=== PATIENT | male | born 1985 | race Caucasian/White ===

== ENCOUNTER 2017-04-27 09:33 | Emergency (ER) | payer MEDICAID, SELFPAY ==
[2017-04-27 09:34] VITALS: BP 163/114; PULSE 100; RESP 18; TEMP 36.4; O2SAT 91; BMI 63.2
--- NOTE | 2017-04-27 09:54 | VDLE_ITS ---
Reason For Study: LEG SWELLING Procedure LEFT Exam performed portable in ED. GSV is normal. A preliminary report was called and/or faxed CFV is compressible, spontaneous, phasic, to Dr. Roberts. competent, and demonstrates normal augmentation. FV is compressible, spontaneous, phasic, competent and demonstrates normal augmentation. POP V is compressible, spontaneous, phasic, competent and demonstrates normal augmentation. T/P Trunk is compressible. PTV is compressible. LT PerV is compressible. Interpretation Summary Deep veins of the left lower extremity are patent and compressible segmentally. There is no evidence of left lower extremity deep vein thrombosis. Valvular competence appears intact within the proximal deep venous system on the left . The left greater saphenous vein appears patent and compressible segmentally. Ordering Physician: Domingo Roberts Referring Physician: Kennedy Fernandes Performed By: Janis Mon RVT
--- NOTE | 2017-04-27 09:58 | ED.VISSUMM ---
- ER Visit Summary Date of Service: 04/27/17 Chief Complaint: Atraumatic left lower extremity redness primarily anteriorly with discomfort History of Present Illness: The patient is a 32 M 3 of mev-qrntoge-erselgoqn diabetes, obesity and sleep apnea. Patient states her last 4 days is developed redness to his left lower extremity primarily anteriorly. And discomfort. No significant calf pain. No chest pain. No new or worsening shortness of breath. He is never had a DVT or PE. He has never had cellulitis of his aware of. He denies any recent travel, surgery or hospitalization. Physical Examination: Well-appearing male vital signs are stable afebrile. Pulse ox 91% on room air borderline hypoxia. H EENT exam unremarkable neck nontender. Lungs are clear to auscultation bilaterally. Heart regular rate and rhythm no murmur. Abdomen morbidly obese but soft nontender nondistended normal bowel sounds no peritoneal signs. Extremities moving all 4. Neurovascular intact. His left lower leg has what appears to be obvious anterior cellulitis. On the mid to lower white. He has a DP pulse. His left foot is neurovascular intact. The calf itself is nontender. There is no lymphangitic streaking. There does not appear to be any involvement of the ankle joint or knee joint. Neurologic exam unremarkable. Test Results: CBC normal white count of 10. Normal H&H. BMP unremarkable. Normal gap. Normal creatinine. Glucose 155. Noninvasive study of his left lower extremity showed no DVT I did discuss this with the robotic maintenance technician. Emergency Department Course and Treatment: Most likely cellulitis of left lower extremity. An ultrasound will be obtained due to the pain and swelling to evaluate for possible DVT. I am also obtain screening labs due to his history of diabetes. Treatment Plan: Repeat exam patient is doing well at 1115. I discussed with him treatment. He will be started on both Bactrim and Keflex for 10 days for his left lower extremity cellulitis. He knows return if worse. He will follow-up with Dr. Fernandes to ensure he is improving. Disposition: Discharge Impression: Acute left lower extremity cellulitis History of hub-mqxhmww-fyvqpsuiz diabetes This note was generated with [employer] dictation software. It may contain incorrect words, spelling, and punctuation that were not noted in review of the chart prior to signing ED Disposition - Plan for ED Patient: Chief Complaint: Lower Extremity Injury Referrals: Kennedy Fernandes MD [Primary Care Provider] -
[2017-04-27 10:18] LABS: Absolute Lymphocyte Count 1.19 X10^3/ul (0.83-4.51); Absolute Neutrophil Count 8.2 X10^3/uL (2.0-7.7); Basophil# 0.02 X10^3/uL; Basophil% 0.2 % (0-1); Eosinophil# 0.31 X10^3/uL; Hematocrit 46.9 % (40-54); Hemoglobin 14.3 g/dl (13.0-16.5); Lymphocyte # 1.19 X10^3/ul (4.0); Lymphocyte % 11.4 % (19-41); Mean Corp Hgb Conc 30.5 g/gl (32-36); Mean Corpuscular Hgb 29.2 pg (27.0-32.0); Mean Corpuscular Volume 95.7 fL (80-94); Mean Platelet Vol. 9.6 fl (6.2-12.0); Monocyte% 6.7 % (0-10); Neutrophil # 8.22 X10^3/uL (2.7-7.7); Neutrophil % 78.3 % (47-70); Platelet Count 205 K/mm3 (150-450); RBC Distribution Width CV 14.5 % (11.6-14.6); RBC Distribution Width SD 50.6 fl (35.1-43.9); White Blood Count 10.5 K/mm3 (4.4-11.0)
[2017-04-27 10:21] LABS: POSITIVE COUNT NO; POSITIVE DIFFERENTIAL NO; POSITIVE MORPHOLOGY NO
[2017-04-27 10:28] LABS: Anion Gap 4 (5-15); BUN 13 mg/dL (7-18); BUN/Creat Ratio 15.1 RATIO (10-20); Calcium,Total 8.6 mg/dL (8.5-10.1); Chloride 98 mmol/L (98-107); Creatinine, Serum 0.86 mg/dL (0.70-1.30); EST Glomerular Filtration Rate 108 mL/min (>60); Est Glom Filt Rate - Afr Amer 131 mL/min (>60); Estimated Creatinine Clearance 140.72 ml/min; Glucose 155 mg/dL (70-110); Potassium 4.2 mmol/L (3.5-5.1); Sodium Level 136 mmol/L (136-145)
[2017-04-27 11:31] VITALS: BP 171/70; PULSE 95; RESP 22; O2SAT 93
[2017-04-27] MEDS: Cephalexin 250 MG Capsule 500 MG PO (11:33)
[2017-04-27] MEDS: Smz/Tmp Ds Tablet 1 TABLET PO (11:33)
--- NOTE | 2017-04-27 11:35 | ED.DEP ---
ED Disposition - Plan for ED Patient: Disposition: Home or Assisted Living Chief Complaint: Lower Extremity Injury Instructions: ED Infec Skin Cellulitis Prescriptions: Cephalexin [Keflex] 500 mg PO Q6 #40 cap Smz/Tmp Ds [Bactrim Ds] 1 tab PO BID #20 tab Referrals: Kennedy Fernandes MD [Primary Care Provider] - 3-5 Days Additional Instructions: Return if cellulitis acute left lower leg is getting a lot worse or streaking up her leg. Take both antibiotics daily for the next 10 days. The Keflex is 1 pill 4 times a day. The Bactrim is 1 pill twice a day. Call and follow-up your doctor to ensure this is improving and watch her blood sugars closely.
--- NOTE | 2017-04-27 11:42 | ED.RN ---
Verbal and written d/c instructions given to patient. All questions answered. Instructed to recheck BP and trend it and follow up with PCP. Verbalizes understanding. Gait steady out of department.
== END 2017-04-27 11:43 | disposition home or self-care (01) ==
PROVIDERS: Emergency Provider Emergency Medicine; Family Provider Family Medicine; PCP Family Medicine
DX: L03.116 Cellulitis of left lower limb (principal); E11.9 Type 2 diabetes mellitus without complications; G47.30 Sleep apnea, unspecified; Z72.0 Tobacco use
CPT/HCPCS: 80048; 85025; 93971; A4216

== ENCOUNTER 2017-04-27 19:35 | Emergency (ER) | payer MEDICAID, SELFPAY ==
[2014-11-11 08:29] VITALS: BP 154/80
[2017-04-27 09:34] VITALS: BMI 63.2
[2017-04-27 11:31] VITALS: BP 171/70
[2017-04-27 19:37] VITALS: BP 173/103; PULSE 100; RESP 27; TEMP 36.5; O2SAT 94; BMI 66.1
[2017-04-27 19:59] VITALS: O2SAT 93
--- NOTE | 2017-04-27 20:12 | RAD_ITS ---
STUDY: X-RAY CHEST REASON FOR EXAM: Male, 32 years old. Cough and chest pain TECHNIQUE: PA and lateral views of the chest. COMPARISON: None. FINDINGS: The lungs are clear and expanded. There is no demonstrated pleural abnormality. There is mild cardiac enlargement. Normal mediastinum and fariba. Normal visualized pulmonary arteries. Normal visualized aortic arch and descending thoracic aorta. Normal visualized thoracic spine. Normal visualized ribs, clavicles, and shoulders. There is no demonstrated abnormality of the visualized soft tissue structures of the upper abdomen. RAD/Chest PA and Lateral IMPRESSION: Lungs are clear. Mild cardiomegaly. Electronically Signed: Refugio Gold DO at 21:07 EST Tel , Service support ,
[2017-04-27] MEDS: Ipratropium/Albuterol Sulfate 3 ML AMPUL.NEB INHALATION (20:24)
[2017-04-27 20:26] VITALS: PULSE 100; RESP 20
[2017-04-27] MEDS: Ibuprofen 400 MG Tablet 800 MG PO (20:33)
--- NOTE | 2017-04-27 20:34 | NURSING ---
ONE MOTRIN FELL ON THE FLOOR SO ANOTHER WAS PULLED FROM THE ACUDOSE.
--- NOTE | 2017-04-27 21:11 | ED.VISSUMM ---
- ER Visit Summary Date of Service: 04/27/17 Chief Complaint: Cough and chest pain History of Present Illness: The patient is a 32 M who was seen earlier today for a leg infection was placed on Keflex and Bactrim. He states he has also been having a cough and runny nose. Tonight he felt a pop in the right side of his chest notes is very painful. He has a history of asthma Physical Examination: Afebrile vital signs are stable Gen: Well-nourished well-developed morbidly obese. BMI 66 Head: Normocephalic atraumatic Eyes: Perrl EOMI ENT: TMs clear no rhinorrhea moist mucous membranes Neck: Supple no lymphadenopathy no JVD nontender CVS: Regular rate rhythm no murmurs normal S1-S2 Respiratory: No distress patient has expiratory wheezing bilaterally. The right lower chest in the mid axillary line extending anteriorly is tender to palpation. Abdomen: Soft nontender nondistended normal bowel sounds no masses Back: Nontender Extremity: Nontender no edema Skin: Normal color no rash Neuro: alert orientated ?3 CN II-XII intact normal strength sensation reflexes gait cerebellar Psych: Normal affect normal mood Test Results: Chest x-ray was obtained which was negative Emergency Department Course and Treatment: Patient received a breathing treatment and prednisone. He will be discharged home with instructions for inhaler use prednisone. Impression: 1. Asthmatic bronchitis 2. Chest wall strain This note was generated with [employer] dictation software. It may contain incorrect words, spelling, and punctuation that were not noted in review of the chart prior to signing ED Disposition - Plan for ED Patient: Disposition: Home or Assisted Living Chief Complaint: Cough Instructions: ED Bronchitis Asthmatic, ED Strain Chest Wall Prescriptions: Ibuprofen [Motrin] 800 mg PO TID PRN PRN #20 tab PRN Reason: Pain Prednisone [Deltasone] 60 mg PO DAILY #15 tab Referrals: Kennedy Fernandes MD [Primary Care Provider] - 1 Week if not improving
[2017-04-27 21:24] VITALS: BP 153/101; PULSE 88; RESP 22; O2SAT 93
== END 2017-04-27 21:25 | disposition home or self-care (01) ==
PROVIDERS: Emergency Provider Emergency Medicine; Family Provider Family Medicine; PCP Family Medicine
DX: J45.909 Unspecified asthma, uncomplicated (principal); E66.01 Morbid (severe) obesity due to excess calories; Z68.44 Body mass index [BMI] 60.0-69.9, adult; E11.9 Type 2 diabetes mellitus without complications; I10 Essential (primary) hypertension; Z72.0 Tobacco use
CPT/HCPCS: 71046; 80048; 85025; 93971; 94640; 99283; 99284; A4216

== ENCOUNTER 2017-05-20 16:38 | Emergency (ER) | payer MEDICAID, SELFPAY ==
[2017-05-20 16:39] VITALS: BP 167/99; PULSE 99; RESP 16; TEMP 36.4; O2SAT 95; BMI 62.2
--- NOTE | 2017-05-20 17:14 | ED.VISSUMM ---
- ER Visit Summary Date of Service: 05/20/17 Chief Complaint: Scrotal edema making it difficult to urinate History of Present Illness: The patient is a 32 M and is a history of morbid obesity and mnq-yclgvyl-xpwlbaovx diabetes. Patient states that he has had swelling in his lower groin region in the past. He said swollen now and makes it difficult for him the PE because of his penis is surrounded by swollen scrotum. He denies pain. He denies trauma. He denies fever. Physical Examination: Well-appearing young male. Vital signs are stable. He is afebrile. He does not look septic or toxic. He is in no distress. He is morbidly obese. H EENT exam unremarkable. Neck nontender. No lymphadenopathy. Lungs clear few scattered wheezes but no rales or rhonchi. No distress. Heart regular rate and rhythm no murmur. Abdomen is morbidly obese but soft. No peritoneal signs. Positive bowel sounds. External area shows significant swelling of his entire scrotum. His penis is surrounded by swollen tissue and retracted. He is moving all 4 extremities. They are neurovascularly intact. He does have some edema in his lower extremities also. Neurologically is awake and alert without focal deficits. Test Results: None Emergency Department Course and Treatment: Options were discussed with the patient he chose ago the Bruner catheter. He and I did discuss that he needed to seriously consider and follow through with a plan for weight loss. Also to stop smoking. Treatment Plan: Only catheter and follow-up with his primary care physician Dr. Fernandes Disposition: dc Impression: Scrotal edema making it difficult to urinate RN to Place Bruner catheter Morbid obesity Tobacco abuse Diabetes This note was generated with [employer] dictation software. It may contain incorrect words, spelling, and punctuation that were not noted in review of the chart prior to signing ED Disposition - Plan for ED Patient: Chief Complaint: Complaint Referrals: Kennedy Fernandes MD [Primary Care Provider] -
--- NOTE | 2017-05-20 17:18 | ED.DCSUM_ITS ---
- ER Visit Summary Date of Service: 05/20/17 Chief Complaint: Scrotal edema making it difficult to urinate History of Present Illness: The patient is a 32 M and is a history of morbid obesity and xjf-zvtaiqk-afmhcpnve diabetes. Patient states that he has had swelling in his lower groin region in the past. He said swollen now and makes it difficult for him the PE because of his penis is surrounded by swollen scrotum. He denies pain. He denies trauma. He denies fever. Physical Examination: Well-appearing young male. Vital signs are stable. He is afebrile. He does not look septic or toxic. He is in no distress. He is morbidly obese. H EENT exam unremarkable. Neck nontender. No lymphadenopathy. Lungs clear few scattered wheezes but no rales or rhonchi. No distress. Heart regular rate and rhythm no murmur. Abdomen is morbidly obese but soft. No peritoneal signs. Positive bowel sounds. External area shows significant swelling of his entire scrotum. His penis is surrounded by swollen tissue and retracted. He is moving all 4 extremities. They are neurovascularly intact. He does have some edema in his lower extremities also. Neurologically is awake and alert without focal deficits. Test Results: None Emergency Department Course and Treatment: Options were discussed with the patient he chose ago the Bruner catheter. He and I did discuss that he needed to seriously consider and follow through with a plan for weight loss. Also to stop smoking. Treatment Plan: Only catheter and follow-up with his primary care physician Dr. Fernandes Disposition: dc Impression: Scrotal edema making it difficult to urinate RN to Place Bruner catheter Morbid obesity Tobacco abuse Diabetes This note was generated with [employer] dictation software. It may contain incorrect words, spelling, and punctuation that were not noted in review of the chart prior to signing ED Disposition - Plan for ED Patient: Chief Complaint: Complaint Referrals: Kennedy Fernandes MD [Primary Care Provider] -
--- NOTE | 2017-05-20 17:18 | ED.DEP ---
ED Disposition - Plan for ED Patient: Disposition: Home or Assisted Living Chief Complaint: Complaint Referrals: Kennedy Fernandes MD [Primary Care Provider] - As soon as possible Additional Instructions: You have a follow-up your primary care physician and come up with a plan for weight loss. Bruner catheter was placed just to make it more convenient for you to urinate. This will need to be changed every 30 days if not taken out altogether.
--- NOTE | 2017-05-20 19:35 | ED.RN ---
Report called to Elinor Melendrez.
== END 2017-05-20 17:45 | disposition home or self-care (01) ==
PROVIDERS: Emergency Provider Emergency Medicine; Family Provider Family Medicine; PCP Family Medicine
DX: N50.89 Other specified disorders of the male genital organs (principal); E66.01 Morbid (severe) obesity due to excess calories; E11.9 Type 2 diabetes mellitus without complications; Z72.0 Tobacco use
CPT/HCPCS: 51702; 99283

== ENCOUNTER 2017-05-20 22:19 | Emergency (ER) | payer MEDICAID, SELFPAY ==
[2017-05-20 22:19] VITALS: BP 188/124; PULSE 108; RESP 28; TEMP 36.7; O2SAT 92; BMI 61.6
--- NOTE | 2017-05-20 22:42 | ED.DCSUM_ITS ---
- ER Visit Summary Date of Service: 05/20/17 Chief Complaint: I want the Bruner taken out History of Present Illness: The patient is a 32 M was seen in the ER several hours ago. At that time he was having trouble urinating due to significant scrotal edema. He could urinate it was just flowing all over himself in his pants. That time he requested a Bruner catheter be placed which we did. There was good urine flow at the time. He states he was having discomfort and return tonight to have the catheter taken out. Physical Examination: Vital signs blood pressure elevated at 180/124. That will be rechecked prior to discharge. Lungs clear. Heart tachycardic no murmur. Morbidly obese. Moving all 4 extremities. Neurovascularly intact. Test Results: None Emergency Department Course and Treatment: Patient returned to have his Bruner catheter removed. There is took down the balloon and removed the catheter without any difficulty. There was clear yellow urine in the bag. Treatment Plan: [] Disposition: Discharge Impression: Bruner catheter removed. This note was generated with [employer] dictation software. It may contain incorrect words, spelling, and punctuation that were not noted in review of the chart prior to signing ED Disposition - Plan for ED Patient: Chief Complaint: Bruner C/O Referrals: Kennedy Fernandes MD [Primary Care Provider] -
== END 2017-05-20 23:17 | disposition home or self-care (01) ==
LOC: ED 23:00
PROVIDERS: Emergency Provider Emergency Medicine; Family Provider Family Medicine; PCP Family Medicine
DX: Z43.6 Encounter for attention to other artificial openings of urinary tract (principal); E66.01 Morbid (severe) obesity due to excess calories; E11.9 Type 2 diabetes mellitus without complications; Z72.0 Tobacco use
CPT/HCPCS: 51702; 99282; 99283

== ENCOUNTER 2017-05-27 12:59 | Inpatient (IN) | payer MEDICAID, SELFPAY ==
[2017-05-27 13:00] VITALS: BP 148/108; PULSE 104; RESP 22; TEMP 35.8; O2SAT 94; BMI 85.2
[2017-05-27 13:52] LABS: Absolute Lymphocyte Count 1.09 X10^3/ul (0.83-4.51); Absolute Neutrophil Count 8.5 X10^3/uL (2.0-7.7); Basophil# 0.02 X10^3/uL; Basophil% 0.2 % (0-1); Eosinophil# 0.14 X10^3/uL; Eosinophils% 1.3 % (0-5); Hematocrit 42.9 % (40-54); Hemoglobin 13.7 g/dl (13.0-16.5); Lymphocyte # 1.09 X10^3/ul (4.0); Lymphocyte % 10.1 % (19-41); Mean Corp Hgb Conc 31.9 g/gl (32-36); Mean Corpuscular Hgb 29.4 pg (27.0-32.0); Mean Corpuscular Volume 92.1 fL (80-94); Monocyte# 0.93 X10^3/uL; Monocyte% 8.6 % (0-10); Neutrophil # 8.53 X10^3/uL (2.7-7.7); Neutrophil % 79.2 % (47-70); POSITIVE COUNT NO; POSITIVE DIFFERENTIAL NO; POSITIVE MORPHOLOGY NO; Platelet Count 255 K/mm3 (150-450); RBC Distribution Width CV 14.9 % (11.6-14.6); RBC Distribution Width SD 48.5 fl (35.1-43.9); Red Blood Count 4.66 M/mm3 (4.6-6.2); White Blood Count 10.8 K/mm3 (4.4-11.0)
[2017-05-27 14:05] LABS: Anion Gap 6 (5-15); BUN 18 mg/dL (7-18); BUN/Creat Ratio 19.1 RATIO (10-20); Calcium,Total 8.6 mg/dL (8.5-10.1); Chloride 98 mmol/L (98-107); Creatinine, Serum 0.94 mg/dL (0.70-1.30); EST Glomerular Filtration Rate 97 mL/min (>60); Est Glom Filt Rate - Afr Amer 118 mL/min (>60); Estimated Creatinine Clearance 92.72 ml/min; Glucose 175 mg/dL (74-106); Potassium 4.4 mmol/L (3.5-5.1); Sodium Level 134 mmol/L (136-145)
--- NOTE | 2017-05-27 14:52 | ED.DCSUM_ITS ---
- ER Visit Summary Date of Service: 05/27/17 Chief Complaint: [Swelling and discomfort to the scrotum and testicles.] History of Present Illness: The patient is a 32 M [presents to the emergency department with complaint of scrotal discomfort and swelling gradually is worsened since yesterday. Patient was seen in the emergency department about 6 days ago for similar complaint and had a Bruner catheter placed as he was dribbling urine onto himself. Patient subsequently did not like the Bruner catheter so he came back to the emergency department demanding that it be removed. Patient was told to take his water pill which she had neglected for some time and he states that since taking his Lasix the swelling initially improved over the preceding several days. Yesterday started having increased discomfort and swelling to his testicles. Patient states that now they are red and warm to the touch. Denies any fever or vomiting.] She gives history of prior scrotal abscess that required incision and drainage. Physical Examination: [HEENT-PERRLA, EOMI. Cranial nerves II through XII grossly intact. TMs clear. Mucous membranes moist. No adenopathy. Cardiovascular-regular rate and rhythm without murmur or ectopy Lungs-clear to auscultation, chest wall stable without crepitus or subcu emphysema Abdomen-normoactive bowel sounds, soft, nontender, no rebound or rigidity, no peritoneal signs. exam-patient has edematous swollen scrotum is somewhat firm to palpate. There is diffuse erythema and excoriation of the skin. There is a foul odor noted. I am unable to visualize his penis that is retracted into his scrotum. I do not see any evidence of scrotal abscess at this time. Extremities-intact ?4, normal range of motion, normal pulses, atraumatic] Test Results: [CBC with differential obtained showed a white count of 10.8, Hemoccult 13.7, hematocrit 43, platelets 255. Chemistries were unremarkable. Blood cultures were ordered.] Emergency Department Course and Treatment: [Patient was given IV Zosyn as well as Diflucan.] Treatment Plan: [Patient will be admitted for IV antibiotics and antifungals.] Disposition: [Admit] Impression: Cellulitis scrotum [] This note was generated with [employer] dictation software. It may contain incorrect words, spelling, and punctuation that were not noted in review of the chart prior to signing ED Disposition - Plan for ED Patient: Chief Complaint: Male Pain/Injury Referrals: Kennedy Fernandes MD [Primary Care Provider] -
--- NOTE | 2017-05-27 15:35 | HP.PCM_ITS ---
Problem List (1) Scrotal wall abscess Status: Resolved (2) Sleep apnea Status: Chronic (3) Morbid obesity Status: Chronic (4) Essential hypertension Status: Chronic (5) Type II diabetes mellitus Status: Chronic (6) History of sinus bradycardia Status: Chronic (7) Hyperlipidemia Status: Chronic (8) Chronic asthma Status: Chronic History of Present Illness Date of Admission: 05/27/17 Chief Complaint: Scrotal swelling, pain, warmth, redness. The patient is a 32 year old M who presents to the emergency room due to scrotal pain, swelling, redness, warmth. He states this began yesterday morning and has slowly been getting worse. He states pain is so severe now that he does not want that area touched for physical exam. He has not received any pain medication in ER. Patient recently presented to ER 05/20/2017 due to scrotal swelling and dribbling of urine which was causing irritation to his groin and scrotum area. A Bruner was placed along with increase in Lasix regimen and patient was discharged from ER to follow-up with primary care. He returned to the emergency room due to discomfort related to Bruner and Bruenr was then taken out. He states he is voiding without difficulty. Patient denies fever, chills. Denies nausea, vomiting. States he has a chronic cough and a few days ago had a hard cough which she states displaced rib on the right side. He has had significant pain from this. He states his primary care physician told him this would resolve on its own. He denies recent illness. He has a past medical history of type 2 diabetes mellitus, hypertension, hyperlipidemia, obstructive sleep apnea, asthma, tobacco dependence. Patient was admitted October 2014 for scrotal abscess which required incision and drainage by Dr. Ling. Cultures from abscess at that time showed anaerobic cocci and Streptococcus agalactiae. He states he still has an opening from incision and drainage from that time. Past Medical History Past Medical History (Chronic Problems): Chronic Problems Hyperlipidemia (Chronic) Chronic asthma (Chronic) Sleep apnea (Chronic) Morbid obesity (Chronic) Essential hypertension (Chronic) Type II diabetes mellitus (Chronic) History of sinus bradycardia (Chronic) Allergies GRASS Allergy (Uncoded 05/27/17 13:00) SNEEZING Home Medications: Ambulatory Orders Medication Instructions Recorded Albuterol IH (ProAir) [Proair Hfa] 1 - 2 puff INHALATION Q4H PRN PRN 11/08/14 Lisinopril [Zestril] 20 mg PO DAILY 11/08/14 Metformin(XR) [Glucophage Xr] 1,000 mg PO BID 11/08/14 Atorvastatin Calcium [Lipitor] 20 mg PO QHS 05/20/17 Furosemide [Furosemide] 40 mg PO DAILY 05/20/17 Surgical History: - - Scrotal abscess incision and drainage Psychiatric History: No pertinent psych hx Lives: Spouse/ Significant Other Smoking Status: Current every day smoker - 1 pack per day Tobacco Use: Cigarettes Alcohol: Occasional Drugs: None - *Family History Maternal History Items: Hypertension Review of Systems Constitutional: Denies: Chills, Fever, Weight Change HEENT: Denies: Head Aches, Sinus Congestion, Sinus Drainage Cardiovascular: Reports: Edema - Scrotal. Denies: Chest Pain, Chest Tightness, Light Headedness, Syncope Respiratory: Reports: Cough, Shortness of breath upon exertion. Denies: Wheezing Gastrointestinal: Denies: Abdominal Pain, Nausea, Vomiting Genitourinary: Denies: Dysuria Musculoskeletal: Reports: - - Right rib pain. Denies: Joint Pain, Joint Tenderness Skin: Reports: - - Chronic skin changes bilateral lower extremity with dryness and erythema. Denies: Rash, Wounds Neurological: Denies: Numbness, Tingling, Focal weakness Psychiatric: Denies: Anxiety, Depression, Homicidal Ideations, Suicidal Ideations Hematologic/ Lymphatic: Denies: Easy Bruising, Easy Bleeding VTE Information - Inpt Only VTE Present on Admission: No VTE Mechan Device Prophylaxis: None VTE Pharm Prophylaxis ordered?: Yes - Physical Exam General: Alert, Oriented x3, Cooperative, No apparent distress HEENT: Atraumatic, PERRLA, EOMI, Normocephalic Neck: Supple, No JVD, Negative Carotid Bruits Lungs: Clear to auscultation, Diminished Cardiovascular: Regular Rhythm, Normal S1, Normal S2, No murmurs, Tachycardic Abdomen: Bowel Sounds Present, Soft, Non Tender, Non-Distended, Obese Extremities: No clubbing, No cyanosis, Edema - scrotal Skin: - - Redness and excoriation bilateral groin folds L>R. Scrotum with redness, warmth, edema. No open wound or abscess noted. Musculoskeletal: No Tenderness to Palpation of Joints or Extremities Neurological: Cranial nerves II-XII grossly intact, Neuro grossly intact Psych/Mental Status: Normal Affect, Appropriate Vital Signs Temp Pulse Resp BP Pulse Ox 96.4 F L 104 H 22 H 148/108 H 94 05/27/17 13:00 05/27/17 13:00 05/27/17 13:00 05/27/17 13:00 05/27/17 13:00 Oxygen Delivery Method Room Air Weight: 225.3 kg Body Mass Index (BMI) 85.2 Finger Stick Blood Glucose 144 Intake and Output for Last 24 Hours 05/25/17 05/26/17 05/27/17 23:59 23:59 23:59 Output Total 400 / 400 Balance -400 / -400 Laboratory Tests Past 24 Hrs 05/27/17 05/27/17 13:30 13:30 WBC 10.8 RBC 4.66 Hgb 13.7 Hct 42.9 MCV 92.1 MCH 29.4 MCHC 31.9 L RDW 14.9 H RDW Differential 48.5 H Plt Count 255 MPV 10.0 Immature Gran % (Auto) 0.600 Neut % (Auto) 79.2 H Lymph % (Auto) 10.1 L [place] % (Auto) 8.6 Eos % (Auto) 1.3 Baso % (Auto) 0.2 Absolute Neuts (auto) 8.5 H Absolute Lymphs (auto) 1.09 Total Counted Not Reportable Sodium 134 L Potassium 4.4 Chloride 98 Carbon Dioxide 30.0 Anion Gap 6 BUN 18 Creatinine 0.94 Estim Creat Clear Calc 92.72 Est GFR (MDRD) Af Amer 118 Est GFR (MDRD) Non-Af 97 BUN/Creatinine Ratio 19.1 Glucose 175 H Calcium 8.6 Assessment/Plan 1. Cellulitis of scrotum-history of scrotal abscess which required incision and drainage by Dr. Ling with cultures positive for Streptococcus agalactiae and anaerobic cocci. Begin IV Zosyn and IV vancomycin empirically. No open wound for culture. Consult Dr. Ling. Begin IV Lasix 40 mg twice daily. IV morphine and p.o. OxyIR as needed for pain. Blood cultures drawn in ER, pending. Patient received IV Diflucan and ER for suspected fungal involvement. Nystatin powder to groin. Elevate scrotum. Ultrasound of scrotum pending to assess for abscess. Patient is afebrile. No leukocytosis. 2. Right rib pain secondary to chronic cough-patient states he was told he had a displaced or fractured rib on the right side. Complete chest x-ray with rib views. Patient states cough is chronic in nature. Possibly secondary to asthma versus GERD? Trial of famotidine to see if this helps. Albuterol and DuoNeb breathing treatments. 3. Type 2 diabetes mellitus-hold oral regimen. Accu-Cheks before meals at bedtime with sliding scale insulin. Carb control/calorie controlled diet. Check hemoglobin A1c. 4. Hypertension-mildly elevated on admission. Continue lisinopril regimen. Home Lasix regimen switched to IV. 5. Hyperlipidemia-continue statin. 6. Obstructive sleep apnea- CPAP HS. 7. Asthma-albuterol as needed and DuoNeb ATC. No acute exacerbation. 8. Morbid obesity- Nutrition consult. Strongly encouraged diet and lifestyle modifications and outpatient follow up with [facility]. DVT prophylaxis-Lovenox subcu This patient was seen by GABRIEL Michael under the supervision of Dr. Henry.
[2017-05-27 15:37] VITALS: BP 139/90; PULSE 100; RESP 26; O2SAT 93
--- NOTE | 2017-05-27 16:02 | US_ITS ---
STUDY: SCROTUM ULTRASOUND REASON FOR EXAM: Male, 32 years old. Swollen and painful testes. TECHNIQUE: Ultrasound evaluation of the scrotum was performed with color Doppler and static mendoza-scale imaging. COMPARISON: None. FINDINGS: RIGHT TESTICLE INTRATESTICULAR: There is a normal size of the right testicle. The right testicle measures 4.5 x 4.2 x 3.1 cm. There is a homogenous echotexture. There is decreased arterial and normal venous vascularity. There is no demonstrated right testicular mass or cyst. EXTRATESTICULAR: The epididymis is enlarged. The epididymis head measures 2.5 cm. There is normal vascularity of the epididymis. There is no demonstrated epididymal cystic structure. There is a small hydrocele. There is no demonstrated varicocele. There is no demonstrated extratesticular mass or cyst. There is massive edema of the scrotal wall. LEFT TESTICLE INTRATESTICULAR: There is a normal size of the left testicle. The left testicle measures 3.5 x 4.0 x 2.7 cm. There is a homogenous echotexture. There is decreased arterial and normal venous vascularity. There is no demonstrated left testicular mass or cyst. EXTRATESTICULAR: The epididymis is enlarged. The epididymis head measures 3.3 cm. There is normal vascularity of the epididymis. There is no demonstrated epididymal cystic structure. There is a small hydrocele. There is no demonstrated varicocele. There is no demonstrated extratesticular mass or cyst. There is massive edema of the scrotal wall. US/Testicular with Arterial Flow IMPRESSION: Normal bilateral testicles. No definite torsion. Massive diffuse swelling of the scrotal wall. Bilateral enlarged epididymis and cannot exclude epididymitis. Electronically Signed: Mahendra Smith MD at 17:38 EST , Service support ,
--- NOTE | 2017-05-27 16:07 | RAD_ITS ---
STUDY: X-RAY - UNILATERAL RIBS ( RIGHT ) WITH CHEST REASON FOR EXAM: Male, 32 years old. Coughing and pain. TECHNIQUE - RIBS: 4 view(s) of the ribs. TECHNIQUE - CHEST: Single frontal view of the chest. COMPARISON: 04/27/2017. FINDINGS - RIBS: There is a nondisplaced fracture of the right eighth rib. FINDINGS - CHEST: The lungs are clear and expanded. There is no demonstrated pleural abnormality. There is mild cardiac enlargement. Normal mediastinum and fariba. Normal visualized pulmonary arteries. Normal visualized aortic arch and descending thoracic aorta. There is a nondisplaced fracture of the right eighth rib. There is no demonstrated abnormality of the visualized soft tissue structures of the upper abdomen. RAD/Ribs Uni Min 3V w/PA Chest IMPRESSION: RIBS: There is a nondisplaced fracture of the right eighth rib. CHEST: No acute chest disease. Electronically Signed: Mahendra Smith MD at 16:30 EST , Service support ,
[2017-05-27] MEDS: Ondansetron 4 MG/2 ML Vial IV (16:26)
--- NOTE | 2017-05-27 16:29 | NURSING ---
IN U/S. TECH CALLED TO ED, STS PT REFUSING TESTICULAR U/S UNTIL HE HAS PAIN MEDICINE. ORDER OBTAINED FROM DR CR. PT MEDICATED ORDERED.
[2017-05-27 16:52] LABS: Hemoglobin A1c 8.2 % (4.2-6.3)
[2017-05-27 17:40] VITALS: BP 147/68; PULSE 55; RESP 20; TEMP 36.9; O2SAT 93
[2017-05-27] MEDS: Piperacil/Tazobactam 3.375 GM/50 ML ML IV ×2 (17:42→22:31)
--- NOTE | 2017-05-27 17:47 | NURSING ---
pt just arrived to unit, ambulatory to br for void and then got in bed
[2017-05-27 18:00] VITALS: PULSE 55; RESP 20; O2SAT 93; BMI 71.2; BMI 85.3
[2017-05-27 18:06] LABS: Bedside Glucose 134 mg/dL (70-110)
[2017-05-27] MEDS: Furosemide 40 MG/4 ML Vial IV (18:43)
[2017-05-27 18:53] VITALS: O2SAT 93
[2017-05-27] MEDS: oxyCODONE 5 MG Tablet PO (19:44)
[2017-05-27] MEDS: DiphenhydrAMINE 25 MG Capsule PO (19:45)
[2017-05-27 22:00] VITALS: BP 125/57; PULSE 103; RESP 18; TEMP 36.8; O2SAT 95
[2017-05-27] MEDS: Enoxaparin 40 MG/0.4 ML Syringe SC (22:12)
[2017-05-27] MEDS: Atorvastatin Calcium 20 MG Tablet PO (22:12)
[2017-05-27] MEDS: Famotidine 20 MG Tablet PO (22:13)
[2017-05-27] MEDS: Nystatin Powder 15gm Bottle 1 APPLIC TOPICAL (22:31)
--- NOTE | 2017-05-27 23:30 | CPS ---
PT STATES HE WEARS HOME PAP BUT ISN'T POSITIVE OF HIS PRESSURE. OFFERED CPAP MACHINE FOR HS USE AND PT DECLINES AT THIS TIME.
[2017-05-28] MEDS: HYDROmorphone 1 MG/ML Syringe IV ×3 (00:19→20:35)
[2017-05-28] MEDS: oxyCODONE 5 MG Tablet PO ×4 (03:40→22:48)
[2017-05-28 03:53] VITALS: BP 136/77; PULSE 100; RESP 20; TEMP 36.6; O2SAT 95
[2017-05-28] MEDS: Nystatin Powder 15gm Bottle 1 APPLIC TOPICAL ×3 (05:27→20:43)
[2017-05-28] MEDS: Piperacil/Tazobactam 3.375 GM/50 ML ML IV ×3 (05:28→22:48)
[2017-05-28 06:33] LABS: Absolute Lymphocyte Count 0.96 X10^3/ul (0.83-4.51); Absolute Neutrophil Count 8.4 X10^3/uL (2.0-7.7); Basophil# 0.01 X10^3/uL; Basophil% 0.1 % (0-1); Eosinophil# 0.17 X10^3/uL; Eosinophils% 1.6 % (0-5); Hematocrit 42.5 % (40-54); Hemoglobin 12.9 g/dl (13.0-16.5); Lymphocyte # 0.96 X10^3/ul (4.0); Lymphocyte % 8.9 % (19-41); Mean Corp Hgb Conc 30.4 g/gl (32-36); Mean Corpuscular Hgb 28.8 pg (27.0-32.0); Mean Corpuscular Volume 94.9 fL (80-94); Mean Platelet Vol. 10.2 fl (6.2-12.0); Monocyte# 1.19 X10^3/uL; Monocyte% 11.1 % (0-10); Neutrophil # 8.38 X10^3/uL (2.7-7.7); Neutrophil % 77.8 % (47-70); Platelet Count 243 K/mm3 (150-450); RBC Distribution Width CV 15.1 % (11.6-14.6); RBC Distribution Width SD 51.9 fl (35.1-43.9); Red Blood Count 4.48 M/mm3 (4.6-6.2); White Blood Count 10.8 K/mm3 (4.4-11.0)
[2017-05-28 06:45] LABS: POSITIVE COUNT NO; POSITIVE DIFFERENTIAL NO; POSITIVE MORPHOLOGY NO
[2017-05-28 06:56] LABS: Bedside Glucose 152 mg/dL (70-110)
[2017-05-28 06:59] LABS: Anion Gap 8 (5-15); BUN 26 mg/dL (7-18); BUN/Creat Ratio 16.9 RATIO (10-20); Calcium,Total 8.3 mg/dL (8.5-10.1); Chloride 94 mmol/L (98-107); Creatinine, Serum 1.54 mg/dL (0.70-1.30); EST Glomerular Filtration Rate 55 mL/min (>60); Est Glom Filt Rate - Afr Amer 67 mL/min (>60); Estimated Creatinine Clearance 69.79 ml/min; Glucose 155 mg/dL (74-106); Potassium 4.9 mmol/L (3.5-5.1); Sodium Level 135 mmol/L (136-145)
[2017-05-28 07:15] VITALS: O2SAT 95
--- NOTE | 2017-05-28 08:40 | PCM.PROGNOTE ---
<Annabel Scott - Last Filed: 05/28/17 09:22> Subjective: Patient seen and examined. Continues to have severe pain in the scrotum and right rib area. Denies fever, chills. Denies nausea, vomiting. States he does not feel swelling of the scrotum has improved much. Denies difficulty urinating. Denies other complaints. - Physical Exam General: Alert, Oriented x3, Cooperative, No apparent distress HEENT: Atraumatic, PERRLA, EOMI, Normocephalic Neck: Supple, No JVD, Negative Carotid Bruits Lungs: Clear to auscultation, Diminished Cardiovascular: Regular rate, Regular Rhythm, Normal S1, Normal S2, No murmurs Abdomen: Bowel Sounds Present, Soft, Non Tender, Non-Distended, Obese Extremities: No clubbing, No cyanosis, Edema - Scrotal Skin: - - Scrotal edema with diffuse excoriations and erythema. Bilateral groin/inguinal diffuse redness, foul odor and excoriation. Right scrotum with prior incision from 2014 with no noted drainage. Musculoskeletal: No Tenderness to Palpation of Joints or Extremities, - - Right lateral ribs tender to palpation Neurological: Cranial nerves II-XII grossly intact, Neuro grossly intact Psych/Mental Status: Normal Affect, Appropriate Vital Signs Temp Pulse Resp BP Pulse Ox 97.8 F 100 20 H 136/77 H 95 05/28/17 03:53 05/28/17 03:53 05/28/17 03:53 05/28/17 03:53 05/28/17 07:15 Oxygen Flow Rate 2 Oxygen Delivery Method Nasal Cannula Weight: 225.3 kg Body Mass Index (BMI) 71.2 Intake and Output for Last 24 Hours 05/26/17 05/27/17 05/28/17 23:59 23:59 23:59 Intake Total 2559 / 2559 Balance 2559 / 2559 Laboratory Tests Past 24 Hrs 05/28/17 05/28/17 05:35 05:35 WBC 10.8 RBC 4.48 L Hgb 12.9 L Hct 42.5 MCV 94.9 H MCH 28.8 MCHC 30.4 L RDW 15.1 H RDW Differential 51.9 H Plt Count 243 MPV 10.2 Immature Gran % (Auto) 0.500 Neut % (Auto) 77.8 H Lymph % (Auto) 8.9 L [place] % (Auto) 11.1 H Eos % (Auto) 1.6 Baso % (Auto) 0.1 Absolute Neuts (auto) 8.4 H Absolute Lymphs (auto) 0.96 Total Counted Not Reportable Sodium 135 L Potassium 4.9 Chloride 94 L Carbon Dioxide 33.0 H Anion Gap 8 BUN 26 H Creatinine 1.54 H Estim Creat Clear Calc 69.79 Est GFR (MDRD) Af Amer 67 Est GFR (MDRD) Non-Af 55 L BUN/Creatinine Ratio 16.9 Glucose 155 H Calcium 8.3 L POC Glucose 05/28/17 05/27/17 06:49 17:54 POC Glucose 152 H 134 H Assessment/Plan Patient is a 32-year-old male admitted 05/27/2017 due to scrotal swelling, pain, warmth, redness. Patient was admitted October 2014 for scrotal abscess which required incision and drainage by Dr. Ling. Cultures from abscess at that time showed anaerobic cocci and Streptococcus agalactiae. He has a past medical history of type 2 diabetes mellitus, hypertension, hyperlipidemia, obstructive sleep apnea, asthma, tobacco dependence. 1. Cellulitis of scrotum-history of scrotal abscess which required incision and drainage by Dr. Ling in 2014 with cultures positive for Streptococcus agalactiae and anaerobic cocci. Continue IV Zosyn and IV vancomycin empirically. Continue IV Diflucan. No open wound for culture. Consult Dr. Ling. Continue IV Lasix 40 mg twice daily. Pain regimen adjusted as patient continues to have significant pain. Continue IV Dilaudid and OxyIR as needed. Blood cultures pending. Patient is afebrile. No leukocytosis. Elevate scrotum. Nystatin powder to groin. Testicular ultrasound shows normal bilateral testicles. No definite torsion. Massive diffuse swelling of the scrotal wall. Bilateral enlarged epididymis which cannot exclude epididymitis. Urology consult pending. 2. Nondisplaced right rib [id number] of the ribs shows nondisplaced fracture of the right eighth rib. Patient denies trauma to the area. States he noticed pain after cough. Patient states he has a chronic cough. He was started on famotidine. He complains of postnasal drainage. Will start on Zyrtec as well. Chest x-ray showed no other acute pulmonary process. Continue albuterol and DuoNeb breathing treatments. Continue pain regimen. 3. Acute kidney injury secondary to IV diuretics-creatinine increased to 1.54 from 0.94 on admission secondary to IV Lasix. Monitor BMP. 4. Type 2 diabetes mellitus-hold oral regimen. Accu-Cheks before meals at bedtime with sliding scale insulin. Carb control/calorie controlled diet. Hemoglobin A1c 8.2%. 5. Hypertension-stable. Continue lisinopril regimen. Home Lasix regimen switched to IV. 6. Hyperlipidemia-continue statin. 7. Obstructive sleep apnea- CPAP HS. 8. Asthma-albuterol as needed and DuoNeb ATC. No acute exacerbation. 9. Morbid obesity- Nutrition consult. Strongly encouraged diet and lifestyle modifications and outpatient follow up with molder shoulder pad. 10. Tobacco dependence-encourage smoking cessation. Nicotine replacement patch if desired. DVT prophylaxis-Lovenox subcu This patient was seen by GABRIEL Michael under the supervision of Dr. Reeves. <Jayy Reeves - Last Filed: 05/28/17 10:45> Subjective: still with Right rib pain. Still with scrotal swelling and pain. - Physical Exam General: Alert, Cooperative, No apparent distress HEENT: Atraumatic, Normocephalic Skin: - Psych/Mental Status: Normal Affect, Appropriate Vital Signs Temp Pulse Resp BP Pulse Ox 37.1 C 90 16 136/77 H 87 05/28/17 08:55 05/28/17 08:55 05/28/17 08:55 05/28/17 08:55 05/28/17 08:55 Oxygen Flow Rate 2 Oxygen Delivery Method Room Air Weight: 225.3 kg Body Mass Index (BMI) 71.2 Intake and Output for Last 24 Hours 05/26/17 05/27/17 05/28/17 23:59 23:59 23:59 Intake Total 2559 / 2559 Balance 2559 / 2559 Laboratory Tests Past 24 Hrs 05/28/17 05/28/17 05:35 05:35 WBC 10.8 RBC 4.48 L Hgb 12.9 L Hct 42.5 MCV 94.9 H MCH 28.8 MCHC 30.4 L RDW 15.1 H RDW Differential 51.9 H Plt Count 243 MPV 10.2 Immature Gran % (Auto) 0.500 Neut % (Auto) 77.8 H Lymph % (Auto) 8.9 L [place] % (Auto) 11.1 H Eos % (Auto) 1.6 Baso % (Auto) 0.1 Absolute Neuts (auto) 8.4 H Absolute Lymphs (auto) 0.96 Total Counted Not Reportable Sodium 135 L Potassium 4.9 Chloride 94 L Carbon Dioxide 33.0 H Anion Gap 8 BUN 26 H Creatinine 1.54 H Estim Creat Clear Calc 69.79 Est GFR (MDRD) Af Amer 67 Est GFR (MDRD) Non-Af 55 L BUN/Creatinine Ratio 16.9 Glucose 155 H Calcium 8.3 L POC Glucose 05/28/17 05/27/17 06:49 17:54 POC Glucose 152 H 134 H Assessment/Plan Seen and examined independently. Agree with the above note by the nurse practitioner. Data has been reviewed. 1. Scrotal cellulitis No evidence of abscess on ultrasound No crepitus nor any air noted on the ultrasound just any kind of Gila's gangrene Continue with vancomycin and Zosyn Continue with scrotal elevation. Await urology input. 2. Right rib fracture Constipation pain. Continue with pain control for now plan is to start to de-escalate pain medications as his scrotal cellulitis improves. Code Visit Inpatient E&M: 95039 Subs Hosp L2
--- NOTE | 2017-05-28 08:50 | PN_ITS ---
<Annabel Scott - Last Filed: 05/28/17 09:22> Subjective: Patient seen and examined. Continues to have severe pain in the scrotum and right rib area. Denies fever, chills. Denies nausea, vomiting. States he does not feel swelling of the scrotum has improved much. Denies difficulty urinating. Denies other complaints. - Physical Exam General: Alert, Oriented x3, Cooperative, No apparent distress HEENT: Atraumatic, PERRLA, EOMI, Normocephalic Neck: Supple, No JVD, Negative Carotid Bruits Lungs: Clear to auscultation, Diminished Cardiovascular: Regular rate, Regular Rhythm, Normal S1, Normal S2, No murmurs Abdomen: Bowel Sounds Present, Soft, Non Tender, Non-Distended, Obese Extremities: No clubbing, No cyanosis, Edema - Scrotal Skin: - - Scrotal edema with diffuse excoriations and erythema. Bilateral groin /inguinal diffuse redness, foul odor and excoriation. Right scrotum with prior incision from 2014 with no noted drainage. Musculoskeletal: No Tenderness to Palpation of Joints or Extremities, - - Right lateral ribs tender to palpation Neurological: Cranial nerves II-XII grossly intact, Neuro grossly intact Psych/Mental Status: Normal Affect, Appropriate Vital Signs Temp Pulse Resp BP Pulse Ox 97.8 F 100 20 H 136/77 H 95 05/28/17 03:53 05/28/17 03:53 05/28/17 03:53 05/28/17 03:53 05/28/17 07:15 Oxygen Flow Rate 2 Oxygen Delivery Method Nasal Cannula Weight: 225.3 kg Body Mass Index (BMI) 71.2 Intake and Output for Last 24 Hours 05/26/17 05/27/17 05/28/17 23:59 23:59 23:59 Intake Total 2559 / 2559 Balance 2559 / 2559 Laboratory Tests Past 24 Hrs 05/28/17 05/28/17 05:35 05:35 WBC 10.8 RBC 4.48 L Hgb 12.9 L Hct 42.5 MCV 94.9 H MCH 28.8 MCHC 30.4 L RDW 15.1 H RDW Differential 51.9 H Plt Count 243 MPV 10.2 Immature Gran % (Auto) 0.500 Neut % (Auto) 77.8 H Lymph % (Auto) 8.9 L [place] % (Auto) 11.1 H Eos % (Auto) 1.6 Baso % (Auto) 0.1 Absolute Neuts (auto) 8.4 H Absolute Lymphs (auto) 0.96 Total Counted Not Reportable Sodium 135 L Potassium 4.9 Chloride 94 L Carbon Dioxide 33.0 H Anion Gap 8 BUN 26 H Creatinine 1.54 H Estim Creat Clear Calc 69.79 Est GFR (MDRD) Af Amer 67 Est GFR (MDRD) Non-Af 55 L BUN/Creatinine Ratio 16.9 Glucose 155 H Calcium 8.3 L POC Glucose 05/28/17 05/27/17 06:49 17:54 POC Glucose 152 H 134 H Assessment/Plan Patient is a 32-year-old male admitted 05/27/2017 due to scrotal swelling, pain, warmth, redness. Patient was admitted October 2014 for scrotal abscess which required incision and drainage by Dr. Ling. Cultures from abscess at that time showed anaerobic cocci and Streptococcus agalactiae. He has a past medical history of type 2 diabetes mellitus, hypertension, hyperlipidemia, obstructive sleep apnea, asthma, tobacco dependence. 1. Cellulitis of scrotum-history of scrotal abscess which required incision and drainage by Dr. Ling in 2014 with cultures positive for Streptococcus agalactiae and anaerobic cocci. Continue IV Zosyn and IV vancomycin empirically. Continue IV Diflucan. No open wound for culture. Consult Dr. Ling. Continue IV Lasix 40 mg twice daily. Pain regimen adjusted as patient continues to have significant pain. Continue IV Dilaudid and OxyIR as needed. Blood cultures pending. Patient is afebrile. No leukocytosis. Elevate scrotum. Nystatin powder to groin. Testicular ultrasound shows normal bilateral testicles. No definite torsion. Massive diffuse swelling of the scrotal wall. Bilateral enlarged epididymis which cannot exclude epididymitis. Urology consult pending. 2. Nondisplaced right rib [id number] of the ribs shows nondisplaced fracture of the right eighth rib. Patient denies trauma to the area. States he noticed pain after cough. Patient states he has a chronic cough. He was started on famotidine. He complains of postnasal drainage. Will start on Zyrtec as well. Chest x-ray showed no other acute pulmonary process. Continue albuterol and DuoNeb breathing treatments. Continue pain regimen. 3. Acute kidney injury secondary to IV diuretics-creatinine increased to 1.54 from 0.94 on admission secondary to IV Lasix. Monitor BMP. 4. Type 2 diabetes mellitus-hold oral regimen. Accu-Cheks before meals at bedtime with sliding scale insulin. Carb control/calorie controlled diet. Hemoglobin A1c 8.2%. 5. Hypertension-stable. Continue lisinopril regimen. Home Lasix regimen switched to IV. 6. Hyperlipidemia-continue statin. 7. Obstructive sleep apnea- CPAP HS. 8. Asthma-albuterol as needed and DuoNeb ATC. No acute exacerbation. 9. Morbid obesity- Nutrition consult. Strongly encouraged diet and lifestyle modifications and outpatient follow up with port drier. 10. Tobacco dependence-encourage smoking cessation. Nicotine replacement patch if desired. DVT prophylaxis-Lovenox subcu This patient was seen by GABRIEL Michael under the supervision of Dr. Reeves. <Jyay Reeves - Last Filed: 05/28/17 10:45> Subjective: still with Right rib pain. Still with scrotal swelling and pain. - Physical Exam General: Alert, Cooperative, No apparent distress HEENT: Atraumatic, Normocephalic Skin: - Psych/Mental Status: Normal Affect, Appropriate Vital Signs Temp Pulse Resp BP Pulse Ox 37.1 C 90 16 136/77 H 87 05/28/17 08:55 05/28/17 08:55 05/28/17 08:55 05/28/17 08:55 05/28/17 08:55 Oxygen Flow Rate 2 Oxygen Delivery Method Room Air Weight: 225.3 kg Body Mass Index (BMI) 71.2 Intake and Output for Last 24 Hours 05/26/17 05/27/17 05/28/17 23:59 23:59 23:59 Intake Total 2559 / 2559 Balance 2559 / 2559 Laboratory Tests Past 24 Hrs 05/28/17 05/28/17 05:35 05:35 WBC 10.8 RBC 4.48 L Hgb 12.9 L Hct 42.5 MCV 94.9 H MCH 28.8 MCHC 30.4 L RDW 15.1 H RDW Differential 51.9 H Plt Count 243 MPV 10.2 Immature Gran % (Auto) 0.500 Neut % (Auto) 77.8 H Lymph % (Auto) 8.9 L [place] % (Auto) 11.1 H Eos % (Auto) 1.6 Baso % (Auto) 0.1 Absolute Neuts (auto) 8.4 H Absolute Lymphs (auto) 0.96 Total Counted Not Reportable Sodium 135 L Potassium 4.9 Chloride 94 L Carbon Dioxide 33.0 H Anion Gap 8 BUN 26 H Creatinine 1.54 H Estim Creat Clear Calc 69.79 Est GFR (MDRD) Af Amer 67 Est GFR (MDRD) Non-Af 55 L BUN/Creatinine Ratio 16.9 Glucose 155 H Calcium 8.3 L POC Glucose 05/28/17 05/27/17 06:49 17:54 POC Glucose 152 H 134 H Assessment/Plan Seen and examined independently. Agree with the above note by the nurse practitioner. Data has been reviewed. 1. Scrotal cellulitis * No evidence of abscess on ultrasound * No crepitus nor any air noted on the ultrasound just any kind of Gila's gangrene * Continue with vancomycin and Zosyn * Continue with scrotal elevation. * Await urology input. 2. Right rib fracture * Constipation pain. Continue with pain control for now plan is to start to de- escalate pain medications as his scrotal cellulitis improves. Code Visit Inpatient E&M: 71120 Subs Hosp L2
[2017-05-28 08:55] VITALS: BP 136/77; PULSE 90; RESP 16; TEMP 37.1; O2SAT 87; O2SAT 93
[2017-05-28] MEDS: Aspirin 81 MG TAB.CHEW PO (08:56)
[2017-05-28] MEDS: Furosemide 40 MG/4 ML Vial IV (08:57)
[2017-05-28] MEDS: Famotidine 20 MG Tablet PO ×2 (08:57→20:39)
[2017-05-28] MEDS: Lisinopril 20 MG Tablet PO (08:57)
[2017-05-28] MEDS: Enoxaparin 40 MG/0.4 ML Syringe SC (08:57)
--- NOTE | 2017-05-28 11:02 | CASEMGMT ---
LYNN MONTENEGRO Face to Face with patient for initial transition planning/care coordination assessment. RN MONI introduced self and role at [facility]. Patient lying in bed, alert and oriented, patient's girlfriend in room. Patient willing to participate in assessment and is able to answer all questions appropriately. Care providers, pharmacy, and demographics verified. See link attached. Patient wishes to discharge home, denies need for home health at this time. Patient states he has no further needs or concerns at this time. CM to follow for discharge planning needs that may arise. Disposition Plan: Patient to discharge home with family support and follow-up plans in place.
--- NOTE | 2017-05-28 11:23 | NURSING ---
Was asked to see patient for scrotal edema. pt does not currently have any open areas. patient states that there has been no drainage, just a lot of edema and discomfort. patient states that the scrotal ultrasound was negative for an abscess. Pt awaiting consult with Dr Ling.
[2017-05-28 12:21] LABS: Bedside Glucose 267 mg/dL (70-110)
--- NOTE | 2017-05-28 13:12 | PCM.RX.CS ---
Subjective/Objective Date: 05/28/17 Time: 13:12 Antibiotic: Vancomycin Type of Consult: New start Indications for Therapy: CELLULITIS Labs: Sodium 135 mmol/L (136-145) L 05/28/17 05:35 Potassium 4.9 mmol/L (3.5-5.1) 05/28/17 05:35 Chloride 94 mmol/L (98-107) L 05/28/17 05:35 Carbon Dioxide 33.0 mmol/L (21.0-32.0) H 05/28/17 05:35 Anion Gap 8 (5-15) 05/28/17 05:35 BUN 26 mg/dL (7-18) H 05/28/17 05:35 Creatinine 1.54 mg/dL (0.70-1.30) H 05/28/17 05:35 Est GFR (MDRD) Af Amer 67 mL/min (>60) 05/28/17 05:35 Est GFR (MDRD) Non-Af 55 mL/min (>60) L 05/28/17 05:35 BUN/Creatinine Ratio 16.9 RATIO (10-20) 05/28/17 05:35 Glucose 155 mg/dL (74-106) H 05/28/17 05:35 Estimated Creatinine Clearance: 65-70 ML/MIN Pharmacy Plan for Drug Dosing: Patient received initial dose of 2500mg x 1 in ER 05/27/17. Patient initiated on 2000mg IV q12h at [id number]. Estimated Trough to be 12 mcg/ml. Recommended check at 1800 on 05.28.17 due to increasing Cr from 0.9 to 1.5. Pharmacy Service will continue to monitor and adjust dosing as required. Pharmacy to order these labs: Trough Labs to be done on (date): 05/28/17 Labs to be done (time): 18:00
--- NOTE | 2017-05-28 13:22 | PHA.PHARE_ITS ---
Subjective/Objective Date: 05/28/17 Time: 13:12 Antibiotic: Vancomycin Type of Consult: New start Indications for Therapy: CELLULITIS Labs: Sodium 135 mmol/L (136-145) L 05/28/17 05:35 Potassium 4.9 mmol/L (3.5-5.1) 05/28/17 05:35 Chloride 94 mmol/L (98-107) L 05/28/17 05:35 Carbon Dioxide 33.0 mmol/L (21.0-32.0) H 05/28/17 05:35 Anion Gap 8 (5-15) 05/28/17 05:35 BUN 26 mg/dL (7-18) H 05/28/17 05:35 Creatinine 1.54 mg/dL (0.70-1.30) H 05/28/17 05:35 Est GFR (MDRD) Af Amer 67 mL/min (>60) 05/28/17 05:35 Est GFR (MDRD) Non-Af 55 mL/min (>60) L 05/28/17 05:35 BUN/Creatinine Ratio 16.9 RATIO (10-20) 05/28/17 05:35 Glucose 155 mg/dL (74-106) H 05/28/17 05:35 Estimated Creatinine Clearance: 65-70 ML/MIN Pharmacy Plan for Drug Dosing: Patient received initial dose of 2500mg x 1 in ER 05/27/17. Patient initiated on 2000mg IV q12h at [id number]. Estimated Trough to be 12 mcg/ml. Recommended check at 1800 on 05.28.17 due to increasing Cr from 0.9 to 1.5. Pharmacy Service will continue to monitor and adjust dosing as required. Pharmacy to order these labs: Trough Labs to be done on (date): 05/28/17 Labs to be done (time): 18:00
[2017-05-28 14:40] VITALS: BP 123/65; PULSE 97; RESP 20; TEMP 36.9; O2SAT 92
[2017-05-28] MEDS: Acetaminophen 325 MG Tablet 650 MG PO (16:08)
--- NOTE | 2017-05-28 17:53 | CON.PCM_ITS ---
Problem List (1) Scrotal edema Status: Acute Reason for Consult Date of Consultation: 05/28/17 Reason for Consultation: Scrotal edema History of Present Illness: The patient is a 32 year old male with multiple medical problems presents to the hospital with swelling of lower extremities and swollen scrotum. There is no crepitance. No sign of infection. Scattered red swollen scrotum but no signs of cellulitis. This is more edema from fluid collection may have a minor infection but no abscess formation. No surgical intervention is necessary. Past Medical History Past Medical History (Chronic Problems): Chronic Problems Hyperlipidemia (Chronic) Chronic asthma (Chronic) Sleep apnea (Chronic) Morbid obesity (Chronic) Essential hypertension (Chronic) Type II diabetes mellitus (Chronic) History of sinus bradycardia (Chronic) Allergies GRASS Allergy (Uncoded 05/27/17 13:00) SNEEZING Home Medications: Ambulatory Orders Medication Instructions Recorded Albuterol IH (ProAir) [Proair Hfa] 1 - 2 puff INHALATION Q4H PRN PRN 11/08/14 Lisinopril [Zestril] 20 mg PO DAILY 11/08/14 Metformin(XR) [Glucophage Xr] 1,000 mg PO BID 11/08/14 Atorvastatin Calcium [Lipitor] 20 mg PO QHS 05/20/17 Furosemide [Furosemide] 40 mg PO DAILY 05/20/17 Surgical History: - - Scrotal abscess incision and drainage Psychiatric History: No pertinent psych hx Lives: Spouse/ Significant Other Smoking Status: Current every day smoker Tobacco Use: Cigarettes Alcohol: Occasional Drugs: None - *Family History Maternal History Items: Hypertension Review of Systems Constitutional: Denies: Chills, Fever, Weight Change HEENT: Denies: Head Aches, Sinus Congestion, Sinus Drainage Cardiovascular: Denies: Chest Pain, Palpitations Respiratory: Denies: Cough, Shortness of breath at rest, Sputum production Gastrointestinal: Denies: Abdominal Pain, Nausea, Vomiting Genitourinary: Denies: Dysuria Musculoskeletal: Denies: Joint Pain, Joint Tenderness Skin: Denies: Rash, Wounds Neurological: Denies: Numbness, Tingling, Focal weakness Psychiatric: Denies: Anxiety, Depression, Homicidal Ideations, Suicidal Ideations Hematologic/ Lymphatic: Denies: Easy Bruising, Easy Bleeding Physical Exam Objective: Abdomen is very large and obese, testicles extremely swollen edematous testicles no cellulitis but does have some mild erythema recommend he keep these elevated. Has brawny edema lower both extremities. - Physical Exam Vital Signs Temp 98.5 F 05/28/17 14:40 Pulse 97 05/28/17 14:40 Resp 20 H 05/28/17 14:40 BP 123/65 H 05/28/17 14:40 Pulse Ox 92 05/28/17 14:40 Intake & Output 05/26/17 05/27/17 05/28/17 23:59 23:59 23:59 Intake Total 3414 / 3414 Balance 3414 / 3414 Weight: 225.3 kg 225.3 kg Intake: Oral 1900 / 1900 IV fluid/meds 1514 / 1514 Other: Number of Voids 2 General: Alert, Oriented x3 HEENT: Atraumatic Oral: Moist Mucosa Neck: Supple Lungs: Normal air movement Cardiovascular: Regular rate Abdomen: Soft, Obese Groin: No hernia Laboratory Tests Past 24 Hrs 05/28/17 05/28/17 05:35 05:35 WBC 10.8 RBC 4.48 L Hgb 12.9 L Hct 42.5 MCV 94.9 H MCH 28.8 MCHC 30.4 L RDW 15.1 H RDW Differential 51.9 H Plt Count 243 MPV 10.2 Immature Gran % (Auto) 0.500 Neut % (Auto) 77.8 H Lymph % (Auto) 8.9 L [place] % (Auto) 11.1 H Eos % (Auto) 1.6 Baso % (Auto) 0.1 Absolute Neuts (auto) 8.4 H Absolute Lymphs (auto) 0.96 Total Counted Not Reportable Sodium 135 L Potassium 4.9 Chloride 94 L Carbon Dioxide 33.0 H Anion Gap 8 BUN 26 H Creatinine 1.54 H Estim Creat Clear Calc 69.79 Est GFR (MDRD) Af Amer 67 Est GFR (MDRD) Non-Af 55 L BUN/Creatinine Ratio 16.9 Glucose 155 H Calcium 8.3 L Assessment/Plan Active and Suspected Problems Scrotal edema (Acute) 32-year-old male with multiple medical problems who presents with swelling in his lower extremities also has swelling and accumulation of edema in his testicles currently there is no signs of abscess infection and gastroparesis superficial cellulitis with treat his with IV antibiotics but otherwise no surgical intervention is necessary. Call me with any questions.
[2017-05-28 18:46] LABS: Bedside Glucose 192 mg/dL (70-110)
[2017-05-28 19:15] VITALS: PULSE 90; RESP 18; O2SAT 87
[2017-05-28] MEDS: Ipratropium/Albuterol Sulfate 3 ML AMPUL.NEB INHALATION (19:15)
[2017-05-28 19:18] LABS: Vancomycin, Trough Level 12.8 ug/mL (5.0-15.0)
--- NOTE | 2017-05-28 19:43 | CPS ---
set up pt own cpap machine added distilled water-
[2017-05-28] MEDS: 0.9% NaCl Peripheral Flush Adult/Peds IV (20:35)
[2017-05-28] MEDS: Atorvastatin Calcium 20 MG Tablet PO (20:39)
[2017-05-28 20:40] VITALS: BP 124/61; PULSE 86; RESP 16; TEMP 36.8; O2SAT 95
[2017-05-28 22:56] LABS: Bedside Glucose 206 mg/dL (70-110)
[2017-05-29 02:30] VITALS: BP 137/75; PULSE 85; RESP 16; TEMP 36.6; O2SAT 92
[2017-05-29] MEDS: Nystatin Powder 15gm Bottle 1 APPLIC TOPICAL ×3 (05:06→21:10)
[2017-05-29] MEDS: Piperacil/Tazobactam 3.375 GM/50 ML ML IV (05:06)
[2017-05-29] MEDS: HYDROmorphone 1 MG/ML Syringe IV (05:08)
[2017-05-29] MEDS: 0.9% NaCl Peripheral Flush Adult/Peds IV ×3 (05:08→10:47)
[2017-05-29 06:03] LABS: Absolute Lymphocyte Count 0.82 X10^3/ul (0.83-4.51); Basophil# 0.01 X10^3/uL; Basophil% 0.1 % (0-1); Eosinophil# 0.18 X10^3/uL; Eosinophils% 2.3 % (0-5); Hematocrit 41.8 % (40-54); Lymphocyte # 0.82 X10^3/ul (4.0); Lymphocyte % 10.4 % (19-41); Mean Corp Hgb Conc 31.1 g/gl (32-36); Mean Corpuscular Hgb 29.2 pg (27.0-32.0); Mean Corpuscular Volume 93.9 fL (80-94); Mean Platelet Vol. 9.8 fl (6.2-12.0); Monocyte% 10.1 % (0-10); Neutrophil # 6.03 X10^3/uL (2.7-7.7); Neutrophil % 76.3 % (47-70); Platelet Count 239 K/mm3 (150-450); RBC Distribution Width CV 14.9 % (11.6-14.6); RBC Distribution Width SD 50.1 fl (35.1-43.9); Red Blood Count 4.45 M/mm3 (4.6-6.2); White Blood Count 7.9 K/mm3 (4.4-11.0)
[2017-05-29 06:07] LABS: POSITIVE COUNT NO; POSITIVE DIFFERENTIAL NO; POSITIVE MORPHOLOGY NO
[2017-05-29 06:29] LABS: Anion Gap 6 (5-15); BUN 29 mg/dL (7-18); Calcium,Total 8.4 mg/dL (8.5-10.1); Chloride 97 mmol/L (98-107); Creatinine, Serum 1.61 mg/dL (0.70-1.30); EST Glomerular Filtration Rate 52 mL/min (>60); Est Glom Filt Rate - Afr Amer 63 mL/min (>60); Estimated Creatinine Clearance 66.75 ml/min; Glucose 174 mg/dL (74-106); Potassium 4.5 mmol/L (3.5-5.1); Sodium Level 134 mmol/L (136-145)
[2017-05-29] MEDS: oxyCODONE 5 MG Tablet PO ×3 (06:36→17:33)
[2017-05-29 06:41] LABS: Bedside Glucose 174 mg/dL (70-110)
[2017-05-29 08:11] VITALS: BP 138/80; PULSE 88; RESP 16; TEMP 36.3; O2SAT 94
[2017-05-29] MEDS: Famotidine 20 MG Tablet PO ×2 (08:18→21:10)
[2017-05-29] MEDS: Enoxaparin 40 MG/0.4 ML Syringe SC (08:18)
[2017-05-29] MEDS: Aspirin 81 MG TAB.CHEW PO (08:18)
[2017-05-29] MEDS: Lisinopril 20 MG Tablet PO (08:18)
--- NOTE | 2017-05-29 08:18 | PCM.RX.CS ---
Subjective/Objective Date: 05/29/17 Time: 08:19 Antibiotic: Piperacillin/Tazobactam, Vancomycin Type of Consult: Follow-up Current Antibiotic Regimen: Medications Piperacillin Sod/Tazobactam Sod (Zosyn) 3.375 gm in 50 mls @ 100 mls/hr IV Q6 CJ Vancomycin HCl 2,000 mg/ (Sodium Chloride) 540 mls @ 260 mls/hr IV Q12H CJ Stop: 05/29/17 11:05 Indications for Therapy: Skin/Soft Tissue Labs: Sodium 134 mmol/L (136-145) L 05/29/17 05:40 Potassium 4.5 mmol/L (3.5-5.1) 05/29/17 05:40 Chloride 97 mmol/L (98-107) L 05/29/17 05:40 Carbon Dioxide 31.0 mmol/L (21.0-32.0) 05/29/17 05:40 Anion Gap 6 (5-15) 05/29/17 05:40 BUN 29 mg/dL (7-18) H 05/29/17 05:40 Creatinine 1.61 mg/dL (0.70-1.30) H 05/29/17 05:40 Est GFR (MDRD) Af Amer 63 mL/min (>60) 05/29/17 05:40 Est GFR (MDRD) Non-Af 52 mL/min (>60) L 05/29/17 05:40 BUN/Creatinine Ratio 18.0 RATIO (10-20) 05/29/17 05:40 Glucose 174 mg/dL (74-106) H 05/29/17 05:40 Vancomycin Trough 12.8 ug/mL (5.0-15.0) 05/28/17 18:30 Estimated Creatinine Clearance: 65-70 mL/min Pharmacy Plan for Drug Dosing: Initial vancomycin trough within goal range. SCr increased slightly again from yesterday. Recommend to decrease to 1750mg IV q12h. Re-check trough in 48 hours to ensure patient does not accumulate quickly once at steady-state. Pharmacy Service will continue to monitor and adjust dosing as required. Pharmacy to order these labs: Trough - Vancomycin Labs to be done on (date): 05/31/17 Labs to be done (time): 09:00
[2017-05-29] MEDS: Acetaminophen 325 MG Tablet 650 MG PO ×2 (08:21→17:33)
--- NOTE | 2017-05-29 09:33 | PCM.PROGNOTE ---
<Annabel Scott - Last Filed: 05/29/17 09:41> Patient Problems: Active and Suspected Problems Scrotal edema (Acute) Subjective: Patient seen and examined. States right rib and scrotum pain is still horrible. He states right rib pain is worse when attempting to get in and out of bed and pulling himself up. He states he does not feel pain in the scrotum has. Continues to deny fever, chills. Denies difficulty urinating. Denies other complaints. - Physical Exam General: Alert, Oriented x3, Cooperative HEENT: Atraumatic, PERRLA, EOMI, Normocephalic Neck: Supple, No JVD, Negative Carotid Bruits Lungs: Clear to auscultation, Diminished Cardiovascular: Regular rate, Regular Rhythm, Normal S1, Normal S2, No murmurs Abdomen: Bowel Sounds Present, Soft, Non Tender, Non-Distended, Obese Extremities: No clubbing, No cyanosis, Edema - Scrotal edema Skin: - - Scrotal edema with diffuse excoriations and erythema. Bilateral groin/inguinal diffuse redness, foul odor and excoriation. Right scrotum with prior incision from 2014 with no noted drainage. Musculoskeletal: No Tenderness to Palpation of Joints or Extremities, - - Right lateral rib TTP Neurological: Cranial nerves II-XII grossly intact, Neuro grossly intact Psych/Mental Status: Normal Affect, Appropriate Vital Signs Temp Pulse Resp BP Pulse Ox 97.3 F L 88 16 138/80 H 94 05/29/17 08:11 05/29/17 08:11 05/29/17 08:11 05/29/17 08:11 05/29/17 08:11 Oxygen Flow Rate (L/min) 2 Oxygen Delivery Method Room Air Weight: 225.3 kg Body Mass Index (BMI) 71.2 Intake and Output for Last 24 Hours 05/27/17 05/28/17 05/29/17 23:59 23:59 23:59 Intake Total 3900 / 3900 2236.5 / 2236.5 Balance 3900 / 3900 2236.5 / 2236.5 Laboratory Tests Past 24 Hrs 05/28/17 05/29/17 05/29/17 18:30 05:40 05:40 WBC 7.9 RBC 4.45 L Hgb 13.0 Hct 41.8 MCV 93.9 MCH 29.2 MCHC 31.1 L RDW 14.9 H RDW Differential 50.1 H Plt Count 239 MPV 9.8 Immature Gran % (Auto) 0.800 Neut % (Auto) 76.3 H Lymph % (Auto) 10.4 L [place] % (Auto) 10.1 H Eos % (Auto) 2.3 Baso % (Auto) 0.1 Absolute Neuts (auto) 6.0 Absolute Lymphs (auto) 0.82 L Total Counted Not Reportable Sodium 134 L Potassium 4.5 Chloride 97 L Carbon Dioxide 31.0 Anion Gap 6 BUN 29 H Creatinine 1.61 H Estim Creat Clear Calc 66.75 Est GFR (MDRD) Af Amer 63 Est GFR (MDRD) Non-Af 52 L BUN/Creatinine Ratio 18.0 Glucose 174 H Calcium 8.4 L Vancomycin Trough 12.8 POC Glucose 05/29/17 05/28/17 05/28/17 06:34 22:44 16:54 POC Glucose 174 H 206 H 192 H 05/28/17 11:34 POC Glucose 267 H Assessment/Plan Active and Suspected Problems Scrotal edema (Acute) Patient is a 32-year-old male admitted 05/27/2017 due to scrotal swelling, pain, warmth, redness. Patient was admitted October 2014 for scrotal abscess which required incision and drainage by Dr. Ling. Cultures from abscess at that time showed anaerobic cocci and Streptococcus agalactiae. He has a past medical history of type 2 diabetes mellitus, hypertension, hyperlipidemia, obstructive sleep apnea, asthma, tobacco dependence. 1. Cellulitis of scrotum-history of scrotal abscess which required incision and drainage by Dr. Ling in 2014 with cultures positive for Streptococcus agalactiae and anaerobic cocci. Dr. Ling assessed patient and does not feel there is sign of abscess infection. Continue to treat superficial cellulitis with IV antibiotics. No surgical intervention necessary. IV vancomycin and Zosyn discontinued. Patient was started on IV Levaquin. Continue IV Dilaudid and OxyIR as needed. Blood cultures pending. Elevate scrotum. IV Lasix 40 mg twice daily. Testicular ultrasound shows normal bilateral testicles. No definite torsion. Massive diffuse swelling of the scrotal wall. Bilateral enlarged epididymis which cannot exclude epididymitis. 2. Nondisplaced right rib [id number] of the ribs shows nondisplaced fracture of the right eighth rib. Patient denies trauma to the area. States he noticed pain after cough. Patient states he has a chronic cough. He was started on famotidine. He complains of postnasal drainage. Will start on Zyrtec as well. Chest x-ray showed no other acute pulmonary process. Continue albuterol and DuoNeb breathing treatments. Continue pain regimen. 3. Acute kidney injury-suspected secondary to IV diuretics versus IV vancomycin. Antibiotic regimen changed to Levaquin. IV Lasix was discontinued yesterday with no improvement and creat. Resume IV Lasix. 4. Type 2 diabetes mellitus-hold oral regimen. Accu-Cheks before meals at bedtime with sliding scale insulin. Carb control/calorie controlled diet. Hemoglobin A1c 8.2%. 5. Hypertension-stable. Continue lisinopril regimen. 6. Hyperlipidemia-continue statin. 7. Obstructive sleep apnea- CPAP HS. 8. Asthma-albuterol as needed and DuoNeb ATC. No acute exacerbation. 9. Morbid obesity- Nutrition consult. Strongly encouraged diet and lifestyle modifications and outpatient follow up with mold yard supervisor. 10. Tobacco dependence-encourage smoking cessation. Nicotine replacement patch if desired. DVT prophylaxis-Lovenox subcu This patient was seen by GABRIEL Michael under the supervision of Dr. Reeves. <Jayy Reeves - Last Filed: 05/29/17 16:58> - Physical Exam General: Alert, Cooperative HEENT: Atraumatic, Normocephalic Skin: - Vital Signs Temp Pulse Resp BP Pulse Ox 36.3 C L 88 16 138/80 H 94 05/29/17 08:11 05/29/17 08:11 05/29/17 08:11 05/29/17 08:11 05/29/17 08:11 Oxygen Flow Rate (L/min) 2 Oxygen Delivery Method Room Air Weight: 225.3 kg Body Mass Index (BMI) 71.2 Intake and Output for Last 24 Hours 05/27/17 05/28/17 05/29/17 23:59 23:59 23:59 Intake Total 3900 / 3900 2236.5 / 2236.5 Balance 3900 / 3900 2236.5 / 2236.5 Laboratory Tests Past 24 Hrs 05/28/17 05/29/17 05/29/17 18:30 05:40 05:40 WBC 7.9 RBC 4.45 L Hgb 13.0 Hct 41.8 MCV 93.9 MCH 29.2 MCHC 31.1 L RDW 14.9 H RDW Differential 50.1 H Plt Count 239 MPV 9.8 Immature Gran % (Auto) 0.800 Neut % (Auto) 76.3 H Lymph % (Auto) 10.4 L [place] % (Auto) 10.1 H Eos % (Auto) 2.3 Baso % (Auto) 0.1 Absolute Neuts (auto) 6.0 Absolute Lymphs (auto) 0.82 L Total Counted Not Reportable Sodium 134 L Potassium 4.5 Chloride 97 L Carbon Dioxide 31.0 Anion Gap 6 BUN 29 H Creatinine 1.61 H Estim Creat Clear Calc 66.75 Est GFR (MDRD) Af Amer 63 Est GFR (MDRD) Non-Af 52 L BUN/Creatinine Ratio 18.0 Glucose 174 H Calcium 8.4 L Vancomycin Trough 12.8 POC Glucose 05/29/17 05/29/17 05/28/17 11:29 06:34 22:44 POC Glucose 220 H 174 H 206 H 05/28/17 16:54 POC Glucose 192 H Assessment/Plan Seen and examined independently. Agree with the above note by the nurse practitioner. Data has been reviewed. 1. Scrotal cellulitis No evidence of abscess on ultrasound No crepitus nor any air noted on the ultrasound just any kind of Gila's gangrene Changed to cefazolin and Levaquin Continue with scrotal elevation. No surgical intervention necessary at this time. 2. Right rib fracture Constipation pain. Continue with pain control for now plan is to start to de-escalate pain medications as his scrotal cellulitis improves. 3. Acute kidney injury May be related with the vancomycin I am going to discontinue the vancomycin as cultures are thus far negative. Urine studies are ordered 4. Anasarca Patient is on Lasix chronically. Patient does have known obstructive sleep apnea to which he uses a CPAP. I am concerned about pulmonary hypertension or even heart failure and echocardiogram has been ordered. 5. DVT prophylaxis with Lovenox Code Visit Inpatient E&M: 74359 Subs Hosp L2
[2017-05-29] MEDS: Furosemide 40 MG/4 ML Vial IV ×2 (09:35→17:21)
--- NOTE | 2017-05-29 09:41 | PN_ITS ---
<Annabel Scott - Last Filed: 05/29/17 09:41> Patient Problems: Active and Suspected Problems Scrotal edema (Acute) Subjective: Patient seen and examined. States right rib and scrotum pain is still horrible . He states right rib pain is worse when attempting to get in and out of bed and pulling himself up. He states he does not feel pain in the scrotum has. Continues to deny fever, chills. Denies difficulty urinating. Denies other complaints. - Physical Exam General: Alert, Oriented x3, Cooperative HEENT: Atraumatic, PERRLA, EOMI, Normocephalic Neck: Supple, No JVD, Negative Carotid Bruits Lungs: Clear to auscultation, Diminished Cardiovascular: Regular rate, Regular Rhythm, Normal S1, Normal S2, No murmurs Abdomen: Bowel Sounds Present, Soft, Non Tender, Non-Distended, Obese Extremities: No clubbing, No cyanosis, Edema - Scrotal edema Skin: - - Scrotal edema with diffuse excoriations and erythema. Bilateral groin /inguinal diffuse redness, foul odor and excoriation. Right scrotum with prior incision from 2014 with no noted drainage. Musculoskeletal: No Tenderness to Palpation of Joints or Extremities, - - Right lateral rib TTP Neurological: Cranial nerves II-XII grossly intact, Neuro grossly intact Psych/Mental Status: Normal Affect, Appropriate Vital Signs Temp Pulse Resp BP Pulse Ox 97.3 F L 88 16 138/80 H 94 05/29/17 08:11 05/29/17 08:11 05/29/17 08:11 05/29/17 08:11 05/29/17 08:11 Oxygen Flow Rate (L/min) 2 Oxygen Delivery Method Room Air Weight: 225.3 kg Body Mass Index (BMI) 71.2 Intake and Output for Last 24 Hours 05/27/17 05/28/17 05/29/17 23:59 23:59 23:59 Intake Total 3900 / 3900 2236.5 / 2236.5 Balance 3900 / 3900 2236.5 / 2236.5 Laboratory Tests Past 24 Hrs 05/28/17 05/29/17 05/29/17 18:30 05:40 05:40 WBC 7.9 RBC 4.45 L Hgb 13.0 Hct 41.8 MCV 93.9 MCH 29.2 MCHC 31.1 L RDW 14.9 H RDW Differential 50.1 H Plt Count 239 MPV 9.8 Immature Gran % (Auto) 0.800 Neut % (Auto) 76.3 H Lymph % (Auto) 10.4 L [place] % (Auto) 10.1 H Eos % (Auto) 2.3 Baso % (Auto) 0.1 Absolute Neuts (auto) 6.0 Absolute Lymphs (auto) 0.82 L Total Counted Not Reportable Sodium 134 L Potassium 4.5 Chloride 97 L Carbon Dioxide 31.0 Anion Gap 6 BUN 29 H Creatinine 1.61 H Estim Creat Clear Calc 66.75 Est GFR (MDRD) Af Amer 63 Est GFR (MDRD) Non-Af 52 L BUN/Creatinine Ratio 18.0 Glucose 174 H Calcium 8.4 L Vancomycin Trough 12.8 POC Glucose 05/29/17 05/28/17 05/28/17 06:34 22:44 16:54 POC Glucose 174 H 206 H 192 H 05/28/17 11:34 POC Glucose 267 H Assessment/Plan Active and Suspected Problems Scrotal edema (Acute) Patient is a 32-year-old male admitted 05/27/2017 due to scrotal swelling, pain, warmth, redness. Patient was admitted October 2014 for scrotal abscess which required incision and drainage by Dr. Ling. Cultures from abscess at that time showed anaerobic cocci and Streptococcus agalactiae. He has a past medical history of type 2 diabetes mellitus, hypertension, hyperlipidemia, obstructive sleep apnea, asthma, tobacco dependence. 1. Cellulitis of scrotum-history of scrotal abscess which required incision and drainage by Dr. Ling in 2014 with cultures positive for Streptococcus agalactiae and anaerobic cocci. Dr. Ling assessed patient and does not feel there is sign of abscess infection. Continue to treat superficial cellulitis with IV antibiotics. No surgical intervention necessary. IV vancomycin and Zosyn discontinued. Patient was started on IV Levaquin. Continue IV Dilaudid and OxyIR as needed. Blood cultures pending. Elevate scrotum. IV Lasix 40 mg twice daily. Testicular ultrasound shows normal bilateral testicles. No definite torsion. Massive diffuse swelling of the scrotal wall. Bilateral enlarged epididymis which cannot exclude epididymitis. 2. Nondisplaced right rib [id number] of the ribs shows nondisplaced fracture of the right eighth rib. Patient denies trauma to the area. States he noticed pain after cough. Patient states he has a chronic cough. He was started on famotidine. He complains of postnasal drainage. Will start on Zyrtec as well. Chest x-ray showed no other acute pulmonary process. Continue albuterol and DuoNeb breathing treatments. Continue pain regimen. 3. Acute kidney injury-suspected secondary to IV diuretics versus IV vancomycin. Antibiotic regimen changed to Levaquin. IV Lasix was discontinued yesterday with no improvement and creat. Resume IV Lasix. 4. Type 2 diabetes mellitus-hold oral regimen. Accu-Cheks before meals at bedtime with sliding scale insulin. Carb control/calorie controlled diet. Hemoglobin A1c 8.2%. 5. Hypertension-stable. Continue lisinopril regimen. 6. Hyperlipidemia-continue statin. 7. Obstructive sleep apnea- CPAP HS. 8. Asthma-albuterol as needed and DuoNeb ATC. No acute exacerbation. 9. Morbid obesity- Nutrition consult. Strongly encouraged diet and lifestyle modifications and outpatient follow up with cafeteria clerk. 10. Tobacco dependence-encourage smoking cessation. Nicotine replacement patch if desired. DVT prophylaxis-Lovenox subcu This patient was seen by GABRIEL Michael under the supervision of Dr. Reeves. <Jayy Reeves - Last Filed: 05/29/17 16:58> - Physical Exam General: Alert, Cooperative HEENT: Atraumatic, Normocephalic Skin: - Vital Signs Temp Pulse Resp BP Pulse Ox 36.3 C L 88 16 138/80 H 94 05/29/17 08:11 05/29/17 08:11 05/29/17 08:11 05/29/17 08:11 05/29/17 08:11 Oxygen Flow Rate (L/min) 2 Oxygen Delivery Method Room Air Weight: 225.3 kg Body Mass Index (BMI) 71.2 Intake and Output for Last 24 Hours 05/27/17 05/28/17 05/29/17 23:59 23:59 23:59 Intake Total 3900 / 3900 2236.5 / 2236.5 Balance 3900 / 3900 2236.5 / 2236.5 Laboratory Tests Past 24 Hrs 05/28/17 05/29/17 05/29/17 18:30 05:40 05:40 WBC 7.9 RBC 4.45 L Hgb 13.0 Hct 41.8 MCV 93.9 MCH 29.2 MCHC 31.1 L RDW 14.9 H RDW Differential 50.1 H Plt Count 239 MPV 9.8 Immature Gran % (Auto) 0.800 Neut % (Auto) 76.3 H Lymph % (Auto) 10.4 L [place] % (Auto) 10.1 H Eos % (Auto) 2.3 Baso % (Auto) 0.1 Absolute Neuts (auto) 6.0 Absolute Lymphs (auto) 0.82 L Total Counted Not Reportable Sodium 134 L Potassium 4.5 Chloride 97 L Carbon Dioxide 31.0 Anion Gap 6 BUN 29 H Creatinine 1.61 H Estim Creat Clear Calc 66.75 Est GFR (MDRD) Af Amer 63 Est GFR (MDRD) Non-Af 52 L BUN/Creatinine Ratio 18.0 Glucose 174 H Calcium 8.4 L Vancomycin Trough 12.8 POC Glucose 05/29/17 05/29/17 05/28/17 11:29 06:34 22:44 POC Glucose 220 H 174 H 206 H 05/28/17 16:54 POC Glucose 192 H Assessment/Plan Seen and examined independently. Agree with the above note by the nurse practitioner. Data has been reviewed. 1. Scrotal cellulitis * No evidence of abscess on ultrasound * No crepitus nor any air noted on the ultrasound just any kind of Gila's gangrene * Changed to cefazolin and Levaquin * Continue with scrotal elevation. * No surgical intervention necessary at this time. 2. Right rib fracture * Constipation pain. Continue with pain control for now plan is to start to de- escalate pain medications as his scrotal cellulitis improves. 3. Acute kidney injury * May be related with the vancomycin * I am going to discontinue the vancomycin as cultures are thus far negative. * Urine studies are ordered 4. Anasarca * Patient is on Lasix chronically. Patient does have known obstructive sleep apnea to which he uses a CPAP. I am concerned about pulmonary hypertension or even heart failure and echocardiogram has been ordered. 5. DVT prophylaxis with Lovenox Code Visit Inpatient E&M: 85781 Subs Hosp L2
[2017-05-29] MEDS: Loratadine 10 MG Tablet PO (11:24)
[2017-05-29] MEDS: Cefazolin 1 GM/50 ML BAG IV ×3 (11:34→23:07)
[2017-05-29 11:36] LABS: Bedside Glucose 220 mg/dL (70-110)
[2017-05-29 17:35] VITALS: BP 147/83; PULSE 89; RESP 18; TEMP 36.6; O2SAT 94
[2017-05-29 17:51] LABS: Bedside Glucose 170 mg/dL (70-110)
[2017-05-29 19:41] VITALS: O2SAT 89
[2017-05-29 21:00] VITALS: BP 131/78; PULSE 91; RESP 18; TEMP 36.8; O2SAT 96
[2017-05-29] MEDS: Atorvastatin Calcium 20 MG Tablet PO (21:10)
[2017-05-29 21:35] LABS: Bedside Glucose 193 mg/dL (70-110)
--- NOTE | 2017-05-29 21:40 | NURSING ---
PT UNABLE TO PROVIDE CLEAN CATCH URINE SAMPLE. REFUSES STRAIGHT CATH. URINE COLLECTED FOR OTHER TESTS.
[2017-05-29 23:54] LABS: Urea Nitrogen, Urine 412 mg/dL (NO RANGE EST.); Urine Sodium 70 mmol/L (Not Establ.)
[2017-05-30 03:18] VITALS: BP 136/88; PULSE 90; RESP 20; TEMP 36.6; O2SAT 94
[2017-05-30] MEDS: oxyCODONE 5 MG Tablet PO (03:23)
[2017-05-30] MEDS: Acetaminophen 325 MG Tablet 650 MG PO (05:08)
[2017-05-30] MEDS: Cefazolin 1 GM/50 ML BAG IV (05:09)
[2017-05-30] MEDS: Nystatin Powder 15gm Bottle 1 APPLIC TOPICAL (05:09)
[2017-05-30] MEDS: 0.9% NaCl Peripheral Flush Adult/Peds IV (05:14)
[2017-05-30 06:06] LABS: Anion Gap 5 (5-15); BUN 23 mg/dL (7-18); BUN/Creat Ratio 15.8 RATIO (10-20); Calcium,Total 8.8 mg/dL (8.5-10.1); Chloride 98 mmol/L (98-107); Creatinine, Serum 1.46 mg/dL (0.70-1.30); EST Glomerular Filtration Rate 59 mL/min (>60); Est Glom Filt Rate - Afr Amer 71 mL/min (>60); Estimated Creatinine Clearance 73.61 ml/min; Glucose 157 mg/dL (74-106); Potassium 4.7 mmol/L (3.5-5.1); Sodium Level 137 mmol/L (136-145)
[2017-05-30 07:16] LABS: Bedside Glucose 162 mg/dL (70-110)
--- NOTE | 2017-05-30 09:07 | PCM.DC ---
- Discharge Diagnoses Current Active Problems: Current Active and Chronic Problems Hyperlipidemia (Chronic) Chronic asthma (Chronic) Scrotal edema (Acute) You will use the following diet at home:: Calorie/Carbohydrate Controlled (specify 1200, 1400, etc) Discharge Activity: Return to Normal Activity, - - Elevate scrotum as much as possible. Keep groin area clean and dry. Call your doctor if you observe: Inability to urinate, Shortness of breath, Dizziness, Fainting spells Additional Instructions: Since you stated you have extra bottle at lasix at home, new Rx was not given. You will take Lasix 40mg twice daily, morning and night for 7 days and then continue home regimen of Lasix 40mg daily. Recommend follow up with Pulmonary Medicine of Dr. Rosalio Wade or Dr. Mead for further management of your asthma and sleep apnea. Recommend follow-up with primary care physician in 3-5 days. Allergies/Adverse Reactions: Allergies GRASS Allergy (Uncoded 05/27/17 13:00) SNEEZING Medications to take at Discharge Albuterol IH (ProAir) [Proair Hfa] 1 - 2 puff INHALATION Q4H PRN PRN 11/08/14 Lisinopril [Zestril] 20 mg PO DAILY 11/08/14 Metformin(XR) [Glucophage Xr] 1,000 mg PO BID 11/08/14 Atorvastatin Calcium [Lipitor] 20 mg PO QHS 05/20/17 Furosemide 40 mg PO DAILY 05/20/17 Cephalexin [Keflex] 500 mg PO Q8 #15 cap 05/30/17 Levofloxacin [Levaquin] 750 mg PO DAILY #5 tab 05/30/17 Oxycodone [Oxyir] 5 mg PO Q4H PRN PRN 3 Days #18 tab 05/30/17 The following prescriptions were given: Oxycodone [Oxyir] 5 mg PO Q4H PRN PRN 3 Days #18 tab PRN Reason: Moderate Pain (pain scale 4-5) Cephalexin [Keflex] 500 mg PO Q8 #15 cap Levofloxacin [Levaquin] 750 mg PO DAILY #5 tab Orders to be completed after discharge: Basic Metabolic Profile (BMP) Location: Laboratory Primary Care Physician: Kennedy Fernandes MD [Primary Care Provider] - Please follow up with your Primary Care Physician in: 3-5 Days Please Follow Up With: Charlie Santamaria MD - Or Dr. Mead, May see COLOR CONTROL SUPERVISOR/PA When: 2-4 Weeks, to establish with Pulmonary Medicine for asthma/DEMETRIO Proposed Discharge Date: 05/30/17
--- NOTE | 2017-05-30 09:14 | DCINST_ITS ---
- Discharge Diagnoses Current Active Problems: Current Active and Chronic Problems Hyperlipidemia (Chronic) Chronic asthma (Chronic) Scrotal edema (Acute) You will use the following diet at home:: Calorie/Carbohydrate Controlled ( specify 1200, 1400, etc) Discharge Activity: Return to Normal Activity, - - Elevate scrotum as much as possible. Keep groin area clean and dry. Call your doctor if you observe: Inability to urinate, Shortness of breath, Dizziness, Fainting spells Additional Instructions: Since you stated you have extra bottle at lasix at home , new Rx was not given. You will take Lasix 40mg twice daily, morning and night for 7 days and then continue home regimen of Lasix 40mg daily. Recommend follow up with Pulmonary Medicine of Dr. Rosalio Wade or Dr. Mead for further management of your asthma and sleep apnea. Recommend follow-up with primary care physician in 3-5 days. Allergies/Adverse Reactions: Allergies GRASS Allergy (Uncoded 05/27/17 13:00) SNEEZING Medications to take at Discharge Albuterol IH (ProAir) [Proair Hfa] 1 - 2 puff INHALATION Q4H PRN PRN 11/08/14 Lisinopril [Zestril] 20 mg PO DAILY 11/08/14 Metformin(XR) [Glucophage Xr] 1,000 mg PO BID 11/08/14 Atorvastatin Calcium [Lipitor] 20 mg PO QHS 05/20/17 Furosemide 40 mg PO DAILY 05/20/17 Cephalexin [Keflex] 500 mg PO Q8 #15 cap 05/30/17 Levofloxacin [Levaquin] 750 mg PO DAILY #5 tab 05/30/17 Oxycodone [Oxyir] 5 mg PO Q4H PRN PRN 3 Days #18 tab 05/30/17 The following prescriptions were given: Oxycodone [Oxyir] 5 mg PO Q4H PRN PRN 3 Days #18 tab PRN Reason: Moderate Pain (pain scale 4-5) Cephalexin [Keflex] 500 mg PO Q8 #15 cap Levofloxacin [Levaquin] 750 mg PO DAILY #5 tab Orders to be completed after discharge: Basic Metabolic Profile (BMP) Location: Laboratory Primary Care Physician: Kennedy Fernandes MD [Primary Care Provider] - Please follow up with your Primary Care Physician in: 3-5 Days Please Follow Up With: Charlie Santamaria MD - Or Dr. Mead, May see OIL LEASE BUYER/PA When: 2-4 Weeks, to establish with Pulmonary Medicine for asthma/DEMETRIO Proposed Discharge Date: 05/30/17
--- NOTE | 2017-05-30 09:17 | NURSING ---
talked w/ Annabel PRESSURE CONTROL SUPERVISOR regarding echo, aware echo was ordered at 9am but was not completed. aware she is requesting this to be done prior to discharge. Echo called to make them aware of order and request to do as soon as possible for discharge purposed.
--- NOTE | 2017-05-30 09:23 | PCM.DC.SUM ---
<Annabel Scott - Last Filed: 05/30/17 12:29> Discharge Date and Diagnosis Date of Admission: 05/29/17 Date of Discharge: 05/30/17 - Primary Discharge Diagnosis Active and Suspected Problems 1. Cellulitis of scrotum 2. Nondisplaced right rib fracture-present on admission 3. Acute kidney injury secondary to IV diuretics - Secondary Discharge Diagnosis Chronic Problems Hyperlipidemia (Chronic) Chronic asthma (Chronic) Sleep apnea (Chronic) Morbid obesity (Chronic) Essential hypertension (Chronic) Type II diabetes mellitus (Chronic) History of sinus bradycardia (Chronic) Hospital Course and Treatment Imaging Results: Diagnostic Data Testicular Ultrasound 05/27/17 16:02 IMPRESSION: Normal bilateral testicles. No definite torsion. Massive diffuse swelling of the scrotal wall. Bilateral enlarged epididymis and cannot exclude epididymitis. Electronically Signed: Mahendra Smith MD at 17:38 EST , Service support , Ribs w/Chest X-Ray 05/27/17 16:07 IMPRESSION: RIBS: There is a nondisplaced fracture of the right eighth rib. CHEST: No acute chest disease. Electronically Signed: Mahendra Smith MD at 16:30 EST , Service support , Consultations 05/27/17 16:02 Consult: Onc/Wound/stockroom associate Routine Comment: Operations: None Procedures: 2-D Echocardiogram Summary of Care Provided: Patient is a 32-year-old male admitted 05/27/2017 due to scrotal swelling, pain, warmth, redness. Patient was admitted October 2014 for scrotal abscess which required incision and drainage by Dr. Ling. Cultures from abscess at that time showed anaerobic cocci and Streptococcus agalactiae. He has a past medical history of type 2 diabetes mellitus, hypertension, hyperlipidemia, obstructive sleep apnea, asthma, tobacco dependence. 1. Cellulitis of scrotum-history of scrotal abscess which required incision and drainage by Dr. Ling in 2014 with cultures positive for Streptococcus agalactiae and anaerobic cocci. Dr. Ling assessed patient and does not feel there is sign of abscess infection. Continue to treat superficial cellulitis with antibiotics. No surgical intervention necessary. Patient received IV vancomycin and IV Zosyn which was transitioned to IV Levaquin. He will be discharged on Levaquin 750 mg p.o. ?5 days and Keflex 500 mg 3 times daily ?5 days. Blood culture shows no growth in 48 hours. Patient is afebrile. No leukocytosis. Scrotal redness, edema significantly improved. Testicular ultrasound shows normal bilateral testicles. No definite torsion. Massive diffuse swelling of the scrotal wall. Bilateral enlarged epididymis which cannot exclude epididymitis. Patient will take oral Lasix 40 mg twice daily for 7 days and then will continue home regimen of 40 mg daily. Patient states he has an extra bottle home and does not need a new prescription for this. Echocardiogram ordered but not completed prior to discharge. Recommend echocardiogram as outpatient. 2. Nondisplaced right rib [id number] of the ribs shows nondisplaced fracture of the right eighth rib. Present on admission. Patient denies trauma to the area. States he noticed pain after cough. Patient states he has a chronic cough. Chest x-ray showed no other acute pulmonary process. Patient was given a short-term dose of OxyIR at discharge for pain control. 3. Acute kidney injury-suspected secondary to IV diuretics versus IV vancomycin. Creatinine trending down. Patient will need repeat BMP in 1 week. 4. Type 2 diabetes mellitus-Hemoglobin A1c 8.2%. Continue home metformin regimen. 5. Hypertension-stable. Continue lisinopril regimen. 6. Hyperlipidemia-continue statin. 7. Obstructive sleep apnea- CPAP HS. recommend outpatient follow-up with pulmonary medicine. 8. Asthma-no acute exacerbation. Patient states he uses pro-air inhaler 1-2 times daily at home. Recommend establishing and follow-up with pulmonary as outpatient. 9. Morbid obesity- Strongly encouraged diet and lifestyle modifications and outpatient follow up with residential lawn specialist. 10. Tobacco dependence-encourage smoking cessation. General: Alert, Oriented x3, Cooperative HEENT: Atraumatic, PERRLA, EOMI, Normocephalic Neck: Supple, No JVD, Negative Carotid Bruits Lungs: Clear to auscultation, Diminished Cardiovascular: Regular rate, Regular Rhythm, Normal S1, Normal S2, No murmurs Abdomen: Bowel Sounds Present, Soft, Non Tender, Non-Distended, Obese Extremities: No clubbing, No cyanosis, Edema - Scrotal edema Skin: - - Scrotal edema with diffuse excoriations and erythema, improved. Musculoskeletal: No Tenderness to Palpation of Joints or Extremities, - - Right lateral rib TTP Neurological: Cranial nerves II-XII grossly intact, Neuro grossly intact Psych/Mental Status: Normal Affect, Appropriate Patient seen and examined prior to discharge. Physical assessment as noted above. This patient was seen by FATUMA MichaelC under the supervision of Dr. Reeves. Discharge Diet: Low fat/ Low Cholesterol, Carb Control Diet Discharge Activity: Return to Normal Activity, - - Elevate scrotum as much as possible. Keep groin area clean and dry. Call your doctor if you observe: Inability to urinate, Shortness of breath, Dizziness, Fainting spells Home Medications: Medications to take at Discharge Albuterol IH (ProAir) [Proair Hfa] 1 - 2 puff INHALATION Q4H PRN PRN 11/08/14 Lisinopril [Zestril] 20 mg PO DAILY 11/08/14 Metformin(XR) [Glucophage Xr] 1,000 mg PO BID 11/08/14 Atorvastatin Calcium [Lipitor] 20 mg PO QHS 05/20/17 Furosemide 40 mg PO DAILY 05/20/17 Cephalexin [Keflex] 500 mg PO Q8 #15 cap 05/30/17 Levofloxacin [Levaquin] 750 mg PO DAILY #5 tab 05/30/17 Oxycodone [Oxyir] 5 mg PO Q4H PRN PRN 3 Days #18 tab 05/30/17 Following Prescrptions Were Given to Patient: Oxycodone [Oxyir] 5 mg PO Q4H PRN PRN 3 Days #18 tab PRN Reason: Moderate Pain (pain scale 4-5) Cephalexin [Keflex] 500 mg PO Q8 #15 cap Levofloxacin [Levaquin] 750 mg PO DAILY #5 tab Other Amb Orders: Basic Metabolic Profile (BMP) Location: Laboratory Primary Care Physician: Kennedy Fernandes MD [Primary Care Provider] - Please follow up with your Primary Care Physician in: 3-5 Days Please Follow Up With: Charlie Santamaria MD - Or Dr. Mead, May see DYE FEEDER/PA When: 2-4 Weeks, to establish with Pulmonary Medicine for asthma/DEMETRIO Additional Instructions: Since you stated you have extra bottle at lasix at home, new Rx was not given. You will take Lasix 40mg twice daily, morning and night for 7 days and then continue home regimen of Lasix 40mg daily. Recommend follow up with Pulmonary Medicine of Dr. Rosalio Wade or Dr. Mead for further management of your asthma and sleep apnea. Recommend follow-up with primary care physician in 3-5 days. Disposition: Home Minutes spent on discharge:: 35 Patient Condition:: Stable Meaningful Use Info Meaningful Use Diagnoses (Choose all that apply): None applicable <Jayy Reeves - Last Filed: 05/30/17 13:59> Discharge Date and Diagnosis - Secondary Discharge Diagnosis Chronic Problems Hyperlipidemia (Chronic) Chronic asthma (Chronic) Sleep apnea (Chronic) Morbid obesity (Chronic) Essential hypertension (Chronic) Type II diabetes mellitus (Chronic) History of sinus bradycardia (Chronic) Hospital Course and Treatment Consultations 05/27/17 16:02 Consult: Onc/Wound/stockroom associate Routine Comment: Operations: None Procedures: None Summary of Care Provided: Patient seen and examined independently. Agree with the above note by the nurse practitioner. The patient is a 32 year old M presents with scrotal cellulitis. Patient was started on broad-spectrum antibiotics with vancomycin and Zosyn but due to worsening kidney function is environmental change analyst to Levaquin and cefazolin. Kidney function did improve. Patient was seen in consultation by urology and felt there is no surgical intervention necessary. Patient did have an ultrasound that showed no evidence of any free air nor abscess. The patient will be discharged with Levaquin as well as Keflex. Comp gating his scrotum is anasarca. Patient has been taking Lasix for long period of time but has no higher diagnosis of heart failure nor pulmonary hypertension. An echocardiogram was ordered but not performed her that was it was not performed soon up and on once patient knew that he is being discharged he was right was readily available. I do not feel that it was absolutely necessary that he had echocardiogram here as his anasarca is more of a chronic process but would be helpful in determining what his heart function is and if he has some elevated pulmonary pressures. But overall patient's scrotum has improved still edematous and red but the improvement is noticeable. Patient need to have close follow-up on discharge. [] Discharge Diet: Low fat/ Low Cholesterol, Carb Control Diet Discharge Activity: Return to Normal Activity, - Call your doctor if you observe: Inability to urinate, Shortness of breath, Dizziness, Fainting spells Disposition: Home Patient Condition:: Stable Meaningful Use Info Meaningful Use Diagnoses (Choose all that apply): None applicable Code Visit Inpatient E&M: 29456 Disch Hosp
[2017-05-30 09:29] VITALS: BP 146/77; PULSE 94; RESP 16; TEMP 36.6; O2SAT 97
--- NOTE | 2017-05-30 09:32 | DS.PCM_ITS ---
<Annabel Scott - Last Filed: 05/30/17 12:29> Discharge Date and Diagnosis Date of Admission: 05/29/17 Date of Discharge: 05/30/17 - Primary Discharge Diagnosis Active and Suspected Problems 1. Cellulitis of scrotum 2. Nondisplaced right rib fracture-present on admission 3. Acute kidney injury secondary to IV diuretics - Secondary Discharge Diagnosis Chronic Problems Hyperlipidemia (Chronic) Chronic asthma (Chronic) Sleep apnea (Chronic) Morbid obesity (Chronic) Essential hypertension (Chronic) Type II diabetes mellitus (Chronic) History of sinus bradycardia (Chronic) Hospital Course and Treatment Imaging Results: Diagnostic Data Testicular Ultrasound 05/27/17 16:02 IMPRESSION: Normal bilateral testicles. No definite torsion. Massive diffuse swelling of the scrotal wall. Bilateral enlarged epididymis and cannot exclude epididymitis. Electronically Signed: Mahendra Smith MD at 17:38 EST , Service support , Ribs w/Chest X-Ray 05/27/17 16:07 IMPRESSION: RIBS: There is a nondisplaced fracture of the right eighth rib. CHEST: No acute chest disease. Electronically Signed: Mahendra Smith MD at 16:30 EST , Service support , Consultations 05/27/17 16:02 Consult: Onc/Wound/veneer drier tailer Routine Comment: Operations: None Procedures: 2-D Echocardiogram Summary of Care Provided: Patient is a 32-year-old male admitted 05/27/2017 due to scrotal swelling, pain, warmth, redness. Patient was admitted October 2014 for scrotal abscess which required incision and drainage by Dr. Ling. Cultures from abscess at that time showed anaerobic cocci and Streptococcus agalactiae. He has a past medical history of type 2 diabetes mellitus, hypertension, hyperlipidemia, obstructive sleep apnea, asthma, tobacco dependence. 1. Cellulitis of scrotum-history of scrotal abscess which required incision and drainage by Dr. Ling in 2014 with cultures positive for Streptococcus agalactiae and anaerobic cocci. Dr. Ling assessed patient and does not feel there is sign of abscess infection. Continue to treat superficial cellulitis with antibiotics. No surgical intervention necessary. Patient received IV vancomycin and IV Zosyn which was transitioned to IV Levaquin. He will be discharged on Levaquin 750 mg p.o. ?5 days and Keflex 500 mg 3 times daily ?5 days. Blood culture shows no growth in 48 hours. Patient is afebrile. No leukocytosis. Scrotal redness, edema significantly improved. Testicular ultrasound shows normal bilateral testicles. No definite torsion. Massive diffuse swelling of the scrotal wall. Bilateral enlarged epididymis which cannot exclude epididymitis. Patient will take oral Lasix 40 mg twice daily for 7 days and then will continue home regimen of 40 mg daily. Patient states he has an extra bottle home and does not need a new prescription for this. Echocardiogram ordered but not completed prior to discharge. Recommend echocardiogram as outpatient. 2. Nondisplaced right rib [id number] of the ribs shows nondisplaced fracture of the right eighth rib. Present on admission. Patient denies trauma to the area. States he noticed pain after cough. Patient states he has a chronic cough. Chest x-ray showed no other acute pulmonary process. Patient was given a short-term dose of OxyIR at discharge for pain control. 3. Acute kidney injury-suspected secondary to IV diuretics versus IV vancomycin. Creatinine trending down. Patient will need repeat BMP in 1 week. 4. Type 2 diabetes mellitus-Hemoglobin A1c 8.2%. Continue home metformin regimen. 5. Hypertension-stable. Continue lisinopril regimen. 6. Hyperlipidemia-continue statin. 7. Obstructive sleep apnea- CPAP HS. recommend outpatient follow-up with pulmonary medicine. 8. Asthma-no acute exacerbation. Patient states he uses pro-air inhaler 1-2 times daily at home. Recommend establishing and follow-up with pulmonary as outpatient. 9. Morbid obesity- Strongly encouraged diet and lifestyle modifications and outpatient follow up with coremaker floor. 10. Tobacco dependence-encourage smoking cessation. General: Alert, Oriented x3, Cooperative HEENT: Atraumatic, PERRLA, EOMI, Normocephalic Neck: Supple, No JVD, Negative Carotid Bruits Lungs: Clear to auscultation, Diminished Cardiovascular: Regular rate, Regular Rhythm, Normal S1, Normal S2, No murmurs Abdomen: Bowel Sounds Present, Soft, Non Tender, Non-Distended, Obese Extremities: No clubbing, No cyanosis, Edema - Scrotal edema Skin: - - Scrotal edema with diffuse excoriations and erythema, improved. Musculoskeletal: No Tenderness to Palpation of Joints or Extremities, - - Right lateral rib TTP Neurological: Cranial nerves II-XII grossly intact, Neuro grossly intact Psych/Mental Status: Normal Affect, Appropriate Patient seen and examined prior to discharge. Physical assessment as noted above. This patient was seen by FATUMA MichaelC under the supervision of Dr. Reeves. Discharge Diet: Low fat/ Low Cholesterol, Carb Control Diet Discharge Activity: Return to Normal Activity, - - Elevate scrotum as much as possible. Keep groin area clean and dry. Call your doctor if you observe: Inability to urinate, Shortness of breath, Dizziness, Fainting spells Home Medications: Medications to take at Discharge Albuterol IH (ProAir) [Proair Hfa] 1 - 2 puff INHALATION Q4H PRN PRN 11/08/14 Lisinopril [Zestril] 20 mg PO DAILY 11/08/14 Metformin(XR) [Glucophage Xr] 1,000 mg PO BID 11/08/14 Atorvastatin Calcium [Lipitor] 20 mg PO QHS 05/20/17 Furosemide 40 mg PO DAILY 05/20/17 Cephalexin [Keflex] 500 mg PO Q8 #15 cap 05/30/17 Levofloxacin [Levaquin] 750 mg PO DAILY #5 tab 05/30/17 Oxycodone [Oxyir] 5 mg PO Q4H PRN PRN 3 Days #18 tab 05/30/17 Following Prescrptions Were Given to Patient: Oxycodone [Oxyir] 5 mg PO Q4H PRN PRN 3 Days #18 tab PRN Reason: Moderate Pain (pain scale 4-5) Cephalexin [Keflex] 500 mg PO Q8 #15 cap Levofloxacin [Levaquin] 750 mg PO DAILY #5 tab Other Amb Orders: Basic Metabolic Profile (BMP) Location: Laboratory Primary Care Physician: Kennedy Fernandes MD [Primary Care Provider] - Please follow up with your Primary Care Physician in: 3-5 Days Please Follow Up With: Charlie Santamaria MD - Or Dr. Mead, May see RIBBON BLOCKER/PA When: 2-4 Weeks, to establish with Pulmonary Medicine for asthma/DEMETRIO Additional Instructions: Since you stated you have extra bottle at lasix at home, new Rx was not given. You will take Lasix 40mg twice daily, morning and night for 7 days and then continue home regimen of Lasix 40mg daily. Recommend follow up with Pulmonary Medicine of Dr. Rosalio Wade or Dr. Mead for further management of your asthma and sleep apnea. Recommend follow-up with primary care physician in 3-5 days. Disposition: Home Minutes spent on discharge:: 35 Patient Condition:: Stable Meaningful Use Info Meaningful Use Diagnoses (Choose all that apply): None applicable <Jayy Reeves - Last Filed: 05/30/17 13:59> Discharge Date and Diagnosis - Secondary Discharge Diagnosis Chronic Problems Hyperlipidemia (Chronic) Chronic asthma (Chronic) Sleep apnea (Chronic) Morbid obesity (Chronic) Essential hypertension (Chronic) Type II diabetes mellitus (Chronic) History of sinus bradycardia (Chronic) Hospital Course and Treatment Consultations 05/27/17 16:02 Consult: Onc/Wound/veneer drier tailer Routine Comment: Operations: None Procedures: None Summary of Care Provided: Patient seen and examined independently. Agree with the above note by the nurse practitioner. The patient is a 32 year old M presents with scrotal cellulitis. Patient was started on broad-spectrum antibiotics with vancomycin and Zosyn but due to worsening kidney function is microsoft exchange administrator to Levaquin and cefazolin. Kidney function did improve. Patient was seen in consultation by urology and felt there is no surgical intervention necessary. Patient did have an ultrasound that showed no evidence of any free air nor abscess. The patient will be discharged with Levaquin as well as Keflex. Comp gating his scrotum is anasarca. Patient has been taking Lasix for long period of time but has no higher diagnosis of heart failure nor pulmonary hypertension. An echocardiogram was ordered but not performed her that was it was not performed soon up and on once patient knew that he is being discharged he was right was readily available. I do not feel that it was absolutely necessary that he had echocardiogram here as his anasarca is more of a chronic process but would be helpful in determining what his heart function is and if he has some elevated pulmonary pressures. But overall patient's scrotum has improved still edematous and red but the improvement is noticeable. Patient need to have close follow-up on discharge. [] Discharge Diet: Low fat/ Low Cholesterol, Carb Control Diet Discharge Activity: Return to Normal Activity, - Call your doctor if you observe: Inability to urinate, Shortness of breath, Dizziness, Fainting spells Disposition: Home Patient Condition:: Stable Meaningful Use Info Meaningful Use Diagnoses (Choose all that apply): None applicable Code Visit Inpatient E&M: 57873 Disch Hosp
[2017-06-01 11:11] LABS: Eosinophil Ct. Urine No Eosinophils Seen % (.)
== END 2017-05-30 09:47 | disposition home or self-care (01) | DRG 350 ==
LOC: ED 14:18 → MS3 15:20
PROVIDERS: Admitting Provider Family Medicine; Emergency Provider Emergency Medicine; Family Provider Family Medicine; PCP Family Medicine
DX: N49.2 Inflammatory disorders of scrotum (principal); N17.9 Acute kidney failure, unspecified; E66.01 Morbid (severe) obesity due to excess calories; E78.5 Hyperlipidemia, unspecified; G47.33 Obstructive sleep apnea (adult) (pediatric); J45.909 Unspecified asthma, uncomplicated; I10 Essential (primary) hypertension; E11.9 Type 2 diabetes mellitus without complications; Z79.84 Long term (current) use of oral hypoglycemic drugs; Z68.45 Body mass index [BMI] 70 or greater, adult; F17.210 Nicotine dependence, cigarettes, uncomplicated; S22.31XA Fracture of one rib, right side, initial encounter for closed fracture; X58.XXXA Exposure to other specified factors, initial encounter
CPT/HCPCS: 36415; 71101; 76870; 80048; 80202; 82570; 82962; 83036; 83735; 84300; 84540; 85025; 87040; 87205; 93976; 94640; 97802; 99284; 99406; J7040; J7050; A4216; J1940; J2405

== ENCOUNTER 2017-08-23 17:31 | Emergency (ER) | payer MEDICAID, SELFPAY ==
[2017-08-23 17:33] VITALS: BP 137/97; PULSE 110; RESP 20; TEMP 36.8; O2SAT 93; BMI 57.6
--- NOTE | 2017-08-23 18:20 | NURSING ---
AT 1805 THIS NURSE WENT INTO PT'S ROOM AND PT WAS GONE. LOOKED THROUGH THE ENTIRE E.D. DEPARTMENT AND PT IS NOT ON UNIT. DOYLE GRANGER, RN, INFORMED THIS NURSE THAT PT REPORTED HE WAS NOT HAVING ANY SYMPTOMS AND POSSIBLY HIS BLOOD SUGAR MACHINE IS MESSED UP
--- NOTE | 2017-08-23 22:46 | ED.DCSUM_ITS ---
- ER Visit Summary Date of Service: 08/23/17 Chief Complaint: High blood sugar History of Present Illness: The patient is a [address] Fernandes. He reports that approximately 30 minutes ago he measured his blood sugar and it was high. He is on 1000 mg of metformin twice daily. Is also on 6 mg of Victoza a day. He did not miss any doses today. Reports he last ate approximately 6 hours ago. Review of systems: General: No fever, chills, cold sweats. Cardiovascular: No chest pain, palpitations. Respiratory: No cough, shortness of breath, dyspnea on exertion. Gastrointestinal: No abdominal pain, nausea, vomiting, diarrhea, melena, or hematochezia. Genitourinary: No dysuria, frequency, hematuria. Skin: No rash. Neuro: No headache, numbness, weakness. Physical Examination: Vitals: Stable. Afebrile. General: Well-nourished and well-developed. Head: Normocephalic atraumatic. Neck: Supple, no lymphadenopathy. No JVD. Nontender. Cardiovascular: Regular rate and rhythm. No murmurs. Respiratory: No respiratory distress. Clear to auscultation bilaterally. Abdominal: Soft, nontender, nondistended, normal bowel sounds. No guarding, rebound, or peritoneal signs. Back: Nontender. Extremities: Nontender, no edema. Skin: Normal color, no rash. Neurologic: Alert and oriented ?3. Cranial nerves II through XII are intact. Normal strength and sensation. Psych: Normal affect. Emergency Department Course and Treatment: After leaving the patient's room I wrote for labs. The nurse went in to start an IV and he had left. Disposition: Left prior to completion of treatment. Impression: 1. Reported hyperglycemia. 2. History of [id number]-gmsmrypok diabetes mellitus. 3. Left prior to completion of treatment. This note was generated with [employer] dictation software. It may contain incorrect words, spelling, and punctuation that were not noted in review of the chart prior to signing ED Disposition - Plan for ED Patient: Disposition: Against Medical Advice Chief Complaint: Hyperglycemia Referrals: Kennedy Fernandes MD [Primary Care Provider] -
== END 2017-08-23 18:10 | disposition left against medical advice (07) ==
LOC: ED 18:26
PROVIDERS: Emergency Provider Emergency Medicine; Family Provider Family Medicine; PCP Family Medicine
DX: E11.65 Type 2 diabetes mellitus with hyperglycemia (principal); Z87.891 Personal history of nicotine dependence

== ENCOUNTER 2018-07-08 11:23 | Inpatient (IN) | payer MEDICAID, SELFPAY ==
[2018-07-08] VITALS (10 sets, daily range): BP systolic 121–167; BP diastolic 62–116; PULSE 83–98; RESP 16–18; TEMP 36.2–36.8; O2SAT 92–98; BMI 66.1; BMI 48.2
--- NOTE | 2018-07-08 | ABS_PTH ---
PATIENT: LAWANDA BETTS LOC: [facility] U#:[id number] AGE/SX: 33/M ROOM: [facility]319 RE07/08/[address]: Dr. Shaun Oliver MD : [id number] BED: 1 DIS: 07/10/2018 SPEC #: [id number] RECD: 07/09/18 07:20 STATUS: KATHY REGianfranco #: [id number] ALY: 07/08/18 00:[address]: Patricia Turcios DEPT: SURGICAL PATHOLOGY RECD BY: Zenon Ortega ENTERED: 07/09/18 14:04 SP TYPE: Abscess OTHR DR: MD Dr. Alejandra Saucedo DO Dr. Linda Wang, MD Dr. Robert Leininger, MD Dr. William Lago, MD Tissues: Back, NOS Procedures: Surgery Specimen Level IV Comments: @ Ordering doctor for SUIII edited from to DR.LWANG Hay LUGO at 07/09/18 1441 @ Submitting doctor edited from to DR.LWANG Hay MENJIVAROD at 07/09/18 1441 HEADER OPERATION: Incision and drainage of back abscess PRE-OP DIAGNOSIS: Back abscess TISSUE SUBMITTED: Upper back/neck abscess soft tissue MICROSCOPIC DIAGNOSIS Skin and soft tissue of upper back/neck, excision: Ulceration with associated chronic inflammation and granulation. AM:josep 07/10/18 MICROSCOPIC DESCRIPTION Slides are reviewed. GROSS DESCRIPTION Received in fixative is one container labeled with the patient's name and designated upper back/neck abscess soft tissue. The specimen consists of three irregular fragments of thin, congested soft tissue that in aggregate measure 3 x 3 x 1 cm. One of the pieces also shows a skin surface. All three pieces are bisected. Assistant Associate Professor sections are submitted in one cassette. / SJ:josep 07/09/18 TC:2 CPT: 47951
[2018-07-08] MEDS: Morphine 4 MG/ML Syringe IV (11:55)
[2018-07-08] MEDS: Ondansetron 4 MG/2 ML Vial IV (11:56)
[2018-07-08] MEDS: 0.9% Normal Saline 1,000 ML 1000 ML IV (11:56)
[2018-07-08 12:08] LABS: Absolute Lymphocyte Count 1.31 X10^3/ul (0.83-4.51); Absolute Neutrophil Count 6.4 X10^3/uL (2.0-7.7); Basophil# 0.01 X10^3/uL; Basophil% 0.1 % (0-1); Eosinophil# 0.09 X10^3/uL; Eosinophils% 1.1 % (0-5); Hematocrit 42.4 % (40-54); Hemoglobin 14.2 g/dl (13.0-16.5); Lymphocyte # 1.31 X10^3/ul (4.0); Lymphocyte % 15.5 % (19-41); Mean Corp Hgb Conc 33.5 g/gl (32-36); Mean Corpuscular Hgb 29.6 pg (27.0-32.0); Mean Corpuscular Volume 88.5 fL (80-94); Mean Platelet Vol. 9.9 fl (6.2-12.0); Monocyte# 0.67 X10^3/uL; Monocyte% 7.9 % (0-10); Neutrophil # 6.36 X10^3/uL (2.7-7.7); Neutrophil % 75.2 % (47-70); Platelet Count 227 K/mm3 (150-450); RBC Distribution Width CV 13.1 % (11.6-14.6); RBC Distribution Width SD 42.2 fl (35.1-43.9); Red Blood Count 4.79 M/mm3 (4.6-6.2); White Blood Count 8.5 K/mm3 (4.4-11.0)
[2018-07-08 12:10] LABS: POSITIVE COUNT NO; POSITIVE DIFFERENTIAL NO; POSITIVE MORPHOLOGY NO
[2018-07-08 12:33] LABS: Anion Gap 8 (5-15); BUN 11 mg/dL (7-18); BUN/Creat Ratio 13.4 RATIO (10-20); Calcium,Total 9.1 mg/dL (8.5-10.1); Chloride 98 mmol/L (98-107); Creatinine, Serum 0.82 mg/dL (0.70-1.30); EST Glomerular Filtration Rate 113 mL/min (>60); Est Glom Filt Rate - Afr Amer 137 mL/min (>60); Estimated Creatinine Clearance 146.19 ml/min; Glucose 410 mg/dL (74-106); Potassium 4.6 mmol/L (3.5-5.1); Sodium Level 133 mmol/L (136-145)
--- NOTE | 2018-07-08 12:50 | ED.VISSUMM ---
- ER Visit Summary Date of Service: 07/08/18 Chief Complaint: Abscess History of Present Illness: The patient is a [address] Fernandes. He has an abscess on the left trapezius muscle he states began approximately 2 weeks ago. States it came to ahead and drained and seemed to resolve. However 3 days ago it occurred again is better bigger than it had been. He has pain that is 10 out of 10 at worst and 7 out of 10 currently. He describes as a stabbing. Is worsened with movement of his head. Is relieved by remaining still. He has not checked his blood sugar a while. He denies any fever, nausea, vomiting, or other constitutional symptoms. Physical Examination: Vitals: Stable. Afebrile. General: Well-nourished and well-developed. Head: Normocephalic atraumatic. Neck: Supple, no lymphadenopathy. No JVD. Nontender. Cardiovascular: Regular rate and rhythm. No murmurs. Respiratory: No respiratory distress. Clear to auscultation bilaterally. Abdominal: Soft, nontender, nondistended, normal bowel sounds. No guarding, rebound, or peritoneal signs. Back: Nontender. Extremities: Nontender, no edema. Skin: On the medial side of his left trapezius muscle posteriorly there is approximately 10 cm indurated, fluctuant area with minimal surrounding erythema. This is moderately tender to palpation. Neurologic: Alert and oriented ?3. Cranial nerves II through XII are intact. Normal strength and sensation. Psych: Normal affect. Test Results: CBC is remarkable for segmented neutrophils of 75 and lymphs at 16. Chem-7 is marked for sodium 133 and glucose 410. Emergency Department Course and Treatment: Patient was given a dose of morphine and Zofran IV. He was given clindamycin IV. Treatment Plan: The patient was discussed with Dr. Turcios who saw him in the emergency department would like him taken to the operating room for incision and drainage. She has the patient be admitted to the hospitalist. He was discussed with Dr. Garcia. Disposition: Admitted in improved condition. Impression: 1. Abscess left trapezius. 2. Hyperglycemia with history of obs-cdfdkuk-onlikthbj diabetes mellitus. This note was generated with [employer] software. It may contain incorrect words, spelling, and punctuation that were not noted in review of the chart prior to signing ED Disposition - Plan for ED Patient: Referrals: Kennedy Fernandes MD [Primary Care Provider] -
--- NOTE | 2018-07-08 13:51 | HP.PCM_ITS ---
Problem List (1) Hyperglycemia due to type 2 diabetes mellitus Status: Acute Qualifiers: Diabetes mellitus snf insulin use: without snf use Qualified Code(s): E11.65 - Type 2 diabetes mellitus with hyperglycemia (2) Morbid obesity Status: Chronic (3) Essential hypertension Status: Chronic (4) Type II diabetes mellitus Status: Chronic Qualifiers: Diabetes mellitus watermelon inspector insulin use: without snf use Diabetes mellitus complication status: with unspecified complications Qualified Code(s): E11.8 - Type 2 diabetes mellitus with unspecified complications History of Present Illness Date of Admission: 07/08/18 Chief Complaint: Neck swelling x 2 weeks The patient is a 33 year old M with past medical history of type II DM, on metformin and Victoza, noncompliant with medications, hypertension, hyperlipidemia, morbid obesity, previous history of scrotal cellulitis who comes in with complaints of neck swelling and erythema ongoing for 2 weeks. Patient admits that 2 weeks ago he noticed some swelling in his posterior left neck, it formed and released some pus and appeared to have gotten better. It recurred again 3 days ago, and has been discharging a lot of pus since then. He denied any fever or chills or dizziness or chest pain or shortness of breath. He admits to not taking his Victoza. He has been compliant with his metformin. He did not take it on the day of admission. He does not check his blood sugars every day. He describes pain in the left posterior neck, worse with movement of his head. He went to see his primary care doctor today and per the PCP, the abscess was too large for it to be drained in the office and referred him to the emergency department. Vitals in the emergency department with BP of 167/116, temperature of 97.7, hear t rate of 89, patient rate was 16, SPO2 is 95% on room air. Admitting blood work showed RBC count of 8.5, hemoglobin 14.2, platelet count of 227, sodium 133, potassium 4.6, chloride 98, bicarbonate 27, BUN 11, creatinine 0.82, blood glucose was 410, repeat blood glucose was 336 EKG shows normal sinus rhythm, no acute ST-T changes. Past Medical History Past Medical History (Chronic Problems): Chronic Problems (Last Reviewed 08/22/17 @ 07:32 by Fabiola Adrian) Hyperlipidemia (Chronic) Chronic asthma (Chronic) Sleep apnea (Chronic) Morbid obesity (Chronic) Essential hypertension (Chronic) Type II diabetes mellitus (Chronic) History of sinus bradycardia (Chronic) Medical History: Medical History (Last Reviewed 08/22/17 @ 07:32 by Fabiola Adrian) Hyperlipidemia (Chronic) E78.5 Chronic asthma (Chronic) J45.909 Scrotal edema (Acute) N50.89 Sleep apnea (Chronic) G47.30 Morbid obesity (Chronic) E66.01 Essential hypertension (Chronic) I10 Type II diabetes mellitus (Chronic) E11.9 History of sinus bradycardia (Chronic) Z86.79 Allergies GRASS Allergy (Uncoded 07/08/18 11:26) SNEEZING Home Medications: Ambulatory Orders Medication Instructions Recorded Lisinopril [Zestril] 20 mg PO DAILY 11/08/14 Metformin(XR) [Glucophage Xr] 1,000 mg PO BID 11/08/14 Albuterol Sulfate [Ventolin Hfa] 1 - 2 puff INHALATION Q4H PRN PRN 07/08/18 Aspirin E.C. [Ecotrin] 650 mg PO PRN PRN 07/08/18 Furosemide 40 mg PO DAILY 07/08/18 Loratadine 10 mg PO DAILY 07/08/18 Surgical History: - - Scrotal abscess incision and drainage Psychiatric History: No pertinent psych hx Lives: Spouse/ Significant Other Smoking Status: Former smoker Tobacco Use: Non-smoker Alcohol: None Drugs: None - *Family History Maternal History Items: Hypertension Paternal History Items: Hypertension Review of Systems Constitutional: Denies: Anorexia, Chills, Fever, Malaise, Weakness, Weight Change, Fatigue Eyes: Denies: Blurred vision, Cataracts, Conjunctivae Inflammation, Pain, Redness HEENT: Denies: Difficulty Hearing, Difficulty Swallowing, Head Aches, Hearing Changes, Sinus Congestion, Sinus Drainage, Sore Throat Cardiovascular: Denies: Chest Pain, Claudication, Palpitations Respiratory: Denies: Cough, Shortness of breath at rest, Shortness of breath upon exertion, Sputum production Gastrointestinal: Denies: Abdominal Pain, Hematemesis, Hematochezia, Nausea, Vomiting Genitourinary: Denies: Dysuria, Frequency, Incontinence Musculoskeletal: Reports: Muscle pain, Neck Pain, Shoulder Pain. Denies: Joint Pain, Joint stiffness, Joint swelling, Joint Tenderness Skin: Denies: Pruritis, Rash, Wounds Neurological: Denies: Numbness, Tingling, Focal weakness Psychiatric: Denies: Anxiety, Depression, Homicidal Ideations, Suicidal Ideations Endocrine: Denies: Change in Body Habitus, Hx of Irradiation, Hx of Thyroiditis Hematologic/ Lymphatic: Denies: Easy Bruising, Easy Bleeding VTE Information - Inpt Only VTE Present on Admission: No VTE Pharm Prophylaxis ordered?: Yes Patient Problems: Active and Suspected Problems (Last Reviewed 08/22/17 @ 07:32 by Fabiola Adrian) Hyperglycemia due to type 2 diabetes mellitus (Acute) - Physical Exam General: Alert, Oriented x3, Cooperative, No apparent distress, - - morbidly obesed HEENT: Atraumatic, PERRLA, EOMI, Normocephalic Oral: Moist Mucosa Neck: Supple, No JVD, Negative Carotid Bruits, - - Left posterior neck, trapezius area abscess with induration and erythema, with a discharge in point close to the posterior nape of the neck, pus drainage Lungs: Clear to auscultation, Normal air movement Cardiovascular: Regular rate, Regular Rhythm, Normal S1, Normal S2, No murmurs Abdomen: Bowel Sounds Present, Soft, Non Tender, Non-Distended, No Hepato- splenomegaly, - - Erythema of both scrotal regions, mild swelling of the left scrotal sac Extremities: No edema, - - Multiple varicose veins in the lower legs especially around bilateral ankles Skin: - - see posterior neck remarks as well as lower extremities Musculoskeletal: No Tenderness to Palpation of Joints or Extremities Neurological: Cranial nerves II-XII grossly intact, Neuro grossly intact Psych/Mental Status: Normal Affect, Appropriate Vital Signs Temp Pulse Resp BP Pulse Ox 97.7 F L 89 16 167/116 H 95 07/08/18 11:24 07/08/18 11:24 07/08/18 11:24 07/08/18 11:24 07/08/18 11:24 Oxygen Delivery Method Room Air Weight: 170.4 kg Body Mass Index (BMI) 48.2 Finger Stick Blood Glucose 144 Laboratory Tests Past 24 Hrs 07/08/18 07/08/18 11:55 11:55 WBC 8.5 RBC 4.79 Hgb 14.2 Hct 42.4 MCV 88.5 MCH 29.6 MCHC 33.5 RDW 13.1 RDW Differential 42.2 Plt Count 227 MPV 9.9 Immature Gran % (Auto) 0.200 Neut % (Auto) 75.2 H Lymph % (Auto) 15.5 L [place] % (Auto) 7.9 Eos % (Auto) 1.1 Baso % (Auto) 0.1 Absolute Neuts (auto) 6.4 Absolute Lymphs (auto) 1.31 Total Counted Not Reportable Sodium 133 L Potassium 4.6 Chloride 98 Carbon Dioxide 27.0 Anion Gap 8 BUN 11 Creatinine 0.82 Estim Creat Clear Calc 146.19 Est GFR (MDRD) Af Amer 137 Est GFR (MDRD) Non-Af 113 BUN/Creatinine Ratio 13.4 Glucose 410 H Calcium 9.1 Assessment/Plan All Active Problems (Last Reviewed 08/22/17 @ 07:32 by Fabiola Adrian) Hyperglycemia due to type 2 diabetes mellitus (Acute) Scrotal edema (Acute) Scrotal wall abscess (Resolved) 33 year old M with past medical history of type II DM, on metformin and Victoza, noncompliant with medications, hypertension, hyperlipidemia, morbid obesity, previous history of scrotal cellulitis who comes in with complaints of neck swelling and erythema ongoing for 2 weeks. 1. Left posterior neck abscess, no sepsis present, started on IV clindamycin, General surgery consulted by the emergency department, patient will be going for surgery today Plan: Admit to MedSurg floor, continue on IV ceftriaxone, ID consult, wound RN consult, labs in a.m. 2. Type II DM, history of noncompliance, poor control, last HgBA1c 8.2 (2018), Now with hyperglycemia, will check HbA1c, put on insulin sliding scale with Shanonu-Sharron, freezing machine operator 3. Hypertension, fairly uncontrolled secondary to pain, patient is on lisinopril, continue same, continue to monitor vitals 4. Hyperlipidemia, not on statins, noncompliant with medications, Check lipid profile in a.m. 5. Morbid obesity, BMI 48.2, diet and exercise recommended, freezing machine operator consulted 6. DVT PPx - early ambulation. Code Visit Inpatient E&M: 33195 Init Hosp L3
--- NOTE | 2018-07-08 14:07 | EKG12_ITS ---
Test Reason : Blood Pressure : / mmHG Vent. Rate : 082 BPM Atrial Rate : 082 BPM P-R Int : 176 ms QRS Dur : 096 ms QT Int : 376 ms P-R-T Axes : 035 049 039 degrees QTc Int : 439 ms Normal sinus rhythm Low voltage QRS Cannot rule out Anterior infarct , age undetermined Abnormal ECG Confirmed by MASOUD CRAVEN, FELIX (2017), manager editorial PELON MALDONADO ([id number]) on 07/10/2018 9:26:24 AM Referred By: KATIA Confirmed By:FELIX MEREDITH MD
[2018-07-08 14:36] LABS: Bedside Glucose 336 mg/dL (70-110)
[2018-07-08] MEDS: Insulin Lispro 100 UNIT/ML INSULN.PEN 6 UNIT SC (14:44)
--- NOTE | 2018-07-08 15:52 | PCM.CONS.B ---
- Consult Date of Consult: 07/08/18 - Reason for Consult CC: back abscess HPI: Patient presents with: Abscess: on left side-back of neck and upper back- Has had this for about two weeks. Has noted drainage in the area. Denies fevers. Is known noncompliant diabetic. Has lost weight recently. I was consulted by ED [facility] physician to evaluated patient. ? PAST?MEDICAL?HISTORY ? Asthma ? ? Edema ? ? Gout ? ? Hidradenitis suppurativa ? ? Hyperlipidemia ? ? Hypertension ? ? Intervertebral lumbar disc disorder with myelopathy, lumbar region ? ? Had MRI done at [facility] in August 2007. Was told he had bulging disc and never was treated due to having no insurance. ? Obesity, morbid (HCC) ? ? DEMETRIO (obstructive sleep apnea) ? ? [facility]- did not follow up after titration in July 2017-mailed letter to call office to schedule appointment ? Pulmonary hypertension (HCC) ? ? Tobacco use disorder ? ? Type II or unspecified type diabetes mellitus without mention of complication, not stated as uncontrolled ? ? PAST?SURGICAL?HISTORY ? EXTRACTION ERUPTED TOOTH/EXR ? ? ? [place] teeth ? I & D ABSCESS, SINGLE ? 05/25/10 ? I&D left neck abscess ? PAST SURGICAL HISTORY OF ? ? ? right thumb fx repair ? CURRENT?MEDICATIONS furosemide (LASIX) 40 mg tablet Take 1 tablet by mouth once daily. albuterol (PROVENTIL) 2.5 mg /3 mL (0.083 %) nebulizer solution Use 3 mL via nebulizer every 4 hours as needed for Wheezing/Shortness of Breath. Use VENTOLIN HFA 90 mcg/actuation inhaler Inhale 2 Puffs as instructed every 4 hours as needed. atorvastatin (LIPITOR) 20 mg tablet take 1 tablet daily at bedtime for cholesterol loratadine (CLARITIN) 10 mg tablet TAKE 1 TABLET BY MOUTH EVERY DAY metFORMIN (GLUCOPHAGE) 500 mg tablet TAKE 2 TABLETS TWICE DAILY WITH meals lisinopril (ZESTRIL, PRINIVIL) 20 mg tablet Take 1 tablet by mouth once daily. liraglutide (VICTOZA 2-WANDA) 0.6 mg/0.1 mL (18 mg/3 mL) pnij Inject 1.2 mg subcutaneously once daily. CPAP 1 Device by MISCELLANEOUS route daily at bedtime. Auto PAP 8-20 cm H2O, Fit pt for FFM or per patient preference, Ramp 20 minutes, humidity, ALLERGIES: NKDA ? ? FAMILY?HISTORY ? Alcohol/Drug Father ? ? alcohol ? Alcohol/Drug Paternal Grandfather ? ? Allergies Sister ? ? Alzheimer's Disease Maternal Aunt ? ? Arthritis Mother ? ? OA ? Arthritis Maternal Grandmother ? ? Asthma Sister ? ? other (aneurysm brain [Other]) Maternal Aunt ? ? other (aneurysm brain [Other]) Maternal Aunt ? ? Diabetes Mother ? ? Diabetes Maternal Grandmother ? ? Hypertension Mother ? ? Hypertension Maternal Grandmother ? ? Lipids Mother ? ? Lipids Maternal Grandmother ? ? Headache Sister ? ? migraine ? Seizures Sister ? ? Stroke Maternal Aunt ? ? Thyroid Mother ? ? Thyroid Maternal Grandmother ? ? 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 Tobacco Use Smoking status: Former Smoker Packs/day: 0.50 Years: 15.00 Pack years: 7.5 Types: Cigarettes Start date: 07/28/2006 Quit date: 05/25/2017 Years since quittin.1 Smokeless tobacco: Never Used Substance and Sexual Activity Alcohol use: Yes Comment: occasionally Drug use: No Sexual activity: Yes Partners: Female control/protection: Condom Other Topics Concerns: Not on file Social History Narrative Not on file ? ? REVIEW OF SYSTEMS Denies fevers. Has had weight loss - see below. Denies chest pain. Denies SOB All other reviewed and negative other than HPI. ? ? VITALS: BP 144/82 Pulse 82 Temp 36.5 ?C (97.7 ?F) (Tympanic) Resp 18 Wt (!) 171 kg (377 lb) BMI 49.75 kg/m? ? Last 4 Encounter Wt Readings: Date: Wt: 07/08/2018 171 kg (377 lb) 06/01/2017 221.8 kg (489 lb) 05/14/2017 222.7 kg (491 lb) 04/20/2017 223.6 kg (493 lb) ? PHYSICAL EXAMINATION: ? General appearance: Well appearing, alert, in no acute distress, well-hydrated, well nourished. Skin: two actively draining areas. His neck abscess is over 12 cm and limits him even moving his head. His scrotum is red and inflamed and draining as well. Lungs: lungs clear to auscultation. No wheezing, rhonchi, rales Heart: RRR without murmur, gallop, or rubs. No ectopy Abdomen: Normal abdominal exam, Abdomen soft, non-tender. Bowel sounds normal. No masses, organomegaly ? ? ASSESSMENT/PLAN: admitted to hospitalist service - serum glucose was greater than 400 in the ED. Will proceed to I&D- upper back abscess, - this is a large abscess which will require incision and drainage in the OR with anesthesia. Will probably require wound vac for healing. Patient is non compliant with medications for diabetes. However, he has quit TOB use over a year ago. I have counseled patient as to procedure of I&D of above. I have discussed with him the risks of the procedure, including but not limited to: continued infection, bleeding, scar tissue/cosmetic deformity, injury to any blood vessels/nerves, complications of anesthesia, etc. - he understands. He agrees to proceed.
--- NOTE | 2018-07-08 15:59 | CON.PCM_ITS ---
- Consult Date of Consult: 07/08/18 - Reason for Consult CC: back abscess HPI: Patient presents with: Abscess: on left side-back of neck and upper back- Has had this for about two weeks. Has noted drainage in the area. Denies fevers. Is known noncompliant diabetic. Has lost weight recently. I was consulted by ED [facility] physician to evaluated patient. ? PAST?MEDICAL?HISTORY ? Asthma ? ? Edema ? ? Gout ? ? Hidradenitis suppurativa ? ? Hyperlipidemia ? ? Hypertension ? ? Intervertebral lumbar disc disorder with myelopathy, lumbar region ? ? Had MRI done at [facility] in August 2007. Was told he had bulging disc and never was treated due to having no insurance. ? Obesity, morbid (HCC) ? ? DEMETRIO (obstructive sleep apnea) ? ? [facility]- did not follow up after titration in July 2017-mailed letter to call office to schedule appointment ? Pulmonary hypertension (HCC) ? ? Tobacco use disorder ? ? Type II or unspecified type diabetes mellitus without mention of complication, not stated as uncontrolled ? ? PAST?SURGICAL?HISTORY ? EXTRACTION ERUPTED TOOTH/EXR ? ? ? [place] teeth ? I & D ABSCESS, SINGLE ? 05/25/10 ? I&D left neck abscess ? PAST SURGICAL HISTORY OF ? ? ? right thumb fx repair ? CURRENT?MEDICATIONS furosemide (LASIX) 40 mg tablet Take 1 tablet by mouth once daily. albuterol (PROVENTIL) 2.5 mg /3 mL (0.083 %) nebulizer solution Use 3 mL via nebulizer every 4 hours as needed for Wheezing/Shortness of Breath. Use VENTOLIN HFA 90 mcg/actuation inhaler Inhale 2 Puffs as instructed every 4 hours as needed. atorvastatin (LIPITOR) 20 mg tablet take 1 tablet daily at bedtime for cholesterol loratadine (CLARITIN) 10 mg tablet TAKE 1 TABLET BY MOUTH EVERY DAY metFORMIN (GLUCOPHAGE) 500 mg tablet TAKE 2 TABLETS TWICE DAILY WITH meals lisinopril (ZESTRIL, PRINIVIL) 20 mg tablet Take 1 tablet by mouth once daily. liraglutide (VICTOZA 2-WANDA) 0.6 mg/0.1 mL (18 mg/3 mL) pnij Inject 1.2 mg subcutaneously once daily. CPAP 1 Device by MISCELLANEOUS route daily at bedtime. Auto PAP 8-20 cm H2O, Fit pt for FFM or per patient preference, Ramp 20 minutes, humidity, ALLERGIES: NKDA ? ? FAMILY?HISTORY ? Alcohol/Drug Father ? ? alcohol ? Alcohol/Drug Paternal Grandfather ? ? Allergies Sister ? ? Alzheimer's Disease Maternal Aunt ? ? Arthritis Mother ? ? OA ? Arthritis Maternal Grandmother ? ? Asthma Sister ? ? other (aneurysm brain [Other]) Maternal Aunt ? ? other (aneurysm brain [Other]) Maternal Aunt ? ? Diabetes Mother ? ? Diabetes Maternal Grandmother ? ? Hypertension Mother ? ? Hypertension Maternal Grandmother ? ? Lipids Mother ? ? Lipids Maternal Grandmother ? ? Headache Sister ? ? migraine ? Seizures Sister ? ? Stroke Maternal Aunt ? ? Thyroid Mother ? ? Thyroid Maternal Grandmother ? ? 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 Tobacco Use Smoking status: Former Smoker Packs/day: 0.50 Years: 15.00 Pack years: 7.5 Types: Cigarettes Start date: 07/28/2006 Quit date: 05/25/2017 Years since quittin.1 Smokeless tobacco: Never Used Substance and Sexual Activity Alcohol use: Yes Comment: occasionally Drug use: No Sexual activity: Yes Partners: Female control/protection: Condom Other Topics Concerns: Not on file Social History Narrative Not on file ? ? REVIEW OF SYSTEMS Denies fevers. Has had weight loss - see below. Denies chest pain. Denies SOB All other reviewed and negative other than HPI. ? ? VITALS: BP 144/82 Pulse 82 Temp 36.5 ?C (97.7 ?F) (Tympanic) Resp 18 Wt (!) 171 kg (377 lb) BMI 49.75 kg/m? ? Last 4 Encounter Wt Readings: Date: Wt: 07/08/2018 171 kg (377 lb) 06/01/2017 221.8 kg (489 lb) 05/14/2017 222.7 kg (491 lb) 04/20/2017 223.6 kg (493 lb) ? PHYSICAL EXAMINATION: ? General appearance: Well appearing, alert, in no acute distress, well-hydrated, well nourished. Skin: two actively draining areas. His neck abscess is over 12 cm and limits him even moving his head. His scrotum is red and inflamed and draining as well. Lungs: lungs clear to auscultation. No wheezing, rhonchi, rales Heart: RRR without murmur, gallop, or rubs. No ectopy Abdomen: Normal abdominal exam, Abdomen soft, non-tender. Bowel sounds normal. No masses, organomegaly ? ? ASSESSMENT/PLAN: admitted to hospitalist service - serum glucose was greater than 400 in the ED. Will proceed to I&D- upper back abscess, - this is a large abscess which will require incision and drainage in the OR with anesthesia. Will probably require wound vac for healing. Patient is non compliant with medications for diabetes. However, he has quit TOB use over a year ago. I have counseled patient as to procedure of I&D of above. I have discussed with him the risks of the procedure, including but not limited to: continued infection, bleeding, scar tissue/cosmetic deformity, injury to any blood vessels/nerves, complications of anesthesia, etc. - he understands. He agrees to proceed.
[2018-07-08 16:01] LABS: Bedside Glucose 303 mg/dL (70-110)
--- NOTE | 2018-07-08 17:24 | PCM.OPRPT ---
Report of Operation Date of Procedure: 07/08/18 Pre-Operative Diagnosis: large abscess of upper back - left sided Post-Operative Diagnosis: same Surgery/Procedure Performed:: incision and drainage of large upper back abscess Description of Surgical Findings:: chronic granulation of abscessed upper back, oozing granulation tissue, purulent drainage, cultures taken Type of Anesthesia:: General Anesthesiologist: Megha Molina Specimen's removed: aerobic and anaerobic cultures, necrotic tissue for pathology Estimated Blood Loss (mL): about 50 c Fluids Replaced: 800 cc RL Description of Procedure: After informed consent was given, the patient was brought to the operating room and placed in the supine position. He was then placed under endotracheal anesthesia by the anethesia provider. The patient?s back/neck was then prepped with a sterile surgical skin preparation and sterile surgical drapes were placed. The patient is morbidly obese and therefore has a deep crease for his posterior neck fold. The patient's head/neck could not be flexed so that angle between his head and back be greater than 20 degrees. There was a skin pore opening draining purulent fluid that was located at the upper most part of the back - left of midline. The skin and subcutaneous tissues in and around the lesion were then infiltrated with 1% xylocaine with epinephrine. A skin incision was then made with a 15 blade scalpel at this pore opening. A probe was then used to determine the dimensions of the abscess cavity, in order to unroof the entire cavity. This was done with extension of the above incision, in a cruciate fashion. The cavity was 12 cm x 5 cm with a depth of 3 cm. There was evidence of chronic granulation tissues of this abscessed cavity. There was necrotic tissue, senescent granulation tissue and dense fibrosis, indicating chronic disease. There was oozing of tissues, as the patient had taken ecotrin (according to patient's girlfriend - for pain). Hemostasis was controlled with electrocautery. Also surgicel was applied to area. Cultures were taken. Wound was densely packed with kerlex gauze. Gauze dressing was applied over wound. Patient was brought to Recovery Room in stable condition.. - Complications none noted - Admit VTE Documentation VTE Present on Admission: Yes VTE Mechan Device Prophylaxis: SCD's
[2018-07-08 17:50] LABS: Bedside Glucose 277 mg/dL (70-110)
[2018-07-08] MEDS: Insulin Lispro 100 UNIT/ML INSULN.PEN SQ ×2 (18:54→22:38)
[2018-07-08 19:00] LABS: Bedside Glucose 314 mg/dL (70-110)
[2018-07-08 19:12] LABS: Hemoglobin A1c 13.9 % (4.2-6.3)
[2018-07-08] MEDS: 0.9% Normal Saline 1,000 ML 100 ML IV (19:47)
[2018-07-08 20:37] LABS: AST(SGOT) 15 U/L (15-37); Alanine Aminotransfer ALT/SGPT 21 U/L (16-61); Albumin, Serum 3.3 g/dL (3.2-5.0); Alkaline Phosphatase 83 U/L (45-117); Bilirubin, Direct 0.15 mg/dL (0.00-0.30); Protein, Total 8.3 g/dL (6.4-8.2)
[2018-07-08] MEDS: Acetaminophen 325 MG Tablet 650 MG PO (20:41)
[2018-07-08] MEDS: oxyCODONE 5 MG Tablet PO (20:41)
[2018-07-08 22:56] LABS: Bedside Glucose 412 mg/dL (70-110)
[2018-07-09] MEDS: oxyCODONE 5 MG Tablet PO ×4 (02:03→21:51)
[2018-07-09 02:05] VITALS: BP 121/79; PULSE 68; RESP 18; TEMP 36.6; O2SAT 96
[2018-07-09 05:20] LABS: Absolute Lymphocyte Count 1.56 X10^3/ul (0.83-4.51); Absolute Neutrophil Count 5.3 X10^3/uL (2.0-7.7); Basophil# 0.01 X10^3/uL; Basophil% 0.1 % (0-1); Eosinophil# 0.14 X10^3/uL; Eosinophils% 1.9 % (0-5); Hematocrit 41.5 % (40-54); Hemoglobin 13.2 g/dl (13.0-16.5); Lymphocyte # 1.56 X10^3/ul (4.0); Mean Corp Hgb Conc 31.8 g/gl (32-36); Mean Corpuscular Hgb 28.5 pg (27.0-32.0); Mean Corpuscular Volume 89.6 fL (80-94); Mean Platelet Vol. 9.7 fl (6.2-12.0); Monocyte# 0.45 X10^3/uL; Monocyte% 6.1 % (0-10); Neutrophil # 5.25 X10^3/uL (2.7-7.7); Neutrophil % 70.6 % (47-70); Platelet Count 248 K/mm3 (150-450); RBC Distribution Width CV 13.4 % (11.6-14.6); RBC Distribution Width SD 43.1 fl (35.1-43.9); Red Blood Count 4.63 M/mm3 (4.6-6.2); White Blood Count 7.4 K/mm3 (4.4-11.0)
[2018-07-09 05:28] LABS: POSITIVE COUNT NO; POSITIVE DIFFERENTIAL NO; POSITIVE MORPHOLOGY NO
[2018-07-09 05:38] LABS: Anion Gap 6 (5-15); BUN 7 mg/dL (7-18); BUN/Creat Ratio 9.3 RATIO (10-20); Chloride 101 mmol/L (98-107); Creatinine, Serum 0.76 mg/dL (0.70-1.30); EST Glomerular Filtration Rate 125 mL/min (>60); Est Glom Filt Rate - Afr Amer 151 mL/min (>60); Estimated Creatinine Clearance 157.73 ml/min; Glucose 216 mg/dL (74-106); Potassium 4.1 mmol/L (3.5-5.1); Sodium Level 139 mmol/L (136-145)
[2018-07-09] MEDS: Insulin Lispro 100 UNIT/ML INSULN.PEN SQ ×4 (06:38→21:57)
[2018-07-09 07:00] LABS: Bedside Glucose 232 mg/dL (70-110)
--- NOTE | 2018-07-09 07:57 | PN_ITS ---
Patient Problems: Active and Suspected Problems (Last Reviewed 08/22/17 @ 07:32 by Fabiola Adrian) Hyperglycemia due to type 2 diabetes mellitus (Acute) Skin abscess (Acute) Subjective: Day #2 antibiotics-Unasyn and metronidazole The patient is a 33 year old M with past medical history of type II DM, on metformin and Victoza, noncompliant with medications, hypertension, hyperlipidemia, morbid obesity, previous history of scrotal cellulitis who comes in with complaints of neck swelling and erythema ongoing for 2 weeks. He was admitted to the hospital with a diagnosis of left posterior neck abscess and started on IV clindamycin. Dr. Patricia Turcios was consulted and the patient was taken to surgery for incision and drainage of the abscess. All events of the past 24 hours have been reviewed. Afebrile since admission. Blood pressure was initially elevated but is currently 121/79. He is 96% satura zan on room air. White blood cell count today is 7.4 with an unremarkable differential. Hemoglobin and platelets are within normal limits. BMP is unremarkable. Hemoglobin A1c is 13.9. Blood sugars are not adequately controlled. Microbiology: Gram stain and culture of the wound abscess are pending. No blood cultures were taken. His pain is adequately controlled. Admits to non-compliance with meds and diet. not checking BS's. Complains that he gets frequent boils. He had a R scrotal abscess in the past and he tells me that it never healed. He does not like to go to the doctor because he does not want to come to the hospital and then they will appropriately not refill his prescriptions. - Physical Exam General: Alert, Oriented x3, Cooperative - but, he has some very strange ideas.......he thinks the current abscess in the left scrotum has gooten bigger because of the antibiotics., - - morbidly obese HEENT: MARIA EUGENIA, EOMI Oral: Moist Mucosa Neck: - - the wound on the posterior neck was not examined because it was dressed by the wound care nurse. I viewed the pictures and the vac was not placed today due to bleeding Lungs: Clear to auscultation, Diminished Cardiovascular: Regular rate, Regular Rhythm, No murmurs Abdomen: Bowel Sounds Present, Soft, Non Tender, Non-Distended, Obese, - - there is swelling of the scrotal sac, L>R and there is a large area of induration in the left scrotum with thin bloody DC. Extremities: No cyanosis, No edema, - - Superficial varicosities of both lower extremities Skin: Ulcer/ Wound Musculoskeletal: No Muscle Wasting Neurological: Cranial nerves II-XII grossly intact, Neuro grossly intact Psych/Mental Status: Normal Affect, Appropriate Vital Signs Temp Pulse Resp BP Pulse Ox 97.8 F 68 18 121/79 H 96 07/09/18 02:05 07/09/18 02:05 07/09/18 02:05 07/09/18 02:05 07/09/18 02:05 Oxygen Flow Rate (L/min) 2 Oxygen Delivery Method Room Air Weight: 375 lb 10.683 oz Body Mass Index (BMI) 48.2 Finger Stick Blood Glucose 277 Intake and Output for Last 24 Hours 07/07/18 07/08/18 07/09/18 23:59 23:59 23:59 Intake Total 1100 / 1100 1542 / 1542 Balance 1100 / 1100 1542 / 1542 Laboratory Tests Past 24 Hrs 07/08/18 07/08/18 07/08/18 11:55 11:55 11:55 WBC 8.5 RBC 4.79 Hgb 14.2 Hct 42.4 MCV 88.5 MCH 29.6 MCHC 33.5 RDW 13.1 RDW Differential 42.2 Plt Count 227 MPV 9.9 Immature Gran % (Auto) 0.200 Neut % (Auto) 75.2 H Lymph % (Auto) 15.5 L [place] % (Auto) 7.9 Eos % (Auto) 1.1 Baso % (Auto) 0.1 Absolute Neuts (auto) 6.4 Absolute Lymphs (auto) 1.31 Total Counted Not Reportable Sodium 133 L Potassium 4.6 Chloride 98 Carbon Dioxide 27.0 Anion Gap 8 BUN 11 Creatinine 0.82 Estim Creat Clear Calc 146.19 Est GFR (MDRD) Af Amer 137 Est GFR (MDRD) Non-Af 113 BUN/Creatinine Ratio 13.4 Glucose 410 H Hemoglobin A1c Calcium 9.1 Total Bilirubin 0.50 Direct Bilirubin 0.15 AST 15 ALT 21 Alkaline Phosphatase 83 Total Protein 8.3 H Albumin 3.3 Globulin 5.0 H 07/08/18 07/09/18 07/09/18 11:55 05:06 05:06 WBC 7.4 RBC 4.63 Hgb 13.2 Hct 41.5 MCV 89.6 MCH 28.5 MCHC 31.8 L RDW 13.4 RDW Differential 43.1 Plt Count 248 MPV 9.7 Immature Gran % (Auto) 0.300 Neut % (Auto) 70.6 H Lymph % (Auto) 21.0 [place] % (Auto) 6.1 Eos % (Auto) 1.9 Baso % (Auto) 0.1 Absolute Neuts (auto) 5.3 Absolute Lymphs (auto) 1.56 Total Counted Not Reportable Sodium 139 Potassium 4.1 Chloride 101 Carbon Dioxide 32.0 Anion Gap 6 BUN 7 Creatinine 0.76 Estim Creat Clear Calc 157.73 Est GFR (MDRD) Af Amer 151 Est GFR (MDRD) Non-Af 125 BUN/Creatinine Ratio 9.3 L Glucose 216 H Hemoglobin A1c 13.9 H Calcium 8.0 L Total Bilirubin Direct Bilirubin AST ALT Alkaline Phosphatase Total Protein Albumin Globulin POC Glucose 07/09/18 07/08/18 07/08/18 06:36 22:45 18:48 POC Glucose 232 H 412 H 314 H 07/08/18 07/08/18 07/08/18 17:41 15:58 14:20 POC Glucose 277 H 303 H 336 H Medical Necessity - Tobacco Use Smoking Status: Former smoker Tobacco Use: Non-smoker Assessment/Plan All Active Problems (Last Reviewed 08/22/17 @ 07:32 by Fabiola Adrian) Hyperglycemia due to type 2 diabetes mellitus (Acute) Skin abscess (Acute) Scrotal edema (Acute) Scrotal wall abscess (Resolved) Impressions 1. Left posterior neck abscess-postoperative day #1, status post I&D by Dr. Patricia Turcios. Preliminary on the wound culture is group B strep 2. Left scrotal abscess 3. Morbid obesity 4. Poorly controlled diabetes mellitus type 2 with hemoglobin A1c of 13.9 5. Pseudohyponatremia related to uncontrolled blood sugar 6. Hypertension 7. Asthma 8. Obstructive sleep apnea 9. Hyperlipidemia He has very little insight into his disease process and how his uncontrolled diabetes mellitus and morbid obesity contribute to development of boils in his perineal area with subsequent scrotal abscesses. We will continue doxycycline and cefazolin ordered by Dr. Atwood. Obtain a testicular/scrotal ultrasound Consult Dr. Maddox for I&D of scrotal abscess Adjust insulin to get the blood sugars under control -he was seen by the dietitian who feels 1800 yareli is inadequate especially with infection and she recommends [id number] yareli. Patient was receptive to diet education. Start Clay [address] wound VAC on the posterior neck wound when the bloody discharge decreases Recommended he follow-up with the dietitians in the [facility] Code Visit Inpatient E&M: 43154 Subs Hosp L2
[2018-07-09 08:05] VITALS: BP 148/84; PULSE 79; RESP 20; TEMP 36.9; O2SAT 92
[2018-07-09 08:13] VITALS: PULSE 80
[2018-07-09] MEDS: Loratadine 10 MG Tablet PO (08:26)
[2018-07-09] MEDS: Lisinopril 20 MG Tablet PO (08:26)
--- NOTE | 2018-07-09 09:38 | CASEMGMT ---
Addendum entered by Molina Segovia 07/09/18 11:18: Call to [facility] @ [facility]. She states she has call to her Clinical investment manager and is awaiting approval. Zach RUDOLPH Original Note: RN CM Assessment Presentation: Neck abcess with I/D on 07/08/18 Intro role of CM and purpose of RN CM assessment to patient. Demographics, PCP and Pharmacy verified. Pt had I/D neck abcess. Plan is for wound vac with wound vac changes . ID consult pending. PCP: Dr. Fernandes Specialists: Dr. Turcios, Dr. Atwood Preferred Pharmacy: [facility] Insurance: [employer] Prescription Benefit: yes LNOK: Abbie Nugent, Mother Living Arrangements: Pt lives independently, no care needs identified. Transportation: Drives DME: none. HHC: Referral faxed to [facility]. Called to [facility] who will review case. (ph: [phone], fx: [phone]) Wound Center: Set up first appointment for Sunday, July 17, 2018 @ [address] Vega. they will see pt once a week. Patient DC goals: Home. DC PLAN: Home with Home Health and wound vac changes @ [facility] wound center 1x week. Zach RUDOLPH
--- NOTE | 2018-07-09 10:19 | NURSING ---
wound photo: left upper back/neck
[2018-07-09] MEDS: 0.9% Normal Saline 1,000 ML 100 ML IV (10:34)
[2018-07-09] MEDS: Morphine 2 MG/ML Syringe IV (10:41)
[2018-07-09] MEDS: 0.9% NaCl Peripheral Flush Adult/Peds IV ×2 (10:44→21:54)
--- NOTE | 2018-07-09 11:18 | PCM.HP.ID ---
Problem List (1) Skin abscess Status: Acute Reason for Consult: abscess Consulted by: Dr. Bal History of Present Illness: The patient is a 33 year old M with obesity and uncontrolled T2DM, recurrent skin abscess who presented with 4-5 days of worsening pain/redness/swelling/purulent drainage from posterior neck. Had some drainage about 2 weeks prior. No recent outpt abx. No fever or chills. Pain was severe, sharp, throbbing. Came to ED, taken to OR for I&D. Started on unasyn and flagyl. Full ROS performed and neg except as noted above. - Medical History Past Medical History (Chronic Problems): Chronic Problems (Last Reviewed 08/22/17 @ 07:32 by Fabiola Adrian) Hyperlipidemia (Chronic) Chronic asthma (Chronic) Sleep apnea (Chronic) Morbid obesity (Chronic) Essential hypertension (Chronic) Type II diabetes mellitus (Chronic) History of sinus bradycardia (Chronic) Allergies/Adverse Reactions: Allergies GRASS Allergy (Uncoded 07/08/18 11:26) SNEEZING Home Medications: Ambulatory Orders Medication Instructions Recorded Lisinopril [Zestril] 20 mg PO DAILY 11/08/14 Metformin(XR) [Glucophage Xr] 1,000 mg PO BID 11/08/14 Albuterol Sulfate [Ventolin Hfa] 1 - 2 puff INHALATION Q4H PRN PRN 07/08/18 Aspirin E.C. [Ecotrin] 650 mg PO PRN PRN 07/08/18 Furosemide 40 mg PO DAILY 07/08/18 Loratadine 10 mg PO DAILY 07/08/18 - Social History SMOKING STATUS:: Former smoker Vital Signs Temp Pulse Resp BP Pulse Ox 98.5 F 80 20 H 148/84 H 92 07/09/18 08:05 07/09/18 08:13 07/09/18 08:05 07/09/18 08:05 07/09/18 08:05 Oxygen Flow Rate (L/min) 2 Oxygen Delivery Method Room Air Weight: 170.4 kg Body Mass Index (BMI) 48.2 Finger Stick Blood Glucose 277 Laboratory Tests Past 24 Hrs 07/08/18 07/08/18 07/08/18 11:55 11:55 11:55 WBC 8.5 RBC 4.79 Hgb 14.2 Hct 42.4 MCV 88.5 MCH 29.6 MCHC 33.5 RDW 13.1 RDW Differential 42.2 Plt Count 227 MPV 9.9 Immature Gran % (Auto) 0.200 Neut % (Auto) 75.2 H Lymph % (Auto) 15.5 L [place] % (Auto) 7.9 Eos % (Auto) 1.1 Baso % (Auto) 0.1 Absolute Neuts (auto) 6.4 Absolute Lymphs (auto) 1.31 Total Counted Not Reportable Sodium 133 L Potassium 4.6 Chloride 98 Carbon Dioxide 27.0 Anion Gap 8 BUN 11 Creatinine 0.82 Estim Creat Clear Calc 146.19 Est GFR (MDRD) Af Amer 137 Est GFR (MDRD) Non-Af 113 BUN/Creatinine Ratio 13.4 Glucose 410 H Hemoglobin A1c Calcium 9.1 Total Bilirubin 0.50 Direct Bilirubin 0.15 AST 15 ALT 21 Alkaline Phosphatase 83 Total Protein 8.3 H Albumin 3.3 Globulin 5.0 H 07/08/18 07/09/18 07/09/18 11:55 05:06 05:06 WBC 7.4 RBC 4.63 Hgb 13.2 Hct 41.5 MCV 89.6 MCH 28.5 MCHC 31.8 L RDW 13.4 RDW Differential 43.1 Plt Count 248 MPV 9.7 Immature Gran % (Auto) 0.300 Neut % (Auto) 70.6 H Lymph % (Auto) 21.0 [place] % (Auto) 6.1 Eos % (Auto) 1.9 Baso % (Auto) 0.1 Absolute Neuts (auto) 5.3 Absolute Lymphs (auto) 1.56 Total Counted Not Reportable Sodium 139 Potassium 4.1 Chloride 101 Carbon Dioxide 32.0 Anion Gap 6 BUN 7 Creatinine 0.76 Estim Creat Clear Calc 157.73 Est GFR (MDRD) Af Amer 151 Est GFR (MDRD) Non-Af 125 BUN/Creatinine Ratio 9.3 L Glucose 216 H Hemoglobin A1c 13.9 H Calcium 8.0 L Total Bilirubin Direct Bilirubin AST ALT Alkaline Phosphatase Total Protein Albumin Globulin - Other Studies Radiology: [] reviewed Other Studies: [] Route of nutrition/ use of supplements: [] Nutritional Intake: [] IV Site: [] Bruner Catheter: [] - Physical Exam General: Alert, Oriented x3, Cooperative, No apparent distress HEENT: Atraumatic, PERRLA, EOMI Neck: Supple, No Nodes Lungs: Clear to auscultation, Normal air movement Cardiovascular: Regular rate, Regular Rhythm Abdomen: Soft, Non Tender, Non-Distended, Obese Extremities: No edema Skin: Ulcer/ Wound - posterior neck, reviewed photos IV Site: Peripheral, without redness Musculoskeletal: No Tenderness to Palpation of Joints or Extremities Neurological: Cranial nerves II-XII grossly intact - Assessment/Plan Antibiotics: [] Assessment/Plan: [] Active and Suspected Problems (Last Reviewed 08/22/17 @ 07:32 by Fabiola Adrian) Hyperglycemia due to type 2 diabetes mellitus (Acute) Neck abscess - s/p I&D 07/08. Cx pending, will order staph pcr. On unasyn/flagyl. Will change to doxy/cefazolin to cover skin staph and strep including MRSA. Will follow, thank you.
[2018-07-09] MEDS: Cefazolin 2 GM in 0.9% Normal Saline 100 ML IV ×2 (13:39→21:51)
[2018-07-09] MEDS: Doxycycline 100 MG CAPSULE PO ×2 (13:39→21:51)
--- NOTE | 2018-07-09 14:36 | CASEMGMT ---
RN CM Note: Call to [facility] who states she is waiting for nurse to return call to verify they can staff pt. KINDRA Gay. Zach WHITEN RN AC
[2018-07-09 14:51] LABS: M R Staph aureus DNA By PCR Negative (Negative); Probe Check PASS; Specimen Processing Control PASS; Staph aureus DNA By PCR NEGATIVE (Negative)
--- NOTE | 2018-07-09 14:59 | CHAPLAIN ---
Type of Pastoral Visit _x__ Initial Visit ___ Follow-up Visit ___ On-call Visit ___ General Patient Visit ___ Spiritual Assessment ___ Family Conference ___ Bereavement ___ Rapid Response ___ Code Blue ___ Other (describe below) Pastoral Care Referral From _x__ Patient ___ Family ___ Nurse ___ Physician ___ Supplier Quality Engineer ___ Pecan Sheller ___ Other (describe below) Sacrament/Intervention _x__ Active listening ___ Anointing ___ Judaism ___ Bereavement ___ Communion ___ Ana Luisa exploration ___ _x__ Life review _x__ Prayer ___ Reconciliation ___ Sacrament of Sick ___ Supportive presence ___ Wedding ___ Other (describe below) Pastoral Comments
[2018-07-09 15:00] LABS: Bedside Glucose 252 mg/dL (70-110)
[2018-07-09 15:17] VITALS: BP 143/74; PULSE 79; RESP 18; TEMP 37.2; O2SAT 94
[2018-07-09 16:26] LABS: Bedside Glucose 315 mg/dL (70-110)
--- NOTE | 2018-07-09 16:40 | CASEMGMT ---
RN CM Note: Call received from [facility] that [facility] cannot staff pt. Call to SON[facility] Barcenas @ . Referral faxed to # given by staff: . Per nurse- documentation will need sent that pt is homebound or restricted by physician order to home. Will need to fax when available. Zach SWAN RN AC
--- NOTE | 2018-07-09 16:47 | PCM.PN.SRG ---
Patient Problems: Active and Suspected Problems (Last Reviewed 08/22/17 @ 07:32 by Fabiola Adrian) Hyperglycemia due to type 2 diabetes mellitus (Acute) Skin abscess (Acute) Subjective: patient has pain in the area, relatively controlled with pain medications - Physical Exam General: Alert, Oriented x3 Oral: Moist Mucosa Neck: Supple Skin: - - dressing intact, not as much seepage as I expected Vital Signs Temp Pulse Resp BP Pulse Ox 99.0 F 79 18 143/74 H 94 07/09/18 15:17 07/09/18 15:17 07/09/18 15:17 07/09/18 15:17 07/09/18 15:17 Oxygen Flow Rate (L/min) 2 Oxygen Delivery Method Room Air Weight: 170.4 kg Body Mass Index (BMI) 48.2 Finger Stick Blood Glucose 277 Intake and Output for Last 24 Hours 07/07/18 07/08/18 07/09/18 23:59 23:59 23:59 Intake Total 1100 / 1100 3220 / 3220 Balance 1100 / 1100 3220 / 3220 Microbiology Past 72 Hours 07/08/18 16:38 Gram Stain - Final Wound Abcess - Aerobic & Anaerobic Swabs Wound Culture - Preliminary Beta streptococcus Laboratory Tests Past 24 Hrs 07/08/18 07/08/18 07/09/18 11:55 11:55 05:06 WBC 7.4 RBC 4.63 Hgb 13.2 Hct 41.5 MCV 89.6 MCH 28.5 MCHC 31.8 L RDW 13.4 RDW Differential 43.1 Plt Count 248 MPV 9.7 Immature Gran % (Auto) 0.300 Neut % (Auto) 70.6 H Lymph % (Auto) 21.0 [place] % (Auto) 6.1 Eos % (Auto) 1.9 Baso % (Auto) 0.1 Absolute Neuts (auto) 5.3 Absolute Lymphs (auto) 1.56 Total Counted Not Reportable Sodium Potassium Chloride Carbon Dioxide Anion Gap BUN Creatinine Estim Creat Clear Calc Est GFR (MDRD) Af Amer Est GFR (MDRD) Non-Af BUN/Creatinine Ratio Glucose Hemoglobin A1c 13.9 H Calcium Total Bilirubin 0.50 Direct Bilirubin 0.15 AST 15 ALT 21 Alkaline Phosphatase 83 Total Protein 8.3 H Albumin 3.3 Globulin 5.0 H S.aureus Protein A PCR MRSA (PCR) 07/09/18 07/09/18 05:06 10:51 WBC RBC Hgb Hct MCV MCH MCHC RDW RDW Differential Plt Count MPV Immature Gran % (Auto) Neut % (Auto) Lymph % (Auto) [place] % (Auto) Eos % (Auto) Baso % (Auto) Absolute Neuts (auto) Absolute Lymphs (auto) Total Counted Sodium 139 Potassium 4.1 Chloride 101 Carbon Dioxide 32.0 Anion Gap 6 BUN 7 Creatinine 0.76 Estim Creat Clear Calc 157.73 Est GFR (MDRD) Af Amer 151 Est GFR (MDRD) Non-Af 125 BUN/Creatinine Ratio 9.3 L Glucose 216 H Hemoglobin A1c Calcium 8.0 L Total Bilirubin Direct Bilirubin AST ALT Alkaline Phosphatase Total Protein Albumin Globulin S.aureus Protein A PCR NEGATIVE MRSA (PCR) Negative POC Glucose 07/09/18 07/09/18 07/09/18 16:10 10:48 06:36 POC Glucose 315 H 252 H 232 H 07/08/18 07/08/18 07/08/18 22:45 18:48 17:41 POC Glucose 412 H 314 H 277 H Medical Necessity - Tobacco Use Smoking Status: Former smoker Tobacco Use: Non-smoker Assessment/Plan All Active Problems (Last Reviewed 08/22/17 @ 07:32 by Fabiola Adrian) Hyperglycemia due to type 2 diabetes mellitus (Acute) Skin abscess (Acute) Scrotal edema (Acute) Scrotal wall abscess (Resolved) Impression: POD#1 s/p incision and drainage of large upper back abscess Plan: will leave packing in place for another day - for hemostasis. Will evaluate wound tomorrow and determine if ready for wound vac.
--- NOTE | 2018-07-09 18:16 | US_ITS ---
STUDY: SCROTUM ULTRASOUND REASON FOR EXAM: Male, 33 years old. Left testicular swelling. Draining wound. TECHNIQUE: Ultrasound evaluation of the scrotum was performed with color Doppler and static mendoza-scale imaging. COMPARISON: May 27, 2017. FINDINGS: RIGHT TESTICLE INTRATESTICULAR: There is a normal size of the right testicle. The right testicle measures 4.4 x 3.3 x 2.2 cm. There is a homogenous echotexture. There is normal arterial and normal venous vascularity. There is no demonstrated right testicular mass or cyst. EXTRATESTICULAR: The epididymis is normal in size. The epididymis head measures 1.3 x 0.8 x 0.6 cm. There is normal vascularity of the epididymis. There is no demonstrated epididymal cystic structure. There is a small hydrocele. There is no demonstrated varicocele. There is no demonstrated extratesticular mass or cyst. LEFT TESTICLE INTRATESTICULAR: There is a normal size of the left testicle. The left testicle measures 3.2 x 2.7 x 2.0 cm. There is a homogenous echotexture. There is normal arterial and normal venous vascularity. There is no demonstrated left testicular mass or cyst. EXTRATESTICULAR: The epididymis is normal in size. The epididymis head measures 0.5 x 0.7 x 1.0 cm. There is normal vascularity of the epididymis. There is no demonstrated epididymal cystic structure. There is no demonstrated hydrocele. There is no demonstrated varicocele. There is no demonstrated extratesticular mass or cyst. There is evidence of scrotal wall thickening which measures between 0.8 and 0.9 cm. In the left scrotal area where the patient states the area draining fluid. There is a hypoechoic focus within the distal thickened scrotal wall measuring 2.1 x 0.5 x 1.8 cm. There appears to be a triangular segment which extends upward towards the skin surface. US/Testicular with Arterial Flow IMPRESSION: 1. Normal bilateral testicles and epididymides. 2. Minimal right hydrocele. 3. Marked scrotal wall thickening with fluid density in the left scrotal wall which may be the source of the draining fluid described by the patient. Electronically Signed: Baldo Lee DO at 23:50 EDT Tel [phone], Service support ,
[2018-07-09] MEDS: Mupirocin Ointment 22gm Tube 1 APPLIC NASAL (21:50)
[2018-07-09 21:51] VITALS: BP 131/86; PULSE 78; RESP 16; TEMP 37; O2SAT 94
[2018-07-09] MEDS: Acetaminophen 325 MG Tablet 650 MG PO (21:51)
[2018-07-09 22:45] LABS: Bedside Glucose 303 mg/dL (70-110)
[2018-07-10 03:17] VITALS: BP 155/86; PULSE 70; RESP 18; TEMP 36.6; O2SAT 97
[2018-07-10] MEDS: oxyCODONE 5 MG Tablet PO ×2 (03:30→10:06)
[2018-07-10] MEDS: Cefazolin 2 GM in 0.9% Normal Saline 100 ML IV (05:55)
[2018-07-10 07:52] VITALS: BP 173/86; PULSE 75; RESP 20; TEMP 36.3; O2SAT 94
[2018-07-10] MEDS: Insulin Lispro 100 UNIT/ML INSULN.PEN SQ ×2 (08:12→11:51)
[2018-07-10 08:20] LABS: Bedside Glucose 294 mg/dL (70-110)
[2018-07-10] MEDS: Mupirocin Ointment 22gm Tube 1 APPLIC NASAL (09:50)
[2018-07-10] MEDS: Lisinopril 20 MG Tablet PO (09:51)
[2018-07-10] MEDS: Doxycycline 100 MG CAPSULE PO (09:51)
[2018-07-10] MEDS: Loratadine 10 MG Tablet PO (09:51)
[2018-07-10] MEDS: CHLORHEXIDINE GLUC 2% CLOTH 1 EACH TOWELETTE TOPICAL (10:00)
[2018-07-10] MEDS: Acetaminophen 325 MG Tablet 650 MG PO (10:06)
--- NOTE | 2018-07-10 10:28 | NURSING ---
In to reassess the wound to the left upper back/neck. removed dressing and packing. there are a couple old clots noted in the base of the wound and still some bloody oozing noted. Dr Cobosah in to see patient as well and assess wound. Pt is insisting on going home today. patient states his girlfriend was a nurse and is able to change the dressings at home. patient does have an appt with the wound center next week as well. once the bleeding has resolved, hopefully the wound VAC can be applied. called and discussed patient with Dr Turcios. she is agreeable to the plan and is aware that patient does have an appt set up with the wound healing center. Ui Developer to talk with patient to see if he feels they need home health at this time, or if the girlfriend can just change the dressings. wound care recommendations given. dressing will consist of cleansed with NS. placing Aquacel AG to the base of the wound followed by NS moistened gauze. cover wound with ABD pad and secure with tape.
[2018-07-10 11:56] LABS: Bedside Glucose 280 mg/dL (70-110)
[2018-07-10 12:29] VITALS: BP 159/76; PULSE 77; RESP 20; TEMP 36.8; O2SAT 95
--- NOTE | 2018-07-10 12:40 | NURSING ---
nursing home assistant administrator charting reviewed for educational learning purposes only,
--- NOTE | 2018-07-10 12:50 | PCM.PN.ID ---
Patient Problems: Active and Suspected Problems (Last Reviewed 08/22/17 @ 07:32 by Fabiola Adrian) Hyperglycemia due to type 2 diabetes mellitus (Acute) Skin abscess (Acute) Subjective: Feeling better, neck and scrotum less sore, no fever, no n/v/d. - Physical Exam General: Alert, Cooperative, No apparent distress Lungs: Clear to auscultation, Normal air movement Cardiovascular: Regular rate, Regular Rhythm Abdomen: Soft, Non Tender, Non-Distended Skin: - - wound on neck. Scrotum with mild induration Vital Signs Temp Pulse Resp BP Pulse Ox 98.2 F 77 20 H 159/76 H 95 07/10/18 12:29 07/10/18 12:29 07/10/18 12:29 07/10/18 12:29 07/10/18 12:29 Oxygen Flow Rate (L/min) 2 Oxygen Delivery Method Room Air Weight: 170.4 kg Body Mass Index (BMI) 48.2 Finger Stick Blood Glucose 277 Intake and Output for Last 24 Hours 07/08/18 07/09/18 07/10/18 23:59 23:59 23:59 Intake Total 1100 / 1100 3449 / 3449 1859 / 1859 Balance 1100 / 1100 3449 / 3449 1859 / 185 Microbiology Past 72 Hours 07/08/18 16:38 Gram Stain - Final Wound Abcess - Aerobic & Anaerobic Swabs Wound Culture - Preliminary Beta streptococcus Anaerobic Culture - Preliminary Checking for anaerobes, further studies to follow. Laboratory Tests Past 24 Hrs 07/09/18 10:51 S.aureus Protein A PCR NEGATIVE MRSA (PCR) Negative POC Glucose 07/10/18 07/10/18 07/09/18 11:49 08:09 21:56 POC Glucose 280 H 294 H 303 H 07/09/18 07/09/18 16:10 10:48 POC Glucose 315 H 252 H Medical Necessity - Tobacco Use Smoking Status: Former smoker Tobacco Use: Non-smoker Route of nutrition/ use of supplements: [] Nutritional Intake: [] IV Site: [] Bruner Catheter: [] - Assessment/Plan Antibiotics: [] Assessment/Plan: [] Active and Suspected Problems (Last Reviewed 08/22/17 @ 07:32 by Fabiola Adrian) Hyperglycemia due to type 2 diabetes mellitus (Acute) Neck abscess - s/p I&D 4/15. Cx with strep, wound staph pcr was neg. Ok for d/c home on one week of augmentin to cover neck and scrotum. Will follow
--- NOTE | 2018-07-10 13:16 | DCINST_ITS ---
- Discharge Diagnoses Current Active Problems: Current Active and Chronic Problems (Last Reviewed 08/22/17 @ 07:32 by Fabiola Adrian) Hyperglycemia due to type 2 diabetes mellitus (Acute) Skin abscess (Acute) You will use the following diet at home:: Calorie/Carbohydrate Controlled (specify 1200, 1400, etc) - 1800 yareli Your food should be the consistency of: Regular Discharge Activity: Return to Normal Activity Weight Bearing Status: Full weight bearing Call your doctor if you observe: Fever of 101 or Higher, Shortness of breath, Dizziness, Fainting spells, Chest pain, Increased palpitations (irregular heartbeat), Uncontrolled pain Instructions: Using a Blood Sugar Log, Hyperglycemia (High Blood Sugar), Hypoglycemia (Low Blood Sugar), How to Check Your Blood Sugar, Using Injected I nsulin Allergies/Adverse Reactions: Allergies GRASS Allergy (Uncoded 07/08/18 11:26) SNEEZING Medications to take at Discharge Lisinopril [Zestril] 20 mg PO DAILY 11/08/14 Albuterol Sulfate [Ventolin Hfa] 1 - 2 puff INHALATION Q4H PRN PRN 07/08/18 Aspirin E.C. [Ecotrin] 650 mg PO PRN PRN 07/08/18 Furosemide 40 mg PO DAILY 07/08/18 Loratadine 10 mg PO DAILY 07/08/18 Metformin HCl 1,000 mg PO BID 07/09/18 Amox/Clavulanate Tablet [Augmentin Tablet] 875 mg PO BID 7 Days #14 tablet 07/10/18 Insulin Detemir [Levemir (BKC)] 30 units SC BID #2 flexpen 07/10/18 The following prescriptions were given: Amox/Clavulanate Tablet [Augmentin Tablet] 875 mg PO BID 7 Days #14 tablet Insulin Detemir [Levemir (BKC)] 30 units SC BID #2 flexpen Primary Care Physician: Kennedy Fernandes MD [Primary Care Provider] - Please follow up with your Primary Care Physician in: 1 WEEK. Test Results: Test results from this visit will be discussed in further detail at your follow- up appointment, if applicable. Please Follow Up With: Reese Ling MD When: 1-2 WEEKS. You will need referral from your PCP Please Follow Up With: Clinic,Wound When: Sunday
--- NOTE | 2018-07-10 14:00 | CASEMGMT ---
LYNN MONTENEGRO confirm HHC with [facility]. Discharge instructions and wound care orders faxed to [facility]. Patient updated regarding HHC.
[2018-07-10 14:05] VITALS: BP 162/84; PULSE 75; RESP 18; TEMP 36.6; O2SAT 96
--- NOTE | 2018-07-10 15:59 | DS.PCM_ITS ---
Discharge Date and Diagnosis Date of Admission: 07/08/18 Date of Discharge: 07/10/18 - Primary Discharge Diagnosis #1 group C streptococcus left side neck abscess, status post incision and drainage. #2 probable left scrotal abscess. #3 uncontrolled type 2 diabetes mellitus. - Secondary Discharge Diagnosis Chronic Problems (Last Reviewed 08/22/17 @ 07:32 by Fabiola Adrian) Hyperlipidemia (Chronic) Chronic asthma (Chronic) Sleep apnea (Chronic) Morbid obesity (Chronic) Essential hypertension (Chronic) Type II diabetes mellitus (Chronic) History of sinus bradycardia (Chronic) Hospital Course and Treatment Imaging Results: Clinical Impression(s) from Imaging Studies Testicular Ultrasound 07/09/18 18:16 IMPRESSION: 1. Normal bilateral testicles and epididymides. 2. Minimal right hydrocele. 3. Marked scrotal wall thickening with fluid density in the left scrotal wall which may be the source of the draining fluid described by the patient. Electronically Signed: Baldo Lee DO at 23:50 EDT Tel [phone], Service support , Consultations 07/08/18 18:24 Consult: Onc/Wound/national coverage specialist Routine Comment: Dr. Turcios, general surgery. Dr. zendejas, infectious disease. Operations: None Procedures: - - Incision and drainage of left side neck abscess. Summary of Care Provided: Patient seen and examined on the day of discharge and appeared to be stable to be discharged home. Upon dressing of the left side neck abscess, there was some bleeding at the site of the surgery and wound VAC placement was delayed. Patient states that his girlfriend is a nurse and she can do the dressing at home. After discussion with Dr. Turcios about the wound VAC placement, she agreed to send patient home with daily wound dressing and placement of the wound VAC as outpatient at the wound care center. Patient's vital signs were stable. The patient is a 33 year old M presented to the emergency room because of swelling and erythema in the left side of his neck over the left trapezius muscle that began approximately 2 weeks before this admission. Patient was found to have abscess on the left side of the neck overlying left trapezius muscle. He was treated with IV antibiotics and he underwent incision and drainage by Dr. Turcios. His routine blood work was unremarkable. Initially, patient was started on IV vancomycin but because of the MRSA nasal screen came back negative, antibiotics were adjusted. Wound culture revealed group C streptococcus. Patient had scrotal drainage for which ultrasound testicles performed and revealed normal bilateral testicles and epididymis, minimal right hydrocele, marketed scrotal wall thickening with fluid density in the left scrotal wall. On scrotal examination, there was no evidence of clear-cut obvious abscess with fluctuation but the skin on the left scrotum was red, thick with drainage of serous fluids. Patient remained afebrile throughout the admission. Infectious disease consulted and recommended that patient can be discharged home on Augmentin twice daily for 7 days of treatment. Patient had a history of type 2 diabetes mellitus which is apparently uncontrolled, hemoglobin A1c was 13.9. Patient was only on metformin. He was started on Levemir insulin 30 units this twice daily. Patient's pharmacy called me back later and they mentioned that Levemir insulin need to be preauthorized so I changed Levemir insulin to Lantus 20 units twice daily. Patient was recommended to check his blood pressure at least 3-4 times daily, instructed to keep a blood sugar log. Prescription given for lancets, alcohol swabs and test strips. Patient discharged home in a stable medical condition, discharged on Augmentin twice daily for 7 days, started on Lantus twice daily, continued on other home medications including metformin, plan to follow-up with the wound care center fo r placement of the wound VAC, recommended follow-up with PCP in 1 week and follow-up with urology in 1-2 weeks. - Physical Exam General: Alert, Oriented x3, Cooperative, No apparent distress HEENT: Atraumatic, PERRLA, EOMI, Normocephalic Oral: Moist Mucosa, No Gingival or Mucosal Lesions/ Ulcerations Neck: Supple, No JVD, Negative Carotid Bruits, Trachea Midline, Thyroid Normal Size and Texture Lungs: Clear to auscultation, Normal air movement, No rhonchi, No wheeze, No rales Cardiovascular: Regular rate, Regular Rhythm, Normal S1, Normal S2, PMI Normal Abdomen: Bowel Sounds Present, Soft, Non Tender, Non-Distended, No Hepato- splenomegaly Extremities: No clubbing, No cyanosis, No edema Skin: No rashes, Ulcer/ Wound Lymphatic: No Cervical, Supraclavicular, or Inguinal Adenopathy Neurological: Cranial nerves II-XII grossly intact, Neuro grossly intact Psych/Mental Status: Normal Affect, Appropriate Vital Signs Temp Pulse Resp BP Pulse Ox 97.9 F 75 18 162/84 H 96 07/10/18 14:05 07/10/18 14:05 07/10/18 14:05 07/10/18 14:05 07/10/18 14:05 Oxygen Flow Rate (L/min) 2 Oxygen Delivery Method Room Air Weight: 375 lb 10.683 oz Body Mass Index (BMI) 48.2 Finger Stick Blood Glucose 277 Intake and Output for Last 24 Hours 07/08/18 07/09/18 07/10/18 23:59 23:59 23:59 Intake Total 1100 / 1100 3449 / 3449 1859 / 1859 Balance 1100 / 1100 3449 / 3449 1859 / 185 Microbiology Past 72 Hours 07/08/18 16:38 Gram Stain - Final Wound Abcess - Aerobic & Anaerobic Swabs Wound Culture - Preliminary Beta streptococcus Anaerobic Culture - Preliminary Checking for anaerobes, further studies to follow. POC Glucose 07/10/18 07/10/18 07/09/18 11:49 08:09 21:56 POC Glucose 280 H 294 H 303 H 07/09/18 16:10 POC Glucose 315 H Discharge Activity: Return to Normal Activity Weight Bearing Status: Full weight bearing Call your doctor if you observe: Fever of 101 or Higher, Shortness of breath, Dizziness, Fainting spells, Chest pain, Increased palpitations (irregular heartbeat), Uncontrolled pain Home Medications: Medications to take at Discharge Lisinopril [Zestril] 20 mg PO DAILY 11/08/14 Albuterol Sulfate [Ventolin Hfa] 1 - 2 puff INHALATION Q4H PRN PRN 07/08/18 Aspirin E.C. [Ecotrin] 650 mg PO PRN PRN 07/08/18 Furosemide 40 mg PO DAILY 07/08/18 Loratadine 10 mg PO DAILY 07/08/18 Metformin HCl 1,000 mg PO BID 07/09/18 Amox/Clavulanate Tablet [Augmentin Tablet] 875 mg PO BID 7 Days #14 tablet 07/10/18 Insulin Detemir [Levemir (BKC)] 30 units SC BID #2 flexpen 07/10/18 Following Prescrptions Were Given to Patient: Amox/Clavulanate Tablet [Augmentin Tablet] 875 mg PO BID 7 Days #14 tablet Insulin Detemir [Levemir (BKC)] 30 units SC BID #2 flexpen Other Amb Orders: Glucometer Location: None Selected Primary Care Physician: Kennedy Fernandes MD [Primary Care Provider] - Please follow up with your Primary Care Physician in: 1 WEEK. Please Follow Up With: Reese Ling MD When: 1-2 WEEKS. You will need referral from your PCP Please Follow Up With: Clinic,Wound When: Sunday Please Follow Up With: Kennedy Fernandes MD When: 1 week Patient Instructions: Using a Blood Sugar Log, Hyperglycemia (High Blood Sugar), Hypoglycemia (Low Blood Sugar), How to Check Your Blood Sugar, Using Injected Insulin Disposition: Home Minutes spent on discharge:: 34 Patient Condition:: Stable Medical Necessity - Tobacco Use Smoking Status: Former smoker Tobacco Use: Non-smoker Meaningful Use Info Meaningful Use Diagnoses (Choose all that apply): None applicable Code Visit Inpatient E&M: 41699 Disch Hosp
--- NOTE | 2018-07-11 10:38 | CASEMGMT ---
LYNN MONTENEGRO received call from nurse at Dr. Fernandes's office stating that patient is at the office. Patient states that he was not able to fill script for wound supplies and he was not sent home with any supplies. LYNN MONTENEGRO confirmed with wound nurse that patient was sent with 3 day supply. This RN CM setup HHC that will be out to patient's home on Sunday. Patient had left hospital before HHC was confirmed. HHC was setup with [facility]. LYNN MONTENEGRO called [facility] to see if they could see patient today. Wound Center is able to see patient at 1500 today. LYNN MONTENEGRO called Nurse Dona at Dena's office to confirm with her that patient was sent with supplies for wound changes and that patient can go to [facility] Center today at 1500 for dressing change. Also infomed Dena's office that A C is scheduled to see patient Sunday and should be calling patient to confirm time.
== END 2018-07-10 14:14 | disposition home health service (06) | DRG 364 ==
LOC: ED 13:49 → MS3 13:56
PROVIDERS: Internal Medicine; Surgery; Admitting Provider Internal Medicine; Emergency Provider Emergency Medicine; Family Provider Family Medicine; PCP Family Medicine; Visit Provider Hospitalist
PROC: 0J970ZZ Drainage of Back Subcutaneous Tissue and Fascia, Open Approach (ICD-10-PCS; principal; 2018-07-08 15:45)
DX: L02.11 Cutaneous abscess of neck (principal); B95.4 Other streptococcus as the cause of diseases classified elsewhere; E11.65 Type 2 diabetes mellitus with hyperglycemia; N49.2 Inflammatory disorders of scrotum; E78.5 Hyperlipidemia, unspecified; E66.01 Morbid (severe) obesity due to excess calories; Z68.42 Body mass index [BMI] 45.0-49.9, adult; J45.909 Unspecified asthma, uncomplicated; I10 Essential (primary) hypertension; G47.33 Obstructive sleep apnea (adult) (pediatric); Z87.891 Personal history of nicotine dependence; Z79.84 Long term (current) use of oral hypoglycemic drugs
CPT/HCPCS: 36415; 76870; 80048; 80076; 82962; 83036; 85025; 87070; 87075; 87077; 87205; 87640; 88304; 88305; 93005; 93976; 97802; 99284; J7030; A4216; J0295; J2405

== ENCOUNTER 2018-07-18 14:45 | Outpatient (RCR) | payer MEDICAID, SELFPAY ==
[2018-07-08 18:40] VITALS: BMI 48.2
[2018-07-11 15:21] VITALS: BP 147/102; PULSE 87; RESP 18; TEMP 36.3; BMI 99.1
--- NOTE | 2018-07-12 08:40 | PCM.WC.HP ---
(1) Surgical wound present Status: Acute Current Visit: Yes Code(s): T14.8XXA - Other injury of unspecified body region, initial encounter Comment: left neck s/p surgical I/D on 07/08/18 (2) Surgical wound, non healing Status: Acute Current Visit: Yes Code(s): T81.89XA - Other complications of procedures, not elsewhere classified, initial encounter (3) Hyperglycemia due to type 2 diabetes mellitus Status: Acute Current Visit: No Qualifiers: Code(s): E11.65 - Type 2 diabetes mellitus with hyperglycemia (4) Skin abscess Status: Acute Current Visit: Yes Qualifiers: Site of cutaneous abscess: neck Qualified Code(s): L02.11 - Cutaneous abscess of neck Code(s): L02.91 - Cutaneous abscess, unspecified (5) Chronic asthma Status: Chronic Current Visit: No Code(s): J45.909 - Unspecified asthma, uncomplicated (6) Essential hypertension Status: Chronic Current Visit: No Code(s): I10 - Essential (primary) hypertension (7) Hyperlipidemia Status: Chronic Current Visit: No Code(s): E78.5 - Hyperlipidemia, unspecified (8) Morbid obesity Status: Chronic Current Visit: Yes Code(s): E66.01 - Morbid (severe) obesity due to excess calories (9) Sleep apnea Status: Chronic Current Visit: No Code(s): G47.30 - Sleep apnea, unspecified (10) Type II diabetes mellitus Status: Chronic Current Visit: Yes Qualifiers: Code(s): E11.9 - Type 2 diabetes mellitus without complications History of Present Illness Date of Service: 07/11/18 Chief Complaint: Postsurgical wound to the left neck status post incision and drainage of abscess by Dr. Turcios on 07/08/2018 History of Wound: This is a 33-year-old white male who was admitted to [facility] from 07/08 to 07/10/18 for left sided neck abscess status post incision and drainage on 07/08/[address] Turcios, probable left scrotal abscess, and uncontrolled type 2 diabetes mellitus. He has a past medical history of morbid obesity, DEMETRIO, asthma, hyperlipidemia, hypertension, and uncontrolled type 2 diabetes mellitus. During the patient's hospital course he was treated with IV antibiotics after incision and drainage of the left neck abscess. He also had complaints of scrotal drainage which an ultrasound was done and revealed marked scrotal wall thickening with fluid density in the left scrotal wall. There was no obvious abscess on exam and infectious disease was consulted and recommended that the patient be discharged home on Augmentin twice daily for 7 days of treatment to cover for his wound culture of group C strep. Patient also had an hemoglobin A1c of 13.9 and was started on Lantus twice daily. He was discharged yesterday and has currently been utilizing wet-to-dry dressings. The plan was for placement of a wound VAC as an outpatient. The patient states that since being discharged yesterday he has been doing well. He denies any systemic signs of infection at this time. He states that there is minimal serosanguineous drainage when he removes the gauze dressing. He does note that he has had problems with recurrent abscesses in his neck axilla and groin in the past. He is unsure if he has ever been diagnosed with hidradenitis suppurativa. He states that he does have home care coming to help with dressing changes which will start tomorrow. Regarding his scrotal drainage, he states that this has entirely resolved and that he is not having any drainage or pain at this time. He denies any other concerns at this time. He does state that he followed up with his primary care today Dr. Fernandes who is going to be managing his diabetes. The patient otherwise denies any fever, chills, nausea, vomiting, shortness of breath, chest pain or pressure, palpitations, orthopnea, lower extremity edema, syncope or presyncopal episodes. Past Medical History Past Medical History: Chronic Problems (Last Reviewed 08/22/17 @ 07:32 by Fabiola Adrian) Hyperlipidemia (Chronic) Chronic asthma (Chronic) Sleep apnea (Chronic) Morbid obesity (Chronic) Essential hypertension (Chronic) Type II diabetes mellitus (Chronic) History of sinus bradycardia (Chronic) Surgical History: - - Scrotal abscess incision and drainage Allergies/Adverse Reactions: Allergies GRASS Allergy (Uncoded 07/11/18 15:44) SNEEZING Home Medications: Ambulatory Orders Medication Instructions Recorded Lisinopril [Zestril] 40 mg PO DAILY 11/08/14 Albuterol Sulfate [Ventolin Hfa] 1 - 2 puff INHALATION Q4H PRN PRN 07/08/18 Loratadine 10 mg PO DAILY 07/08/18 Metformin HCl 1,000 mg PO BID 07/09/18 Amox/Clavulanate Tablet [Augmentin 875 mg PO BID 7 Days #14 tablet 07/10/18 Tablet] Insulin Detemir [Levemir (BKC)] 20 units SC BID 07/11/18 - Family History Paternal Hypertension Maternal Hypertension Smoking Status: Former smoker Alcohol: None Drugs: None Review of Systems Constitutional: Denies: Chills, Fever, Weight Change Eyes: Denies: Pain, Vision Change HEENT: Denies: Difficulty Hearing, Difficulty Swallowing, Sinus Congestion Cardiovascular: Denies: Chest Pain, Palpitations Respiratory: Denies: Cough, Shortness of Breath Gastrointestinal: Denies: Diarrhea, Nausea, Vomiting Genitourinary: Denies: Dysuria, Hematuria Skin: Reports: Wounds - See HPI Endocrine: Denies: Heat/ Cold Intolerance, Polydipsia, Polyuria Hematologic/ Lymphatic: Denies: Easy Bruising, Easy Bleeding - Physical Exam Vital Signs Temp Pulse Resp BP 97.3 F L 87 18 147/102 H 07/11/18 15:21 07/11/18 15:21 07/11/18 15:21 07/11/18 15:21 General: Alert, Oriented x3, Cooperative, No apparent distress, - - Obese HEENT: Atraumatic Oral: Moist Mucosa Lungs: Clear to auscultation, Normal air movement Cardiovascular: Regular rate, Regular Rhythm, Normal S1, Normal S2, No murmurs Abdomen: Soft, Non Tender, Obese Extremities: No clubbing, No cyanosis, No edema Skin: Ulcer/ Wound - Surgical wound to left neck status post incision and drainage of abscess above trapezius muscle, large amount of slough present in wound cavity, moderate amount of serosanguineous drainage present on exam. No foul smell or surrounding tissue erythema at this time. No warmth or streaking. Some muscle fascia exposed. Wound Measurements and Assessment WC - Nurse 1 - General Ulcer Measurement Start: 07/11/18 15:17 Freq: Status: Active Protocol: Activity Type Activity Date Activity User E-Sign Co-Sign Detail Recorded Client Recorded Date Recorded By Document 07/11/18 15:21 BMF [id number] 07/11/18 15:39 BMF 07/11/18 15:21 Wound Center Nurse 1 [Ulcer Assessment] #1- LT NECK -Combined with other wound No -Current Size (cm) - Length 4 -Current Size (cm) - Width 8.3 -Current Size (cm) - Depth 2.4 -Total Square Cm 33.2 -Date of Last Picture (Recall this 07/11/18 field) -Photo Taken Yes -Epithelialization None Present -Tunneling No -Undermining/Tunneling No -Circular Undermining No -Classification - Thickness Full Thickness with Exposed Support Structure -Exudate Amt Medium -Exudate Type Sanguineous -Wound Margin Thickened & Rolled Under -Granulation Amt Medium (34-66%) -Granulation Quality Red -Slough/Fibrin Yes -Necrosis Amt Small (1-33%) -Necrotic Tissue Type Eschar -Texture (Shira-wound Skin Appearance) Assessed Scarring -Moisture (Shira-wound Skin Appearance Assessed ) -Color (Shira-wound Skin Appearance) Assessed Erythema -Temperature (Shira-wound Skin No Abnormality Appearance) (Pt Warm) -Tenderness on Palpation (Shira-wound Yes Skin Appearance) -Ulcer Cleansing Wound Cleanser -Foul Odor after Cleansing No -Anesthetic Used 4% Lidocaine Solution - Nurse 2 - General Ulcer CM Notes Start: 07/11/18 15:17 Freq: Status: Active Protocol: Activity Type Activity Date Activity User E-Sign Co-Sign Detail Recorded Client Recorded Date Recorded By Document 07/11/18 16:18 AN [id number] 07/11/18 16:36 AN 07/11/18 16:18 Wound Center Nurse 2 [Procedure/Treatment] -Time 16:19 -Correct Patient Yes -Correct Side, Site, Position Yes -Correct Procedure Yes -Procedure Performed Yes -Type of Procedure Debridement -Clinical Debridement Subcutaneous -Post Debridement Size (cm) - Length 5 -Post Debridement Size (cm) - Width 7 -Post Debridement Size (cm) - Depth 3.5 -Total Square Cm 35 -Wound/Ulcer Outcome Not Healed -Ulcer Cleansing Rinsed/ Irrigated with Saline -Foul Odor after Cleansing No -Bleeding Controlled with Pressure -Treatment Response Procedure Tolerated Well [See Physician Procedure note for Specifics] Pain Scale: 0-10 Numeric [Pain] -Is Patient Pain Free? Yes Musculoskeletal: No Tenderness to Palpation of Joints or Extremities, No Muscle Wasting Neurological: Neuro grossly intact Psych/Mental Status: Normal Affect, Appropriate, Alert and oriented to time, place, person, mood and affect Debridement Note Post-Debridement Measurements/Treatment - Nurse 2 - General Ulcer CM Notes Start: 07/11/18 15:17 Freq: Status: Active Protocol: Activity Type Activity Date Activity User E-Sign Co-Sign Detail Recorded Client Recorded Date Recorded By Document 07/11/18 16:18 AN [id number] 07/11/18 16:36 AN 07/11/18 16:18 Wound Center Nurse 2 #1- LT NECK -Time 16:19 -Correct Patient Yes -Correct Side, Site, Position Yes -Correct Procedure Yes -Procedure Performed Yes -Type of Procedure Debridement -Clinical Debridement Subcutaneous -Post Debridement Size (cm) - Length 5 -Post Debridement Size (cm) - Width 7 -Post Debridement Size (cm) - Depth 3.5 -Total Square Cm 35 -Wound/Ulcer Outcome Not Healed -Ulcer Cleansing Rinsed/ Irrigated with Saline -Foul Odor after Cleansing No -Bleeding Controlled with Pressure -Treatment Response Procedure Tolerated Well Pain Scale: 0-10 Numeric Is Patient Pain Free? Yes Wound debrided: Post surgical wound to the left neck status post incision and drainage Laterality: Left Type of Debridement: Excisional debridement Anesthesia Used: 5% Lidocaine Gel Depth: in the subcutaneous layer, to muscle Percentage of wound debrided: 100 Instrument Used: 7mm curette Tissue Removed: Slough and devitalized tissue Severity: Necrosis of Muscle Amount of bleeding with debridement: Mild Bleeding Controlled with: Pressure Patient tolerated procedure well Assessment/Plan Active Problems (Last Reviewed 08/22/17 @ 07:32 by Fabiola Adrian) Skin abscess (Acute) Surgical wound present (Acute) left neck s/p surgical I/D on 07/08/18 Surgical wound, non healing (Acute) Morbid obesity (Chronic) Type II diabetes mellitus (Chronic) Assessment: Postsurgical wound to left neck status post surgical incision and drainage by Dr. Turcios on 07/08/2018. Uncontrolled type 2 diabetes mellitus recent A1c 13.9. See above diagnoses Plan: The patient was seen and examined at the wound center today and was updated on the plan of care. A subcutaneous/muscular debridement was performed today. The patient tolerated the procedure fair. The patients wound care will consist of: We will apply for a wound VAC and purapply AM, in the meantime pack the site daily and as needed with Aquacel silver and cover with gauze. Cultures were collected in his hospital stay which showed group C strep being treated on Augmentin, advised to continue with antibiotic. Baseline bloodwork reviewed and demonstrated albumin normal at 3.3 and an elevated A1c at 13.9, patient was advised to follow-up with diabetic nutrition services and to continue following up with his PCP for diabetic management.Patient educated on the importance of diet on wound healing and instructed to increase protein and vitamin C intake, also advised on the benefits of having tight glucose control. Did discuss signs and symptoms of infection that require urgent medical attention. Patient verbalized understanding. Do suspect that patient may have underlying chronic illness such as hidradenitis suppurativa, if no marked improvement with standard wound care, may need referral to plastics in the future. Patient will follow up at wound healing center in one week or sooner if needed. This note was generated with [employer] dictation software. It may contain incorrect words, spelling, and punctuation that were not noted in checking the note before signing. Code Visit Office Visits / Consults: 39935 OV L4 Est 111xxx-113xx: [id number] Adenike musc/fascia 20 sq cm/<
[2018-07-18 14:50] VITALS: BP 142/80; PULSE 97; RESP 18; TEMP 35.8; BMI 99.1
--- NOTE | 2018-07-23 09:27 | PN.PCM_ITS ---
(1) Surgical wound present Status: Acute Code(s): T14.8XXA - Other injury of unspecified body region, initial encounter Comment: left neck s/p surgical I/D on 07/08/18 (2) Surgical wound, non healing Status: Acute Code(s): T81.89XA - Other complications of procedures, not elsewhere classified, initial encounter (3) Hyperglycemia due to type 2 diabetes mellitus Status: Acute Qualifiers: Code(s): E11.65 - Type 2 diabetes mellitus with hyperglycemia (4) Skin abscess Status: Acute Qualifiers: Site of cutaneous abscess: neck Qualified Code(s): L02.11 - Cutaneous abscess of neck Code(s): L02.91 - Cutaneous abscess, unspecified (5) Chronic asthma Status: Chronic Code(s): J45.909 - Unspecified asthma, uncomplicated (6) Essential hypertension Status: Chronic Code(s): I10 - Essential (primary) hypertension (7) Hyperlipidemia Status: Chronic Code(s): E78.5 - Hyperlipidemia, unspecified (8) Morbid obesity Status: Chronic Code(s): E66.01 - Morbid (severe) obesity due to excess calories (9) Sleep apnea Status: Chronic Code(s): G47.30 - Sleep apnea, unspecified (10) Type II diabetes mellitus Status: Chronic Qualifiers: Code(s): E11.9 - Type 2 diabetes mellitus without complications Type of Wound Date of Service: 07/18/18 Chief Complaint: Postsurgical wound to the left neck status post incision and drainage of abscess by Dr. Turcios on 07/08/2018 History of Wound: This is a 33-year-old white male who was admitted to [facility] from 07/08 to 07/10/18 for left sided neck abscess status post incision and drainage on 07/08/[address] Turcios, probable left scrotal abscess, and uncontrolled type 2 diabetes mellitus. He has a past medical history of morbid obesity, DEMETRIO, asthma, hyperlipidemia, hypertension, and uncontrolled type 2 diabetes mellitus. During the patient's hospital course he was treated with IV antibiotics after incision and drainage of the left neck abscess. He also had complaints of scrotal drainage which an ultrasound was done and revealed marked scrotal wall thickening with fluid density in the left scrotal wall. There was no obvious abscess on exam and infectious disease was consulted and recommended that the patient be discharged home on Augmentin twice daily for 7 days of treatment to cover for his wound culture of group C strep. Patient also had an hemoglobin A1c of 13.9 and was started on Lantus twice daily. He was discharged yesterday and has currently been utilizing wet-to-dry dressings. The plan was for placement of a wound VAC as an outpatient. The patient states that since being discharged yesterday he has been doing well. He denies any systemic signs of infection at this time. He states that there is minimal serosanguineous drainage when he removes the gauze dressing. He does note that he has had problems with recurrent abscesses in his neck axilla and groin in the past. He is unsure if he has ever been diagnosed with hidradenitis suppurativa. He states that he does have home care coming to help with dressing changes which will start tomorrow. Regarding his scrotal drainage, he states that this has entirely resolved and that he is not having any drainage or pain at this time. He denies any other concerns at this time. He does state that he followed up with his primary care today Dr. Fernandes who is going to be managing his diabetes. The patient otherwise denies any fever, chills, nausea, vomiting, shortness of breath, chest pain or pressure, palpitations, orthopnea, lower extremity edema, syncope or presyncopal episodes. Progress of Wound: Wound bed appears moist and appears to be improving, no signs of obvious infection at this time, muscle fascia still exposed. Patient did receive his wound VAC today, however has not utilized it yet. He is getting home care as well. - Physical Exam Vital Signs Temp Pulse Resp BP 96.4 F L 97 18 142/80 H 07/18/18 14:50 07/18/18 14:50 07/18/18 14:50 07/18/18 14:50 General: Alert, Oriented x3, Cooperative, No apparent distress HEENT: Atraumatic Oral: Moist Mucosa Lungs: Clear to auscultation, Normal air movement Cardiovascular: Regular rate, Regular Rhythm Abdomen: Obese Extremities: No clubbing, No cyanosis, Edema - Bilateral lower extremity Skin: Ulcer/ Wound - Postsurgical wound to left posterior neck with adherent slough to wound bed, surrounding edema has improved, no signs of obvious infection at this time, no odor or large drainage present Musculoskeletal: No Tenderness to Palpation of Joints or Extremities Neurological: Neuro grossly intact Psych/Mental Status: Normal Affect, Appropriate, Alert and oriented to time, place, person, mood and affect Debridement Note Post-Debridement Measurements/Treatment WC - Nurse 2 - General Ulcer CM Notes Start: 07/11/18 15:17 Freq: Status: Active Protocol: Activity Type Activity Date Activity User E-Sign Co-Sign Detail Recorded Client Recorded Date Recorded By Document 07/11/18 16:18 AN [id number] 07/11/18 16:36 AN Document 07/18/18 16:04 AN [id number] 07/18/18 16:12 AN 07/11/18 07/18/18 16:18 16:04 Wound Center Nurse 2 #1- LT NECK -Time 16:19 16:10 -Correct Patient Yes Yes -Correct Side, Site, Position Yes Yes -Correct Procedure Yes Yes -Procedure Performed Yes Yes -Type of Procedure Debridement Debridement -Clinical Debridement Subcutaneous Muscle -Post Debridement Size (cm) - Length 5 5.5 -Post Debridement Size (cm) - Width 7 6.5 -Post Debridement Size (cm) - Depth 3.5 2 -Total Square Cm 35 35.75 -Wound/Ulcer Outcome Not Healed Not Healed -Ulcer Cleansing Rinsed/ Rinsed/ Irrigated with Irrigated with Saline Saline -Foul Odor after Cleansing No No -Bioengineered Tissue No -Bleeding Controlled with Pressure Pressure -Treatment Response Procedure Procedure Tolerated Well Tolerated Well Pain Scale: 0-10 Numeric Is Patient Pain Free? Yes Yes Wound debrided: Postsurgical wound to left neck Laterality: Left Type of Debridement: Excisional debridement Anesthesia Used: 5% Lidocaine Gel Depth: in the subcutaneous layer, to muscle Percentage of wound debrided: 100 Instrument Used: 7mm curette Tissue Removed: Slough and devitalized tissue Severity: Necrosis of Muscle Amount of bleeding with debridement: Mild Bleeding Controlled with: Pressure Patient tolerated procedure well Assessment/Plan Assessment: Postsurgical wound to left neck status post surgical incision and drainage by Dr. Turcios on 07/08/2018. Uncontrolled type 2 diabetes mellitus recent A1c 13.9. See above diagnoses Plan: The patient was seen and examined at the wound center today and was updated on the plan of care. A subcutaneous/muscular debridement was performed today. The patient tolerated the procedure fair. The patients wound care will consist of: Application of the KCI wound VAC at 125 mmHg with black foam change 3 times a week, if VAC becomes compromised should go back to using Aquasol silver daily dressing changes. Cultures were collected in his hospital stay which showed group C strep being treated on Augmentin, advised to continue with antibiotic. Baseline bloodwork reviewed and demonstrated albumin normal at 3.3 and an elevated A1c at 13.9, patient was advised to follow-up with diabetic nutrition services and to continue following up with his PCP for diabetic management.Patient educated on the importance of diet on wound healing and instructed to increase protein and vitamin C intake, also advised on the benefits of having tight glucose control. Did discuss signs and symptoms of infection that require urgent medical attention. Patient verbalized understanding. Do suspect that patient may have underlying chronic illness such as hidradenitis suppurativa, if no marked improvement with standard wound care, may need referral to plastics in the future. Patient will follow up at wound healing center in one week or sooner if needed. This note was generated with [employer] dictation software. It may contain incorrect words, spelling, and punctuation that were not noted in checking the note before signing. Code Visit 111xxx-113xx: 53198 Adenike musc/fascia 20 sq cm/<
== END 2018-07-23 23:59 ==
LOC: WC 14:45
PROVIDERS: Family Provider Family Medicine; PCP Family Medicine; Visit Provider Nurse Practitioner Family
DX: L02.11 Cutaneous abscess of neck (principal); E11.65 Type 2 diabetes mellitus with hyperglycemia; T81.89XA Other complications of procedures, not elsewhere classified, initial encounter; Y83.8 Other surgical procedures as the cause of abnormal reaction of the patient, or of later complication, without mention of misadventure at the time of the procedure; I10 Essential (primary) hypertension; J45.909 Unspecified asthma, uncomplicated; E78.5 Hyperlipidemia, unspecified; G47.30 Sleep apnea, unspecified; E66.01 Morbid (severe) obesity due to excess calories; Z71.3 Dietary counseling and surveillance; Z79.899 Other long term (current) drug therapy; Z87.891 Personal history of nicotine dependence
CPT/HCPCS: 11042; 11043; 11045; 11046; 97605; 99214; G0463

== ENCOUNTER 2018-08-22 15:15 | Outpatient (RCR) | payer MEDICAID, SELFPAY ==
[2018-07-24 01:53] VITALS: BP 142/80; PULSE 97; RESP 18; TEMP 35.8
[2018-07-25 15:02] VITALS: BP 129/78; PULSE 97; RESP 18; TEMP 36.1; BMI 99.1
--- NOTE | 2018-07-30 17:17 | PN.PCM_ITS ---
(1) Surgical wound, non healing Status: Acute Code(s): T81.89XA - Other complications of procedures, not elsewhere classified, initial encounter Comment: left neck (2) Hyperglycemia due to type 2 diabetes mellitus Status: Acute Qualifiers: Code(s): E11.65 - Type 2 diabetes mellitus with hyperglycemia (3) Chronic asthma Status: Chronic Code(s): J45.909 - Unspecified asthma, uncomplicated (4) Essential hypertension Status: Chronic Code(s): I10 - Essential (primary) hypertension (5) Morbid obesity Status: Chronic Code(s): E66.01 - Morbid (severe) obesity due to excess calories (6) Sleep apnea Status: Chronic Code(s): G47.30 - Sleep apnea, unspecified (7) Type II diabetes mellitus Status: Chronic Qualifiers: Code(s): E11.9 - Type 2 diabetes mellitus without complications Type of Wound Date of Service: 07/25/18 Chief Complaint: Postsurgical wound to the left neck status post incision and drainage of abscess by Dr. Turcios on 07/08/2018 History of Wound: This is a 33-year-old white male who was admitted to [facility] [place] from 07/08 to 07/10/18 for left sided neck abscess status post incision and drainage on 07/08/[address] Turcios, probable left scrotal abscess, and uncontrolled type 2 diabetes mellitus. He has a past medical history of morbid obesity, DEMETRIO, asthma, hyperlipidemia, hypertension, and uncontrolled type 2 diabetes mellitus. During the patient's hospital course he was treated with IV antibiotics after incision and drainage of the left neck abscess. He also had complaints of scrotal drainage which an ultrasound was done and revealed marked scrotal wall thickening with fluid density in the left scrotal wall. There was no obvious abscess on exam and infectious disease was consulted and recommended that the patient be discharged home on Augmentin twice daily for 7 days of treatment to cover for his wound culture of group C strep. Patient also had an hemoglobin A1c of 13.9 and was started on Lantus twice daily. He was discharged yesterday and has currently been utilizing wet-to-dry dressings. The plan was for placement of a wound VAC as an outpatient. The patient states that since being discharged yesterday he has been doing well. He denies any systemic signs of infection at this time. He states that there is minimal serosanguineous drainage when he removes the gauze dressing. He does note that he has had problems with recurrent abscesses in his neck axilla and groin in the past. He is unsure if he has ever been diagnosed with hidradenitis suppurativa. He states that he does have home care coming to help with dressing changes which will start tomorrow. Regarding his scrotal drainage, he states that this has entirely resolved and that he is not having any drainage or pain at this time. He denies any other concerns at this time. He does state that he followed up with his primary care today Dr. Fernandes who is going to be managing his diabetes. The patient otherwise denies any fever, chills, nausea, vomiting, shortness of breath, chest pain or pressure, palpitations, orthopnea, lower extremity edema, syncope or presyncopal episodes. Progress of Wound: Wound bed appears moist and appears to be improving, no signs of obvious infection at this time, muscle fascia still exposed. Patient did well with wound VAC and states he is getting a moderate amount of serosanguineous drainage. He is getting home care as well. - Physical Exam Vital Signs Temp Pulse Resp BP 97.0 F L 97 18 129/78 H 07/25/18 15:02 07/25/18 15:02 07/25/18 15:02 07/25/18 15:02 General: Alert, Oriented x3, Cooperative, No apparent distress HEENT: Atraumatic Lungs: Clear to auscultation Cardiovascular: Regular rate Abdomen: Soft, Non Tender, Obese Skin: Ulcer/ Wound - Postsurgical wound left neck adherent slough to wound bed edges and center wound bed, small amount of muscle fascia still exposed. Neurological: Neuro grossly intact Psych/Mental Status: Normal Affect, Appropriate, Alert and oriented to time, place, person, mood and affect Debridement Note Post-Debridement Measurements/Treatment WC - Nurse 2 - General Ulcer CM Notes Start: 07/25/18 15:02 Freq: Status: Active Protocol: Activity Type Activity Date Activity User E-Sign Co-Sign Detail Recorded Client Recorded Date Recorded By Document 07/25/18 16:00 AN [id number] 07/25/18 16:02 AN 07/25/18 16:00 Wound Center Nurse 2 #1- LT NECK -Time 16:00 -Correct Patient Yes -Correct Side, Site, Position Yes -Correct Procedure Yes -Procedure Performed Yes -Type of Procedure Debridement -Clinical Debridement Subcutaneous -Post Debridement Size (cm) - Length 4 -Post Debridement Size (cm) - Width 6 -Post Debridement Size (cm) - Depth 1.8 -Total Square Cm 24 -Wound/Ulcer Outcome Not Healed -Ulcer Cleansing Rinsed/ Irrigated with Saline -Foul Odor after Cleansing No -Bioengineered Tissue Yes -Type of bioengineered Tissue [id number] -Expiration Date 07/25/18 -Product Lot Number [id number] -Bleeding Controlled with Pressure -Treatment Response Procedure Tolerated Well Pain Scale: 0-10 Numeric Is Patient Pain Free? Yes Wound debrided: Postsurgical wound to left neck Laterality: Left Type of Debridement: Excisional debridement Anesthesia Used: 5% Lidocaine Gel Depth: in the subcutaneous layer Percentage of wound debrided: 100 Instrument Used: 5mm curette Tissue Removed: Slough and devitalized tissue Severity: Fat Layer Exposed Amount of bleeding with debridement: Mild Bleeding Controlled with: Pressure Patient tolerated procedure well Assessment/Plan Assessment: Postsurgical wound to left neck status post surgical incision and drainage by Dr. Turcios on 07/08/2018. Uncontrolled type 2 diabetes mellitus recent A1c 13.9. See above diagnoses Plan: The patient was seen and examined at the wound center today and was updated on the plan of care. A subcutaneous/muscular debridement was performed today. The patient tolerated the procedure fair. The patients wound care will consist of: Pure apply #1 was applied to the wound with Adaptic and VAC over top for securement, application of the KCI wound VAC at 125 mmHg with black foam change 3 times a week, if VAC becomes compromised should go back to using Aquacel silver daily dressing changes. Cultures were collected in his hospital stay which showed group C strep which she completed a course of Augmentin for denies any other signs of infection at this time. Baseline bloodwork reviewed and demonstrated albumin normal at 3.3 and an elevated A1c at 13.9, patient was advised to follow-up with diabetic nutrition services and to continue following up with his PCP for diabetic management.Patient educated on the importance of diet on wound healing and instructed to increase protein and vitamin C intake, also advised on the benefits of having tight glucose control. Did discuss signs and symptoms of infection that require urgent medical attention. Patient verbalized understanding. Do suspect that patient may have underlying chronic illness such as hidradenitis suppurativa, if no marked improvement with standard wound care, may need referral to plastics in the future. Patient will follow up at wound healing center in one week or sooner if needed. This note was generated with [employer] dictation software. It may contain incorrect words, spelling, and punctuation that were not noted in checking the note before signing. Code Visit 150xxx-152xx: 26301 Skin sub graft trnk/arm/leg
[2018-08-01 15:50] VITALS: BP 128/74; PULSE 80; RESP 16; TEMP 36.7; BMI 99.1
--- NOTE | 2018-08-06 17:12 | PN.PCM_ITS ---
(1) Surgical wound, non healing Status: Acute Code(s): T81.89XA - Other complications of procedures, not elsewhere classified, initial encounter Comment: left neck (2) Hyperglycemia due to type 2 diabetes mellitus Status: Acute Qualifiers: Code(s): E11.65 - Type 2 diabetes mellitus with hyperglycemia (3) Chronic asthma Status: Chronic Code(s): J45.909 - Unspecified asthma, uncomplicated (4) Essential hypertension Status: Chronic Code(s): I10 - Essential (primary) hypertension (5) Morbid obesity Status: Chronic Code(s): E66.01 - Morbid (severe) obesity due to excess calories (6) Sleep apnea Status: Chronic Code(s): G47.30 - Sleep apnea, unspecified (7) Type II diabetes mellitus Status: Chronic Qualifiers: Code(s): E11.9 - Type 2 diabetes mellitus without complications Type of Wound Date of Service: 08/01/18 Chief Complaint: Postsurgical wound to the left neck status post incision and drainage of abscess by Dr. Turcios on 07/08/2018 History of Wound: This is a 33-year-old white male who was admitted to [facility] from 07/08 to 07/10/18 for left sided neck abscess status post incision and drainage on 07/08/[address] Turcios, probable left scrotal abscess, and uncontrolled type 2 diabetes mellitus. He has a past medical history of morbid obesity, DEMETRIO, asthma, hyperlipidemia, hypertension, and uncontrolled type 2 diabetes mellitus. During the patient's hospital course he was treated with IV antibiotics after incision and drainage of the left neck abscess. He also had complaints of scrotal drainage which an ultrasound was done and revealed marked scrotal wall thickening with fluid density in the left scrotal wall. There was no obvious abscess on exam and infectious disease was consulted and recommended that the patient be discharged home on Augmentin twice daily for 7 days of treatment to cover for his wound culture of group C strep. Patient also had an hemoglobin A1c of 13.9 and was started on Lantus twice daily. He was discharged yesterday and has currently been utilizing wet-to-dry dressings. The plan was for placement of a wound VAC as an outpatient. The patient states that since being discharged yesterday he has been doing well. He denies any systemic signs of infection at this time. He states that there is minimal serosanguineous drainage when he removes the gauze dressing. He does note that he has had problems with recurrent abscesses in his neck axilla and groin in the past. He is unsure if he has ever been diagnosed with hidradenitis suppurativa. He states that he does have home care coming to help with dressing changes which will start tomorrow. Regarding his scrotal drainage, he states that this has entirely resolved and that he is not having any drainage or pain at this time. He denies any other concerns at this time. He does state that he followed up with his primary care today Dr. Fernandes who is going to be managing his diabetes. The patient otherwise denies any fever, chills, nausea, vomiting, shortness of breath, chest pain or pressure, palpitations, orthopnea, lower extremity edema, syncope or presyncopal episodes. Progress of Wound: Wound bed appears moist and appears to be improving, no signs of obvious infection at this time. Patient did well with wound VAC and purrapply am and states he is getting a moderate amount of serosanguineous drainage. He is getting home care as well. - Physical Exam Vital Signs Temp Pulse Resp BP 98.0 F 80 16 128/74 H 08/01/18 15:50 08/01/18 15:50 08/01/18 15:50 08/01/18 15:50 General: Alert, Oriented x3, Cooperative, No apparent distress HEENT: PERRLA, EOMI Neck: Supple, No JVD, Negative Carotid Bruits Lungs: Clear to auscultation, Normal air movement Cardiovascular: Regular rate, Regular Rhythm Abdomen: Soft, Non Tender, Obese Extremities: No edema, Capillary Refill Less than 3 Seconds Skin: Ulcer/ Wound - Postsurgical wound to left neck with adherent slough to wound bed, depth has improved, no signs of obvious infection at this time. Neurological: Neuro grossly intact Psych/Mental Status: Normal Affect, Appropriate, Alert and oriented to time, place, person, mood and affect Debridement Note Post-Debridement Measurements/Treatment WC - Nurse 2 - General Ulcer CM Notes Start: 07/25/18 15:02 Freq: Status: Active Protocol: Activity Type Activity Date Activity User E-Sign Co-Sign Detail Recorded Client Recorded Date Recorded By Document 07/25/18 16:00 AN [id number] 07/25/18 16:02 AN Document 08/01/18 16:29 MW [id number] 08/01/18 16:37 MW 07/25/18 08/01/18 16:00 16:29 Wound Center Nurse 2 #1- LT NECK -Time 16:00 16:29 -Correct Patient Yes Yes -Correct Side, Site, Position Yes Yes -Correct Procedure Yes Yes -Procedure Performed Yes Yes -Type of Procedure Debridement Debridement -Clinical Debridement Subcutaneous Subcutaneous -Post Debridement Size (cm) - Length 4 3.0 -Post Debridement Size (cm) - Width 6 4.7 -Post Debridement Size (cm) - Depth 1.8 0.6 -Total Square Cm 24 14.10 -Wound/Ulcer Outcome Not Healed Not Healed -Ulcer Cleansing Rinsed/ Rinsed/ Irrigated with Irrigated with Saline Saline -Foul Odor after Cleansing No No -Bioengineered Tissue Yes Yes -Type of bioengineered Tissue [id number] -Expiration Date 07/25/18 08/11/20 -Product Lot Number [id number] -Percent Used 100 -Saline Lot Number S19 -Bleeding Controlled with Pressure Pressure -Offloading No -Treatment Response Procedure Procedure Tolerated Well Tolerated Well Pain Scale: 0-10 Numeric Is Patient Pain Free? Yes Yes Wound debrided: Postsurgical wound to left neck Laterality: Left Type of Debridement: Excisional debridement Anesthesia Used: 5% Lidocaine Gel Depth: in the subcutaneous layer Percentage of wound debrided: 100 Instrument Used: 7mm curette Tissue Removed: Slough and devitalized tissue Severity: Fat Layer Exposed Amount of bleeding with debridement: Mild Bleeding Controlled with: Pressure Patient tolerated procedure well Assessment/Plan Assessment: Postsurgical wound to left neck status post surgical incision and drainage by Dr. Turcios on 07/08/2018. Uncontrolled type 2 diabetes mellitus recent A1c 13.9. See above diagnoses Plan: The patient was seen and examined at the wound center today and was updated on the plan of care. A subcutaneous/muscular debridement was performed today. The patient tolerated the procedure fair. The patients wound care will consist of: Pure apply #2 was applied to the wound with Adaptic and VAC over top for securement, application of the KCI wound VAC at 125 mmHg with black foam change 3 times a week, if VAC becomes compromised should go back to using Aquacel silver daily dressing changes. Cultures were collected in his hospital stay which showed group C strep which she completed a course of Augmentin for denies any other signs of infection at this time. Baseline bloodwork reviewed and demonstrated albumin normal at 3.3 and an elevated A1c at 13.9, patient was advised to follow-up with diabetic nutrition services and to continue following up with his PCP for diabetic management.Patient educated on the importance of diet on wound healing and instructed to increase protein and vitamin C intake, also advised on the benefits of having tight glucose control. Did discuss signs and symptoms of infection that require urgent medical attention. Patient verbalized understanding. Do suspect that patient may have underlying chronic illness such as hidradenitis suppurativa, if no marked improvement with standard wound care, may need referral to plastics in the future. Patient will follow up at wound healing center in one week or sooner if needed. This note was generated with [employer] dictation software. It may contain incorrect words, spelling, and punctuation that were not noted in checking the note before signing. Code Visit 150xxx-152xx: [id number] Skin sub graft trnk/arm/leg
[2018-08-08 15:57] VITALS: BP 129/74; PULSE 92; RESP 16; TEMP 36.6; BMI 99.1
--- NOTE | 2018-08-08 20:28 | PCM.WC.PN ---
(1) Surgical wound, non healing Status: Acute Code(s): T81.89XA - Other complications of procedures, not elsewhere classified, initial encounter Comment: left neck (2) Hyperglycemia due to type 2 diabetes mellitus Status: Acute Qualifiers: Code(s): E11.65 - Type 2 diabetes mellitus with hyperglycemia (3) Chronic asthma Status: Chronic Code(s): J45.909 - Unspecified asthma, uncomplicated (4) Essential hypertension Status: Chronic Code(s): I10 - Essential (primary) hypertension (5) Morbid obesity Status: Chronic Code(s): E66.01 - Morbid (severe) obesity due to excess calories (6) Sleep apnea Status: Chronic Code(s): G47.30 - Sleep apnea, unspecified (7) Type II diabetes mellitus Status: Chronic Qualifiers: Code(s): E11.9 - Type 2 diabetes mellitus without complications Type of Wound Date of Service: 08/08/18 Chief Complaint: Postsurgical wound to the left neck status post incision and drainage of abscess by Dr. Turcios on 07/08/2018 History of Wound: This is a 33-year-old white male who was admitted to [facility] from 07/08 to 07/10/18 for left sided neck abscess status post incision and drainage on 07/08/[address] Turcios, probable left scrotal abscess, and uncontrolled type 2 diabetes mellitus. He has a past medical history of morbid obesity, DEMETRIO, asthma, hyperlipidemia, hypertension, and uncontrolled type 2 diabetes mellitus. During the patient's hospital course he was treated with IV antibiotics after incision and drainage of the left neck abscess. He also had complaints of scrotal drainage which an ultrasound was done and revealed marked scrotal wall thickening with fluid density in the left scrotal wall. There was no obvious abscess on exam and infectious disease was consulted and recommended that the patient be discharged home on Augmentin twice daily for 7 days of treatment to cover for his wound culture of group C strep. Patient also had an hemoglobin A1c of 13.9 and was started on Lantus twice daily. He was discharged yesterday and has currently been utilizing wet-to-dry dressings. The plan was for placement of a wound VAC as an outpatient. The patient states that since being discharged yesterday he has been doing well. He denies any systemic signs of infection at this time. He states that there is minimal serosanguineous drainage when he removes the gauze dressing. He does note that he has had problems with recurrent abscesses in his neck axilla and groin in the past. He is unsure if he has ever been diagnosed with hidradenitis suppurativa. He states that he does have home care coming to help with dressing changes which will start tomorrow. Regarding his scrotal drainage, he states that this has entirely resolved and that he is not having any drainage or pain at this time. He denies any other concerns at this time. He does state that he followed up with his primary care today Dr. Fernandes who is going to be managing his diabetes. The patient otherwise denies any fever, chills, nausea, vomiting, shortness of breath, chest pain or pressure, palpitations, orthopnea, lower extremity edema, syncope or presyncopal episodes. Progress of Wound: Wound bed appears moist and appears to be improving, no signs of obvious infection at this time. Patient did well with wound VAC and purrapply am and states vac was discontinued. He is getting home care as well. - Physical Exam Vital Signs Temp Pulse Resp BP 98 F 92 16 129/74 H 08/08/18 15:57 08/08/18 15:57 08/08/18 15:57 08/08/18 15:57 General: Alert, Oriented x3, Cooperative, No apparent distress HEENT: PERRLA, EOMI Neck: Supple, No JVD Lungs: Clear to auscultation Cardiovascular: Regular rate, Regular Rhythm Abdomen: Soft, Non Tender, Obese Extremities: No edema, Capillary Refill Less than 3 Seconds Skin: Ulcer/ Wound - postsurgical wound to neck with adherant slough, no signs of infection at this time. Neurological: Neuro grossly intact Psych/Mental Status: Normal Affect, Appropriate, Alert and oriented to time, place, person, mood and affect Debridement Note Post-Debridement Measurements/Treatment WC - Nurse 2 - General Ulcer CM Notes Start: 07/25/18 15:02 Freq: Status: Active Protocol: Activity Type Activity Date Activity User E-Sign Co-Sign Detail Recorded Client Recorded Date Recorded By Document 07/25/18 16:00 AN [id number] 07/25/18 16:02 AN Document 08/01/18 16:29 MW [id number] 08/01/18 16:37 MW Document 08/08/18 16:38 AN [id number] 08/08/18 16:46 AN 07/25/18 08/01/18 08/08/18 16:00 16:29 16:38 Wound Center Nurse 2 #1- LT NECK -Time 16:00 16:29 16:43 -Correct Patient Yes Yes Yes -Correct Side, Site, Position Yes Yes Yes -Correct Procedure Yes Yes Yes -Procedure Performed Yes Yes Yes -Type of Procedure Debridement Debridement Debridement -Clinical Debridement Subcutaneous Subcutaneous Subcutaneous -Post Debridement Size (cm) - Length 4 3.0 1.5 -Post Debridement Size (cm) - Width 6 4.7 2.5 -Post Debridement Size (cm) - Depth 1.8 0.6 0.2 -Total Square Cm 24 14.10 3.75 -Wound/Ulcer Outcome Not Healed Not Healed Not Healed -Ulcer Cleansing Rinsed/ Rinsed/ Rinsed/ Irrigated with Irrigated with Irrigated with Saline Saline Saline -Foul Odor after Cleansing No No No -Bioengineered Tissue Yes Yes -Type of bioengineered Tissue [id number] -Expiration Date 07/25/18 08/11/20 -Product Lot Number [id number] -Percent Used 100 -Saline Lot Number S19 -Bleeding Controlled with Pressure Pressure -Offloading No -Treatment Response Procedure Procedure Procedure Tolerated Well Tolerated Well Tolerated Well Pain Scale: 0-10 Numeric Is Patient Pain Free? Yes Yes Wound debrided: post surgical neck wound Laterality: Left Type of Debridement: Excisional debridement Anesthesia Used: 5% Lidocaine Gel Depth: in the subcutaneous layer Percentage of wound debrided: 100 Instrument Used: 5mm curette Tissue Removed: slough and devitalized tissue Severity: Fat Layer Exposed Amount of bleeding with debridement: Mild Bleeding Controlled with: Pressure Patient tolerated procedure well Assessment/Plan Assessment: Postsurgical wound to left neck status post surgical incision and drainage by Dr. Turcios on 07/08/2018. Uncontrolled type 2 diabetes mellitus recent A1c 13.9. See above diagnoses Plan: The patient was seen and examined at the wound center today and was updated on the plan of care. A subcutaneous debridement was performed today. The patient tolerated the procedure fair. The patients wound care will consist of: Pure apply am #3 was applied to the wound with wound veil over top for securement, may utilized aquacell extra over top for drainage. Wound vac D/C. Cultures were collected in his hospital stay which showed group C strep which she completed a course of Augmentin for denies any other signs of infection at this time. Baseline bloodwork reviewed and demonstrated albumin normal at 3.3 and an elevated A1c at 13.9, patient was advised to follow-up with diabetic nutrition services and to continue following up with his PCP for diabetic management.Patient educated on the importance of diet on wound healing and instructed to increase protein and vitamin C intake, also advised on the benefits of having tight glucose control. Did discuss signs and symptoms of infection that require urgent medical attention. Patient verbalized understanding. Do suspect that patient may have underlying chronic illness such as hidradenitis suppurativa, if no marked improvement with standard wound care, may need referral to plastics in the future. Patient will follow up at wound healing center in one week or sooner if needed. This note was generated with [employer] dictation software. It may contain incorrect words, spelling, and punctuation that were not noted in checking the note before signing. Code Visit 150xxx-152xx: 70708 Skin sub graft trnk/arm/leg
--- NOTE | 2018-08-13 08:31 | PN.PCM_ITS ---
(1) Surgical wound, non healing Status: Acute Code(s): T81.89XA - Other complications of procedures, not elsewhere classified, initial encounter Comment: left neck (2) Hyperglycemia due to type 2 diabetes mellitus Status: Acute Qualifiers: Code(s): E11.65 - Type 2 diabetes mellitus with hyperglycemia (3) Chronic asthma Status: Chronic Code(s): J45.909 - Unspecified asthma, uncomplicated (4) Essential hypertension Status: Chronic Code(s): I10 - Essential (primary) hypertension (5) Morbid obesity Status: Chronic Code(s): E66.01 - Morbid (severe) obesity due to excess calories (6) Sleep apnea Status: Chronic Code(s): G47.30 - Sleep apnea, unspecified (7) Type II diabetes mellitus Status: Chronic Qualifiers: Code(s): E11.9 - Type 2 diabetes mellitus without complications Type of Wound Date of Service: 08/08/18 Chief Complaint: Postsurgical wound to the left neck status post incision and drainage of abscess by Dr. Turcios on 07/08/2018 History of Wound: This is a 33-year-old white male who was admitted to [facility] from 07/08 to 07/10/18 for left sided neck abscess status post incision and drainage on 07/08/[address] Turcios, probable left scrotal abscess, and uncontrolled type 2 diabetes mellitus. He has a past medical history of morbid obesity, DEMETRIO, asthma, hyperlipidemia, hypertension, and uncontrolled type 2 diabetes mellitus. During the patient's hospital course he was treated with IV antibiotics after incision and drainage of the left neck abscess. He also had complaints of scrotal drainage which an ultrasound was done and revealed marked scrotal wall thickening with fluid density in the left scrotal wall. There was no obvious abscess on exam and infectious disease was consulted and recommended that the patient be discharged home on Augmentin twice daily for 7 days of treatment to cover for his wound culture of group C strep. Patient also had an hemoglobin A1c of 13.9 and was started on Lantus twice daily. He was discharged yesterday and has currently been utilizing wet-to-dry dressings. The plan was for placement of a wound VAC as an outpatient. The patient states that since being discharged yesterday he has been doing well. He denies any systemic signs of infection at this time. He states that there is minimal serosanguineous drainage when he removes the gauze dressing. He does note that he has had problems with recurrent abscesses in his neck axilla and groin in the past. He is unsure if he has ever been diagnosed with hidradenitis suppurativa. He states that he does have home care coming to help with dressing changes which will start tomorrow. Regarding his scrotal drainage, he states that this has entirely resolved and that he is not having any drainage or pain at this time. He denies any other concerns at this time. He does state that he followed up with his primary care today Dr. Fernandes who is going to be managing his diabetes. The patient otherwise denies any fever, chills, nausea, vomiting, shortness of breath, chest pain or pressure, palpitations, orthopnea, lower extremity edema, syncope or presyncopal episodes. Progress of Wound: Wound bed appears moist and appears to be improving, no signs of obvious infection at this time. Patient did well with wound VAC and purrapply am and states vac was discontinued. He is getting home care as well. - Physical Exam Vital Signs Temp Pulse Resp BP 98 F 92 16 129/74 H 08/08/18 15:57 08/08/18 15:57 08/08/18 15:57 08/08/18 15:57 General: Alert, Oriented x3, Cooperative, No apparent distress HEENT: PERRLA, EOMI Neck: Supple, No JVD Lungs: Clear to auscultation Cardiovascular: Regular rate, Regular Rhythm Abdomen: Soft, Non Tender, Obese Extremities: No edema, Capillary Refill Less than 3 Seconds Skin: Ulcer/ Wound - postsurgical wound to neck with adherant slough, no signs of infection at this time. Neurological: Neuro grossly intact Psych/Mental Status: Normal Affect, Appropriate, Alert and oriented to time, place, person, mood and affect Debridement Note Post-Debridement Measurements/Treatment WC - Nurse 2 - General Ulcer CM Notes Start: 07/25/18 15:02 Freq: Status: Active Protocol: Activity Type Activity Date Activity User E-Sign Co-Sign Detail Recorded Client Recorded Date Recorded By Document 07/25/18 16:00 AN [id number] 07/25/18 16:02 AN Document 08/01/18 16:29 MW [id number] 08/01/18 16:37 MW Document 08/08/18 16:38 AN [id number] 08/08/18 16:46 AN 07/25/18 08/01/18 08/08/18 16:00 16:29 16:38 Wound Center Nurse 2 #1- LT NECK -Time 16:00 16:29 16:43 -Correct Patient Yes Yes Yes -Correct Side, Site, Position Yes Yes Yes -Correct Procedure Yes Yes Yes -Procedure Performed Yes Yes Yes -Type of Procedure Debridement Debridement Debridement -Clinical Debridement Subcutaneous Subcutaneous Subcutaneous -Post Debridement Size (cm) - Length 4 3.0 1.5 -Post Debridement Size (cm) - Width 6 4.7 2.5 -Post Debridement Size (cm) - Depth 1.8 0.6 0.2 -Total Square Cm 24 14.10 3.75 -Wound/Ulcer Outcome Not Healed Not Healed Not Healed -Ulcer Cleansing Rinsed/ Rinsed/ Rinsed/ Irrigated with Irrigated with Irrigated with Saline Saline Saline -Foul Odor after Cleansing No No No -Bioengineered Tissue Yes Yes -Type of bioengineered Tissue [id number] -Expiration Date 07/25/18 08/11/20 -Product Lot Number [id number] -Percent Used 100 -Saline Lot Number S19 -Bleeding Controlled with Pressure Pressure -Offloading No -Treatment Response Procedure Procedure Procedure Tolerated Well Tolerated Well Tolerated Well Pain Scale: 0-10 Numeric Is Patient Pain Free? Yes Yes Wound debrided: post surgical neck wound Laterality: Left Type of Debridement: Excisional debridement Anesthesia Used: 5% Lidocaine Gel Depth: in the subcutaneous layer Percentage of wound debrided: 100 Instrument Used: 5mm curette Tissue Removed: slough and devitalized tissue Severity: Fat Layer Exposed Amount of bleeding with debridement: Mild Bleeding Controlled with: Pressure Patient tolerated procedure well Assessment/Plan Assessment: Postsurgical wound to left neck status post surgical incision and drainage by Dr. Turcios on 07/08/2018. Uncontrolled type 2 diabetes mellitus recent A1c 13.9. See above diagnoses Plan: The patient was seen and examined at the wound center today and was updated on the plan of care. A subcutaneous debridement was performed today. The patient tolerated the procedure fair. The patients wound care will consist of: Pure apply am #3 was applied to the wound with wound veil over top for securement, may utilized aquacell extra over top for drainage. Wound vac D/C. Cultures were collected in his hospital stay which showed group C strep which she completed a course of Augmentin for denies any other signs of infection at this time. Baseline bloodwork reviewed and demonstrated albumin normal at 3.3 and an elevated A1c at 13.9, patient was advised to follow-up with diabetic nutrition services and to continue following up with his PCP for diabetic management.Patient educated on the importance of diet on wound healing and instructed to increase protein and vitamin C intake, also advised on the benefits of having tight glucose control. Did discuss signs and symptoms of infection that require urgent medical attention. Patient verbalized understanding. Do suspect that patient may have underlying chronic illness such as hidradenitis suppurativa, if no marked improvement with standard wound care, may need referral to plastics in the future. Patient will follow up at wound healing center in one week or sooner if needed. This note was generated with [employer] dictation software. It may contain incorrect words, spelling, and punctuation that were not noted in checking the note before signing. Code Visit 150xxx-152xx: 36030 Skin sub graft trnk/arm/leg
[2018-08-15 15:08] VITALS: BP 145/70; PULSE 85; RESP 18; TEMP 36.6; BMI 99.1
--- NOTE | 2018-08-15 19:33 | PCM.WC.PN ---
(1) Surgical wound, non healing Status: Acute Current Visit: Yes Code(s): T81.89XA - Other complications of procedures, not elsewhere classified, initial encounter Comment: left neck (2) Hyperglycemia due to type 2 diabetes mellitus Status: Acute Current Visit: Yes Qualifiers: Code(s): E11.65 - Type 2 diabetes mellitus with hyperglycemia (3) Chronic asthma Status: Chronic Current Visit: No Code(s): J45.909 - Unspecified asthma, uncomplicated (4) Essential hypertension Status: Chronic Current Visit: No Code(s): I10 - Essential (primary) hypertension (5) Morbid obesity Status: Chronic Current Visit: No Code(s): E66.01 - Morbid (severe) obesity due to excess calories (6) Sleep apnea Status: Chronic Current Visit: No Code(s): G47.30 - Sleep apnea, unspecified (7) Type II diabetes mellitus Status: Chronic Current Visit: No Qualifiers: Code(s): E11.9 - Type 2 diabetes mellitus without complications Type of Wound Date of Service: 08/15/18 Chief Complaint: Postsurgical wound to the left neck status post incision and drainage of abscess by Dr. Turcios on 07/08/2018 History of Wound: This is a 33-year-old white male who was admitted to [facility] from 07/08 to 07/10/18 for left sided neck abscess status post incision and drainage on 07/08/[address] Turcios, probable left scrotal abscess, and uncontrolled type 2 diabetes mellitus. He has a past medical history of morbid obesity, DEMETRIO, asthma, hyperlipidemia, hypertension, and uncontrolled type 2 diabetes mellitus. During the patient's hospital course he was treated with IV antibiotics after incision and drainage of the left neck abscess. He also had complaints of scrotal drainage which an ultrasound was done and revealed marked scrotal wall thickening with fluid density in the left scrotal wall. There was no obvious abscess on exam and infectious disease was consulted and recommended that the patient be discharged home on Augmentin twice daily for 7 days of treatment to cover for his wound culture of group C strep. Patient also had an hemoglobin A1c of 13.9 and was started on Lantus twice daily. He was discharged yesterday and has currently been utilizing wet-to-dry dressings. The plan was for placement of a wound VAC as an outpatient. The patient states that since being discharged yesterday he has been doing well. He denies any systemic signs of infection at this time. He states that there is minimal serosanguineous drainage when he removes the gauze dressing. He does note that he has had problems with recurrent abscesses in his neck axilla and groin in the past. He is unsure if he has ever been diagnosed with hidradenitis suppurativa. He states that he does have home care coming to help with dressing changes which will start tomorrow. Regarding his scrotal drainage, he states that this has entirely resolved and that he is not having any drainage or pain at this time. He denies any other concerns at this time. He does state that he followed up with his primary care today Dr. Fernandes who is going to be managing his diabetes. The patient otherwise denies any fever, chills, nausea, vomiting, shortness of breath, chest pain or pressure, palpitations, orthopnea, lower extremity edema, syncope or presyncopal episodes. Progress of Wound: Wound bed appears moist and appears to be improving, no signs of obvious infection at this time. Patient did well with purrapply am. Denies any increase in pain or drainage. The patient otherwise denies any fever, chills, nausea, vomiting, shortness of breath, chest pain or pressure, palpitations, orthopnea, lower extremity edema, syncope or presyncopal episodes. - Physical Exam Vital Signs Temp Pulse Resp BP 97.8 F 85 18 145/70 H 08/15/18 15:08 08/15/18 15:08 08/15/18 15:08 08/15/18 15:08 General: Alert, Oriented x3, Cooperative, No apparent distress HEENT: PERRLA, EOMI Neck: Supple, No JVD Lungs: Clear to auscultation Cardiovascular: Regular rate, Regular Rhythm Abdomen: Soft, Non Tender, Obese Extremities: No edema, Capillary Refill Less than 3 Seconds Skin: Ulcer/ Wound - To left knee with adherent slough to wound bed no signs of infection at this time, no redness, drainage, malodor Wound Measurements and Assessment WC - Nurse 1 - General Ulcer Measurement Start: 07/25/18 15:02 Freq: Status: Active Protocol: Activity Type Activity Date Activity User E-Sign Co-Sign Detail Recorded Client Recorded Date Recorded By Document 08/15/18 15:08 DL [id number] 08/15/18 15:11 DL 08/15/18 15:08 Wound Center Nurse 1 [Ulcer Assessment] #1- LT NECK -Current Size (cm) - Length 0.5 -Current Size (cm) - Width 2.4 -Current Size (cm) - Depth 0.1 -Total Square Cm 1.20 -Photo Taken No -Exudate Amt Small -Exudate Type Serosanguineous -Wound Margin Distinct, Outline Attached -Granulation Amt Large (67-100%) -Granulation Quality [place] -Necrosis Amt Small (1-33%) -Necrotic Tissue Type Adherent Slough -Structure Exposed N/A -Texture (Shira-wound Skin Appearance) Scarring -Moisture (Shira-wound Skin Appearance No Abnormality ) -Color (Shira-wound Skin Appearance) No Abnormality Rubor -Temperature (Shira-wound Skin No Abnormality Appearance) (Pt Warm) -Tenderness on Palpation (Shira-wound No Skin Appearance) -Ulcer Cleansing Wound Cleanser -Foul Odor after Cleansing No -Anesthetic Used 4% Lidocaine Solution WC - Nurse 2 - General Ulcer CM Notes Start: 07/25/18 15:02 Freq: Status: Active Protocol: Activity Type Activity Date Activity User E-Sign Co-Sign Detail Recorded Client Recorded Date Recorded By Document 08/15/18 15:56 AN [id number] 08/15/18 16:00 AN 08/15/18 15:56 Wound Center Nurse 2 [Procedure/Treatment] -Time 15:57 -Correct Patient Yes -Correct Side, Site, Position Yes -Correct Procedure Yes -Procedure Performed Yes -Type of Procedure Debridement -Clinical Debridement Subcutaneous -Post Debridement Size (cm) - Length 1 -Post Debridement Size (cm) - Width 2.1 -Post Debridement Size (cm) - Depth 0.1 -Total Square Cm 2.1 -Wound/Ulcer Outcome Not Healed -Ulcer Cleansing Rinsed/ Irrigated with Saline -Foul Odor after Cleansing No -Bioengineered Tissue Yes -Type of bioengineered Tissue NU-SHIELD -Expiration Date 07/10/23 -Product Lot Number [id number] -Percent Used 100 -Saline Lot Number [id number] -Bleeding Controlled with Pressure -Offloading No -Treatment Response Procedure Tolerated Well [See Physician Procedure note for Specifics] Pain Scale: 0-10 Numeric [Pain] -Is Patient Pain Free? Yes Neurological: Neuro grossly intact Psych/Mental Status: Normal Affect, Appropriate Debridement Note Post-Debridement Measurements/Treatment WC - Nurse 2 - General Ulcer CM Notes Start: 07/25/18 15:02 Freq: Status: Active Protocol: Activity Type Activity Date Activity User E-Sign Co-Sign Detail Recorded Client Recorded Date Recorded By Document 07/25/18 16:00 AN [id number] 07/25/18 16:02 AN Document 08/01/18 16:29 MW [id number] 08/01/18 16:37 MW Document 08/08/18 16:38 AN [id number] 08/08/18 16:46 AN Document 08/15/18 15:56 AN [id number] 08/15/18 16:00 AN 07/25/18 08/01/18 08/08/18 16:00 16:29 16:38 Wound Center Nurse 2 #1- LT NECK -Time 16:00 16:29 16:43 -Correct Patient Yes Yes Yes -Correct Side, Site, Position Yes Yes Yes -Correct Procedure Yes Yes Yes -Procedure Performed Yes Yes Yes -Type of Procedure Debridement Debridement Debridement -Clinical Debridement Subcutaneous Subcutaneous Subcutaneous -Post Debridement Size (cm) - Length 4 3.0 1.5 -Post Debridement Size (cm) - Width 6 4.7 2.5 -Post Debridement Size (cm) - Depth 1.8 0.6 0.2 -Total Square Cm 24 14.10 3.75 -Wound/Ulcer Outcome Not Healed Not Healed Not Healed -Ulcer Cleansing Rinsed/ Rinsed/ Rinsed/ Irrigated with Irrigated with Irrigated with Saline Saline Saline -Foul Odor after Cleansing No No No -Bioengineered Tissue Yes Yes -Type of bioengineered Tissue [id number] -Expiration Date 07/25/18 08/11/20 -Product Lot Number [id number] -Percent Used 100 -Saline Lot Number [id number] -Bleeding Controlled with Pressure Pressure -Offloading No -Treatment Response Procedure Procedure Procedure Tolerated Well Tolerated Well Tolerated Well Pain Scale: 0-10 Numeric Is Patient Pain Free? Yes Yes 08/15/18 15:56 Wound Center Nurse 2 #1- LT NECK -Time 15:57 -Correct Patient Yes -Correct Side, Site, Position Yes -Correct Procedure Yes -Procedure Performed Yes -Type of Procedure Debridement -Clinical Debridement Subcutaneous -Post Debridement Size (cm) - Length 1 -Post Debridement Size (cm) - Width 2.1 -Post Debridement Size (cm) - Depth 0.1 -Total Square Cm 2.1 -Wound/Ulcer Outcome Not Healed -Ulcer Cleansing Rinsed/ Irrigated with Saline -Foul Odor after Cleansing No -Bioengineered Tissue Yes -Type of bioengineered Tissue NU-SHIELD -Expiration Date 07/10/23 -Product Lot Number [id number] -Percent Used 100 -Saline Lot Number [id number] -Bleeding Controlled with Pressure -Offloading No -Treatment Response Procedure Tolerated Well Pain Scale: 0-10 Numeric Is Patient Pain Free? Yes Wound debrided: Postsurgical nonhealing wound left neck Type of Debridement: Excisional debridement Anesthesia Used: 5% Lidocaine Gel Depth: in the subcutaneous layer Percentage of wound debrided: 100 Instrument Used: 5mm curette Tissue Removed: Slough and devitalized tissue Severity: Fat Layer Exposed Amount of bleeding with debridement: Mild Bleeding Controlled with: Pressure Patient tolerated procedure well Assessment/Plan Active Problems (Last Reviewed 08/22/17 @ 07:32 by Fabiola Adrian) Hyperglycemia due to type 2 diabetes mellitus (Acute) Surgical wound, non healing (Acute) left neck Assessment: Postsurgical wound to left neck status post surgical incision and drainage by Dr. uTrcios on 07/08/2018. Uncontrolled type 2 diabetes mellitus recent A1c 13.9. See above diagnoses Plan: The patient was seen and examined at the wound center today and was updated on the plan of care. A subcutaneous debridement was performed today. The patient tolerated the procedure fair. The patients wound care will consist of: nushield #1 was applied to the wound with wound veil over top for securement, may utilized aquacell extra over top for drainage. Wound vac D/C. Cultures were collected in his hospital stay which showed group C strep which she completed a course of Augmentin for denies any other signs of infection at this time. Baseline bloodwork reviewed and demonstrated albumin normal at 3.3 and an elevated A1c at 13.9, patient was advised to follow-up with diabetic nutrition services and to continue following up with his PCP for diabetic management.Patient educated on the importance of diet on wound healing and instructed to increase protein and vitamin C intake, also advised on the benefits of having tight glucose control. Did discuss signs and symptoms of infection that require urgent medical attention. Patient verbalized understanding. Do suspect that patient may have underlying chronic illness such as hidradenitis suppurativa, if no marked improvement with standard wound care, may need referral to plastics in the future. Patient will follow up at wound healing center in one week or sooner if needed. This note was generated with [employer] dictation software. It may contain incorrect words, spelling, and punctuation that were not noted in checking the note before signing. Code Visit 150xxx-152xx: 29903 Skin sub graft trnk/arm/leg
--- NOTE | 2018-08-18 12:37 | PN.PCM_ITS ---
(1) Surgical wound, non healing Status: Acute Current Visit: Yes Code(s): T81.89XA - Other complications of procedures, not elsewhere classified, initial encounter Comment: left neck (2) Hyperglycemia due to type 2 diabetes mellitus Status: Acute Current Visit: Yes Qualifiers: Code(s): E11.65 - Type 2 diabetes mellitus with hyperglycemia (3) Chronic asthma Status: Chronic Current Visit: No Code(s): J45.909 - Unspecified asthma, uncomplicated (4) Essential hypertension Status: Chronic Current Visit: No Code(s): I10 - Essential (primary) hypertension (5) Morbid obesity Status: Chronic Current Visit: No Code(s): E66.01 - Morbid (severe) obesity due to excess calories (6) Sleep apnea Status: Chronic Current Visit: No Code(s): G47.30 - Sleep apnea, unspecified (7) Type II diabetes mellitus Status: Chronic Current Visit: No Qualifiers: Code(s): E11.9 - Type 2 diabetes mellitus without complications Type of Wound Date of Service: 08/15/18 Chief Complaint: Postsurgical wound to the left neck status post incision and drainage of abscess by Dr. Turcios on 07/08/2018 History of Wound: This is a 33-year-old white male who was admitted to [facility] from 07/08 to 07/10/18 for left sided neck abscess status post incision and drainage on 07/08/[address] Turcios, probable left scrotal abscess, and uncontrolled type 2 diabetes mellitus. He has a past medical history of morbid obesity, DEMETRIO, asthma, hyperlipidemia, hypertension, and uncontrolled type 2 diabetes mellitus. During the patient's hospital course he was treated with IV antibiotics after incision and drainage of the left neck abscess. He also had complaints of scrotal drainage which an ultrasound was done and revealed marked scrotal wall thickening with fluid density in the left scrotal wall. There was no obvious abscess on exam and infectious disease was consulted and recommended that the patient be discharged home on Augmentin twice daily for 7 days of treatment to cover for his wound culture of group C strep. Patient also had an hemoglobin A1c of 13.9 and was started on Lantus twice daily. He was discharged yesterday and has currently been utilizing wet-to-dry dressings. The plan was for placement of a wound VAC as an outpatient. The patient states that since being discharged yesterday he has been doing well. He denies any systemic signs of infection at this time. He states that there is minimal serosanguineous drainage when he removes the gauze dressing. He does note that he has had problems with recurrent abscesses in his neck axilla and groin in the past. He is unsure if he has ever been diagnosed with hidradenitis suppurativa. He states that he does have home care coming to help with dressing changes which will start tomorrow. Regarding his scrotal drainage, he states that this has entirely resolved and that he is not having any drainage or pain at this time. He denies any other concerns at this time. He does state that he followed up with his primary care today Dr. Fernandes who is going to be managing his diabetes. The patient otherwise denies any fever, chills, nausea, vomiting, shortness of breath, chest pain or pressure, palpitations, orthopnea, lower extremity edema, syncope or presyncopal episodes. Progress of Wound: Wound bed appears moist and appears to be improving, no signs of obvious infection at this time. Patient did well with purrapply am. Denies any increase in pain or drainage. The patient otherwise denies any fever, chills, nausea, vomiting, shortness of breath, chest pain or pressure, palpitations, orthopnea, lower extremity edema, syncope or presyncopal episodes. - Physical Exam Vital Signs Temp Pulse Resp BP 97.8 F 85 18 145/70 H 08/15/18 15:08 08/15/18 15:08 08/15/18 15:08 08/15/18 15:08 General: Alert, Oriented x3, Cooperative, No apparent distress HEENT: PERRLA, EOMI Neck: Supple, No JVD Lungs: Clear to auscultation Cardiovascular: Regular rate, Regular Rhythm Abdomen: Soft, Non Tender, Obese Extremities: No edema, Capillary Refill Less than 3 Seconds Skin: Ulcer/ Wound - To left knee with adherent slough to wound bed no signs of infection at this time, no redness, drainage, malodor Wound Measurements and Assessment WC - Nurse 1 - General Ulcer Measurement Start: 07/25/18 15:02 Freq: Status: Active Protocol: Activity Type Activity Date Activity User E-Sign Co-Sign Detail Recorded Client Recorded Date Recorded By Document 08/15/18 15:08 DL [id number] 08/15/18 15:11 DL 08/15/18 15:08 Wound Center Nurse 1 [Ulcer Assessment] #1- LT NECK -Current Size (cm) - Length 0.5 -Current Size (cm) - Width 2.4 -Current Size (cm) - Depth 0.1 -Total Square Cm 1.20 -Photo Taken No -Exudate Amt Small -Exudate Type Serosanguineous -Wound Margin Distinct, Outline Attached -Granulation Amt Large (67-100%) -Granulation Quality [place] -Necrosis Amt Small (1-33%) -Necrotic Tissue Type Adherent Slough -Structure Exposed N/A -Texture (Shira-wound Skin Appearance) Scarring -Moisture (Shira-wound Skin Appearance No Abnormality ) -Color (Shira-wound Skin Appearance) No Abnormality Rubor -Temperature (Shira-wound Skin No Abnormality Appearance) (Pt Warm) -Tenderness on Palpation (Shira-wound No Skin Appearance) -Ulcer Cleansing Wound Cleanser -Foul Odor after Cleansing No -Anesthetic Used 4% Lidocaine Solution WC - Nurse 2 - General Ulcer CM Notes Start: 07/25/18 15:02 Freq: Status: Active Protocol: Activity Type Activity Date Activity User E-Sign Co-Sign Detail Recorded Client Recorded Date Recorded By Document 08/15/18 15:56 AN [id number] 08/15/18 16:00 AN 08/15/18 15:56 Wound Center Nurse 2 [Procedure/Treatment] -Time 15:57 -Correct Patient Yes -Correct Side, Site, Position Yes -Correct Procedure Yes -Procedure Performed Yes -Type of Procedure Debridement -Clinical Debridement Subcutaneous -Post Debridement Size (cm) - Length 1 -Post Debridement Size (cm) - Width 2.1 -Post Debridement Size (cm) - Depth 0.1 -Total Square Cm 2.1 -Wound/Ulcer Outcome Not Healed -Ulcer Cleansing Rinsed/ Irrigated with Saline -Foul Odor after Cleansing No -Bioengineered Tissue Yes -Type of bioengineered Tissue NU-SHIELD -Expiration Date 07/10/23 -Product Lot Number [id number] -Percent Used 100 -Saline Lot Number [id number] -Bleeding Controlled with Pressure -Offloading No -Treatment Response Procedure Tolerated Well [See Physician Procedure note for Specifics] Pain Scale: 0-10 Numeric [Pain] -Is Patient Pain Free? Yes Neurological: Neuro grossly intact Psych/Mental Status: Normal Affect, Appropriate Debridement Note Post-Debridement Measurements/Treatment WC - Nurse 2 - General Ulcer CM Notes Start: 07/25/18 15:02 Freq: Status: Active Protocol: Activity Type Activity Date Activity User E-Sign Co-Sign Detail Recorded Client Recorded Date Recorded By Document 07/25/18 16:00 AN [id number] 07/25/18 16:02 AN Document 08/01/18 16:29 MW [id number] 08/01/18 16:37 MW Document 08/08/18 16:38 AN [id number] 08/08/18 16:46 AN Document 08/15/18 15:56 AN [id number] 08/15/18 16:00 AN 07/25/18 08/01/18 08/08/18 16:00 16:29 16:38 Wound Center Nurse 2 #1- LT NECK -Time 16:00 16:29 16:43 -Correct Patient Yes Yes Yes -Correct Side, Site, Position Yes Yes Yes -Correct Procedure Yes Yes Yes -Procedure Performed Yes Yes Yes -Type of Procedure Debridement Debridement Debridement -Clinical Debridement Subcutaneous Subcutaneous Subcutaneous -Post Debridement Size (cm) - Length 4 3.0 1.5 -Post Debridement Size (cm) - Width 6 4.7 2.5 -Post Debridement Size (cm) - Depth 1.8 0.6 0.2 -Total Square Cm 24 14.10 3.75 -Wound/Ulcer Outcome Not Healed Not Healed Not Healed -Ulcer Cleansing Rinsed/ Rinsed/ Rinsed/ Irrigated with Irrigated with Irrigated with Saline Saline Saline -Foul Odor after Cleansing No No No -Bioengineered Tissue Yes Yes -Type of bioengineered Tissue [id number] -Expiration Date 07/25/18 08/11/20 -Product Lot Number [id number] -Percent Used 100 -Saline Lot Number S19 -Bleeding Controlled with Pressure Pressure -Offloading No -Treatment Response Procedure Procedure Procedure Tolerated Well Tolerated Well Tolerated Well Pain Scale: 0-10 Numeric Is Patient Pain Free? Yes Yes 08/15/18 15:56 Wound Center Nurse 2 #1- LT NECK -Time 15:57 -Correct Patient Yes -Correct Side, Site, Position Yes -Correct Procedure Yes -Procedure Performed Yes -Type of Procedure Debridement -Clinical Debridement Subcutaneous -Post Debridement Size (cm) - Length 1 -Post Debridement Size (cm) - Width 2.1 -Post Debridement Size (cm) - Depth 0.1 -Total Square Cm 2.1 -Wound/Ulcer Outcome Not Healed -Ulcer Cleansing Rinsed/ Irrigated with Saline -Foul Odor after Cleansing No -Bioengineered Tissue Yes -Type of bioengineered Tissue NU-SHIELD -Expiration Date 07/10/23 -Product Lot Number [id number] -Percent Used 100 -Saline Lot Number [id number] -Bleeding Controlled with Pressure -Offloading No -Treatment Response Procedure Tolerated Well Pain Scale: 0-10 Numeric Is Patient Pain Free? Yes Wound debrided: Postsurgical nonhealing wound left neck Type of Debridement: Excisional debridement Anesthesia Used: 5% Lidocaine Gel Depth: in the subcutaneous layer Percentage of wound debrided: 100 Instrument Used: 5mm curette Tissue Removed: Slough and devitalized tissue Severity: Fat Layer Exposed Amount of bleeding with debridement: Mild Bleeding Controlled with: Pressure Patient tolerated procedure well Assessment/Plan Active Problems (Last Reviewed 08/22/17 @ 07:32 by Fabiola Adrian) Hyperglycemia due to type 2 diabetes mellitus (Acute) Surgical wound, non healing (Acute) left neck Assessment: Postsurgical wound to left neck status post surgical incision and drainage by Dr. Turcios on 07/08/2018. Uncontrolled type 2 diabetes mellitus recent A1c 13.9. See above diagnoses Plan: The patient was seen and examined at the wound center today and was updated on the plan of care. A subcutaneous debridement was performed today. The patient tolerated the procedure fair. The patients wound care will consist of: nushield #1 was applied to the wound with wound veil over top for securement, may utilized aquacell extra over top for drainage. Wound vac D/C. Cultures were collected in his hospital stay which showed group C strep which she completed a course of Augmentin for denies any other signs of infection at this time. Baseline bloodwork reviewed and demonstrated albumin normal at 3.3 and an elevated A1c at 13.9, patient was advised to follow-up with diabetic nutrition services and to continue following up with his PCP for diabetic management.Patient educated on the importance of diet on wound healing and instructed to increase protein and vitamin C intake, also advised on the benefits of having tight glucose control. Did discuss signs and symptoms of infection that require urgent medical attention. Patient verbalized un derstanding. Do suspect that patient may have underlying chronic illness such as hidradenitis suppurativa, if no marked improvement with standard wound care, may need referral to plastics in the future. Patient will follow up at wound healing center in one week or sooner if needed. This note was generated with [employer] dictation software. It may contain incorrect words, spelling, and punctuation that were not noted in checking the note before signing. Code Visit 150xxx-152xx: 80908 Skin sub graft trnk/arm/leg
[2018-08-22 15:12] VITALS: BP 141/84; PULSE 83; RESP 18; TEMP 36.1; BMI 99.1
--- NOTE | 2018-08-22 19:46 | PCM.WC.PN ---
(1) Surgical wound, non healing Status: Acute Code(s): T81.89XA - Other complications of procedures, not elsewhere classified, initial encounter Comment: left neck (2) Hyperglycemia due to type 2 diabetes mellitus Status: Acute Qualifiers: Code(s): E11.65 - Type 2 diabetes mellitus with hyperglycemia (3) Chronic asthma Status: Chronic Code(s): J45.909 - Unspecified asthma, uncomplicated (4) Essential hypertension Status: Chronic Code(s): I10 - Essential (primary) hypertension (5) Morbid obesity Status: Chronic Code(s): E66.01 - Morbid (severe) obesity due to excess calories (6) Sleep apnea Status: Chronic Code(s): G47.30 - Sleep apnea, unspecified (7) Type II diabetes mellitus Status: Chronic Qualifiers: Code(s): E11.9 - Type 2 diabetes mellitus without complications Type of Wound Date of Service: 08/22/18 Chief Complaint: Postsurgical wound to the left neck status post incision and drainage of abscess by Dr. Turcios on 07/08/2018 History of Wound: This is a 33-year-old white male who was admitted to [facility] from 07/08 to 07/10/18 for left sided neck abscess status post incision and drainage on 07/08/[address] Turcios, probable left scrotal abscess, and uncontrolled type 2 diabetes mellitus. He has a past medical history of morbid obesity, DEMETRIO, asthma, hyperlipidemia, hypertension, and uncontrolled type 2 diabetes mellitus. During the patient's hospital course he was treated with IV antibiotics after incision and drainage of the left neck abscess. He also had complaints of scrotal drainage which an ultrasound was done and revealed marked scrotal wall thickening with fluid density in the left scrotal wall. There was no obvious abscess on exam and infectious disease was consulted and recommended that the patient be discharged home on Augmentin twice daily for 7 days of treatment to cover for his wound culture of group C strep. Patient also had an hemoglobin A1c of 13.9 and was started on Lantus twice daily. He was discharged yesterday and has currently been utilizing wet-to-dry dressings. The plan was for placement of a wound VAC as an outpatient. The patient states that since being discharged yesterday he has been doing well. He denies any systemic signs of infection at this time. He states that there is minimal serosanguineous drainage when he removes the gauze dressing. He does note that he has had problems with recurrent abscesses in his neck axilla and groin in the past. He is unsure if he has ever been diagnosed with hidradenitis suppurativa. He states that he does have home care coming to help with dressing changes which will start tomorrow. Regarding his scrotal drainage, he states that this has entirely resolved and that he is not having any drainage or pain at this time. He denies any other concerns at this time. He does state that he followed up with his primary care today Dr. Fernandes who is going to be managing his diabetes. The patient otherwise denies any fever, chills, nausea, vomiting, shortness of breath, chest pain or pressure, palpitations, orthopnea, lower extremity edema, syncope or presyncopal episodes. Progress of Wound: Wound bed appears moist and appears to be improving, no signs of obvious infection at this time. Patient did well with nushield. Denies any increase in pain or drainage. The patient otherwise denies any fever, chills, nausea, vomiting, shortness of breath, chest pain or pressure, palpitations, orthopnea, lower extremity edema, syncope or presyncopal episodes. - Physical Exam Vital Signs Temp Pulse Resp BP 97.0 F L 83 18 141/84 H 08/22/18 15:12 08/22/18 15:12 08/22/18 15:12 08/22/18 15:12 General: Alert, Oriented x3, Cooperative, No apparent distress HEENT: Atraumatic Oral: Moist Mucosa Neck: Supple Lungs: Clear to auscultation Cardiovascular: Regular rate Abdomen: Soft, Non Tender, Obese Extremities: No clubbing, No cyanosis, No edema Skin: Ulcer/ Wound - Surgical wound to left neck with adherent slough, no signs of infection at this time Neurological: Neuro grossly intact Psych/Mental Status: Normal Affect, Appropriate, Alert and oriented to time, place, person, mood and affect Debridement Note Post-Debridement Measurements/Treatment WC - Nurse 2 - General Ulcer CM Notes Start: 07/25/18 15:02 Freq: Status: Active Protocol: Activity Type Activity Date Activity User E-Sign Co-Sign Detail Recorded Client Recorded Date Recorded By Document 07/25/18 16:00 AN [id number] 07/25/18 16:02 AN Document 08/01/18 16:29 MW [id number] 08/01/18 16:37 MW Document 08/08/18 16:38 AN [id number] 08/08/18 16:46 AN Document 08/15/18 15:56 AN [id number] 08/15/18 16:00 AN Document 08/22/18 15:42 AN [email or web address] 08/22/18 15:49 AN 07/25/18 08/01/18 08/08/18 16:00 16:29 16:38 Wound Center Nurse 2 #1- LT NECK -Time 16:00 16:29 16:43 -Correct Patient Yes Yes Yes -Correct Side, Site, Position Yes Yes Yes -Correct Procedure Yes Yes Yes -Procedure Performed Yes Yes Yes -Type of Procedure Debridement Debridement Debridement -Clinical Debridement Subcutaneous Subcutaneous Subcutaneous -Post Debridement Size (cm) - Length 4 3.0 1.5 -Post Debridement Size (cm) - Width 6 4.7 2.5 -Post Debridement Size (cm) - Depth 1.8 0.6 0.2 -Total Square Cm 24 14.10 3.75 -Wound/Ulcer Outcome Not Healed Not Healed Not Healed -Ulcer Cleansing Rinsed/ Rinsed/ Rinsed/ Irrigated with Irrigated with Irrigated with Saline Saline Saline -Foul Odor after Cleansing No No No -Bioengineered Tissue Yes Yes -Type of bioengineered Tissue [id number] -Expiration Date 07/25/18 08/11/20 -Product Lot Number [id number] -Percent Used 100 -Saline Lot Number S19 -Topical Lidocaine (%) -Injectable Lidocaine (%) -Bleeding Controlled with Pressure Pressure -Offloading No -Treatment Response Procedure Procedure Procedure Tolerated Well Tolerated Well Tolerated Well Pain Scale: 0-10 Numeric Is Patient Pain Free? Yes Yes 08/15/18 08/22/18 15:56 15:42 Wound Center Nurse 2 #1- LT NECK -Time 15:57 15:46 -Correct Patient Yes Yes -Correct Side, Site, Position Yes Yes -Correct Procedure Yes Yes -Procedure Performed Yes Yes -Type of Procedure Debridement Debridement -Clinical Debridement Subcutaneous Subcutaneous -Post Debridement Size (cm) - Length 1 1.5 -Post Debridement Size (cm) - Width 2.1 0.5 -Post Debridement Size (cm) - Depth 0.1 0.1 -Total Square Cm 2.1 0.75 -Wound/Ulcer Outcome Not Healed Not Healed -Ulcer Cleansing Rinsed/ Rinsed/ Irrigated with Irrigated with Saline Saline -Foul Odor after Cleansing No No -Bioengineered Tissue Yes Yes -Type of bioengineered Tissue NU-SHIELD NU-SHIELD -Expiration Date 07/10/23 08/22/18 -Product Lot Number [id number] -Percent Used 100 100 -Saline Lot Number [id number] 100 -Topical Lidocaine (%) 4 -Injectable Lidocaine (%) 4 -Bleeding Controlled with Pressure Pressure -Offloading No No -Treatment Response Procedure Procedure Tolerated Well Tolerated Well Pain Scale: 0-10 Numeric Is Patient Pain Free? Yes Yes Wound debrided: Postsurgical wound to left neck Laterality: Left Type of Debridement: Excisional debridement Anesthesia Used: 5% Lidocaine Gel Depth: in the subcutaneous layer Percentage of wound debrided: 100 Instrument Used: 5mm curette Tissue Removed: Slough and devitalized tissue Severity: Fat Layer Exposed Amount of bleeding with debridement: Mild Bleeding Controlled with: Pressure Patient tolerated procedure well Assessment/Plan Assessment: Postsurgical wound to left neck status post surgical incision and drainage by Dr. Turcios on 07/08/2018. Uncontrolled type 2 diabetes mellitus recent A1c 13.9. See above diagnoses Plan: The patient was seen and examined at the wound center today and was updated on the plan of care. A subcutaneous debridement was performed today. The patient tolerated the procedure fair. The patients wound care will consist of: nushield #2 was applied to the wound with wound veil over top for securement, may utilized aquacell extra over top for drainage. Wound vac D/C. Cultures were collected in his hospital stay which showed group C strep which she completed a course of Augmentin for denies any other signs of infection at this time. Baseline bloodwork reviewed and demonstrated albumin normal at 3.3 and an elevated A1c at 13.9, patient was advised to follow-up with diabetic nutrition services and to continue following up with his PCP for diabetic management.Patient educated on the importance of diet on wound healing and instructed to increase protein and vitamin C intake, also advised on the benefits of having tight glucose control. Did discuss signs and symptoms of infection that require urgent medical attention. Patient verbalized understanding. Do suspect that patient may have underlying chronic illness such as hidradenitis suppurativa, if no marked improvement with standard wound care, may need referral to plastics in the future. Patient will follow up at wound healing center in one week or sooner if needed. This note was generated with [employer] software. It may contain incorrect words, spelling, and punctuation that were not noted in checking the note before signing. Code Visit 150xxx-152xx: 52749 Skin sub graft trnk/arm/leg
--- NOTE | 2018-08-27 09:51 | PN.PCM_ITS ---
(1) Surgical wound, non healing Status: Acute Code(s): T81.89XA - Other complications of procedures, not elsewhere classified, initial encounter Comment: left neck (2) Hyperglycemia due to type 2 diabetes mellitus Status: Acute Qualifiers: Code(s): E11.65 - Type 2 diabetes mellitus with hyperglycemia (3) Chronic asthma Status: Chronic Code(s): J45.909 - Unspecified asthma, uncomplicated (4) Essential hypertension Status: Chronic Code(s): I10 - Essential (primary) hypertension (5) Morbid obesity Status: Chronic Code(s): E66.01 - Morbid (severe) obesity due to excess calories (6) Sleep apnea Status: Chronic Code(s): G47.30 - Sleep apnea, unspecified (7) Type II diabetes mellitus Status: Chronic Qualifiers: Code(s): E11.9 - Type 2 diabetes mellitus without complications Type of Wound Date of Service: 08/22/18 Chief Complaint: Postsurgical wound to the left neck status post incision and drainage of abscess by Dr. Turcios on 07/08/2018 History of Wound: This is a 33-year-old white male who was admitted to [facility] from 07/08 to 07/10/18 for left sided neck abscess status post incision and drainage on 07/08/[address] Turcios, probable left scrotal abscess, and uncontrolled type 2 diabetes mellitus. He has a past medical history of morbid obesity, DEMETRIO, asthma, hyperlipidemia, hypertension, and uncontrolled type 2 diabetes mellitus. During the patient's hospital course he was treated with IV antibiotics after incision and drainage of the left neck abscess. He also had complaints of scrotal drainage which an ultrasound was done and revealed marked scrotal wall thickening with fluid density in the left scrotal wall. There was no obvious abscess on exam and infectious disease was consulted and recommended that the patient be discharged home on Augmentin twice daily for 7 days of treatment to cover for his wound culture of group C strep. Patient also had an hemoglobin A1c of 13.9 and was started on Lantus twice daily. He was discharged yesterday and has currently been utilizing wet-to-dry dressings. The plan was for placement of a wound VAC as an outpatient. The patient states that since being discharged yesterday he has been doing well. He denies any systemic signs of infection at this time. He states that there is minimal serosanguineous drainage when he removes the gauze dressing. He does note that he has had problems with recurrent abscesses in his neck axilla and groin in the past. He is unsure if he has ever been diagnosed with hidradenitis suppurativa. He states that he does have home care coming to help with dressing changes which will start tomorrow. Regarding his scrotal drainage, he states that this has entirely resolved and that he is not having any drainage or pain at this time. He denies any other concerns at this time. He does state that he followed up with his primary care today Dr. Fernandes who is going to be managing his diabetes. The patient otherwise denies any fever, chills, nausea, vomiting, shortness of breath, chest pain or pressure, palpitations, orthopnea, lower extremity edema, syncope or presyncopal episodes. Progress of Wound: Wound bed appears moist and appears to be improving, no signs of obvious infection at this time. Patient did well with nushield. Denies any increase in pain or drainage. The patient otherwise denies any fever, chills, nausea, vomiting, shortness of breath, chest pain or pressure, palpitations, orthopnea, lower extremity edema, syncope or presyncopal episodes. - Physical Exam Vital Signs Temp Pulse Resp BP 97.0 F L 83 18 141/84 H 08/22/18 15:12 08/22/18 15:12 08/22/18 15:12 08/22/18 15:12 General: Alert, Oriented x3, Cooperative, No apparent distress HEENT: Atraumatic Oral: Moist Mucosa Neck: Supple Lungs: Clear to auscultation Cardiovascular: Regular rate Abdomen: Soft, Non Tender, Obese Extremities: No clubbing, No cyanosis, No edema Skin: Ulcer/ Wound - Surgical wound to left neck with adherent slough, no signs of infection at this time Neurological: Neuro grossly intact Psych/Mental Status: Normal Affect, Appropriate, Alert and oriented to time, place, person, mood and affect Debridement Note Post-Debridement Measurements/Treatment WC - Nurse 2 - General Ulcer CM Notes Start: 07/25/18 15:02 Freq: Status: Active Protocol: Activity Type Activity Date Activity User E-Sign Co-Sign Detail Recorded Client Recorded Date Recorded By Document 07/25/18 16:00 AN [id number] 07/25/18 16:02 AN Document 08/01/18 16:29 MW [id number] 08/01/18 16:37 MW Document 08/08/18 16:38 AN [id number] 08/08/18 16:46 AN Document 08/15/18 15:56 AN [id number] 08/15/18 16:00 AN Document 08/22/18 15:42 AN [id number] 08/22/18 15:49 AN 07/25/18 08/01/18 08/08/18 16:00 16:29 16:38 Wound Center Nurse 2 #1- LT NECK -Time 16:00 16:29 16:43 -Correct Patient Yes Yes Yes -Correct Side, Site, Position Yes Yes Yes -Correct Procedure Yes Yes Yes -Procedure Performed Yes Yes Yes -Type of Procedure Debridement Debridement Debridement -Clinical Debridement Subcutaneous Subcutaneous Subcutaneous -Post Debridement Size (cm) - Length 4 3.0 1.5 -Post Debridement Size (cm) - Width 6 4.7 2.5 -Post Debridement Size (cm) - Depth 1.8 0.6 0.2 -Total Square Cm 24 14.10 3.75 -Wound/Ulcer Outcome Not Healed Not Healed Not Healed -Ulcer Cleansing Rinsed/ Rinsed/ Rinsed/ Irrigated with Irrigated with Irrigated with Saline Saline Saline -Foul Odor after Cleansing No No No -Bioengineered Tissue Yes Yes -Type of bioengineered Tissue [id number] -Expiration Date 07/25/18 08/11/20 -Product Lot Number [id number] -Percent Used 100 -Saline Lot Number S19 -Topical Lidocaine (%) -Injectable Lidocaine (%) -Bleeding Controlled with Pressure Pressure -Offloading No -Treatment Response Procedure Procedure Procedure Tolerated Well Tolerated Well Tolerated Well Pain Scale: 0-10 Numeric Is Patient Pain Free? Yes Yes 08/15/18 08/22/18 15:56 15:42 Wound Center Nurse 2 #1- LT NECK -Time 15:57 15:46 -Correct Patient Yes Yes -Correct Side, Site, Position Yes Yes -Correct Procedure Yes Yes -Procedure Performed Yes Yes -Type of Procedure Debridement Debridement -Clinical Debridement Subcutaneous Subcutaneous -Post Debridement Size (cm) - Length 1 1.5 -Post Debridement Size (cm) - Width 2.1 0.5 -Post Debridement Size (cm) - Depth 0.1 0.1 -Total Square Cm 2.1 0.75 -Wound/Ulcer Outcome Not Healed Not Healed -Ulcer Cleansing Rinsed/ Rinsed/ Irrigated with Irrigated with Saline Saline -Foul Odor after Cleansing No No -Bioengineered Tissue Yes Yes -Type of bioengineered Tissue NU-SHIELD NU-SHIELD -Expiration Date 07/10/23 08/22/18 -Product Lot Number [id number] -Percent Used 100 100 -Saline Lot Number [id number] 100 -Topical Lidocaine (%) 4 -Injectable Lidocaine (%) 4 -Bleeding Controlled with Pressure Pressure -Offloading No No -Treatment Response Procedure Procedure Tolerated Well Tolerated Well Pain Scale: 0-10 Numeric Is Patient Pain Free? Yes Yes Wound debrided: Postsurgical wound to left neck Laterality: Left Type of Debridement: Excisional debridement Anesthesia Used: 5% Lidocaine Gel Depth: in the subcutaneous layer Percentage of wound debrided: 100 Instrument Used: 5mm curette Tissue Removed: Slough and devitalized tissue Severity: Fat Layer Exposed Amount of bleeding with debridement: Mild Bleeding Controlled with: Pressure Patient tolerated procedure well Assessment/Plan Assessment: Postsurgical wound to left neck status post surgical incision and drainage by Dr. Turcios on 07/08/2018. Uncontrolled type 2 diabetes mellitus recent A1c 13.9. See above diagnoses Plan: The patient was seen and examined at the wound center today and was updated on the plan of care. A subcutaneous debridement was performed today. The patient tolerated the procedure fair. The patients wound care will consist of: nushield #2 was applied to the wound with wound veil over top for securement, may utilized aquacell extra over top for drainage. Wound vac D/C. Cultures were collected in his hospital stay which showed group C strep which she completed a course of Augmentin for denies any other signs of infection at this time. Baseline bloodwork reviewed and demonstrated albumin normal at 3.3 and an elevated A1c at 13.9, patient was advised to follow-up with diabetic nutrition services and to continue following up with his PCP for diabetic management.Patient educated on the importance of diet on wound healing and instructed to increase protein and vitamin C intake, also advised on the benefits of having tight glucose control. Did discuss signs and symptoms of infection that require urgent medical attention. Patient verbalized understanding. Do suspect that patient may have underlying chronic illness such as hidradenitis suppurativa, if no marked improvement with standard wound care, may need referral to plastics in the future. Patient will follow up at wound healing center in one week or sooner if needed. This note was generated with [employer] software. It may contain incorrect words, spelling, and punctuation that were not noted in checking the note before signing. Code Visit 150xxx-152xx: 03128 Skin sub graft trnk/arm/leg
== END 2018-08-23 23:59 ==
LOC: WC 15:15
PROVIDERS: Family Provider Family Medicine; PCP Family Medicine; Visit Provider Nurse Practitioner Family
DX: L02.11 Cutaneous abscess of neck (principal); E11.65 Type 2 diabetes mellitus with hyperglycemia; T81.89XA Other complications of procedures, not elsewhere classified, initial encounter; Y83.8 Other surgical procedures as the cause of abnormal reaction of the patient, or of later complication, without mention of misadventure at the time of the procedure; J45.909 Unspecified asthma, uncomplicated; I10 Essential (primary) hypertension; E66.01 Morbid (severe) obesity due to excess calories; Z71.3 Dietary counseling and surveillance; E78.5 Hyperlipidemia, unspecified; G47.33 Obstructive sleep apnea (adult) (pediatric)
CPT/HCPCS: 11042; 15271; 15272; 97605; Q4160; Q4196

== ENCOUNTER 2018-08-29 11:45 | Outpatient (RCR) | payer MEDICAID, SELFPAY ==
[2018-08-24 01:10] VITALS: BP 141/84; PULSE 83; RESP 18; TEMP 36.1
[2018-08-29 14:15] VITALS: BP 122/68; PULSE 92; RESP 18; TEMP 35.7; BMI 99.1
--- NOTE | 2018-08-30 17:27 | PCM.WC.PN ---
(1) Surgical wound, non healing Status: Acute Current Visit: Yes Code(s): T81.89XA - Other complications of procedures, not elsewhere classified, initial encounter Comment: left neck (2) Hyperglycemia due to type 2 diabetes mellitus Status: Acute Current Visit: No Qualifiers: Code(s): E11.65 - Type 2 diabetes mellitus with hyperglycemia (3) Hyperlipidemia Status: Chronic Current Visit: No Code(s): E78.5 - Hyperlipidemia, unspecified (4) Morbid obesity Status: Chronic Current Visit: No Code(s): E66.01 - Morbid (severe) obesity due to excess calories (5) Sleep apnea Status: Chronic Current Visit: No Code(s): G47.30 - Sleep apnea, unspecified Type of Wound Date of Service: 08/29/18 Chief Complaint: Postsurgical wound to the left neck status post incision and drainage of abscess by Dr. Turcios on 07/08/2018 History of Wound: This is a 33-year-old white male who was admitted to [facility] from 07/08 to 07/10/18 for left sided neck abscess status post incision and drainage on 07/08/[address] Turcios, probable left scrotal abscess, and uncontrolled type 2 diabetes mellitus. He has a past medical history of morbid obesity, DEMETRIO, asthma, hyperlipidemia, hypertension, and uncontrolled type 2 diabetes mellitus. During the patient's hospital course he was treated with IV antibiotics after incision and drainage of the left neck abscess. He also had complaints of scrotal drainage which an ultrasound was done and revealed marked scrotal wall thickening with fluid density in the left scrotal wall. There was no obvious abscess on exam and infectious disease was consulted and recommended that the patient be discharged home on Augmentin twice daily for 7 days of treatment to cover for his wound culture of group C strep. Patient also had an hemoglobin A1c of 13.9 and was started on Lantus twice daily. He was discharged yesterday and has currently been utilizing wet-to-dry dressings. The plan was for placement of a wound VAC as an outpatient. The patient states that since being discharged yesterday he has been doing well. He denies any systemic signs of infection at this time. He states that there is minimal serosanguineous drainage when he removes the gauze dressing. He does note that he has had problems with recurrent abscesses in his neck axilla and groin in the past. He is unsure if he has ever been diagnosed with hidradenitis suppurativa. He states that he does have home care coming to help with dressing changes which will start tomorrow. Regarding his scrotal drainage, he states that this has entirely resolved and that he is not having any drainage or pain at this time. He denies any other concerns at this time. He does state that he followed up with his primary care today Dr. Fernandes who is going to be managing his diabetes. The patient otherwise denies any fever, chills, nausea, vomiting, shortness of breath, chest pain or pressure, palpitations, orthopnea, lower extremity edema, syncope or presyncopal episodes. Progress of Wound: Patient's surgical wound is now healed and fully epithelialized, no signs of obvious infection at this time. Denies any increase in pain or drainage. The patient otherwise denies any fever, chills, nausea, vomiting, shortness of breath, chest pain or pressure, palpitations, orthopnea, lower extremity edema, syncope or presyncopal episodes. - Physical Exam Vital Signs Temp Pulse Resp BP 96.2 F L 92 18 122/68 H 08/29/18 14:15 08/29/18 14:15 08/29/18 14:15 08/29/18 14:15 General: Alert, Oriented x3, Cooperative, No apparent distress HEENT: PERRLA, EOMI Neck: Supple, No JVD, Negative Carotid Bruits Lungs: Clear to auscultation Cardiovascular: Regular rate, Regular Rhythm Abdomen: Soft, Non Tender Extremities: No edema, Capillary Refill Less than 3 Seconds Skin: Ulcer/ Wound - Postsurgical wound to left neck healed without any signs of infection Wound Measurements and Assessment WC - Nurse 1 - General Ulcer Measurement Start: 08/29/18 14:15 Freq: Status: Active Protocol: Activity Type Activity Date Activity User E-Sign Co-Sign Detail Recorded Client Recorded Date Recorded By Document 08/29/18 14:15 [facility] [id number] 08/29/18 14:21 [facility] 08/29/18 14:15 Wound Center Nurse 1 [Ulcer Assessment] #1- LT NECK -Combined with other wound No -Current Size (cm) - Length 0.1 -Current Size (cm) - Width 0.1 -Current Size (cm) - Depth 0.1 -Total Square Cm 0.01 -Date of Last Picture (Recall this 08/29/18 field) -Photo Taken Yes -Texture (Shira-wound Skin Appearance) Assessed Scarring -Moisture (Shira-wound Skin Appearance Assessed ) Dry/Scaly -Color (Shira-wound Skin Appearance) Assessed -Temperature (Shira-wound Skin No Abnormality Appearance) (Pt Warm) -Tenderness on Palpation (Shira-wound No Skin Appearance) -Ulcer Cleansing Wound Cleanser -Anesthetic Used 5% Lidocaine Gel Assessment/Plan Active Problems (Last Reviewed 08/22/17 @ 07:32 by Fabiola Adrian) Surgical wound, non healing (Acute) left neck Assessment: Postsurgical wound to left neck status post surgical incision and drainage by Dr. Turcios on 07/08/2018. Uncontrolled type 2 diabetes mellitus recent A1c 13.9. See above diagnoses Plan: The patient was seen and examined at the wound center today and was updated on the plan of care. The patient's postsurgical wound to the left neck is now healed. No signs of infection at this time. Advised patient to continue with keeping his blood sugars under control and continue with increased protein intake to promote remained closure of the wound. Did discuss with patient that he has signs and symptoms of hidradenitis suppurativa and that he should follow-up with plastic surgery if he develops any further problems in the future. Discussed red flag symptoms regarding urgent medical attention. Patient will be discharged from the wound healing center and to follow-up if any new wounds occur. This note was generated with [employer] software. It may contain incorrect words, spelling, and punctuation that were not noted in checking the note before signing. Code Visit Office Visits / Consults: [id number] OV L3 Est
--- NOTE | 2018-08-30 17:30 | PN.PCM_ITS ---
(1) Surgical wound, non healing Status: Acute Current Visit: Yes Code(s): T81.89XA - Other complications of procedures, not elsewhere classified, initial encounter Comment: left neck (2) Hyperglycemia due to type 2 diabetes mellitus Status: Acute Current Visit: No Qualifiers: Code(s): E11.65 - Type 2 diabetes mellitus with hyperglycemia (3) Hyperlipidemia Status: Chronic Current Visit: No Code(s): E78.5 - Hyperlipidemia, unspecified (4) Morbid obesity Status: Chronic Current Visit: No Code(s): E66.01 - Morbid (severe) obesity due to excess calories (5) Sleep apnea Status: Chronic Current Visit: No Code(s): G47.30 - Sleep apnea, unspecified Type of Wound Date of Service: 08/29/18 Chief Complaint: Postsurgical wound to the left neck status post incision and drainage of abscess by Dr. Turcios on 07/08/2018 History of Wound: This is a 33-year-old white male who was admitted to [facility] from 07/08 to 07/10/18 for left sided neck abscess status post incision and drainage on 07/08/[address] Turcios, probable left scrotal abscess, and uncontrolled type 2 diabetes mellitus. He has a past medical history of morbid obesity, DEMETRIO, asthma, hyperlipidemia, hypertension, and uncontrolled type 2 diabetes mellitus. During the patient's hospital course he was treated with IV antibiotics after incision and drainage of the left neck abscess. He also had complaints of scrotal drainage which an ultrasound was done and revealed marked scrotal wall thickening with fluid density in the left scrotal wall. There was no obvious abscess on exam and infectious disease was consulted and recommended that the patient be discharged home on Augmentin twice daily for 7 days of treatment to cover for his wound culture of group C strep. Patient also had an hemoglobin A1c of 13.9 and was started on Lantus twice daily. He was discharged yesterday and has currently been utilizing wet-to-dry dressings. The plan was for placement of a wound VAC as an outpatient. The patient states that since being discharged yesterday he has been doing well. He denies any systemic signs of infection at this time. He states that there is minimal serosanguineous drainage when he removes the gauze dressing. He does note that he has had problems with recurrent abscesses in his neck axilla and groin in the past. He is unsure if he has ever been diagnosed with hidradenitis suppurativa. He states that he does have home care coming to help with dressing changes which will start tomorrow. Regarding his scrotal drainage, he states that this has entirely resolved and that he is not having any drainage or pain at this time. He denies any other concerns at this time. He does state that he followed up with his primary care today Dr. Fernandes who is going to be managing his diabetes. The patient otherwise denies any fever, chills, nausea, vomiting, shortness of breath, chest pain or pressure, palpitations, orthopnea, lower extremity edema, syncope or presyncopal episodes. Progress of Wound: Patient's surgical wound is now healed and fully epithelialized, no signs of obvious infection at this time. Denies any increase in pain or drainage. The patient otherwise denies any fever, chills, nausea, vomiting, shortness of breath, chest pain or pressure, palpitations, orthopnea, lower extremity edema, syncope or presyncopal episodes. - Physical Exam Vital Signs Temp Pulse Resp BP 96.2 F L 92 18 122/68 H 08/29/18 14:15 08/29/18 14:15 08/29/18 14:15 08/29/18 14:15 General: Alert, Oriented x3, Cooperative, No apparent distress HEENT: PERRLA, EOMI Neck: Supple, No JVD, Negative Carotid Bruits Lungs: Clear to auscultation Cardiovascular: Regular rate, Regular Rhythm Abdomen: Soft, Non Tender Extremities: No edema, Capillary Refill Less than 3 Seconds Skin: Ulcer/ Wound - Postsurgical wound to left neck healed without any signs of infection Wound Measurements and Assessment WC - Nurse 1 - General Ulcer Measurement Start: 08/29/18 14:15 Freq: Status: Active Protocol: Activity Type Activity Date Activity User E-Sign Co-Sign Detail Recorded Client Recorded Date Recorded By Document 08/29/18 14:15 [facility] [id number] 08/29/18 14:21 [facility] 08/29/18 14:15 Wound Center Nurse 1 [Ulcer Assessment] #1- LT NECK -Combined with other wound No -Current Size (cm) - Length 0.1 -Current Size (cm) - Width 0.1 -Current Size (cm) - Depth 0.1 -Total Square Cm 0.01 -Date of Last Picture (Recall this 08/29/18 field) -Photo Taken Yes -Texture (Shira-wound Skin Appearance) Assessed Scarring -Moisture (Shira-wound Skin Appearance Assessed ) Dry/Scaly -Color (Shira-wound Skin Appearance) Assessed -Temperature (Shira-wound Skin No Abnormality Appearance) (Pt Warm) -Tenderness on Palpation (Shira-wound No Skin Appearance) -Ulcer Cleansing Wound Cleanser -Anesthetic Used 5% Lidocaine Gel Assessment/Plan Active Problems (Last Reviewed 08/22/17 @ 07:32 by Fabiola Adrian) Surgical wound, non healing (Acute) left neck Assessment: Postsurgical wound to left neck status post surgical incision and drainage by Dr. Turcios on 07/08/2018. Uncontrolled type 2 diabetes mellitus recent A1c 13.9. See above diagnoses Plan: The patient was seen and examined at the wound center today and was updated on the plan of care. The patient's postsurgical wound to the left neck is now healed. No signs of infection at this time. Advised patient to continue with keeping his blood sugars under control and continue with increased protein intake to promote remained closure of the wound. Did discuss with patient that he has signs and symptoms of hidradenitis suppurativa and that he should follow- up with plastic surgery if he develops any further problems in the future. Discussed red flag symptoms regarding urgent medical attention. Patient will be discharged from the wound healing center and to follow-up if any new wounds occur. This note was generated with [employer] software. It may contain incorrect words, spelling, and punctuation that were not noted in checking the note before signing. Code Visit Office Visits / Consults: [id number] OV L3 Est
== END 2018-09-22 23:59 ==
LOC: WC 11:45
PROVIDERS: Family Provider Family Medicine; PCP Family Medicine; Visit Provider Nurse Practitioner Family
DX: Z09 Encounter for follow-up examination after completed treatment for conditions other than malignant neoplasm (principal); E78.5 Hyperlipidemia, unspecified; E66.01 Morbid (severe) obesity due to excess calories; Z71.3 Dietary counseling and surveillance; G47.33 Obstructive sleep apnea (adult) (pediatric); J45.909 Unspecified asthma, uncomplicated; I10 Essential (primary) hypertension
CPT/HCPCS: 99212; G0463

== ENCOUNTER 2018-10-06 11:15 | Emergency (ER) | payer MEDICAID, SELFPAY ==
[2018-10-06 11:15] VITALS: BP 151/93; PULSE 92; RESP 18; TEMP 36.6; O2SAT 96; BMI 44.9
--- NOTE | 2018-10-06 11:46 | ED.VIS.GEN ---
History of Present Illness Chief Complaint: Abscess Informant: Patient Onset: Yesterday Context: Gradual Onset Timing: Continuous Quality: redness Location: back of neck Current Severity: Mild Maximum Severity: Mild Worsened by: movement, palpation Relieved by: nothing Associated Symptoms: denies Narrative: 33-year-old male with a history of type 2 diabetes mellitus and hypertension presents to the emergency department for wound check. Patient had a large abscess incised and drained by surgeon on his upper back in the back of his neck a few months ago and ended up having a wound VAC on this area afterwards which she states was removed just a couple weeks ago. He has been working outside most of the past several days in the hot sun and heat and has noticed that has been more red and slightly swollen than normal. He is concerned for worsening infection. He is not having any significant pain. He denies constitutional symptoms. Denies nausea or vomiting. Prior similar symptoms: Yes Recent Illness/Hospitalization: No Past Medical History - Allergies and Home Meds Allergies/Adverse Reactions: Allergies GRASS Allergy (Uncoded 10/06/18 11:23) SNEEZING Primary Care Physician: Kennedy Fernandes MD [Primary Care Provider] - Prior records reviewed: Yes Past Medical History: - - Type 2 diabetes mellitus, hypertension, seasonal allergies, asthma Surgical History: - - Scrotal abscess incision and drainage Smoking Status: Former smoker - Family History Paternal Family History: Reports: Hypertension Maternal Family History: Reports: Hypertension Review of Systems All systems negative except as indicated General: Denies: Chills, Fever Skin: Reports: Wounds Physical Exam Vital Signs/Narrative: Vital Signs Temp Pulse Resp BP Pulse Ox 10/06/18 11:15 98 F 92 18 151/93 H 96 Inital Vital Signs reviewed: Yes General: Well nourished, Well developed, No Acute Distress Head: Normocephalic, Atraumatic Eyes: Perrl, EOMI ENT: Moist mucous membranes Neck: Supple, Nontender Cardiovascular: Regular rate, Regular rhythm Respiratory: No distress, CTA bilaterally, Chest nontender Abdomen: Soft, Nontender, Nondistended, Normal bowel sounds, No masses Back: Nontender, Normal Inspection Extremities: Nontender, No edema Skin: Normal color, No rash, - - Patient has a well-healed surgical incision over chronic wound on his left upper back and at the base of his left side of his neck. There is some slight erythema but there is no swelling or fluctuance or induration or surrounding signs of cellulitis. There is no rash noted. There are no other areas of redness noted. Patient does appear to have a very minor sunburn over the back of his neck the back of his upper back and on his shoulders and chest. Diagnostic/Tx/Re-eval - Medical Decision Making Patient presents for wound check from his previous surgical wound. He has been working outside and states that he feels as if though it is a sunburn but he came today to have a check done by a provider. It does seem to be consistent with a sunburn however we did discuss with him that because he has this chronic wound with history of significant infection that required surgery we cannot definitively say that he is not developing an infection but at this time because of the minimal amount of redness and swelling noted we do not feel antibiotics are indicated. He does not have any constitutional symptoms. Again he also states to us that he feels it is a sunburn. He was agreeable with our plan of continual watching and waiting and then close follow-up with his doctor in the next 1 to 2 days or if he feels like his symptoms are worsening prior to being able to be seen he will come back to the emergency department. ED Disposition - Plan for ED Patient: Disposition: Home or Assisted Living Diagnosis: Visit for wound check Instructions: Wound Care Referrals: Kennedy Fernandes MD [Primary Care Provider] -
== END 2018-10-06 12:19 | disposition home or self-care (01) ==
LOC: ED 11:54
PROVIDERS: Emergency Provider Physician Assistant Medical; Family Provider Family Medicine; PCP Family Medicine
DX: Z48.00 Encounter for change or removal of nonsurgical wound dressing (principal); L55.9 Sunburn, unspecified; E11.9 Type 2 diabetes mellitus without complications; I10 Essential (primary) hypertension; J45.909 Unspecified asthma, uncomplicated; Z79.84 Long term (current) use of oral hypoglycemic drugs; Z79.4 Long term (current) use of insulin; Z79.899 Other long term (current) drug therapy; Z87.891 Personal history of nicotine dependence
CPT/HCPCS: 99282

== ENCOUNTER 2018-11-18 14:00 | Day surgery (SDC) | payer MEDICAID, SELFPAY ==
--- NOTE | 2018-11-17 20:23 | PCM.HP.BLA ---
History and Physical Date of Admission: 11/18/18 Moncho Nugent 1985 ? ? CC: neck/back abscess ? HPI: Patient presents with: Abscess: on left side-back of neck and upper back- Had previous I&D at [facility] 07/08/18 He was sent to [place] [facility]. Had wound vacuum placed. This was removed at the end of August and patient was then discharged from wound healing clinic. Patient seen at [facility] ED on 10/06/18 with complaint of drainage in the area of the previous wound site. He was then referred to this clinic for evaluation. Denies fevers. Patient is diabetic, noted to have serum glucoses in 200s, is known poorly controlled diabetic. He states that he has lost weight recently - intentionally. ? ? PAST MEDICAL HISTORY ? Asthma ? ? Edema ? ? Gout ? ? Hidradenitis suppurativa ? ? Hyperlipidemia ? ? Hypertension ? ? Intervertebral lumbar disc disorder with myelopathy, lumbar region ? ? Had MRI done at [facility] in August 2007. Was told he had bulging disc and never was treated due to having no insurance. ? Obesity, morbid (HCC) ? ? DEMETRIO (obstructive sleep apnea) ? ? [facility]- did not follow up after titration in July 2017-mailed letter to call office to schedule appointment ? Pulmonary hypertension (HCC) ? ? Tobacco use disorder ? ? Type II or unspecified type diabetes mellitus without mention of complication, not stated as uncontrolled ? ? PAST SURGICAL HISTORY ? EXTRACTION ERUPTED TOOTH/EXR?? [place] teeth ? I & D ABSCESS ? 07/08/2018? large upper back abscess in [place] ? I & D ABSCESS, SINGLE ? 05/25/10? I&D left neck abscess ? PAST SURGICAL HISTORY OF?? right thumb fx repair ? ? Current Outpatient Medications: cephALEXin (KEFLEX) 500 mg capsule Take 1 capsule by mouth three times daily. albuterol HFA (VENTOLIN HFA) 90 mcg/actuation inhaler Inhale 2 Puffs as instructed every 4 hours as needed. atorvastatin (LIPITOR) 20 mg tablet take 1 tablet daily at bedtime for cholesterol FLUoxetine (PROZAC) 20 mg capsule Take 1 capsule by mouth once daily. insulin lispro (HUMALOG KWIKPEN INSULIN) 100 unit/mL inpn Inject 3 Units subcutaneously three times daily before meals. amLODIPine (NORVASC) 5 mg tablet Take 1 tablet by mouth once daily. (Patient not taking: Reported on 11/15/2018 insulin degludec (TRESIBA FLEXTOUCH U-100) 100 unit/mL (3 mL) injection Inject 24 Units subcutaneously twice daily. lisinopril (ZESTRIL, PRINIVIL) 40 mg tablet Take 1 tablet by mouth once daily. metFORMIN (GLUCOPHAGE) 500 mg tablet TAKE 2 TABLETS TWICE DAILY WITH meals lancets (UNILET SUPER THIN LANCETS) 30 gauge misc Test blood sugar(s) 2 times daily albuterol (PROVENTIL) 2.5 mg /3 mL (0.083 %) nebulizer solution Use 3 mL via nebulizer every 4 hours as needed for Wheezing/Shortness loratadine (CLARITIN) 10 mg tablet TAKE 1 TABLET BY MOUTH EVERY DAY ? ALLERGIES: Grass Pollen ? 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 Social Needs Financial resource strain: Not on file Food insecurity: Worry: Not on file Inability: Not on file Transportation needs: Medical: Not on file Non-medical: Not on file Tobacco Use Smoking status: Former Smoker Packs/day: 0.50 Years: 15.00 Pack years: 7.5 Types: Cigarettes Start date: 07/28/2006 Quit date: 05/25/2017 Years since quittin.4 Smokeless tobacco: Never Used Substance and Sexual Activity Alcohol use: Yes ? FAMILY HISTORY ? Alcohol/Drug Father ? alcohol ? Alcohol/Drug Paternal Grandfather ? ? Allergies Sister ? ? Alzheimer's Disease Maternal Aunt ? ? Arthritis Mother ? OA ? Arthritis Maternal Grandmother ? ? Asthma Sister ? ? other (aneurysm brain [Other]) Maternal Aunt ? ? other (aneurysm brain [Other]) Maternal Aunt ? ? Diabetes Mother ? ? Diabetes Maternal Grandmother ? ? Hypertension Mother ? ? Hypertension Maternal Grandmother ? ? Lipids Mother ? ? Lipids Maternal Grandmother ? ? Headache Sister? migraine ? Seizures Sister ? ? Stroke Maternal Aunt ? ? Thyroid Mother ? ? Thyroid Maternal Grandmother ? ? ? REVIEW OF SYSTEMS General - denies fevers, denies anorexia, has had weight loss as above Cardiovascular - denies chest pain, denies history of ME Pulmonary - has shortness of breath with exertion, has asthma, denies coughing up blood, quit TOB use Gastrointestinal - denies abdominal pain, denies hematemesis, denies blood in stools Neurological - denies seizures, denies chronic numbness/weakness of extremities, denies chronic headaches Genitourinary - denies burning with urination, denies blood in urine Hematological - denies spontaneous/prolonged bleeding Skin - see above Musculoskeletal - has some intermittent back pain Endocrine - has poorly controlled insulin dependent diabetes, no thyroid problems, has morbid obesity Psychological ? no mood changes ? ? PHYSICAL EXAMINATION: General: The patient is 33 year old male, well nourished, well hydrated in no acute distress. The patient is oriented to time, place, and person. VITALS: Pulse 90, temperature 36.4 ?C (97.5 ?F), temperature source Temporal Artery, resp. rate 22, weight (!) 183.3 kg (404 lb), SpO2 94 %. Body mass index is 53.31 kg/m?. Head ? Normocephalic. EOM intact with sclera clear and no icterus noted. Mouth with mucus membranes moist. Neck - supple with no jugular venous distention noted. Trachea is midline. Posterior neck left lateral aspect with scar tissue with drainage from site, difficult to palpate for fluctuance due to patient's body habitus Lungs: lungs clear to auscultation. No wheezing, rhonchi, rales Heart: RRR without murmur, gallop, or rubs. No ectopy Abdomen: Normal abdominal exam, Abdomen soft, non-tender, obese. Difficult to determine if any masses due to body habitus Neurological ? gait normal, no focal deficits noted. Psych ? calm and appropriate ? ? IMPRESSION: neck abscess ? PLAN: I have discussed the above with the patient. I have offered I&D of this area, will also start antibiotics I have explained the procedure to the patient. I have counseled the patient as to the risks of the procedure, including but not limited to: infection, bleeding, injury to any blood vessels/nerves, scar tissue, continued wound infections, complications of anesthesia, etc. ? the patient understands. The patient wishes to proceed. I have answered all questions to the patient?s satisfaction and the patient has no further questions. ? . Diagnoses: (L02.11) Cutaneous abscess of neck (primary encounter diagnosis) (E66.01) Morbid obesity (HCC) (E11.65) Uncontrolled type 2 diabetes mellitus with hyperglycemia (HCC) Return to Clinic: The patient is instructed to follow-up with me after the above procedure.?
[2018-11-18 14:21] VITALS: BP 122/99; PULSE 65; RESP 18; TEMP 36.4; O2SAT 95; BMI 52.2
[2018-11-18] MEDS: Lactated Ringers 1,000 ML 75 ML IV (14:37)
[2018-11-18 14:51] LABS: Bedside Glucose 121 mg/dL (70-110)
[2018-11-18] MEDS: Bupivacaine Mpf 0.5% 30 ML VIAL (16:30)
--- NOTE | 2018-11-18 16:52 | PCM.OPRPT ---
Report of Operation Date of Procedure: 11/18/18 Pre-Operative Diagnosis: abscess of left posterior neck area Post-Operative Diagnosis: same Surgery/Procedure Performed:: incision and drainage of posterior left neck abscess Description of Surgical Findings:: previous site of I&D with granulation tissue at based not completely healed with residual cavity with purulent drainage Type of Anesthesia:: General Anesthesiologist: Megha Molina Specimen's removed: excess fibrotic skin and devitalized subcutaneous tissues - this appeared grossly normal and was not forwarded to pathology for analysis Estimated Blood Loss (mL): < 5 ml Fluids Replaced: 400 cc RL Description of Procedure: After informed consent was given, the patient was brought to the Operating Room. Appropriate time out protocol was followed. The patient was then intubated and placed in the prone position. The patient?s upper back and neck on the left side was then prepped with a surgical skin preparation and sterile surgical drapes were placed. The skin and subcutaneous tissues in and around the lesion were then infiltrated with 1% xylocaine with epinephrine. A skin incision was then made with a 15 blade scalpel overlying the area of drainage. There was a deep cavernous cavity with minimal purulent drainage however, there was senescent granulation tissue and devitalized fatty tissues with dense fibrosis in this area. This was sharply excised so that normal tissue was exposed. Any hemorrhage was controlled with electrocautery. The cavity was 10 x 5 cm with a depth of 5 cm. The cavity was examined for any other areas of devitalized or infected tissue and none was noted. The cavity was vigorously irrigated. Hemostasis was achieved with electrocautery. The wound was densely packed with saline soaked gauze. Dry dressing was placed over the wound and was taped in place. The patient tolerated the procedure well and was brought to the Recovery Room in stable condition. - Complications none noted - Admit VTE Documentation VTE Present on Admission: Yes VTE Mechan Device Prophylaxis: SCD's
[2018-11-18 17:00] VITALS: BP 122/99; BP 152/59; PULSE 79; RESP 18; TEMP 35.9; O2SAT 91
--- NOTE | 2018-11-18 17:00 | PCM.DC.GS ---
Discharge Diet: Carb Control Diet Discharge Activity: Return to Normal Activity Call your doctor if your incision/area has: Continuous Slow Oozing, Foul Smelling Discharge Call your doctor if you observe: Fever of 101 or Higher Additional Dressing/Incision Instructions:: Leave dressing in place. Do not get wet. Sponge bathe only until further notice Allergies/Adverse Reactions: Allergies GRASS Allergy (Uncoded 11/15/18 14:16) SNEEZING Medications to take at Discharge Lisinopril [Zestril] 40 mg PO DAILY 11/08/14 Albuterol Sulfate [Ventolin Hfa] 1 - 2 puff INHALATION Q4H PRN PRN 07/08/18 Loratadine 10 mg PO DAILY 07/08/18 Metformin HCl 1,000 mg PO BID 07/09/18 Insulin Detemir [Levemir (BKC)] 24 units SC BID 07/11/18 Hydrocodone Bitart/Apap 5-325 [[place] 5MG-325MG] 1 tab PO Q6H PRN PRN 5 Days #20 tab 11/18/18 Ibuprofen 800 mg PO PRN PRN 11/18/18 The following prescriptions were given: Hydrocodone Bitart/Apap 5-325 [[place] 5MG-325MG] 1 tab PO Q6H PRN PRN 5 Days #20 tab PRN Reason: Pain Prescription Printed Primary Care Physician: Kennedy Fernandes MD [Primary Care Provider] - Test Results: Test results from this visit will be discussed in further detail at your follow-up appointment, if applicable. Please Follow Up With: Patricia Turcios MD - call When: to be seen on November 20, please call for time, thank you
[2018-11-18 17:15] VITALS: BP 113/76; BP 122/99; PULSE 81; RESP 18; O2SAT 93
[2018-11-18 17:30] VITALS: BP 122/99; BP 129/67; PULSE 82; RESP 18; TEMP 36.3; O2SAT 95
[2018-11-18 17:31] LABS: Bedside Glucose 123 mg/dL (70-110)
[2018-11-18 17:55] VITALS: BP 122/99; BP 163/89; PULSE 81; RESP 16; TEMP 36.4; O2SAT 94
== END 2018-11-18 17:57 | disposition home or self-care (01) ==
LOC: SDC 14:02 → AC 14:02
PROVIDERS: Family Provider Family Medicine; PCP Family Medicine; Referring Provider Surgery; Visit Provider Surgery
PROC: (CPT 10060; principal; 2018-11-18 15:30)
DX: L02.11 Cutaneous abscess of neck (principal); L02.212 Cutaneous abscess of back [any part, except buttock and flank]; E11.65 Type 2 diabetes mellitus with hyperglycemia; E66.01 Morbid (severe) obesity due to excess calories; E78.5 Hyperlipidemia, unspecified; F02.80 Dementia in other diseases classified elsewhere, unspecified severity, without behavioral disturbance, psychotic disturbance, mood disturbance, and anxiety; G30.9 Alzheimer's disease, unspecified; G47.33 Obstructive sleep apnea (adult) (pediatric); I10 Essential (primary) hypertension; I27.20 Pulmonary hypertension, unspecified; J45.909 Unspecified asthma, uncomplicated; L73.2 Hidradenitis suppurativa; M10.9 Gout, unspecified; F12.90 Cannabis use, unspecified, uncomplicated; Z79.4 Long term (current) use of insulin; Z79.899 Other long term (current) drug therapy; Z87.891 Personal history of nicotine dependence; Z68.43 Body mass index [BMI] 50.0-59.9, adult
CPT/HCPCS: 00400; 10060; 82962; J7120; J2405

== ENCOUNTER 2019-06-13 08:39 | Day surgery (SDC) | payer MEDICAID, SELFPAY ==
[2019-06-13] VITALS (8 sets, daily range): BP systolic 110–156; BP diastolic 59–91; PULSE 78–96; RESP 16–18; TEMP 36.1–36.4; O2SAT 94–98; BMI 52.4
--- NOTE | 2019-06-13 07:52 | PCM.HP.BLA ---
History and Physical Date of Admission: 06/13/19 Moncho Nugent (Darnell) 1985 ? ? REFERRING PHYSICIAN: Self, ? CHIEF COMPLAINT: Consult ? HPI: The patient is a 34 year old male presents with abscess of right side of neck. Patient has had history of boils, etc and had large left neck abscess drained in October 2018 at [facility]. He has noted this present lesion for the past 4 days and it is very painful. Denies fevers He states that he checked his sugars this morning and it was around 200 Patient just ate prior to being seen in clinic ? ? PAST MEDICAL HISTORY ? Abscess of multiple sites of head and neck 10/2018 ? Asthma ? ? Edema ? ? Gout ? ? Hidradenitis suppurativa ? ? Hyperlipidemia ? ? Hypertension ? ? Intervertebral lumbar disc disorder with myelopathy, lumbar region ? ? Had MRI done at [facility] in August 2007. Was told he had bulging disc and never was treated due to having no insurance. ? Obesity, morbid (HCC) ? ? DEMETRIO (obstructive sleep apnea) ? ? [facility]- did not follow up after titration in July 2017-mailed letter to call office to schedule appointment ? Pulmonary hypertension (HCC) ? ? Tobacco use disorder ? ? Type II or unspecified type diabetes mellitus without mention of complication, not stated as uncontrolled ? ? PAST SURGICAL HISTORY ? EXTRACTION, ERUPTED TOOTH OR EXPOSED ROOT (ELEVATION AND/OR FORCEPS REMOVAL) ? ? ? [place] teeth ? I & D ABSCESS ? 07/08/2018 ? large upper back abscess in OR ? I & D ABSCESS, SINGLE ? 05/25/10 ? I&D left neck abscess ? I & D, ABCESS COMPLEX MULTIP ? 11/18/2018 ? neck ? PAST SURGICAL HISTORY OF ? ? ? right thumb fx repair ? ? Current Outpatient Medications ? metFORMIN (GLUCOPHAGE) 500 mg tablet TAKE 2 TABLETS TWICE DAILY WITH meals ? furosemide (LASIX) 40 mg tablet Take 1 tablet by mouth once daily. ? atorvastatin (LIPITOR) 20 mg tablet take 1 tablet daily at bedtime for cholesterol ? lancets (UNILET SUPER THIN LANCETS) 30 gauge misc Test blood sugar(s) 2 times daily ? blood sugar diagnostic (BLOOD GLUCOSE TEST) test strip Test blood sugar(s) 2 times daily. Dx: Type 2 DM - Controlled E11.9 Insulin: No ? insulin lispro (HUMALOG KWIKPEN INSULIN) 100 unit/mL Inject 3 Units subcutaneously three times daily before meals. ? amLODIPine (NORVASC) 5 mg tablet Take 1 tablet by mouth once daily. ? lisinopril (ZESTRIL, PRINIVIL) 40 mg tablet Take 1 tablet by mouth once daily. ? insulin degludec (TRESIBA FLEXTOUCH U-100) 100 unit/mL (3 mL) injection Inject 24 Units subcutaneously twice daily. ? albuterol HFA (VENTOLIN HFA) 90 mcg/actuation inhaler Inhale 2 Puffs as instructed every 4 hours as needed. ? FLUoxetine (PROZAC) 20 mg capsule Take 1 capsule by mouth once daily. ? UNIFINE PENTIPS 31 gauge x 5/16 ndle Use once daily with Victoza ? loratadine (CLARITIN) 10 mg tablet TAKE 1 TABLET BY MOUTH EVERY DAY ? sodium chloride-aloe vera (AYR GEL W/ALOE) topical nasal gel 1 application by INTRANASAL route four times daily as needed. ? CPAP 1 Device by MISCELLANEOUS route daily at bedtime. Auto PAP 8-20 cm H2O, Fit pt for FFM or per patient preference, Ramp 20 minutes, humidity, filters, tubing, head gear, Lif[employer] supplies. G 47.33 obstructive sleep apnea. Please fax 30 day download to [phone]. ? Blood-Glucose Meter monitoring kit Glucose Meter of Choice - Kit - Dx: Type 2 DM - Controlled E11.9 ? Blood-Glucose Meter (TRUE METRIX AIR GLUCOSE METER) misc Twice daily ? cephALEXin (KEFLEX) 500 mg capsule Take 1 capsule by mouth three times daily for 7 days. ? fluconazole (DIFLUCAN) 150 mg tablet Take one tablet by mouth now and then repeat once a week for three weeks. (Patient not taking: ? benzonatate (TESSALON PERLE) 100 mg capsule Take 2 capsules by mouth three times daily as needed. (Patient not taking: Reported on ? ? ALLERGIES: Grass Pollen ? PERSONAL HISTORY: ? Smoking status: Former Smoker ? ? Packs/day: 0.50 ? ? Years: 15.00 ? ? Pack years: 7.50 ? ? Types: Cigarettes ? ? Start date: 07/28/2006 ? ? Last attempt to quit: 05/25/2017 ? ? Years since quittin.0 ? Smokeless tobacco: Never Used Substance Use Topics ? Alcohol use: Yes ? ? Comment: occasionally ? Drug use: No ? FAMILY HISTORY ? Arthritis Mother ? ? OA ? Diabetes Mother ? ? Hypertension Mother ? ? Lipids Mother ? ? Thyroid Mother ? ? Alcohol/Drug Father ? ? alcohol ? Arthritis Maternal Grandmother ? ? Diabetes Maternal Grandmother ? ? Hypertension Maternal Grandmother ? ? Lipids Maternal Grandmother ? ? Thyroid Maternal Grandmother ? ? Alcohol/Drug Paternal Grandfather ? ? Allergies Sister ? ? Alzheimer's Disease Maternal Aunt ? ? Asthma Sister ? ? other (aneurysm brain) Maternal Aunt ? ? other (aneurysm brain) Maternal Aunt ? ? Headache Sister ? ? migraine ? Seizures Sister ? ? Stroke Maternal Aunt ? ? ? REVIEW of SYSTEMS: Denies fevers. Denies weight loss or anorexia. Has chronic skin infections. Has poorly controlled diabetes with chronically elevated HgbA1c ? PHYSICAL EXAMINATION: General: The patient is 34 year old male, well nourished, well hydrated in no acute distress. The patient is oriented to time, place, and person. VITALS: Blood pressure 160/90, pulse 107, temperature (!) 35.7 ?C (96.2 ?F), temperature source Temporal Artery, weight (!) 186.4 kg (411 lb), SpO2 96 %. Body mass index is 54.24 kg/m?. Head ? Normocephalic. EOM intact with sclera clear and no icterus noted. Mouth with mucus membranes moist. Neck - supple with no jugular venous distention noted. Trachea is midline. Right neck skin abscess - 8-10 cm. Lungs ? no labored breathing noted, such as retractions. No cough heard. Heart ? regular. Abdomen ? soft and benign. Normal bowel sounds. Difficult to determine if any masses or organomegaly due to body habitus. Extremities ? no pitting edema noted. Skin ? see above, otherwise normal skin integrity. Neurological ? gait normal, no focal deficits noted Psych ? calm and appropriate ? ? IMPRESSION: right neck abscess ? PLAN: I have discussed the above with the patient. I have offered incision and drainage of this abscess, because of the size and patient's pain tolerance, will do I&D with MAC local. Patient ate just before he came to the office, will therefore do procedure tomorrow. Will start antibiotics today. I have explained the procedure to the patient. I have counseled the patient as to the risks of the procedure, including but not limited to: infection, bleeding, injury to any blood vessels/nerves, scar tissue, wound infections, complications of anesthesia, etc. ? the patient understands. The patient wishes to proceed. I have answered all questions to the patient?s satisfaction and the patient has no further questions. . Diagnoses: (L02.11) Neck abscess (primary encounter diagnosis) Return to Clinic: The patient is instructed to follow-up with me after the procedure ? ? ? Patricia Turcios MD
[2019-06-13] MEDS: Lactated Ringers 1,000 ML 75 ML IV (09:00)
[2019-06-13 09:21] LABS: Bedside Glucose 462 mg/dL (70-110)
[2019-06-13] MEDS: Insulin Lispro 100 UNIT/ML INSULN.PEN 8 UNIT SC (09:33)
--- NOTE | 2019-06-13 09:33 | DCINST_ITS ---
Discharge Diet: No Restrictions Discharge Activity: Return to Normal Activity, May not drive while taking narcotic pain medications. Call your doctor if your incision/area has: Continuous Slow Oozing, Foul Smelling Discharge Call your doctor if you observe: Fever of 101 or Higher Additional Dressing/Incision Instructions:: Leave dressing in place. If soaks through, reinforce with pads or even clean washclothes and secure in place. Follow up on Sunday for wound dressing changes Allergies/Adverse Reactions: Allergies GRASS Allergy (Uncoded 11/15/18 14:16) SNEEZING Medications to take at Discharge Lisinopril [Zestril] 40 mg PO DAILY 11/08/14 Albuterol Sulfate [Ventolin Hfa] 1 - 2 puff INHALATION Q4H PRN PRN 07/08/18 Loratadine 10 mg PO DAILY 07/08/18 Metformin HCl 1,000 mg PO BID 07/09/18 Insulin Detemir [Levemir (BKC)] 24 units SC BID 07/11/18 Ibuprofen 800 mg PO PRN PRN 11/18/18 Oxycodone HCl/Acetaminophen [Percocet 5/325] 1 tab PO Q8H PRN PRN 3 Days #9 tab 06/13/19 The following prescriptions were given: Oxycodone HCl/Acetaminophen [Percocet 5/325] 1 tab PO Q8H PRN PRN 3 Days #9 tab PRN Reason: Pain Transmission Status: Received by Support Your App #30 Primary Care Physician: Kennedy Fernandes MD [Primary Care Provider] - Test Results: Test results from this visit will be discussed in further detail at your follow- up appointment, if applicable. Please Follow Up With: Patricia Turcios MD - call When: to be seen on Sunday
--- NOTE | 2019-06-13 10:19 | PCM.OPRPT ---
Report of Operation Date of Procedure: 06/13/19 Pre-Operative Diagnosis: abscess of right neck Post-Operative Diagnosis: same Surgery/Procedure Performed:: incision and drainage of right neck Description of Surgical Findings:: large 10 cm x 6 cm with depth of 2 cm - right neck abscess Type of Anesthesia:: Local MAC Anesthesiologist: Gallito Goldstein Specimen's removed: none Estimated Blood Loss (mL): 10 ml Fluids Replaced: 600 ml RL Description of Procedure: After informed consent was given, the patient was brought to the OR. Appropriate time out protocol was followed. The patient was placed in the supine position. MAC IV anesthesia was given by the anesthesia provider. The right neck area was then prepped with a [place] surgical skin preparation and appropriate surgical drapes were placed. The patient had a deep neck fold due to his body habitus and the site of drainage of the abscess was at this location. The skin and subcutaneous tissues were infiltrated with local anesthetic. A transverse skin incision was made with a 15 blade scalpel. Purulent fluid emanated from this site. There was also devitalized fatty tissues and fibrinous exudate removed. The opening of the wound was then widened so as to unroof the entire abscessed cavity. The abscessed cavity was 10 cm x 6 cm with a depth of 2 cm. Hemostasis was controlled with electrocautery and pressure. The wound was copiously irrigated with hydrogen peroxide. The wound was densely packed with gauze. Sterile dressing was then applied. Patient was brought to the Recovery Room in stable condition. - Complications none
[2019-06-13 10:46] LABS: Bedside Glucose 449 mg/dL (70-110)
[2019-06-13] MEDS: Ketorolac 30 MG/ML Syringe IV (12:00)
[2019-06-13] MEDS: oxyCODONE 5 MG Tablet PO (12:00)
[2019-06-13] MEDS: Acetaminophen 325 MG Tablet PO (12:01)
== END 2019-06-13 12:26 | disposition home or self-care (01) ==
LOC: SDC 08:41 → AC 08:43
PROVIDERS: PCP Family Medicine; Referring Provider Surgery; Visit Provider Surgery
PROC: (CPT 10060; principal; 2019-06-13 07:20)
DX: L02.11 Cutaneous abscess of neck (principal); J45.909 Unspecified asthma, uncomplicated; E78.5 Hyperlipidemia, unspecified; I10 Essential (primary) hypertension; E66.01 Morbid (severe) obesity due to excess calories; G47.33 Obstructive sleep apnea (adult) (pediatric); I27.20 Pulmonary hypertension, unspecified; E11.9 Type 2 diabetes mellitus without complications; Z87.891 Personal history of nicotine dependence; Z68.43 Body mass index [BMI] 50.0-59.9, adult; Z79.4 Long term (current) use of insulin; Z79.51 Long term (current) use of inhaled steroids; Z79.899 Other long term (current) drug therapy
CPT/HCPCS: 10060; 82962; J7120

== ENCOUNTER 2019-07-02 09:30 | Outpatient (RCR) | payer MEDICAID, SELFPAY ==
[2019-06-13 09:03] VITALS: BMI 52.4
[2019-06-25 09:49] VITALS: BP 156/92; PULSE 84; RESP 18; TEMP 35.9; BMI 51.3
--- NOTE | 2019-06-25 11:02 | PCM.WC.HP ---
(1) Diabetes 1.5, managed as type 1 Status: Acute Current Visit: Yes Code(s): E13.9 - Other specified diabetes mellitus without complications (2) Surgical wound present Status: Acute Current Visit: No Code(s): T14.8XXA - Other injury of unspecified body region, initial encounter Comment: left neck s/p surgical I/D on 07/08/18 (3) Surgical wound, non healing Status: Acute Current Visit: No Code(s): T81.89XA - Other complications of procedures, not elsewhere classified, initial encounter Comment: left neck (4) Morbid obesity Status: Chronic Current Visit: No Code(s): E66.01 - Morbid (severe) obesity due to excess calories (5) Diabetes, type 1.5, uncontrolled, managed as type 1 Status: Acute Current Visit: Yes Code(s): E13.65 - Other specified diabetes mellitus with hyperglycemia (6) Hidradenitis Status: Acute Current Visit: Yes Code(s): L73.2 - Hidradenitis suppurativa History of Present Illness Date of Service: 06/25/19 Chief Complaint: Postsurgical wound to the right neck status post incision and drainage of abscess by Dr. Turcios on 06/13/19 History of Wound: This is a 34-year-old male that presented with a I&D of an open wound of the right side of the neck patient has history of boils and hidradenitis that was drained first time on the left side of the neck October 2018 and then presently just this last 2 weeks. Patient denies fever chills nausea vomiting. Does have pain with movement of the neck it does appear to be in the crease of the neck nonhealing surgical wound. Past Medical History Past Medical History: Chronic Problems (Last Reviewed 08/22/17 @ 07:32 by Fabiola Adrian) Hyperlipidemia (Chronic) Chronic asthma (Chronic) Sleep apnea (Chronic) Morbid obesity (Chronic) Essential hypertension (Chronic) Type II diabetes mellitus (Chronic) History of sinus bradycardia (Chronic) Past Medical History: Hidradenitis neck axilla abdomen and groin Surgical History: - - Scrotal abscess incision and drainage Allergies/Adverse Reactions: Allergies GRASS Allergy (Uncoded 11/15/18 14:16) SNEEZING Home Medications: Ambulatory Orders Medication Instructions Recorded Lisinopril [Zestril] 40 mg PO DAILY 11/08/14 Albuterol Sulfate [Ventolin Hfa] 1 - 2 puff INHALATION Q4H PRN PRN 07/08/18 Loratadine 10 mg PO DAILY 07/08/18 Metformin HCl 1,000 mg PO BID 07/09/18 Insulin Detemir [Levemir (BKC)] 24 units SC BID 07/11/18 Ibuprofen 800 mg PO PRN PRN 11/18/18 - Family History Paternal Hypertension Maternal Hypertension Lives: With Family Smoking Status: Current every day smoker Alcohol: Occasional Drugs: None Review of Systems Constitutional: Denies: Chills, Fever Eyes: Denies: Blurred vision, Drainage, Pain HEENT: Denies: Difficulty Hearing, Difficulty Swallowing, Sore Throat, Visual Changes Cardiovascular: Denies: Chest Pain, Palpitations, Syncope Respiratory: Denies: Cough, Shortness of Breath Gastrointestinal: Denies: Abdominal Pain, Nausea, Vomiting Genitourinary: Denies: Dysuria, Frequency Musculoskeletal: Denies: Joint Pain, Muscle pain Skin: Reports: Wounds - Open surgical wound nonhealing right lateral neck. Denies: Jaundice, Rash Neurological: Denies: Balance problems, Change in Speech, Difficulty swallowing, Focal weakness Psychiatric: Denies: Anxiety, Depression Endocrine: Denies: Change in Body Habitus Hematologic/ Lymphatic: Denies: Adenopathy - Physical Exam Vital Signs Temp Pulse Resp BP 96.7 F L 84 18 156/92 H 06/25/19 09:49 06/25/19 09:49 06/25/19 09:49 06/25/19 09:49 General: Oriented x3, Cooperative, Well developed HEENT: Atraumatic, PERRLA Oral: Moist Mucosa Neck: Supple, No JVD Lungs: Clear to auscultation, Normal air movement Cardiovascular: Regular rate, Regular Rhythm Abdomen: Bowel Sounds Present, Soft, Non Tender, No Hepato-splenomegaly Extremities: No clubbing, No edema Skin: Ulcer/ Wound Wound Measurements and Assessment WC - Nurse 1 - General Ulcer Measurement Start: 06/25/19 09:49 Freq: Status: Active Protocol: Activity Type Activity Date Activity User E-Sign Co-Sign Detail Recorded Client Recorded Date Recorded By Document 06/25/19 09:49 DL [id number] 06/25/19 09:53 DL 06/25/19 09:49 Wound Center Nurse 1 [Ulcer Assessment] #2 right neck -Combined with other wound No -Current Size (cm) - Length 1.0 -Current Size (cm) - Width 3.0 -Current Size (cm) - Depth 0.2 -Total Square Cm 3.00 -Date of Last Picture (Recall this 06/25/19 field) -Photo Taken Yes -Epithelialization None Present -Tunneling No -Undermining/Tunneling No -Circular Undermining No -Exudate Amt Medium -Exudate Type Serosanguineous -Wound Margin Distinct, Outline Attached -Granulation Amt Medium (34-66%) -Granulation Quality [place] -Slough/Fibrin Yes -Necrosis Amt Medium (34-66%) -Necrotic Tissue Type Adherent Slough -Structure Exposed N/A -Texture (Shira-wound Skin Appearance) Assessed, Localized Edema -Moisture (Shira-wound Skin Appearance Assessed,Dry/ ) Scaly -Color (Shira-wound Skin Appearance) Assessed -Temperature (Shira-wound Skin No Abnormality Appearance) (Pt Warm) -Tenderness on Palpation (Shira-wound No Skin Appearance) -Ulcer Cleansing Rinsed/ Irrigated with Saline -Foul Odor after Cleansing No -Anesthetic Used 4% Lidocaine Solution [Edema Assessment] -Lower Limb Edema Present No WC - Nurse 2 - General Ulcer CM Notes Start: 06/25/19 09:49 Freq: Status: Active Protocol: Activity Type Activity Date Activity User E-Sign Co-Sign Detail Recorded Client Recorded Date Recorded By Document 06/25/19 10:09 MW [id number] 06/25/19 10:16 MW 06/25/19 10:09 Wound Center Nurse 2 [Procedure/Treatment] #2 right neck -Time 10:10 -Correct Patient Yes -Correct Side, Site, Position Yes -Correct Procedure Yes -Procedure Performed Yes -Type of Procedure Debridement -Clinical Debridement Subcutaneous -Post Debridement Size (cm) - Length 1.2 -Post Debridement Size (cm) - Width 3.0 -Post Debridement Size (cm) - Depth 0.2 -Total Square Cm 3.60 -Wound/Ulcer Outcome Not Healed -Ulcer Cleansing Rinsed/ Irrigated with Saline -Foul Odor after Cleansing No -Bioengineered Tissue No -Bleeding Controlled with Pressure -Offloading No -Treatment Response Procedure Tolerated Well [See Physician Procedure note for Specifics] Pain Scale: 0-10 Numeric [Pain] -Is Patient Pain Free? Yes Musculoskeletal: No Tenderness to Palpation of Joints or Extremities Lymphatic: No Cervical, Supraclavicular, or Inguinal Adenopathy Neurological: Cranial nerves II-XII grossly intact, Neuro grossly intact Psych/Mental Status: Normal Affect, Appropriate, Alert and oriented to time, place, person, mood and affect Debridement Note Post-Debridement Measurements/Treatment WC - Nurse 2 - General Ulcer CM Notes Start: 06/25/19 09:49 Freq: Status: Active Protocol: Activity Type Activity Date Activity User E-Sign Co-Sign Detail Recorded Client Recorded Date Recorded By Document 06/25/19 10:09 MW [id number] 06/25/19 10:16 MW 06/25/19 10:09 Wound Center Nurse 2 #2 right neck -Time 10:10 -Correct Patient Yes -Correct Side, Site, Position Yes -Correct Procedure Yes -Procedure Performed Yes -Type of Procedure Debridement -Clinical Debridement Subcutaneous -Post Debridement Size (cm) - Length 1.2 -Post Debridement Size (cm) - Width 3.0 -Post Debridement Size (cm) - Depth 0.2 -Total Square Cm 3.60 -Wound/Ulcer Outcome Not Healed -Ulcer Cleansing Rinsed/ Irrigated with Saline -Foul Odor after Cleansing No -Bioengineered Tissue No -Bleeding Controlled with Pressure -Offloading No -Treatment Response Procedure Tolerated Well Pain Scale: 0-10 Numeric Is Patient Pain Free? Yes Wound debrided: Right lateral neck nonhealing surgical wound Type of Debridement: Excisional debridement Anesthesia Used: 5% Lidocaine Gel Depth: Down to and including healthy tissue, in the subcutaneous layer Percentage of wound debrided: 100 Instrument Used: 5mm curette Tissue Removed: Slough and fibrin Severity: Limited To Skin Breakdown Amount of bleeding with debridement: Mild Bleeding Controlled with: Compression and gauze Patient tolerated procedure well Assessment/Plan Active Problems (Last Reviewed 08/22/17 @ 07:32 by Fabiola Adrian) Diabetes 1.5, managed as type 1 (Acute) Diabetes, type 1.5, uncontrolled, managed as type 1 (Acute) Hidradenitis (Acute) Assessment: Postsurgical wound to left neck status post surgical incision and drainage by Dr. Turcios on 07/08/2018. Uncontrolled type 2 diabetes mellitus recent A1c 13.9. See above diagnoses Plan: Wash right lateral neck with antibacterial soap. Apply Aquacel extra to wound base moistened cover with Adaptic. Gauze tape daily dressing changes. Follow-up in 1 week
[2019-07-02 10:25] VITALS: BP 115/50; PULSE 86; RESP 20; TEMP 36.6; BMI 51.3
--- NOTE | 2019-07-02 10:46 | PCM.WC.PN ---
(1) Diabetes 1.5, managed as type 1 Status: Acute Current Visit: Yes Code(s): E13.9 - Other specified diabetes mellitus without complications (2) Surgical wound present Status: Acute Current Visit: Yes Code(s): T14.8XXA - Other injury of unspecified body region, initial encounter Comment: left neck s/p surgical I/D on 07/08/18 (3) Surgical wound, non healing Status: Acute Current Visit: Yes Code(s): T81.89XA - Other complications of procedures, not elsewhere classified, initial encounter Comment: left neck (4) Morbid obesity Status: Chronic Current Visit: No Code(s): E66.01 - Morbid (severe) obesity due to excess calories (5) Diabetes, type 1.5, uncontrolled, managed as type 1 Status: Acute Current Visit: Yes Code(s): E13.65 - Other specified diabetes mellitus with hyperglycemia (6) Hidradenitis Status: Acute Current Visit: Yes Code(s): L73.2 - Hidradenitis suppurativa Type of Wound Date of Service: 07/02/19 Chief Complaint: Postsurgical wound to the right neck status post incision and drainage of abscess by Dr. Turcios on 06/13/19 History of Wound: This is a 34-year-old male that presented with a I&D of an open wound of the right side of the neck patient has history of boils and hidradenitis that was drained first time on the left side of the neck October 2018 and then presently just this last 2 weeks. Patient denies fever chills nausea vomiting. Does have pain with movement of the neck it does appear to be in the crease of the neck nonhealing surgical wound. Progress of Wound: Today the wound is healed actually hyper granulated will hit it with the nitro stick and discharge patient from wound center. - Physical Exam Vital Signs Temp Pulse Resp BP 98 F 86 20 H 115/50 L 07/02/19 10:25 07/02/19 10:25 07/02/19 10:25 07/02/19 10:25 General: Oriented x3, Cooperative, Well developed HEENT: Atraumatic, PERRLA Oral: Moist Mucosa Neck: Supple, No JVD Lungs: Clear to auscultation, Normal air movement Cardiovascular: Regular rate, Regular Rhythm Abdomen: Bowel Sounds Present, Soft, Non Tender, No Hepato-splenomegaly Extremities: No clubbing, No edema Skin: Ulcer/ Wound - Right lateral neck Wound Measurements and Assessment WC - Nurse 1 - General Ulcer Measurement Start: 06/25/19 09:49 Freq: Status: Active Protocol: Activity Type Activity Date Activity User E-Sign Co-Sign Detail Recorded Client Recorded Date Recorded By Document 07/02/19 10:25 DL [id number] 07/02/19 10:32 DL 07/02/19 10:25 Wound Center Nurse 1 [Ulcer Assessment] #2 right neck -Current Size (cm) - Length 0.2 -Current Size (cm) - Width 1 -Current Size (cm) - Depth 0.1 -Total Square Cm 0.2 -Photo Taken No -Exudate Amt None Present -Wound Margin Distinct, Outline Attached -Granulation Amt Large (67-100%) -Granulation Quality [place] -Necrosis Amt None Present (0 %) -Necrotic Tissue Type Adherent Slough -Structure Exposed N/A -Texture (Shira-wound Skin Appearance) Scarring -Moisture (Shira-wound Skin Appearance Dry/Scaly ) -Color (Shira-wound Skin Appearance) No Abnormality -Temperature (Shira-wound Skin No Abnormality Appearance) (Pt Warm) -Tenderness on Palpation (Shira-wound No Skin Appearance) -Ulcer Cleansing Wound Cleanser -Foul Odor after Cleansing No -Anesthetic Used 4% Lidocaine Solution - Nurse 2 - General Ulcer CM Notes Start: 06/25/19 09:49 Freq: Status: Active Protocol: Activity Type Activity Date Activity User E-Sign Co-Sign Detail Recorded Client Recorded Date Recorded By Document 07/02/19 10:37 MW [id number] 07/02/19 10:39 MW 07/02/19 10:37 Wound Center Nurse 2 [Procedure/Treatment] -Time 10:38 -Correct Patient Yes -Correct Side, Site, Position Yes -Correct Procedure Yes -Procedure Performed No -Post Debridement Size (cm) - Length 0 -Post Debridement Size (cm) - Width 0 -Post Debridement Size (cm) - Depth 0 -Total Square Cm 0 -Wound/Ulcer Outcome Healed- Epithelialized -Ulcer Cleansing Rinsed/ Irrigated with Saline -Bleeding Controlled with Silver Nitrate -Offloading No -Treatment Response Procedure Tolerated Well [See Physician Procedure note for Specifics] Pain Scale: 0-10 Numeric [Pain] -Is Patient Pain Free? Yes Musculoskeletal: No Tenderness to Palpation of Joints or Extremities Lymphatic: No Cervical, Supraclavicular, or Inguinal Adenopathy Neurological: Cranial nerves II-XII grossly intact, Neuro grossly intact Psych/Mental Status: Normal Affect, Appropriate Debridement Note Post-Debridement Measurements/Treatment WC - Nurse 2 - General Ulcer CM Notes Start: 06/25/19 09:49 Freq: Status: Active Protocol: Activity Type Activity Date Activity User E-Sign Co-Sign Detail Recorded Client Recorded Date Recorded By Document 06/25/19 10:09 MW [id number] 06/25/19 10:16 MW Document 07/02/19 10:37 MW [id number] 07/02/19 10:39 MW 06/25/19 07/02/19 10:09 10:37 Wound Center Nurse 2 #2 right neck -Time 10:10 10:38 -Correct Patient Yes Yes -Correct Side, Site, Position Yes Yes -Correct Procedure Yes Yes -Procedure Performed Yes No -Type of Procedure Debridement -Clinical Debridement Subcutaneous -Post Debridement Size (cm) - Length 1.2 0 -Post Debridement Size (cm) - Width 3.0 0 -Post Debridement Size (cm) - Depth 0.2 0 -Total Square Cm 3.60 0 -Wound/Ulcer Outcome Not Healed Healed- Epithelialized -Ulcer Cleansing Rinsed/ Rinsed/ Irrigated with Irrigated with Saline Saline -Foul Odor after Cleansing No -Bioengineered Tissue No -Bleeding Controlled with Pressure Silver Nitrate -Offloading No No -Treatment Response Procedure Procedure Tolerated Well Tolerated Well Pain Scale: 0-10 Numeric Is Patient Pain Free? Yes Yes Wound debrided: Hidradenitis right lateral neck nonhealing surgical wound No debridement was completed today Assessment/Plan Active Problems (Last Reviewed 08/22/17 @ 07:32 by Fabiola Adrian) Surgical wound present (Acute) left neck s/p surgical I/D on 07/08/18 Surgical wound, non healing (Acute) left neck Diabetes 1.5, managed as type 1 (Acute) Diabetes, type 1.5, uncontrolled, managed as type 1 (Acute) Hidradenitis (Acute) Assessment: Postsurgical wound to left neck status post surgical incision and drainage by Dr. Turcios on 07/08/2018 resolved. Uncontrolled type 2 diabetes mellitus recent A1c 13.9. See above diagnoses Plan: Discharge from the wound center follow-up as needed
== END 2019-07-24 23:59 ==
LOC: WC 09:30
PROVIDERS: PCP Family Medicine; Visit Provider Nurse Practitioner
DX: T81.89XA Other complications of procedures, not elsewhere classified, initial encounter (principal); L73.2 Hidradenitis suppurativa; E10.65 Type 1 diabetes mellitus with hyperglycemia; I10 Essential (primary) hypertension; E78.5 Hyperlipidemia, unspecified; J45.909 Unspecified asthma, uncomplicated; G47.30 Sleep apnea, unspecified; E66.01 Morbid (severe) obesity due to excess calories; F17.200 Nicotine dependence, unspecified, uncomplicated; Z79.4 Long term (current) use of insulin; Z79.899 Other long term (current) drug therapy
CPT/HCPCS: 11042; 17250; 99213; G0463

== ENCOUNTER 2019-08-13 08:48 | Outpatient (RCR) | payer MEDICAID, SELFPAY ==
[2019-07-25 00:20] VITALS: BP 115/50; PULSE 86; RESP 20; TEMP 36.6
== END 2019-08-24 23:59 ==
LOC: WC 08:48
PROVIDERS: PCP Family Medicine; Visit Provider Nurse Practitioner
DX: Z09 Encounter for follow-up examination after completed treatment for conditions other than malignant neoplasm (principal)

== ENCOUNTER 2019-08-14 11:30 | Day surgery (SDC) | payer MEDICAID, SELFPAY ==
--- NOTE | 2019-08-13 15:13 | PCM.HP.BLA ---
History and Physical Date of Admission: 08/14/19 Moncho Nugent - 1985 CHIEF COMPLAINT: Abscess HPI: The patient is a 34 year old male presents with left neck abscess. He has noted this for the past several days. About two months ago, he had previous I&D of right neck abscess and it is presently completely healed. He denies fevers/chills. He admits to poorly controlled diabetes, he last checked his glucose this morning and it was 240. He states that the only thing he ate today was a little Zunilda. He has had persistently elevated HgA1c. He asks if there is anything that can prevent these abscess from recurring, I have recommended better diabetic control with better diet and weight management. PAST MEDICAL HISTORY ? Abscess of multiple sites of head and neck 10/2018 ? Asthma ? Edema ? Gout ? Hidradenitis suppurativa ? Hyperlipidemia ? Hypertension ? Intervertebral lumbar disc disorder with myelopathy, lumbar region Had MRI done at [facility] in August 2007. Was told he had bulging disc and never was treated due to having no insurance. ? Obesity, morbid (HCC) ? DEMETRIO (obstructive sleep apnea) [facility]- did not follow up after titration in July 2017-mailed letter to call office to schedule appointment ? Pulmonary hypertension (HCC) ? Tobacco use disorder ? Type II or unspecified type diabetes mellitus without mention of complication, not stated as uncontrolled PAST SURGICAL HISTORY ? EXTRACTION, ERUPTED TOOTH OR EXPOSED ROOT (ELEVATION AND/OR FORCEPS REMOVAL) ? I & D ABSCESS 07/08/2018 large upper back abscess in OR ? I & D ABSCESS, SINGLE 05/25/10 I&D left neck abscess ? I & D, ABCESS COMPLEX MULTIP 11/18/2018 neck ? I & D, ABCESS COMPLEX MULTIP Right 06/13/2019 neck ? PAST SURGICAL HISTORY OF right thumb fx repair Current Outpatient Medications ? insulin needles, DISPOSABLE, (UNIFINE PENTIPS) 31 gauge x 5/16 Use daily as directed. Dx: E11.9 ? fluconazole (DIFLUCAN) 150 mg tablet Take one tablet by mouth now and then repeat once a week for three weeks. ? insulin lispro (HUMALOG KWIKPEN INSULIN) 100 unit/mL Inject 5 Units subcutaneously three times daily before meals. ? furosemide (LASIX) 40 mg tablet Take 1 tablet by mouth once daily. ? lisinopril (ZESTRIL, PRINIVIL) 40 mg tablet Take 1 tablet by mouth once daily. ? Disposable Gloves (VINYL GLOVES) misc 1 box ? metFORMIN (GLUCOPHAGE) 500 mg tablet TAKE 2 TABLETS TWICE DAILY WITH meals ? atorvastatin (LIPITOR) 20 mg tablet take 1 tablet daily at bedtime for cholesterol ? lancets (UNILET SUPER THIN LANCETS) 30 gauge misc Test blood sugar(s) 2 times daily ? blood sugar diagnostic (BLOOD GLUCOSE TEST) test strip Test blood sugar(s) 2 times daily. Dx: Type 2 DM - Controlled E11.9 Insulin: No ? amLODIPine (NORVASC) 5 mg tablet Take 1 tablet by mouth once daily. ? insulin degludec (TRESIBA FLEXTOUCH U-100) 100 unit/mL (3 mL) injection Inject 24 Units subcutaneously twice daily. ? albuterol HFA (VENTOLIN HFA) 90 mcg/actuation inhaler Inhale 2 Puffs as instructed every 4 hours as needed. ? benzonatate (TESSALON PERLE) 100 mg capsule Take 2 capsules by mouth three times daily as needed. ? FLUoxetine ( ? loratadine (CLARITIN) 10 mg tablet TAKE 1 TABLET BY MOUTH EVERY DAY ? sodium chloride-aloe vera (AYR GEL W/ALOE) topical nasal gel 1 application by INTRANASAL route four times daily as needed. ? CPAP 1 Device by MISCELLANEOUS route daily at bedtime. Auto PAP 8-20 cm H2O, Fit pt for FFM or per patient preference, Ramp 20 minutes, humidity, filters, tubing, head gear, Lifetime supplies. G 47.33 obstructive sleep apnea. Please fax 30 day download to [phone]. ? Blood-Glucose Meter monitoring kit Glucose Meter of Choice - Kit - Dx: Type 2 DM - Controlled E11.9 ? Blood-Glucose Meter (TRUE METRIX AIR GLUCOSE METER) misc Twice daily ALLERGIES: Grass Pollen PERSONAL HISTORY: Tobacco Use ? Smoking status: Former Smoker Packs/day: 0.50 Years: 15.00 Pack years: 7.50 Types: Cigarettes Start date: 07/28/2006 Last attempt to quit: 05/25/2017 Years since quittin.2 ? Smokeless tobacco: Never Used Substance Use Topics ? Alcohol use: Yes Comment: occasionally ? Drug use: No FAMILY HISTORY ? Arthritis Mother OA ? Diabetes Mother ? Hypertension Mother ? Lipids Mother ? Thyroid Mother ? Alcohol/Drug Father alcohol ? Arthritis Maternal Grandmother ? Diabetes Maternal Grandmother ? Hypertension Maternal Grandmother ? Lipids Maternal Grandmother ? Thyroid Maternal Grandmother ? Alcohol/Drug Paternal Grandfather ? Allergies Sister ? Alzheimer's Disease Maternal Aunt ? Asthma Sister ? other (aneurysm brain) Maternal Aunt ? other (aneurysm brain) Maternal Aunt ? Headache Sister migraine ? Seizures Sister ? Stroke Maternal Aunt REVIEW of SYSTEMS: General - denies fevers, denies anorexia, had lost weight earlier last year but has regained some weight Cardiovascular - denies chest pain, denies history of [place] Pulmonary - has shortness of breath with exertion, has asthma, denies coughing up blood, quit TOB use Gastrointestinal - denies abdominal pain, denies hematemesis, denies blood in stools Neurological - denies seizures Genitourinary - denies blood in urine Hematological - denies spontaneous/prolonged bleeding Skin - see above, has chronic skin infections due to intertrigo Musculoskeletal - has some intermittent back pain Endocrine - has poorly controlled insulin dependent diabetes with chronically elevated HgbA1c, no thyroid problems, has morbid obesity Psychological ? no mood changes PHYSICAL EXAMINATION: General: The patient is 34 year old male, well nourished, well hydrated in no acute distress. The patient is oriented to time, place, and person. VITALS: Pulse 96, temperature 36.6 ?C (97.9 ?F), temperature source Temporal Artery, resp. rate 24, weight (!) 187.3 kg (413 lb), SpO2 95 %. Body mass index is 54.5 kg/m?. Head ? Normocephalic. EOM intact with sclera clear and no icterus noted. Mouth with mucus membranes moist. Neck - supple with no jugular venous distention noted. Trachea is midline. Left neck skin abscess - 8 cm within neck fold.. Evidence of skin changes c/w intertrigo. Well healed incision site on right side of neck Lungs ? no labored breathing noted, such as retractions. No cough heard. Heart ? regular. Abdomen ? soft and benign. Normal bowel sounds. Difficult to determine if any masses or organomegaly due to body habitus. Extremities ? no pitting edema noted. Skin ? see above, otherwise normal skin integrity. Neurological ? gait normal, no focal deficits noted Psych ? calm and appropriate IMPRESSION:left neck abscess, poorly controlled diabetes, super morbid obesity PLAN: I have discussed the above with the patient. I have offered incision and drainage of this lesion I have explained the procedure to the patient. I have counseled the patient as to the risks of the procedure, including but not limited to: infection, bleeding, injury to any blood vessels/nerves, scar tissue, continued infection, complications of anesthesia, etc. ? the patient understands. He has had this done multiple times in the past. He does not want to have just local anesthesia, he states that he is too anxious and wants to be knocked out. The patient wishes to proceed. He asks if there is any medication that he can take to prevent this in the future - I have recommended better control of his diabetes and weight management. I have answered all questions to the patient?s satisfaction and the patient has no further questions. I have explained that there is increased risk for exposure to COVID, he understands and still wishes to proceed. Diagnoses: (L02.11) Neck abscess (primary encounter diagnosis) (E11.65) Uncontrolled type 2 diabetes mellitus with hyperglycemia (HCC) (E66.01) Morbid obesity (HCC) Return to Clinic: The patient is instructed to follow-up with me after the procedure Essential Procedure Criteria Procedure Essential: Yes Criteria Note: On 06/10/2019 the [place] Department of Health ([facility]) Public Order signed by [facility] Director Keisha Franklin M.D., regarding the Management of Non-Essential Surgeries and Procedures for the purpose of preserving Personal Protective Equipment (PPE) and critical hospital capacity and resources within [place] went into effect as of 06/11/2019 at 5:00PM. According to the [facility] Public Order: This action will remain in full force and effect until the State of Emergency declared by the Governor no longer exists or the Director of the [facility] rescinds or modifies this Order.. This [facility] order stated all non-essential or elective surgeries and procedures that utilize PPE should be delayed unless there is undue risk to the current or future health of a patient. After reviewing the aforementioned [facility] Public Order and the patients clinical case, I have determined that the scheduled procedure meets the criteria to go forward. Risk to Patient if Procedure Delayed: Risk of rapidly worsening to severe symptoms
[2019-08-13 19:28] LABS: Probe Check PASS; SARS-COV-2 DNA by PCR Negative (Negative); Specimen Processing Control PASS
[2019-08-14] VITALS (7 sets, daily range): BP systolic 103–145; BP diastolic 37–77; PULSE 81–87; RESP 16–18; TEMP 36.5–36.7; O2SAT 92–97; BMI 52.4
--- NOTE | 2019-08-14 11:40 | EKG12_ITS ---
Test Reason : PREOP Blood Pressure : / mmHG Vent. Rate : 084 BPM Atrial Rate : 084 BPM P-R Int : 182 ms QRS Dur : 088 ms QT Int : 358 ms P-R-T Axes : 063 072 051 degrees QTc Int : 423 ms Normal sinus rhythm Low voltage QRS Septal infarct , age undetermined Abnormal ECG Confirmed by MASOUD CRAVEN, FELIX ([id number]), video news editor PELON MALDONADO ([id number]) on 08/21/2019 3:17:20 PM Referred By: Patricia Turcios Confirmed By:FELIX MEREDITH MD
[2019-08-14] MEDS: Lactated Ringers 1,000 ML 75 ML IV (12:17)
[2019-08-14 12:25] LABS: Bedside Glucose 322 mg/dL (70-110)
[2019-08-14] MEDS: Bupivacaine Mpf 0.5% 30 ML VIAL (14:18)
--- NOTE | 2019-08-14 14:33 | PCM.OPRPT ---
Report of Operation Date of Procedure: 08/14/19 Pre-Operative Diagnosis: left neck abscess Post-Operative Diagnosis: same Surgery/Procedure Performed:: incision and drainage of left neck abscess Description of Surgical Findings:: left neck abscess Type of Anesthesia:: Local MAC Anesthesiologist: Gallito Goldstein Specimen's removed: none Estimated Blood Loss (mL): minimal Fluids Replaced: see anesthesia note Description of Procedure: After informed consent was given, the patient was brought to the operating room and placed in the supine position. Appropriat time out protocol was followed. He was then placed under MAC by the anethesia provider. The patient?s left neck area was then prepped with a sterile surgical skin preparation and sterile surgical drapes were placed. The patient is morbidly obese and therefore has a deep crease for his neck fold. The patient's could not be completely be laterally flexed to expose the entire skin area and thus the patient has intertrigo and skin abscesses can easily form. The skin and subcutaneous tissues in and around the lesion were then infiltrated with 1% xylocaine with epinephrine. A skin incision was then made with a 15 blade scalpel a large amount of purulent fluid emanated and was drained A probe was then used to determine the dimensions of the abscess cavity, in order to unroof the entire cavity. This was done with extension of the above incision, in a cruciate fashion. The cavity was 8 x 3 cm with a depth of 4 cm. There was evidence of chronic granulation tissues of this abscessed cavity. There was necrotic tissue, senescent granulation tissue and dense fibrosis, indicating chronic disease. The cavity was irrigated with hydrogen peroxide Hemostasis was controlled with pressure Cultures were taken. Wound was densely packed with betadyne soaked kerlex gauze. Gauze dressing was applied over wound. Patient was brought to Recovery Room in stable condition. - Complications none noted
[2019-08-14 14:56] LABS: Bedside Glucose 277 mg/dL (70-110)
== END 2019-08-14 15:40 | disposition home or self-care (01) ==
LOC: SDC 11:33 → AC 11:33
PROVIDERS: PCP Family Medicine; Referring Provider Surgery; Visit Provider Surgery
DX: L02.11 Cutaneous abscess of neck (principal); E11.65 Type 2 diabetes mellitus with hyperglycemia; I10 Essential (primary) hypertension; E78.5 Hyperlipidemia, unspecified; G47.33 Obstructive sleep apnea (adult) (pediatric); I27.20 Pulmonary hypertension, unspecified; J44.9 Chronic obstructive pulmonary disease, unspecified; E66.01 Morbid (severe) obesity due to excess calories; Z68.43 Body mass index [BMI] 50.0-59.9, adult; Z79.4 Long term (current) use of insulin; Z79.899 Other long term (current) drug therapy; Z87.891 Personal history of nicotine dependence; Z11.59 Encounter for screening for other viral diseases
CPT/HCPCS: 10060; 82962; 87070; 87075; 87077; 87186; 87205; 87635; 93005; G2023; J7120; J2405; U0004

== ENCOUNTER 2020-01-20 14:22 | Day surgery (SDC) | payer MEDICAID, SELFPAY ==
[2019-08-14 12:01] VITALS: BMI 52.4
--- NOTE | 2020-01-20 11:28 | HP.PCM_ITS ---
History and Physical Date of Admission: 01/20/20 HISTORY AND PHYSICAL ? Moncho Nugent 1985 ? ? REFERRING PHYSICIAN: Self ? CHIEF COMPLAINT: Neck abscess, torso absecss, and toenail issue ? HPI: The patient is a 34 year old male presents with complaint of left neck abscess and abscess in the left groin/scrotal area. He states that he has noted these for the past several days. Patient is a non compliant diabetic and morbidly obese. He has had numerous I&D of abscesses throughout his body in the past. He notes drainage at both sites. Denies fevers. He states that he has not eaten since last night ? ? PAST MEDICAL HISTORY ? Abscess of multiple sites of head and neck 10/2018 ? Asthma ? ? Edema ? ? Gout ? ? Hidradenitis suppurativa ? ? Hyperlipidemia ? ? Hypertension ? ? Intervertebral lumbar disc disorder with myelopathy, lumbar region ? ? Had MRI done at [facility] in August 2007. Was told he had bulging disc and never was treated due to having no insurance. ? Obesity, morbid (HCC) ? ? DEMETRIO (obstructive sleep apnea) ? ? [facility]- did not follow up after titration in July 2017-mailed letter to call office to schedule appointment ? Pulmonary hypertension (HCC) ? ? Tobacco use disorder ? ? Type II or unspecified type diabetes mellitus without mention of complication, not stated as uncontrolled ? ? PAST SURGICAL HISTORY ? EXTRACTION, ERUPTED TOOTH OR EXPOSED ROOT (ELEVATION AND/OR FORCEPS REMOVAL) ? ? ? [place] teeth ? I & D ABSCESS ? 07/08/2018 ? large upper back abscess in OR ? I & D ABSCESS, SINGLE ? 05/25/10 ? I&D left neck abscess ? I & D, ABCESS COMPLEX MULTIP ? 11/18/2018 ? neck ? I & D, ABCESS COMPLEX MULTIP Right 06/13/2019 ? neck ? I&D ABSCESS CMPLX/MULT ? 08/14/2019 ? neck ? PAST SURGICAL HISTORY OF ? ? ? right thumb fx repair ? ? Current Outpatient Medications ? TRESIBA FLEXTOUCH U-100 100 unit/mL (3 mL) injection pen Inject 24 Units subcutaneously twice daily. ? lisinopril (ZESTRIL, PRINIVIL) 40 mg tablet Take 1 tablet by mouth once daily. ? lancets (Socializr DELMinuteBuzz PLUS LANCET) 30 gauge TESTING BLOOD SUGARS TWICE DAILY ? amLODIPine (NORVASC) 5 mg tablet Take 1 tablet by mouth once daily. ? insulin needles, DISPOSABLE, (UNIFINE PENTIPS) 31 gauge x 5/16 Use daily as directed. Dx: E11.9 ? insulin lispro (HUMALOG KWIKPEN INSULIN) 100 unit/mL Inject 5 Units subcutaneously three times daily before meals. ? Disposable Gloves (VINYL GLOVES) misc 1 box ? blood sugar diagnostic (BLOOD GLUCOSE TEST) test strip Test blood sugar(s) 2 times daily. Dx: Type 2 DM - Controlled E11.9 Insulin: No ? albuterol HFA (VENTOLIN HFA) 90 mcg/actuation inhaler Inhale 2 Puffs as instructed every 4 hours as needed. ? loratadine (CLARITIN) 10 mg tablet TAKE 1 TABLET BY MOUTH EVERY DAY ? CPAP 1 Device by MISCELLANEOUS route daily at bedtime. Auto PAP 8-20 cm H2O, Fit pt for FFM or per patient preference, Ramp 20 minutes, humidity, filters, tubing, head gear, Lifetime supplies. G 47.33 obstructive sleep apnea. Please fax 30 day download to [phone]. ? Blood-Glucose Meter monitoring kit Glucose Meter of Choice - Kit - Dx: Type 2 DM - Controlled E11.9 ? Blood-Glucose Meter (TRUE METRIX AIR GLUCOSE METER) misc Twice daily ? fluconazole (DIFLUCAN) 150 mg tablet Take one tablet by mouth now and then repeat once a week for three weeks. (Patient not taking: Reported on 01/20/2020 ? atorvastatin (LIPITOR) 20 mg tablet TAKE 1 TABLET BY MOUTH AT BEDTIME FOR CHOLESTEROL ? furosemide (LASIX) 40 mg tablet Take 1 tablet by mouth once daily. (Patient not taking: Reported on 01/20/2020 ? metFORMIN (GLUCOPHAGE) 500 mg tablet TAKE 2 TABLETS TWICE DAILY WITH meals ? benzonatate (TESSALON PERLE) 100 mg capsule Take 2 capsules by mouth three times daily as needed. (Patient not taking: Reported on 01/20/2020 ? FLUoxetine (PROZAC) 20 mg capsule Take 1 capsule by mouth once daily. (Patient not taking: Reported on 01/20/2020 ? sodium chloride-aloe vera (AYR GEL W/ALOE) topical nasal gel 1 application by INTRANASAL route four times daily as needed. ? ? ALLERGIES: Grass Pollen ? PERSONAL HISTORY: Social History ?Tobacco Use ? Smoking status: Former Smoker ? ? Packs/day: 0.50 ? ? Years: 15.00 ? ? Pack years: 7.50 ? ? Types: Cigarettes ? ? Start date: 07/28/2006 ? ? Quit date: 05/25/2017 ? ? Years since quittin.6 ? Smokeless tobacco: Never Used Substance Use Topics ? Alcohol use: Yes ? ? Comment: occasionally ? Drug use: No ? FAMILY HISTORY ? Arthritis Mother ? ? OA ? Diabetes Mother ? ? Hypertension Mother ? ? Lipids Mother ? ? Thyroid Mother ? ? Alcohol/Drug Father ? ? alcohol ? Arthritis Maternal Grandmother ? ? Diabetes Maternal Grandmother ? ? Hypertension Maternal Grandmother ? ? Lipids Maternal Grandmother ? ? Thyroid Maternal Grandmother ? ? Alcohol/Drug Paternal Grandfather ? ? Allergies Sister ? ? Alzheimer's Disease Maternal Aunt ? ? Asthma Sister ? ? other (aneurysm brain) Maternal Aunt ? ? other (aneurysm brain) Maternal Aunt ? ? Headache Sister ? ? migraine ? Seizures Sister ? ? Stroke Maternal Aunt ? ? ? REVIEW OF SYSTEMS General - denies fevers, denies anorexia, denies weight loss Cardiovascular - denies chest pain Pulmonary - has shortness of breath with exertion, denies coughing up blood Gastrointestinal - denies abdominal pain, denies hematemesis Neurological - denies seizures Genitourinary - denies burning with urination, denies blood in urine Hematological - denies spontaneous/prolonged bleeding Skin - see HPI Musculoskeletal - has back pain and joint pain Endocrine - poorly controlled diabetes Psychological ? no major mood changes, denies hallucinations ? PHYSICAL EXAMINATION: General: The patient is 34 year old male, well nourished, morbidly obese, well hydrated in no acute distress. The patient is oriented to time, place, and per son. VITALS: Blood pressure 124/82, pulse 110, temperature 36.1 ?C (96.9 ?F), weight (!) 178.3 kg (393 lb), SpO2 96 %. Body mass index is 51.86 kg/m?. Head ? Normocephalic. EOM intact with sclera clear. Mouth with mucus membranes moist. Neck - left neck cutaneous abscess with open pore purulent drainage, supple . Trachea is midline. Lungs ? clear to auscultation. Normal breath sounds. No rales/rhonchi/wheezing noted. Heart ? normal heart sounds. No rubs/clicks/murmurs noted. Regular rate. Abdomen ? soft and benign. Morbidly obese - difficult to determine if any masses due to body habitus Extremities ? no pitting edema noted. Skin ? left neck area with cutaneous abscess, left groin/scrotal area with evidence of intertriginous dermatitis and purulent drainage at one site, otherwise normal skin integrity. Neurological ? non focal Psych ? calm and appropriate ? ? IMPRESSION: left neck cutaneous skin abscess, left groin/scrotal area abscess ? PLAN: I have discussed the above with the patient. I have offered incision and drainage of both sites - neck and groin area. He asks about a foot problems, I told him he needs to make an appointment to see the racquet maker. I have explained the procedure to the patient. I have counseled the patient as to the risks of the procedure, including but not limited to: infection, bleeding, injury to any blood vessels/nerves, scar tissue, continued infections, complications of anesthesia, etc. ? the patient understands. I told patient that these can be done in the office using local anesthesia, patient states that he wants to be knocked out and refuses office procedure with local anesthesia. ? The patient was offered a surgery/procedure. The provider and patient have discussed in detail the risk of exposure to and/or potential harm posed by the COVID-19 virus with having a surgery/procedure at this time versus the risk of? delaying the surgery/procedure. It is not possible to know either the risk of delaying the surgery or procedure or chance of getting an infection with perfect accuracy, but a joint decision was made between the patient and the provider ?to proceed at this time with the scheduled surgery/procedure. ? The patient wishes to proceed. ? ? I have answered all questions to the patient?s satisfaction and the patient has no further questions. . Diagnoses: (L02.11) Neck abscess (primary encounter diagnosis) (L02.214) Cutaneous abscess of groin (E11.65) Uncontrolled type 2 diabetes mellitus with hyperglycemia (HCC) (E66.01) Morbid obesity (HCC) Return to Clinic: The patient is instructed to follow-up with me as per needed. ? Patricia Turcios MD
[2020-01-20 15:05] VITALS: BP 135/51; PULSE 86; RESP 18; TEMP 36.1; O2SAT 95; BMI 50.1
[2020-01-20] MEDS: Lactated Ringers 1,000 ML 75 ML IV (15:09)
[2020-01-20 15:21] LABS: Bedside Glucose 257 mg/dL (70-110)
[2020-01-20] MEDS: Bupivacaine Mpf 0.5% 30 ML VIAL (16:22)
--- NOTE | 2020-01-20 16:38 | DCINST_ITS ---
Discharge Diet: No Restrictions - consider diabetic diet Discharge Activity: Return to Normal Activity, May not drive while taking narcot ic pain medications. Additional Instructions: Leave dressings in place, can start changing dressings in 2-3 days. If bleeding is noted, hold pressure to area for at least an hour. Reinforce dressing as per needed. Allergies/Adverse Reactions: Allergies GRASS Allergy (Uncoded 01/20/20 15:05) SNEEZING Medications to take at Discharge Lisinopril [Zestril] 40 mg PO LUNCH 11/08/14 Albuterol Sulfate [Ventolin Hfa] 1 - 2 puff INHALATION Q4H PRN PRN 07/08/18 Amlodipine [Norvasc] 5 mg PO QHS 08/13/19 Insulin Degludec [Tresiba Flextouch U-100] 24 unit SQ BID 08/13/19 Insulin Lispro [Humalog Kwikpen] 6 unit SQ TID 08/13/19 Primary Care Physician: Kennedy Fernandes MD [Primary Care Provider] - Test Results: Test results from this visit will be discussed in further detail at your follow- up appointment, if applicable. Please Follow Up With: Patricia Turcios MD - call When: to be seen in 1-2 weeks
[2020-01-20 16:40] VITALS: BP 112/89; BP 135/51; PULSE 96; RESP 16; TEMP 36.8; O2SAT 95
--- NOTE | 2020-01-20 16:42 | PCM.OPRPT ---
Report of Operation Date of Procedure: 01/20/20 Pre-Operative Diagnosis: cutaneous left neck abscess, cutaneous left groin abscess Post-Operative Diagnosis: same Surgery/Procedure Performed:: incision and drainage of left neck and left groin abscess Description of Surgical Findings:: morbidly obese patient with poor diabetic control with intertriginous dermatitis and area of abscesses - left neck and left groin area Type of Anesthesia:: Local MAC Anesthesiologist: Fran Michele Specimen's removed: none Estimated Blood Loss (mL): < 5 ml Fluids Replaced: see anesthesia note Description of Procedure: After informed consent was given, the patient was brought to the Operating Room. Appropriate time out protocol was followed. The patient was placed under IV anesthesia. The patient was in the supine position. The patient's left neck and left groin area were then prepped with a betadyne skin preparation. Sterile drapes were then placed. The neck abscess was approached first. The skin and subcutaneous tissues in and around the lesion were then infiltrated with 1% xylocaine with epinephrine. A cruciate skin incision was then made with a 15 blade scalpel overlying the area of drainage. There was a superficial cavernous cavity with purulent drainage. Cultures were taken. Hemostasis was achieved by pressure. The cavity was 3 x 5 cm with a depth of 1 cm. The wound was densely packed with saline soaked gauze. Dry dressing was placed over the wound and was taped in place. The left groin abscess was then approached next. The skin and subcutaneous tissues in and around the lesion were then infiltrated with 1% xylocaine with epinephrine. A cruciate skin incision was then made with a 15 blade scalpel overlying the area of drainage. There was a deep cutaneous cavernous cavity with purulent drainage. The cavity was 5 x 5 cm with a depth of 3 cm. Hemostasis was achieved by pressure. The wound was densely packed with saline soaked gauze. Dry dressing was placed over the wound and was taped in place. The patient tolerated the procedure well and was brought to the Recovery Room in stable condition. - Complications none noted - Admit VTE Documentation VTE Present on Admission: Yes VTE Mechan Device Prophylaxis: SCD's
[2020-01-20 16:45] VITALS: BP 110/73; BP 135/51; PULSE 98; RESP 18; O2SAT 95
[2020-01-20 16:50] VITALS: BP 109/56; BP 135/51; PULSE 96; RESP 18; O2SAT 93
[2020-01-20 16:56] VITALS: BP 102/69; BP 135/51; PULSE 90; RESP 18; TEMP 36.7; O2SAT 94
[2020-01-20] MEDS: HYDROcodone Bitartrate/Apap 5/325 Tablet PO (17:18)
[2020-01-20 17:49] VITALS: BP 135/51; BP 146/77; PULSE 94; RESP 18; TEMP 36.6; O2SAT 95
== END 2020-01-20 17:50 | disposition home or self-care (01) ==
LOC: SDC 14:23 → AC 14:25
PROVIDERS: PCP Family Medicine; Referring Provider Surgery; Visit Provider Surgery
PROC: (CPT 10061; principal; 2020-01-20 15:45)
DX: L02.214 Cutaneous abscess of groin (principal); L02.11 Cutaneous abscess of neck; E66.01 Morbid (severe) obesity due to excess calories; E11.65 Type 2 diabetes mellitus with hyperglycemia; J45.909 Unspecified asthma, uncomplicated; E78.5 Hyperlipidemia, unspecified; I10 Essential (primary) hypertension; G47.33 Obstructive sleep apnea (adult) (pediatric); Z87.891 Personal history of nicotine dependence; Z68.43 Body mass index [BMI] 50.0-59.9, adult; Z79.4 Long term (current) use of insulin; Z79.51 Long term (current) use of inhaled steroids; Z79.899 Other long term (current) drug therapy
CPT/HCPCS: 00300; 10061; 82962; 87070; 87075; 87077; 87186; 87205; J7120; J2405

== ENCOUNTER 2020-05-06 16:09 | Observation (INO) | payer MEDICAID, SELFPAY ==
[2020-05-06] VITALS (9 sets, daily range): BP systolic 138–174; BP diastolic 42–102; PULSE 90–107; RESP 16–22; TEMP 36.6–37.2; O2SAT 84–98; BMI 52.6
--- NOTE | 2020-05-06 | ABS_PTH ---
PATIENT: LAWANDA BETTS LOC: MS3 U#:[id number] AGE/SX: 35/M ROOM: DC310 RE05/06/[address]: Dr. Torsten Fernandez MD : 1985 BED: 1 DIS: 05/07/2020 SPEC #: [id number] RECD: 05/07/20 06:55 STATUS: KATHY REQ #: [id number] ALY: 05/06/20 00:[address]: Josr Simmons DEPT: SURGICAL PATHOLOGY RECD BY: Zenon Ortega ENTERED: 05/07/20 09:19 SP TYPE: Abscess OTHR DR: MD Dr. Josr Cota MD Dr. Nana Yaa Koram, MD Dr. William Lago, MD Tissues: A - Inguinal region, NOS B - Axilla, NOS Procedures: Surgery Specimen Level III Comments: @ Ordering doctor for SUIII edited from to DR.DPEABO Hay LUGO at 05/07/20 1146 @ Submitting doctor edited from to @ by BRITTNEY at 05/07/20 1146 HEADER OPERATION: Incision and drainage abscess PRE-OP DIAGNOSIS: Neck abscess, cutaneous abscess of groin, axillary abscess TISSUE SUBMITTED: A - Left groin abscess, B - Left axilla abscess MICROSCOPIC DIAGNOSIS A. Skin and soft tissue of left groin, excision: Ulceration with associated acute and chronic inflammation. See comment. B. Skin and soft tissue of left axilla, excision: Ulceration with associated acute and chronic inflammation. See comment. AM:josep 05/10/2020 COMMENT A & B. Squamous lined fistulous tracts are identified in both specimens from the left groin and left axilla. Clinical correlation is suggested. MICROSCOPIC DESCRIPTION Slides are reviewed. GROSS DESCRIPTION A - Received in fixative is one container labeled with the patient's name and designated left groin abscess. The specimen consists of a piece of sprague-white skin with underlying tissue measuring 2.5 x 1 cm and up to 1.5 cm in thickness. The specimen is bisected and submitted entirely in two cassettes. B - Received in fixative is one container labeled with the patient's name and designated left axilla abscess. The specimen consists of a piece of skin with underlying tissue measuring 4.5 x 1.7 cm and up to 2.5 cm in thickness. Sections do not reveal any mass lesion. Welder [employer] Tungsten Arc sections are submitted in two cassettes. / SAMY:josep 05/07/20 TC:2 CPT: 36063 x2
--- NOTE | 2020-05-06 16:39 | PCM.HP.BLA ---
History and Physical Date of Admission: 05/06/20 HISTORY AND PHYSICAL Moncho Nugent 1985 REFERRING PHYSICIAN: MD Manolo CHIEF COMPLAINT: cyst on neck HPI: The patient is a 35 year old male with a complaint of Painful abscess in his left neck. Patient states that this has been ongoing and increasing over the last several days. In addition he has an area in his left axilla as well as his left groin area. He has had numerous abscesses in the past which were all required surgery being done in the OR. He states that his neck abscesses exquisitely tender to touch and it has not been draining anything as of yet.. PAST MEDICAL HISTORY Diagnosis Date ? Abscess of multiple sites of head and neck 10/2018 ? Asthma ? Edema ? Gout ? Hidradenitis suppurativa ? Hyperlipidemia ? Hypertension ? Intervertebral lumbar disc disorder with myelopathy, lumbar region Had MRI done at [facility] in August 2007. Was told he had bulging disc and never was treated due to having no insurance. ? Obesity, morbid (HCC) ? DEMETRIO (obstructive sleep apnea) [facility]- did not follow up after titration in July 2017-mailed letter to call office to schedule appointment ? Pulmonary hypertension (HCC) ? Tobacco use disorder ? Type II or unspecified type diabetes mellitus without mention of complication, not stated as uncontrolled PAST SURGICAL HISTORY Procedure Laterality Date ? EXTRACTION, ERUPTED TOOTH OR EXPOSED ROOT (ELEVATION AND/OR FORCEPS REMOVAL) [place] teeth ? I & D ABSCESS 07/08/2018 large upper back abscess in OR ? I & D ABSCESS 01/20/2020 Neck & groin ? I & D ABSCESS, SINGLE 05/25/10 I&D left neck abscess ? I & D, ABCESS COMPLEX MULTIP 11/18/2018 neck ? I & D, ABCESS COMPLEX MULTIP Right 06/13/2019 neck ? I&D ABSCESS CMPLX/MULT 08/14/2019 neck ? PAST SURGICAL HISTORY OF right thumb fx repair Current Outpatient Medications Medication Sig ? urea (CARMOL) 40 % Apply to affected area as needed. ? insulin lispro (HUMALOG KWIKPEN INSULIN) 100 unit/mL Inject 8 Units subcutaneously three times daily before meals. ? insulin degludec (TRESIBA FLEXTOUCH U-100) 100 unit/mL (3 mL) injection pen Inject 24 Units subcutaneously twice daily. ? fluconazole (DIFLUCAN) 150 mg tablet Take one tablet by mouth now and then repeat once a week for three weeks. ? lisinopril (ZESTRIL, PRINIVIL) 40 mg tablet Take 1 tablet by mouth once daily. ? lancets (ONETOUCH DELICA PLUS LANCET) 30 gauge TESTING BLOOD SUGARS TWICE DAILY ? amLODIPine (NORVASC) 5 mg tablet Take 1 tablet by mouth once daily. ? atorvastatin (LIPITOR) 20 mg tablet TAKE 1 TABLET BY MOUTH AT BEDTIME FOR CHOLESTEROL ? insulin needles, DISPOSABLE, (UNIFINE PENTIPS) 31 gauge x 5/16 Use daily as directed. Dx: E11.9 ? Disposable Gloves (VINYL GLOVES) misc 1 box ? metFORMIN (GLUCOPHAGE) 500 mg tablet TAKE 2 TABLETS TWICE DAILY WITH meals ? blood sugar diagnostic (BLOOD GLUCOSE TEST) test strip Test blood sugar(s) 2 times daily. Dx: Type 2 DM - Controlled E11.9 Insulin: No ? albuterol HFA (VENTOLIN HFA) 90 mcg/actuation inhaler Inhale 2 Puffs as instructed every 4 hours as needed. ? loratadine (CLARITIN) 10 mg tablet TAKE 1 TABLET BY MOUTH EVERY DAY (Patient taking differently: As needed ) ? CPAP 1 Device by MISCELLANEOUS route daily at bedtime. Auto PAP 8-20 cm H2O, Fit pt for FFM or per patient preference, Ramp 20 minutes, humidity, filters, tubing, head gear, Lifetime supplies. G 47.33 obstructive sleep apnea. Please fax 30 day download to [phone]. ? Blood-Glucose Meter monitoring kit Glucose Meter of Choice - Kit - Dx: Type 2 DM - Controlled E11.9 ? Blood-Glucose Meter (TRUE METRIX AIR GLUCOSE METER) misc Twice daily No current facility-administered medications for this visit. ALLERGIES: Grass Pollen PERSONAL HISTORY: Social History Tobacco Use ? Smoking status: Former Smoker Packs/day: 0.50 Years: 15.00 Pack years: 7.50 Types: Cigarettes Start date: 07/28/2006 Quit date: 05/25/2017 Years since quittin.9 ? Smokeless tobacco: Never Used Substance Use Topics ? Alcohol use: Yes Comment: occasionally ? Drug use: No FAMILY HISTORY: FAMILY HISTORY Problem Relation Age of Onset ? Arthritis Mother OA ? Diabetes Mother ? Hypertension Mother ? Lipids Mother ? Thyroid Mother ? Alcohol/Drug Father alcohol ? Arthritis Maternal Grandmother ? Diabetes Maternal Grandmother ? Hypertension Maternal Grandmother ? Lipids Maternal Grandmother ? Thyroid Maternal Grandmother ? Alcohol/Drug Paternal Grandfather ? Allergies Sister ? Alzheimer's Disease Maternal Aunt ? Asthma Sister ? other (aneurysm brain) Maternal Aunt ? other (aneurysm brain) Maternal Aunt ? Headache Sister migraine ? Seizures Sister ? Stroke Maternal Aunt REVIEW OF SYMPTOMS: General: The patient denies fatigue, denies weight loss, denies weight gain, denies feeling hot, and denies feelings of cold. Eyes: The patient denies glaucoma, denies eye injury/surgery, does not wear glasses or contacts. Ear/Nose/Throat: The patient denies allergies, denies hayfever, denies ear infections, and denies bloody noses. Cardiovascular: The patient denies chest pain, denies heart disease, denies high blood pressure,denies cardiac stent, denies prior heart attack, denies irregular heart beat, denies high cholesterol, denies poor circulation, denies heart failure, other cardiac issues, denies claudication, denies cold feet, denies peripheral arterial stent. Respiratory: The patient denies tuberculosis, denies pneumonia, denies frequent cough, denies pulmonary embolism, denies shortness of breath, and denies coughing up blood. Gastrointestinal: The patient denies difficulty swallowing, denies acid reflux, denies ulcers, denies vomiting, denies jaundice/hepatitis, denies gallbladder problems, denies black or tarry stools, denies hemorrhoids, denies bleeding from rectum, denies diverticulitis, denies constipation, denies diarrhea, denies loss of stool control, and denies hernias. Kidney/Bladder: The patient denies kidney stones, denies urine infections, and denies bloody urine. Skin: The patient denies a history of skin cancer, denies bleeding/changing moles, and NOTES a history of skin rash. Neurologic: The patient denies a history of epilepsy/convulsions, denies headaches, denies head/spinal injuries, and denies stroke/TIA. Psychiatric: The patient denies psychiatric medications, denies depression, and denies voices, denies substance abuse. Endocrine: The patient denies thyroid disorders, NOTES diabetes, and denies hormonal problems. Hematologic: The patient denies a history of bruising, denies bleeding, and denies anemia, denies blood clots. Infections: The patient denies a history of measles and mumps, denies rheumatic fever, and denies sexually transmitted diseases. Musculoskeletal: The patient denies back pain/injury, denies back problems, denies sciatica, denies knee/foot trouble, denies arthritis, or denies gout. PHYSICAL EXAMINATION: General: The patient is 35 year old male, well nourished, well hydrated in no acute distress. The patient is oriented to time, place, and person. VITALS: Pulse 114, temperature 36.1 ?C (97 ?F), temperature source Temporal, resp. rate 24, weight (!) 186 kg (410 lb), SpO2 97 %. HEENT: Normal cephalic, ataumatic, pupils are equally round, sclera are anicteric, mucous membranes are moist, oropharynx is clear. Neck has no masses, asymmetry or lymphadenopathy. Thyroid is unremarkable. Respiratory: Clear to auscultation and percussion. Normal respiratory excursion and pattern. Cardiac: Examination is regular rate and rhythm. Abdominal exam: Soft, nontender, with no palpable masses. No hepatosplenomegaly. No palpable hernias. Rectal exam: exam deferred Extremities: no clubbing, cyanosis or edema. No adenopathy. Other: Patient has a painful abscess in the low left neck area. Measuring approximately 4 x 5 cm in greatest diameter the overlying skin is normal. It is red and sensitive to touch. In his left axilla there is significant amounts of hidradenitis suppurativa as well as his left groin and there are 2 small superficial cutaneous abscesses located in these 2 areas. LABORATORY VALUES: As Noted RADIOLOGIC STUDIES: As Noted Assessment IMPRESSION: Neck abscess (primary encounter diagnosis) Cutaneous abscess of groin Axillary abscess PLAN: Number to take the patient to the OR and performed an incision and drainage of the neck abscess. The planned surgical procedure was discussed extensively with the patient. The risks, benefits, anticipated outcomes and possible complications were mentioned. My staff has also explained the procedure in understandable terms and the patient was given the option to take printed material concerning the planned procedure. The patient had the opportunity to ask questions concerning the planned procedure. The patient freely consents to the planned procedure. Procedure Criteria: Yes Elective The surgeon/proceduralist and patient have discussed in detail the risk of exposure to and/or potential harm posed by the COVID-19 virus with having a surgery/procedure at this time versus the risk of? delaying the surgery/procedure. It is not possible to know either the risk of delaying the surgery or procedure or chance of getting an infection with perfect accuracy, but a joint decision was made between the patient and the surgeon/proceduralist ?to proceed at this time with the scheduled surgery/procedure as indicated on the consent form. Diagnoses: (L02.11) Neck abscess (primary encounter diagnosis) (L02.214) Cutaneous abscess of groin (L02.419) Axillary abscess Return to Clinic: The patient is instructed to follow-up with Heather Gorman 1 week post operatively. Josr Simmons III, MD
--- NOTE | 2020-05-06 17:13 | ED.DCSUM_ITS ---
History of Present Illness Chief Complaint: Abscess Informant: Patient Narrative: 35-year-old male presenting with abscesses to the left side of his neck, left axilla, left lower abdomen. Patient states he has had to have multiple I&D's surgically. He denies systemic signs or symptoms. - Past Medical History (1) Diabetes 1.5, managed as type 1 Status: Chronic (2) Hidradenitis Status: Acute (3) Skin abscess Status: Acute (4) Chronic asthma Status: Chronic Past Medical History - Allergies and Home Meds Allergies/Adverse Reactions: Allergies GRASS Allergy (Uncoded 05/06/20 16:11) SNEEZING Prior records reviewed: Yes Past Medical History: - - Reviewed in problem list Surgical History: - - Scrotal abscess incision and drainage Lives: Alone Smoking Status: Former smoker Alcohol: None Drugs: None - Family History Paternal Family History: Reports: Hypertension Maternal Family History: Reports: Hypertension Review of Systems General: Denies: Chills, Fever, Sweats Eyes: Denies: Visual changes - bilaterally, Diplopia ENT: Denies: Rhinorrhea, Sore throat Cardiovascular: Denies: Chest pain, Palpitations Respiratory: Denies: Dyspnea, Cough, Dyspnea on exertion Gastrointestinal: Denies: Abdominal pain, Nausea, Vomiting, Diarrhea, Melena, Hematochezia Genitourinary: Denies: Dysuria, Hematuria, Frequency Musculoskeletal: Denies: Back pain, Extremity Pain Skin: Reports: Abscess - Abscess to left side of neck, left axilla, left suprapubic region Physical Exam Vital Signs/Narrative: Vital Signs Temp Pulse Resp BP Pulse Ox 05/06/20 16:09 97.8 F 105 H 22 H 174/102 H 94 General: Obese, No Acute Distress Head: Normocephalic, Atraumatic Eyes: Perrl, EOMI Cardiovascular: Regular rate, Regular rhythm Abdomen: Soft, Nontender, Nondistended Extremities: Nontender, No edema Skin: - - Large abscess to left side of face, left axilla, left suprapubic region. Neurological: Alert, Oriented x3 Psychological: Normal affect, Normal Mood Diagnostic/Tx/Re-eval Laboratory Data 05/06/20 05/06/20 05/06/20 17:52 17:52 17:52 WBC 8.6 RBC 5.31 Hgb 14.8 Hct 46.7 MCV 87.9 MCH 27.9 MCHC 31.7 L RDW Std Deviation 41.7 RDW Coeff of Ryan 13.0 Plt Count 243 MPV 9.8 Immature Gran % (Auto) 0.500 Neut % (Auto) 83.0 H Lymph % (Auto) 9.9 L [place] % (Auto) 5.1 Eos % (Auto) 1.3 Baso % (Auto) 0.2 Absolute Neuts (auto) 7.2 Absolute Lymphs (auto) 0.85 Nucleated RBC % 0 APTT 31.1 Sodium 130 L Potassium 4.0 Chloride 96 L Carbon Dioxide 33.0 H Anion Gap 1 L BUN 12 Creatinine 1.01 Estim Creat Clear Calc 116.43 Est GFR (MDRD) Af Amer 107 Est GFR (MDRD) Non-Af 88 BUN/Creatinine Ratio 11.9 Glucose 320 H Calcium 8.9 Total Bilirubin 0.40 AST 15 ALT 27 Alkaline Phosphatase 90 Total Protein 7.8 Albumin 2.8 L Globulin 5.0 H Albumin/Globulin Ratio 0.6 L POC Glucose Blood Type Antibody Screen 05/06/20 05/06/20 17:52 17:55 WBC RBC Hgb Hct MCV MCH MCHC RDW Std Deviation RDW Coeff of Ryan Plt Count MPV Immature Gran % (Auto) Neut % (Auto) Lymph % (Auto) [place] % (Auto) Eos % (Auto) Baso % (Auto) Absolute Neuts (auto) Absolute Lymphs (auto) Nucleated RBC % APTT Sodium Potassium Chloride Carbon Dioxide Anion Gap BUN Creatinine Estim Creat Clear Calc Est GFR (MDRD) Af Amer Est GFR (MDRD) Non-Af BUN/Creatinine Ratio Glucose Calcium Total Bilirubin AST ALT Alkaline Phosphatase Total Protein Albumin Globulin Albumin/Globulin Ratio POC Glucose 302 H Blood Type O POSITIVE Antibody Screen NEGATIVE - Rhythm Strip Rhythm Strip: Sinus Rhythm Rate: 92 - EKG Initial EKG Interpretation: Sinus Rhythm, - - PVS - Medical Decision Making Patient presenting with multiple abscesses. Patient was initially planned to have surgery outpatient however this was unable to be done. Patient sent to ED for lab work and evaluation. Patient had lab work which showed no leukocytosis. He had normal renal function. He was slightly hyperglycemic he does not have an anion gap. Patient had EKG interpreted by myself which shows a sinus rhythm with 1 PVC. Patient had type and screen. Patient was seen and evaluated by Dr. Simmons in the ED and taken to the OR for incision and drainage of his abscesses. Impression: 1. Abscess left axilla 2. Abscess left side of neck. 3. Abscess left suprapubic region ED Disposition - Plan for ED Patient:
--- NOTE | 2020-05-06 17:19 | EKG12_ITS ---
Test Reason : Blood Pressure : / mmHG Vent. Rate : 097 BPM Atrial Rate : 097 BPM P-R Int : 164 ms QRS Dur : 092 ms QT Int : 340 ms P-R-T Axes : 055 056 035 degrees QTc Int : 431 ms Sinus rhythm with occasional Premature ventricular complexes Low voltage QRS Septal infarct , age undetermined Abnormal ECG Confirmed by ROSALINA CRAVEN, SATISH ([id number]), mapping editor TERESA WALDROP ([id number]) on 05/10/2020 12:34:16 P M Referred By: ZURDO Confirmed By:COY ROMANO MD
[2020-05-06 18:01] LABS: Bedside Glucose 302 mg/dL (70-110)
[2020-05-06 18:09] LABS: Absolute Lymphocyte Count 0.85 X10^3/uL (0.83-4.51); Absolute Neutrophil Count 7.2 X10^3/uL (2.0-7.7); Basophil# 0.02 X10^3/uL; Basophil% 0.2 % (0-1); Eosinophil# 0.11 X10^3/uL; Eosinophils% 1.3 % (0-5); Hematocrit 46.7 % (40-54); Hemoglobin 14.8 g/dL (13.0-16.5); Lymphocyte # 0.85 X10^3/ul (4.0); Lymphocyte % 9.9 % (19-41); Mean Corp Hgb Conc 31.7 g/dL (32-36); Mean Corpuscular Hgb 27.9 pg (27.0-32.0); Mean Corpuscular Volume 87.9 fL (80-94); Mean Platelet Vol. 9.8 fl (6.2-12.0); Monocyte# 0.44 X10^3/uL; Monocyte% 5.1 % (0-10); NRBC Flagged by Analyzer 0 % (0-5); Neutrophil # 7.16 X10^3/uL (2.7-7.7); Platelet Count 243 K/mm3 (150-450); RBC Distribution Width SD 41.7 fl (35.1-43.9); Red Blood Count 5.31 M/mm3 (4.6-6.2); White Blood Count 8.6 K/mm3 (4.4-11.0)
[2020-05-06 18:26] LABS: Partial Thromboplast Time 31.1 Seconds (24.1-36.2)
[2020-05-06 18:32] LABS: ALB/GLOB Ratio 0.6 RATIO (0.9-2.4); AST(SGOT) 15 U/L (15-37); Alanine Aminotransfer ALT/SGPT 27 U/L (16-61); Albumin, Serum 2.8 g/dL (3.2-5.0); Alkaline Phosphatase 90 U/L (45-117); Anion Gap 1 (5-15); BUN 12 mg/dL (7-18); BUN/Creat Ratio 11.9 RATIO (10-20); Calcium,Total 8.9 mg/dL (8.5-10.1); Chloride 96 mmol/L (98-107); Creatinine, Serum 1.01 mg/dL (0.70-1.30); EST Glomerular Filtration Rate 88 mL/min (>60); Est Glom Filt Rate - Afr Amer 107 mL/min (>60); Estimated Creatinine Clearance 116.43 ml/min; Glucose 320 mg/dL (74-106); Protein, Total 7.8 g/dL (6.4-8.2); Sodium Level 130 mmol/L (136-145)
[2020-05-06] MEDS: Bupiv/Epi 0.5% Mpf 30 ML Vial (18:41)
--- NOTE | 2020-05-06 19:09 | OP.PCM_ITS ---
Problem List (1) Skin abscess Status: Acute Qualifiers: Site of cutaneous abscess: neck Qualified Code(s): L02.11 - Cutaneous abscess of neck (2) Skin abscess Status: Acute Qualifiers: Site of cutaneous abscess: extremity Site of cutaneous abscess of extremity: axilla Laterality: left Qualified Code(s): L02.412 - Cutaneous abscess of left axilla (3) Skin abscess Status: Acute Qualifiers: Site of cutaneous abscess: trunk Site of cutaneous abscess of trunk: groin Qualified Code(s): L02.214 - Cutaneous abscess of groin Report of Operation Date of Procedure: 05/06/20 Pre-Operative Diagnosis: 1. Abscess to left neck. 2. Abscess to left axilla. 3. Abscess to left groin x2 Post-Operative Diagnosis: Same Surgery/Procedure Performed:: 1. Incision and drainage of abscess to left neck. 2. Incision and drainage of abscess to left axilla. 3. Incision and drainage of abscess to left groin x2 Type of Anesthesia:: General Anesthesiologist: Jayy Rico Specimen's removed: Skin of left groin. Skin of left axilla Estimated Blood Loss (mL): < 25 cc Description of Procedure: Patient was brought into the operating room. Placed in the supine position. Under excellent general trach intubation the left neck left axilla and left groin were sterilely prepped and draped in usual fashion. I started in the left groin he had 2 abscesses here I made elliptical incisions around the 1 debrided this area and use electrocautery for hemostasis just slightly superior to this was a simple small skin abscess I opened this up and use electrocautery for good pneumostasis. Left axilla I made an elliptical incision around this area this is a fairly significant abscess I drained it irrigated it out I use electrocautery for good hemostasis. In the left neck I made an incision dissected down drained a small amount of pus I use electrocautery for good in the stasis. All of these were simple abscesses they did not go deep to the fascia. I inje cted Marcaine in all of the incisions. All of the abscess cavities were packed with Betadine soaked Kerlix. Patient was transported back to the PACU in stable condition. I have called and consulted the hospitalist as well as the pharmacist for dosing of both vancomycin and Zosyn. - Admit VTE Documentation VTE Present on Admission: No VTE Mechan Device Prophylaxis: SCD's VTE Pharm Prophylaxis ordered?: No Reason prophylaxis not ordered:: Treatment Not Indicated [id number]: [id number] Drainage of skin abscess
--- NOTE | 2020-05-06 19:14 | CON.PCM_ITS ---
Reason for Consult Date of Consultation: 05/06/20 Reason for Consultation: medical management History of Present Illness: The patient is a 35 year old M with a PMH as outlined who was admitted to the surgical service for abscesses in his left axilla and left groin as well as left neck. He had incision and drainage of the left neck abscess on 05/06/2020. Hospitalist service was consulted for medical management. He has a PMH of asthma, essential hypertension, type 2 diabetes mellitus and sleep apnea as well as super morbid obesity. Patient was seen in PACU after he had surgery. Pain was well controlled and he had no complaints. Review of systems is otherwise negative. Vitals showed BP of 150/96, but was otherwise normal. Chemistry showed sodium of 132 with bicarb of 33 and chloride of 96. Glucose was 320. CBC showed WBC of 3.6 and hemoglobin of 14.8/platelets of 243. [] Past Medical History Past Medical History (Chronic Problems): Chronic Problems (Last Reviewed 08/22/17 @ 07:32 by Fabiola Adrian) Diabetes 1.5, managed as type 1 (Chronic) Hyperlipidemia (Chronic) Chronic asthma (Chronic) Sleep apnea (Chronic) Morbid obesity (Chronic) Essential hypertension (Chronic) Type II diabetes mellitus (Chronic) History of sinus bradycardia (Chronic) Medical History: Medical History (Last Reviewed 08/22/17 @ 07:32 by Fabiola Adrian) Hyperlipidemia (Chronic) E78.5 Chronic asthma (Chronic) J45.909 Scrotal edema (Acute) N50.89 Sleep apnea (Chronic) G47.30 Morbid obesity (Chronic) E66.01 Essential hypertension (Chronic) I10 Type II diabetes mellitus (Chronic) E11.9 History of sinus bradycardia (Chronic) Z86.79 Allergies GRASS Allergy (Uncoded 05/06/20 16:11) SNEEZING Home Medications: Ambulatory Orders Medication Instructions Recorded Albuterol Sulfate [Ventolin Hfa] 1 - 2 puff INHALATION Q4H PRN PRN 07/08/18 Amlodipine [Norvasc] 5 mg PO DAILY 08/13/19 Insulin Degludec [Tresiba 24 unit SQ BID 08/13/19 Flextouch U-100] Insulin Lispro [Humalog Kwikpen] 8 unit SQ TIDCM 08/13/19 Surgical History: - - Scrotal abscess incision and drainage Psychiatric History: No pertinent psych hx Lives: Alone Smoking Status: Former smoker Alcohol: None Drugs: None - *Family History Paternal History Items: Hypertension Maternal History Items: Hypertension Review of Systems Constitutional: Denies: Chills, Fever, Weight Change HEENT: Denies: Head Aches, Sinus Congestion, Sinus Drainage Cardiovascular: Denies: Chest Pain, Palpitations Respiratory: Denies: Cough, Shortness of breath at rest, Sputum production Gastrointestinal: Denies: Abdominal Pain, Nausea, Vomiting Genitourinary: Denies: Dysuria Musculoskeletal: Denies: Joint Pain, Joint Tenderness Skin: Denies: Rash, Wounds Neurological: Denies: Numbness, Tingling, Focal weakness Psychiatric: Denies: Anxiety, Depression, Homicidal Ideations, Suicidal Ideations Hematologic/ Lymphatic: Denies: Easy Bruising, Easy Bleeding Patient Problems: Active and Suspected Problems (Last Reviewed 08/22/17 @ 07:32 by Fabiola Adrian) Skin abscess (Acute) Hidradenitis (Acute) Skin abscess (Acute) Skin abscess (Acute) - Physical Exam Vitals/I&O's: Vital Signs Temp Pulse Resp BP Pulse Ox 97.9 F 90 18 150/96 H 97 05/06/20 17:39 05/06/20 17:39 05/06/20 17:39 05/06/20 17:39 05/06/20 17:39 Oxygen Delivery Method Room Air Weight: 410 lb Body Mass Index (BMI) 52.6 Finger Stick Blood Glucose 277 General: Alert, Oriented x3, Cooperative, - - super morbid obesity HEENT: Atraumatic, PERRLA, EOMI, Normocephalic Oral: Dry Mucosa Neck: Supple, No JVD, Negative Carotid Bruits Lungs: Clear to auscultation, Normal air movement Cardiovascular: Regular rate, No murmurs Abdomen: Bowel Sounds Present, Soft, Non Tender Extremities: No edema, Capillary Refill Less than 3 Seconds Skin: No rashes, No breakdown, - - dressing over site of I&D for neck abscess Musculoskeletal: No Tenderness to Palpation of Joints or Extremities Lymphatic: No Cervical, Supraclavicular, or Inguinal Adenopathy Neurological: Cranial nerves II-XII grossly intact, Neuro grossly intact, Motor Exam 5/5 strength throughout Psych/Mental Status: Normal Affect, Appropriate, Alert and oriented to time, place, person, mood and affect Microbiology Past 72 Hours 05/06/20 17:36 Mucosa - Nose SARS-CoV-2 Antigen (Rapid) - Final Laboratory Results 05/06/20 17:52: WBC 8.6, RBC 5.31, Hgb 14.8, Hct 46.7, MCV 87.9, MCH 27.9, MCHC 31.7 L, RDW Std Deviation 41.7, RDW Coeff of Ryan 13.0, Plt Count 243, MPV 9.8, Immature Gran % (Auto) 0.500, Neut % (Auto) 83.0 H, Lymph % (Auto) 9.9 L, Evans % (Auto) 5.1, Eos % (Auto) 1.3, Baso % (Auto) 0.2, Absolute Neuts (auto) 7.2, Absolute Lymphs (auto) 0.85, Nucleated RBC % 0 05/06/20 17:52: APTT 31.1 05/06/20 17:52: Sodium 130 L, Potassium 4.0, Chloride 96 L, Carbon Dioxide 33.0 H, Anion Gap 1 L, BUN 12, Creatinine 1.01, Estim Creat Clear Calc 116.43, Est GFR (MDRD) Af Amer 107, Est GFR (MDRD) Non-Af 88, BUN/Creatinine Ratio 11.9, Glucose 320 H, Calcium 8.9, Total Bilirubin 0.40, AST 15, ALT 27, Alkaline Phosphatase 90, Total Protein 7.8, Albumin 2.8 L, Globulin 5.0 H, Albumin/Globulin Ratio 0.6 L 05/06/20 17:52: Blood Type Pending, Antibody Screen Pending 05/06/20 17:55: POC Glucose 302 H Current Medications Vancomycin HCl 2,000 mg/ (Sodium Chloride) 540 mls @ 250 mls/hr IV X1 ONE Stop: 05/06/20 19:39 Last Admin: 05/06/20 18:35 Dose: 250 mls/hr Documented by: Assessment/Plan All Active Problems (Last Reviewed 08/22/17 @ 07:32 by Fabiola Adrian) Skin abscess (Acute) Surgical wound present (Acute) Surgical wound, non healing (Acute) Diabetes, type 1.5, uncontrolled, managed as type 1 (Acute) Hidradenitis (Acute) Skin abscess (Acute) Skin abscess (Acute) Scrotal edema (Acute) Scrotal wall abscess (Resolved) #Left neck abscess s/p I&D * general surgery on board * management as per general surgery * today is POD 0 * #Type 2 diabetes mellitus * On Tresiba 24 units twice daily. * Insulin sliding scale. Accu-Cheks AC at bedtime. * #Hypertension: On amlodipine. IV hydralazine as needed. #Asthma: Not in exacerbation. On albuterol inhaler every 4 as needed. DVT prophylaxis: As per primary team Thank you for the courtesy of the consult. We will continue to follow with you. Office Visits / Consults: [id number] IP Consult L4
[2020-05-06 19:36] LABS: Bedside Glucose 276 mg/dL (70-110)
--- NOTE | 2020-05-06 20:32 | PCM.RX.CS ---
Consult Pharmacy has been consulted to manage selected antiobiotic: Vancomycin Type of Consult: New start Suspected Infection: Skin/Soft tissue Prior Doses of Antibiotics Received/Current Regimen: Initial dose of vancomycin 2gm. Labs: Sodium 130 mmol/L (136-145) L 05/06/20 17:52 Potassium 4.0 mmol/L (3.5-5.1) 05/06/20 17:52 Chloride 96 mmol/L (98-107) L 05/06/20 17:52 Carbon Dioxide 33.0 mmol/L (21.0-32.0) H 05/06/20 17:52 Anion Gap 1 (5-15) L 05/06/20 17:52 BUN 12 mg/dL (7-18) 05/06/20 17:52 Creatinine 1.01 mg/dL (0.70-1.30) 05/06/20 17:52 Est GFR (MDRD) Af Amer 107 mL/min (>60) 05/06/20 17:52 Est GFR (MDRD) Non-Af 88 mL/min (>60) 05/06/20 17:52 BUN/Creatinine Ratio 11.9 RATIO (10-20) 05/06/20 17:52 Glucose 320 mg/dL (74-106) H 05/06/20 17:52 Microbiology: Microbiology 05/06/20 17:36 Mucosa - Nose SARS-CoV-2 Antigen (Rapid) - Final Weight used for dosin kg Estimated Creatinine Clearance: 116 ml/min Goal Trough: 15-20 mcg/mL Pharmacy Plan for Drug Dosing: Will begin 1500mg iv q8h starting 8 hrs after initial 2000mg dose. Trough level ordered for 05.07.20 before 4th dose of therapy. Pharmacy Service will continue to monitor and adjust dosing as required. Follow-Up Labs: Trough Vancomycin - 2.12.21 @1730 before 1800 dose
[2020-05-06] MEDS: 0.9% Normal Saline 1,000 ML 75 ML IV (21:38)
[2020-05-06] MEDS: Enoxaparin 40 MG/0.4 ML Syringe SC (21:39)
[2020-05-06 22:35] LABS: Bedside Glucose 388 mg/dL (70-110)
[2020-05-07] VITALS (7 sets, daily range): BP systolic 144–175; BP diastolic 79–96; PULSE 88–97; RESP 16–18; TEMP 36.7–37; O2SAT 91–98
[2020-05-07] MEDS: Insulin Lispro 100 UNIT/ML INSULN.PEN SC ×2 (06:05→12:05)
[2020-05-07 06:36] LABS: Absolute Lymphocyte Count 0.73 X10^3/uL (0.83-4.51); Absolute Neutrophil Count 4.7 X10^3/uL (2.0-7.7); Basophil# 0.01 X10^3/uL; Basophil% 0.2 % (0-1); Eosinophils% 1.7 % (0-5); Hematocrit 45.7 % (40-54); Hemoglobin 14.1 g/dL (13.0-16.5); Lymphocyte # 0.73 X10^3/ul (4.0); Lymphocyte % 12.2 % (19-41); Mean Corp Hgb Conc 30.9 g/dL (32-36); Mean Corpuscular Volume 90.9 fL (80-94); Mean Platelet Vol. 9.6 fl (6.2-12.0); Monocyte# 0.44 X10^3/uL; Monocyte% 7.4 % (0-10); NRBC Flagged by Analyzer 0 % (0-5); Neutrophil # 4.67 X10^3/uL (2.7-7.7); Neutrophil % 78.2 % (47-70); Platelet Count 210 K/mm3 (150-450); RBC Distribution Width CV 13.2 % (11.6-14.6); RBC Distribution Width SD 43.8 fl (35.1-43.9); Red Blood Count 5.03 M/mm3 (4.6-6.2)
[2020-05-07 06:56] LABS: Bedside Glucose 366 mg/dL (70-110)
[2020-05-07 07:07] LABS: ALB/GLOB Ratio 0.5 RATIO (0.9-2.4); AST(SGOT) 21 U/L (15-37); Alanine Aminotransfer ALT/SGPT 25 U/L (16-61); Albumin, Serum 2.5 g/dL (3.2-5.0); Alkaline Phosphatase 88 U/L (45-117); Anion Gap 4 (5-15); BUN 14 mg/dL (7-18); BUN/Creat Ratio 13.7 RATIO (10-20); Calcium,Total 8.4 mg/dL (8.5-10.1); Chloride 98 mmol/L (98-107); Creatinine, Serum 1.02 mg/dL (0.70-1.30); EST Glomerular Filtration Rate 87 mL/min (>60); Est Glom Filt Rate - Afr Amer 106 mL/min (>60); Estimated Creatinine Clearance 115.29 ml/min; Globulin 4.7 g/dL (2.2-4.2); Glucose 344 mg/dL (74-106); Protein, Total 7.2 g/dL (6.4-8.2); Sodium Level 133 mmol/L (136-145)
--- NOTE | 2020-05-07 07:19 | PN.SURG_ITS ---
Patient Problems: Active and Suspected Problems (Last Reviewed 08/22/17 @ 07:32 by Fabiola Adrian) Skin abscess (Acute) Hidradenitis (Acute) Skin abscess (Acute) Skin abscess (Acute) Subjective: Saw patient with Vesta today. Wounds look remarkably clean patient states that the discomfort that he was feeling under his armpit is improved and feels more like incisional type of burning. He has no nausea no vomiting. Objective: Blackened eschar and wound no signs of undrained abscess - Physical Exam Vitals/I&O's: Vital Signs Temp Pulse Resp BP Pulse Ox 98.6 F 96 16 154/92 H 98 05/07/20 04:17 05/07/20 04:17 05/07/20 04:17 05/07/20 04:17 05/07/20 04:17 Oxygen Flow Rate (L/min) 3 Oxygen Delivery Method Room Air Weight: 410 lb Body Mass Index (BMI) 52.6 Finger Stick Blood Glucose 276 Intake and Output for Last 24 Hours 05/05/20 05/06/20 05/07/20 23:59 23:59 23:59 Intake Total 1090 / 1890 2180 / 2180 Balance 1090 / 1890 2180 / 2180 Microbiology Past 72 Hours 05/06/20 17:36 Mucosa - Nose SARS-CoV-2 Antigen (Rapid) - Final Laboratory Results 05/06/20 17:52: WBC 8.6, RBC 5.31, Hgb 14.8, Hct 46.7, MCV 87.9, MCH 27.9, MCHC 31.7 L, RDW Std Deviation 41.7, RDW Coeff of Ryan 13.0, Plt Count 243, MPV 9.8, Immature Gran % (Auto) 0.500, Neut % (Auto) 83.0 H, Lymph % (Auto) 9.9 L, [place] % (Auto) 5.1, Eos % (Auto) 1.3, Baso % (Auto) 0.2, Absolute Neuts (auto) 7.2, Absolute Lymphs (auto) 0.85, Nucleated RBC % 0 05/06/20 17:52: APTT 31.1 05/06/20 17:52: Sodium 130 L, Potassium 4.0, Chloride 96 L, Carbon Dioxide 33.0 H, Anion Gap 1 L, BUN 12, Creatinine 1.01, Estim Creat Clear Calc 116.43, Est GFR (MDRD) Af Amer 107, Est GFR (MDRD) Non-Af 88, BUN/Creatinine Ratio 11.9, Glucose 320 H, Calcium 8.9, Total Bilirubin 0.40, AST 15, ALT 27, Alkaline Phosphatase 90, Total Protein 7.8, Albumin 2.8 L, Globulin 5.0 H, Albumin /Globulin Ratio 0.6 L 05/06/20 17:52: Blood Type O POSITIVE, Antibody Screen NEGATIVE 05/06/20 17:55: POC Glucose 302 H 05/06/20 19:32: POC Glucose 276 H 05/06/20 22:31: POC Glucose 388 H 05/07/20 05:45: WBC 6.0, RBC 5.03, Hgb 14.1, Hct 45.7, MCV 90.9, MCH 28.0, MCHC 30.9 L, RDW Std Deviation 43.8, RDW Coeff of Ryan 13.2, Plt Count 210, MPV 9.6, Immature Gran % (Auto) 0.300, Neut % (Auto) 78.2 H, Lymph % (Auto) 12.2 L, [place] % (Auto) 7.4, Eos % (Auto) 1.7, Baso % (Auto) 0.2, Absolute Neuts (auto) 4.7, Absolute Lymphs (auto) 0.73 L, Nucleated RBC % 0 05/07/20 05:45: Sodium 133 L, Potassium 4.0, Chloride 98, Carbon Dioxide 31.0, Anion Gap 4 L, BUN 14, Creatinine 1.02, Estim Creat Clear Calc 115.29, Est GFR (MDRD) Af Amer 106, Est GFR (MDRD) Non-Af 87, BUN/Creatinine Ratio 13.7, Glucose 344 H, Calcium 8.4 L, Total Bilirubin 0.50, AST 21, ALT 25, Alkaline Phosphatase 88, Total Protein 7.2, Albumin 2.5 L, Globulin 4.7 H, Albumin/Globulin Ratio 0.5 L 05/07/20 06:04: POC Glucose 366 H Current Medications Acetaminophen (Acetaminophen 325 Mg Tablet) 650 mg PO Q6H PRN PRN PRN Reason: PAIN Albuterol Sulfate (Albuterol 2.5 Mg/3 Ml Vial.Neb.) 2.5 mg INHALATION Q4H PRN PRN PRN Reason: SOB &/OR WHEEZING Amlodipine Besylate (Amlodipine 5 Mg Tablet) 5 mg PO DAILY [facility] Dextrose (Dextrose 50%-Water 25 Gm/50 Ml Disp.Syrin) 0 gm IV X1 PRN; Protocol PRN Reason: Hypoglycemia Enoxaparin Sodium (Enoxaparin 40 Mg/0.4 Ml Syringe) 40 mg SC BID [facility] Last Admin: 05/06/20 21:39 Dose: 40 mg Documented by: Glucagon (Glucagon 1 Mg/Ml Syringe) 1 mg IM .X1 PRN PRN Reason: Hypoglycemia Hydromorphone HCl (Hydromorphone 0.5 Mg/0.5 Ml Syringe) 0.5 - 1 mg IV Q2H PRN PRN PRN Reason: PAIN Sodium Chloride () 1,000 mls @ 75 mls/hr IV .[id number] [facility] Last Admin: 05/06/20 21:38 Dose: 75 mls/hr Documented by: Piperacillin Sod/Tazobactam (Sod 3.375 gm/ Sodium Chloride) 50 mls @ 12.5 mls/hr IV Q8 [facility] Last Admin: 05/07/20 05:45 Dose: 12.5 mls/hr Documented by: Vancomycin HCl 1,500 mg/ (Sodium Chloride) 530 mls @ 250 mls/hr IV Q8H [facility] Last Infusion: 05/07/20 04:48 Dose: Infused Documented by: Sodium Chloride () 250 mls @ 15 mls/hr IV .[id number] PRN PRN Reason: Saline Flush Sodium Chloride () 250 mls @ 15 mls/hr IV .[id number] PRN PRN Reason: Additional IVPB Infusion Vancomycin IV Pharmacy to Dose (1 ea/ Sodium Chloride) 500 mls @ 250 mls/hr IV PRN PRN; Protocol PRN Reason: Rx to Dose Insulin Human Lispro (Insulin Lispro 100 Unit/Ml Insuln.Pen) 0 unit SC [facility]; Protocol Last Admin: 05/07/20 06:05 Dose: 12 u Documented by: Ondansetron HCl (Ondansetron 4 Mg/2 Ml Vial) 4 mg IV Q8H PRN PRN PRN Reason: NAUSEA Oxycodone HCl (Oxycodone 5 Mg Tablet) 5 - 10 mg PO Q4H PRN PRN PRN Reason: Pain Score 6-10 Sodium Chloride (0.9% Saline Lock 10 Ml Syringe) 10 - 40 ml IV UD PRN PRN Reason: SALINE FLUSH Medical Necessity - Tobacco Use Smoking Status: Former smoker Assessment/Plan All Active Problems (Last Reviewed 08/22/17 @ 07:32 by Fabiola Adrian) Skin abscess (Acute) Surgical wound present (Acute) Surgical wound, non healing (Acute) Diabetes, type 1.5, uncontrolled, managed as type 1 (Acute) Hidradenitis (Acute) Skin abscess (Acute) Skin abscess (Acute) Scrotal edema (Acute) Scrotal wall abscess (Resolved) We will get the patient set up to do wet-to-dry dressing changes. His is familiar with how to do this. Probably does not need a wound VAC for any of these. He will be following back up with the wound center. Probably a consultation with Dr. Cecile Urena would be in order for evaluation and possible treatment of his hidradenitis.
--- NOTE | 2020-05-07 07:21 | DCINST_ITS ---
Discharge Diet: Light diet - advance as tolerated - If you have questions about your diet instructions, please talk to your doctor. Discharge Activity: May Drive, May Not Drive - for 1 week or while taking narcotic pain medicine. May shower in (days): 1 Lifting Restrictions: 10 pounds Call your doctor if your incision/area has: Continuous Slow Oozing, Sudden Increased Bleeding, Increased Pain/ Swelling, Increased Redness, Foul Smelling Discharge Call your doctor if you observe: Fever of 101 or Higher Suture Line Care: Avoid Pulling/Pushing, Avoid Pinching/Bending Cleanse incision/area with: Soap & Water Additional Dressing/Incision Instructions:: Wet-to-dry dressing changes at least once a day with normal saline. Instructions: ED Abscess Incision And Drainage, ED AXILLARY GLAND INFECTION IandD Allergies/Adverse Reactions: Allergies GRASS Allergy (Uncoded 05/06/20 16:11) SNEEZING Medications to take at Discharge Albuterol Sulfate [Ventolin Hfa] 1 - 2 puff INHALATION Q4H PRN PRN 07/08/18 Amlodipine [Norvasc] 5 mg PO DAILY 08/13/19 Insulin Degludec [Tresiba Flextouch U-100] 24 unit SQ BID 08/13/19 Insulin Lispro [Humalog Kwikpen] 8 unit SQ TIDCM 08/13/19 Oxycodone HCl/Acetaminophen [Percocet 5/325] 1 - 2 tab PO Q4H PRN PRN 6 Days #20 tab 05/07/20 Oxycodone HCl/Acetaminophen [Percocet 5/325] 1 - 2 tab PO Q6H PRN PRN 6 Days #20 tab 05/07/20 levoFLOXacin tablet [Levaquin tablet] 750 mg PO DAILY #7 tab 05/07/20 [facility] tablePrimary Care Physician: Kennedy Fernandes MD [Primary Care Provider] - Test Results: Test results from this visit will be discussed in further detail at your follow- up appointment, if applicable. Please Follow Up With: Josr Smimons MD - [phone] When: Call to make an appointment to be seen in about 10 days.
--- NOTE | 2020-05-07 08:25 | NURSING ---
Called and talked with Patricia at the wound center for referral. Patricia states that Maurice will review and an appt will be set up for patient.
--- NOTE | 2020-05-07 08:37 | NURSING ---
wound photo: left neck
--- NOTE | 2020-05-07 08:39 | NURSING ---
wound photo: left axilla
--- NOTE | 2020-05-07 08:39 | NURSING ---
wound photo: left groin
[2020-05-07] MEDS: Enoxaparin 40 MG/0.4 ML Syringe SC (09:11)
[2020-05-07] MEDS: amLODIPine 5 MG Tablet PO (09:11)
--- NOTE | 2020-05-07 10:21 | PCM.PN.HOSP ---
Patient Problems: Active and Suspected Problems (Last Reviewed 08/22/17 @ 07:32 by Fabiola Adrian) Skin abscess (Acute) Hidradenitis (Acute) Skin abscess (Acute) Skin abscess (Acute) Reason for Visit: hidradenitis with multiple abscesses status post IND Subjective: Patient is a 35-year-old gentleman with past medical history significant for diabetes mellitus type 2 as well as hidradenitis who underwent incision and drainage of abscesses to the left neck left axilla as well as left groin by Dr. Simmons on 05/06/2020. Hospitalist service consulted to assist with management of patient medical comorbidities Objective: GENERAL: cooperative HEENT: Atraumatic; EYES; Anicteric, Normal Conjunctiva NECK; supple, normal thyroid, RESPIRATORY: Diminished to auscultation CARDIOVASCULAR: Regular S1 S2, GI: soft, normoactive bowel sounds, : No Renal angle tenderness; EXTREMITIES: No edema, no clubbing, MUSCULOSKELETAL: no muscle waisting NEURO: Awake; no lateralizing signs. SKIN: Incision left neck, left axilla and left groin- dressed PSYCH; Flat affect Vitals/I&O's: Vital Signs Temp Pulse Resp BP Pulse Ox 98.2 F 88 18 175/79 H 92 05/07/20 08:17 05/07/20 08:20 05/07/20 08:17 05/07/20 08:17 05/07/20 08:20 Oxygen Flow Rate (L/min) 3 Oxygen Delivery Method Room Air Weight: 185.973 kg Body Mass Index (BMI) 52.6 Finger Stick Blood Glucose 276 Intake and Output for Last 24 Hours 05/05/20 05/06/20 05/07/20 23:59 23:59 23:59 Intake Total 1090 / 1890 2180 / 2180 Balance 1090 / 1890 2180 / 2180 Microbiology Past 72 Hours 05/06/20 17:36 Mucosa - Nose SARS-CoV-2 Antigen (Rapid) - Final Laboratory Results 05/06/20 17:52: WBC 8.6, RBC 5.31, Hgb 14.8, Hct 46.7, MCV 87.9, MCH 27.9, MCHC 31.7 L, RDW Std Deviation 41.7, RDW Coeff of Ryan 13.0, Plt Count 243, MPV 9.8, Immature Gran % (Auto) 0.500, Neut % (Auto) 83.0 H, Lymph % (Auto) 9.9 L, [place] % (Auto) 5.1, Eos % (Auto) 1.3, Baso % (Auto) 0.2, Absolute Neuts (auto) 7.2, Absolute Lymphs (auto) 0.85, Nucleated RBC % 0 05/06/20 17:52: APTT 31.1 05/06/20 17:52: Sodium 130 L, Potassium 4.0, Chloride 96 L, Carbon Dioxide 33.0 H, Anion Gap 1 L, BUN 12, Creatinine 1.01, Estim Creat Clear Calc 116.43, Est GFR (MDRD) Af Amer 107, Est GFR (MDRD) Non-Af 88, BUN/Creatinine Ratio 11.9, Glucose 320 H, Calcium 8.9, Total Bilirubin 0.40, AST 15, ALT 27, Alkaline Phosphatase 90, Total Protein 7.8, Albumin 2.8 L, Globulin 5.0 H, Albumin/Globulin Ratio 0.6 L 05/06/20 17:52: Blood Type O POSITIVE, Antibody Screen NEGATIVE 05/06/20 17:55: POC Glucose 302 H 05/06/20 19:32: POC Glucose 276 H 05/06/20 22:31: POC Glucose 388 H 05/07/20 05:45: WBC 6.0, RBC 5.03, Hgb 14.1, Hct 45.7, MCV 90.9, MCH 28.0, MCHC 30.9 L, RDW Std Deviation 43.8, RDW Coeff of Ryan 13.2, Plt Count 210, MPV 9.6, Immature Gran % (Auto) 0.300, Neut % (Auto) 78.2 H, Lymph % (Auto) 12.2 L, [place] % (Auto) 7.4, Eos % (Auto) 1.7, Baso % (Auto) 0.2, Absolute Neuts (auto) 4.7, Absolute Lymphs (auto) 0.73 L, Nucleated RBC % 0 05/07/20 05:45: Sodium 133 L, Potassium 4.0, Chloride 98, Carbon Dioxide 31.0, Anion Gap 4 L, BUN 14, Creatinine 1.02, Estim Creat Clear Calc 115.29, Est GFR (MDRD) Af Amer 106, Est GFR (MDRD) Non-Af 87, BUN/Creatinine Ratio 13.7, Glucose 344 H, Calcium 8.4 L, Total Bilirubin 0.50, AST 21, ALT 25, Alkaline Phosphatase 88, Total Protein 7.2, Albumin 2.5 L, Globulin 4.7 H, Albumin/Globulin Ratio 0.5 L 05/07/20 06:04: POC Glucose 366 H Current Medications Acetaminophen (Acetaminophen 325 Mg Tablet) 650 mg PO Q6H PRN PRN PRN Reason: PAIN Albuterol Sulfate (Albuterol 2.5 Mg/3 Ml Vial.Neb.) 2.5 mg INHALATION Q4H PRN PRN PRN Reason: SOB &/OR WHEEZING Amlodipine Besylate (Amlodipine 5 Mg Tablet) 5 mg PO DAILY [facility] Last Admin: 05/07/20 09:11 Dose: 5 mg Documented by: Dextrose (Dextrose 50%-Water 25 Gm/50 Ml Disp.Syrin) 0 gm IV X1 PRN; Protocol PRN Reason: Hypoglycemia Enoxaparin Sodium (Enoxaparin 40 Mg/0.4 Ml Syringe) 40 mg SC BID [facility] Last Admin: 05/07/20 09:11 Dose: 40 mg Documented by: Glucagon (Glucagon 1 Mg/Ml Syringe) 1 mg IM .X1 PRN PRN Reason: Hypoglycemia Hydromorphone HCl (Hydromorphone 0.5 Mg/0.5 Ml Syringe) 0.5 - 1 mg IV Q2H PRN PRN PRN Reason: PAIN Sodium Chloride () 1,000 mls @ 75 mls/hr IV .[id number] [facility] Last Admin: 05/06/20 21:38 Dose: 75 mls/hr Documented by: Piperacillin Sod/Tazobactam (Sod 3.375 gm/ Sodium Chloride) 50 mls @ 12.5 mls/hr IV Q8 [facility] Last Admin: 05/07/20 05:45 Dose: 12.5 mls/hr Documented by: Vancomycin HCl 1,500 mg/ (Sodium Chloride) 530 mls @ 250 mls/hr IV Q8H [facility] Last Admin: 05/07/20 10:06 Dose: 250 mls/hr Documented by: Sodium Chloride () 250 mls @ 15 mls/hr IV .[id number] PRN PRN Reason: Saline Flush Sodium Chloride () 250 mls @ 15 mls/hr IV .[id number] PRN PRN Reason: Additional IVPB Infusion Vancomycin IV Pharmacy to Dose (1 ea/ Sodium Chloride) 500 mls @ 250 mls/hr IV PRN PRN; Protocol PRN Reason: Rx to Dose Insulin Human Lispro (Insulin Lispro 100 Unit/Ml Insuln.Pen) 0 unit SC ACHS [facility]; Protocol Last Admin: 05/07/20 06:05 Dose: 12 u Documented by: Ondansetron HCl (Ondansetron 4 Mg/2 Ml Vial) 4 mg IV Q8H PRN PRN PRN Reason: NAUSEA Oxycodone HCl (Oxycodone 5 Mg Tablet) 5 - 10 mg PO Q4H PRN PRN PRN Reason: Pain Score 6-10 Sodium Chloride (0.9% Saline Lock 10 Ml Syringe) 10 - 40 ml IV UD PRN PRN Reason: SALINE FLUSH STROKE Vital Signs/Narrative: Vital Signs Temp Pulse Resp BP Pulse Ox 05/07/20 08:20 88 92 05/07/20 08:17 98.2 F 93 18 175/79 H 93 05/07/20 08:16 98.4 F 88 18 144/88 H 92 05/07/20 07:24 91 Medical Necessity - Tobacco Use Smoking Status: Former smoker Assessment/Plan All Active Problems (Last Reviewed 08/22/17 @ 07:32 by Fabiola Adrian) Skin abscess (Acute) Surgical wound present (Acute) Surgical wound, non healing (Acute) Diabetes, type 1.5, uncontrolled, managed as type 1 (Acute) Hidradenitis (Acute) Skin abscess (Acute) Skin abscess (Acute) Scrotal edema (Acute) Scrotal wall abscess (Resolved) Patient is a 35-year-old gentleman with past medical history significant for diabetes mellitus type 2 as well as hidradenitis who underwent incision and drainage of abscesses to the left neck left axilla as well as left groin by Dr. Simmons on 05/06/2020. Hospitalist service consulted to assist with management of patient medical comorbidities 1. Hidradenitis with multiple abscesses -underwent incision and drainage of abscesses to the left neck left axilla as well as left groin by Dr. Simmons on 05/06/2020 2. Morbid obesity - With a BMI of 52.6 patient was counseled on weight reduction 3. Hypertension - Blood pressure controlled, home medications continued with dose adjustment as needed 4. Diabetes mellitus type II -Placed on long acting insulin, Accu-Cheks a.c. and at bedtime and covered with sliding scale insulin 5. Obstructive sleep apnea 6. Dyslipidemia ?Managed with diet 7. Mild intermittent asthma ?Aerosol treatments as needed 8. DVT prophylaxis ?Lovenox Inpatient E&M: [id number] Subs Hosp L2
[2020-05-07 11:31] LABS: Bedside Glucose 374 mg/dL (70-110)
== END 2020-05-07 12:32 | disposition home or self-care (01) ==
LOC: ED 17:30 → SDC 17:42 → ACINP 17:43 → SDC 20:04 → MS3 20:04
PROVIDERS: Admitting Provider Surgery; Emergency Provider Student in an Organized Health Care Education/Training Program; PCP Family Medicine; Visit Provider Internal Medicine
PROC: (CPT 10061; principal; 2020-05-06 17:30)
DX: L02.11 Cutaneous abscess of neck (principal); E66.01 Morbid (severe) obesity due to excess calories; E78.5 Hyperlipidemia, unspecified; I10 Essential (primary) hypertension; G47.33 Obstructive sleep apnea (adult) (pediatric); I27.20 Pulmonary hypertension, unspecified; L73.2 Hidradenitis suppurativa; E13.9 Other specified diabetes mellitus without complications; Z79.4 Long term (current) use of insulin; Z79.899 Other long term (current) drug therapy; Z87.891 Personal history of nicotine dependence; L02.214 Cutaneous abscess of groin; L02.412 Cutaneous abscess of left axilla; J45.20 Mild intermittent asthma, uncomplicated; Z68.43 Body mass index [BMI] 50.0-59.9, adult
CPT/HCPCS: 00400; 10061; 36415; 80053; 82962; 85025; 85730; 86850; 86900; 86901; 87015; 87070; 87075; 87077; 87102; 87116; 87186; 87205; 87206; 87426; 88304; 93005; 96361; 96365; 96366; 96367; 96372; 99218; 99284; J7030; J7040; J7050; A4216; G0378; J0330

== ENCOUNTER 2021-05-17 17:12 | Emergency (ER) | payer MEDICAID, SELFPAY ==
[2021-05-17 17:12] VITALS: BP 173/95; PULSE 96; RESP 15; TEMP 35.8; O2SAT 94; BMI 55.3
--- NOTE | 2021-05-17 17:14 | RAD_ITS ---
STUDY: X-RAY - RIGHT ELBOW REASON FOR EXAM: Male, 36 years old. PT C/O RIGHT ARM PAIN X 3 DAYS. UNKNOWN INJURY. UNABLE TO BEND OR SQUEEZE THINGS, BEST IMAGES POSSIBLE DUE TO PT NOT ABLE TO STRAIGHTEN ELBOW TECHNIQUE: 5 view(s) of the elbow. COMPARISON: Right elbow x-ray dated March 01, 2014 FINDINGS: Normal visualized humerus, radius and ulna. Normal radiocapitellar and ulnotrochlear articulations. The soft tissue structures are unremarkable. There is no demonstrated fracture. RAD/Elbow min 3 Views IMPRESSION: Normal x-ray examination of the elbow. Electronically Signed: Benny Valencia MD at 17:55 EST ,
--- NOTE | 2021-05-17 19:26 | EX.ED.UPPERE ---
HPI History of Present Illness Chief Complaint: Upper Extremity Injury Informant: patient Narrative Narrative: 36-year-old male presenting with right elbow pain x3 days. Denies injury. He states he initially thought maybe he strained his elbow while getting out of bed. He is unable to straighten his right elbow. Denies fever. He has a remote history of gout in his knee. [facility] Medical History (Updated 05/17/21 @ 21:[address] Alize Olvera MD) Chronic asthma Essential hypertension History of sinus bradycardia Hyperlipidemia Morbid obesity Scrotal edema Sleep apnea Type II diabetes mellitus Home Medications albuterol sulfate [Ventolin HFA] 1 - 2 puff INHALATION Q4H PRN PRN 07/08/18 [History Last Taken 07/07/18] amlodipine 5 mg PO DAILY 08/13/19 [History Last Taken 05/05/20] insulin degludec 24 unit SQ BID 08/13/19 [History Last Taken 05/06/20] insulin lispro 8 unit SQ TIDCM 08/13/19 [History Last Taken 05/06/20] levofloxacin 750 mg PO DAILY #7 tab 05/07/20 [Rx Last Taken Unknown] prednisone 40 mg PO DAILY #8 tab 05/17/21 [Rx Last Taken Unknown] Allergy/AdvReac Type Severity Reaction Status Date / Time GRASS Allergy SNEEZING Uncoded 05/06/20 16:11 Social History (Updated 08/22/17 @ 08:[address] Vivek Mead, DO) Smoking Status: Former smoker how long ago did patient quit smokin, 3p/day second hand exposure: Yes alcohol intake: current substance use type: marijuana ROS ROS ED Constitutional Constitutional ED: Denies fever(s) Eyes Eyes: Denies change in vision ENT ENT ED: Denies rhinorrhea or sore throat Cardiovascular Cardiovascular: Denies chest pain or palpitations Respiratory/Chest Respiratory/Chest: Denies cough or dyspnea Gastrointestinal Gastrointestinal: Denies abdominal pain, diarrhea, nausea or vomiting Genitourinary Genitourinary ED: Denies dysuria Musculoskeletal Musculoskeletal: Reports other Details: right elbow pain ; Denies myalgias Integumentary Denies rash Neurologic Neurologic: Denies headache(s) Psychiatric Psychiatric: Denies suicidal thoughts EXAM Physical Exam Const Vital Signs: 05/17/21 17:12 Temperature 96.5 F L Temperature Source Temporal Pulse Rate 96 Respiratory Rate 15 Blood Pressure 173/95 H Blood Pressure Mean 121 Pulse Ox 94 Oxygen Delivery Method Room Air Positive well nourished and well developed General Appearance ED: well developed HEENT Reports normocephalic and head/scalp atraumatic Eyes PERRL and EOMs intact bilaterally Neck supple General: Negative for tenderness Chest Wall inspection of chest normal Resp normal respiratory effort and clear to auscultation bilaterally Cardio regular rate and regular rhythm GI non-tender and non-distended Palpation: soft; Negative for guarding or rebound tenderness present no CVA tenderness Extremity normal to inspection Extremity Narrative: Diffuse tenderness right elbow held at 90 degrees flexion with pain with any attempt to straighten his elbow. Neurovascularly intact distally. Neuro oriented x3 Sensorium / Orientation: alert Psych mental status grossly normal MDM MDM MDM Narrative Medical decision making narrative: Right elbow read by myself and radiology shows no acute process. Patient was given morphine, Zofran IV. Concern for infection versus gout. Discussed with Dr. Marsh. I attempted arthrocentesis. This was unsuccessful. Patient was unable to tolerate this procedure. Uric acid level was added on and is elevated. Discussed again with Dr. Marsh. Patient will be started on steroids and will follow up tomorrow morning in his office. Patient is advised importance of close follow-up. He is advised to monitor his blood sugars while being on steroids. He was given a sling. Advised return to ED for worsening complaints. Lab Data Attestation: I reviewed the patient's lab results. Radiography Diagnostic Testing: Clinical Impression(s) from Imaging Studies Elbow X-Ray 05/17/21 17:14 IMPRESSION: Normal x-ray examination of the elbow. Electronically Signed: Benny Valencia MD at 17:55 EST Reading Location ID and State: [facility] / [place] , Service support , Discharge Plan Triage Chief Complaint: Upper Extremity Injury ED Provider: Alize Olvera Dx/Rx/DC Orders Clinical Impression: Elbow pain Instructions: ED Gout Prescriptions: New prednisone 20 mg tablet 40 mg PO DAILY Qty: 8 RF: 0 No Action albuterol sulfate [Ventolin HFA] 108 HFA aerosol inhaler 1 - 2 puff inhalation Q4H PRN PRN (Reason: Sob &/Or Wheezing) RF: 0 insulin lispro 100 UNIT/ML insulin pen 8 unit SQ TIDCM RF: 0 insulin degludec 100 UNIT/ML insulin pen 24 unit SQ BID RF: 0 amlodipine 5 MG tablet 5 mg PO DAILY RF: 0 levofloxacin 750 MG tablet 750 mg PO DAILY Qty: 7 RF: 0 Primary Care Provider: Kennedy Fernandes Referrals: Kelvin Marsh DO [STAFF PHYSICIAN] - Kennedy Fernandes MD [Primary Care Provider] - Disposition Disposition: Home, Self Care
[2021-05-17] MEDS: Ondansetron 4 MG/2 ML Vial IV (19:37)
[2021-05-17] MEDS: Morphine 4 MG/ML Syringe IV (19:37)
[2021-05-17 19:41] LABS: Absolute Lymphocyte Count 1.08 X10^3/uL (0.83-4.51); Absolute Neutrophil Count 8.4 X10^3/uL (2.0-7.7); Basophil# 0.04 X10^3/uL; Basophil% 0.4 % (0-1); Eosinophil# 0.09 X10^3/uL; Eosinophils% 0.9 % (0-5); Hematocrit 42.3 % (40-54); Hemoglobin 14.4 g/dL (13.0-16.5); Lymphocyte # 1.08 X10^3/ul (0.83-4.51); Lymphocyte % 10.4 % (19-41); Mean Corpuscular Hgb 29.5 pg (27.0-32.0); Mean Corpuscular Volume 86.7 fL (80-94); Mean Platelet Vol. 9.7 fl (6.2-12.0); Monocyte# 0.74 X10^3/uL; Monocyte% 7.1 % (0-10); NRBC Flagged by Analyzer 0 % (0-5); Neutrophil % 80.8 % (47-70); Platelet Count 257 K/mm3 (150-450); RBC Distribution Width CV 13.1 % (11.6-14.6); RBC Distribution Width SD 40.8 fl (35.1-43.9); Red Blood Count 4.88 M/mm3 (4.6-6.2); White Blood Count 10.4 K/mm3 (4.4-11.0)
[2021-05-17 19:48] LABS: Erythrocyte Sedimentation Rate 71 mm/hr (0-20)
[2021-05-17 19:57] LABS: Anion Gap 2 (5-15); BUN 12 mg/dL (7-18); BUN/Creat Ratio 13.7 RATIO (10-20); Calcium,Total 9.3 mg/dL (8.5-10.1); Chloride 99 mmol/L (98-107); Creatinine, Serum 0.88 mg/dL (0.70-1.30); EST Glomerular Filtration Rate 103 mL/min (>60); Est Glom Filt Rate - Afr Amer 125 mL/min (>60); Estimated Creatinine Clearance 128.63 ml/min; Glucose 261 mg/dL (74-106); Potassium 4.4 mmol/L (3.5-5.1); Sodium Level 134 mmol/L (136-145)
[2021-05-17 20:48] LABS: Uric Acid 9.3 mg/dL (3.5-7.2)
[2021-05-17] MEDS: Lidocaine 1% (20 ml mdv) 20 ML Vial INFILT (21:45)
[2021-05-17] MEDS: predniSONE 20 MG Tablet 60 MG PO (21:50)
[2021-05-17 21:52] VITALS: RESP 18
== END 2021-05-17 21:53 | disposition home or self-care (01) ==
PROVIDERS: Emergency Provider Emergency Medicine; PCP Family Medicine; Visit Provider Emergency Medicine
DX: M25.521 Pain in right elbow (principal); E66.01 Morbid (severe) obesity due to excess calories; Z68.43 Body mass index [BMI] 50.0-59.9, adult; E11.9 Type 2 diabetes mellitus without complications; Z79.4 Long term (current) use of insulin; I10 Essential (primary) hypertension; E78.5 Hyperlipidemia, unspecified; J45.909 Unspecified asthma, uncomplicated; Z87.891 Personal history of nicotine dependence; Z79.899 Other long term (current) drug therapy
CPT/HCPCS: 73080; 80048; 84550; 85025; 85652; 96374; 96375; 99283; A4216; J2405

== ENCOUNTER 2021-06-09 09:21 | Outpatient (RCR) | payer MEDICAID, SELFPAY | END 2021-06-23 23:59 | disposition home or self-care (01) | LOC: WC 09:21 | PROVIDERS: PCP Family Medicine; Visit Provider Internal Medicine | DX: Z00.00 Encounter for general adult medical examination without abnormal findings (principal) ==

== ENCOUNTER 2021-07-07 13:30 | Emergency (ER) | payer MEDICAID, SELFPAY ==
[2021-07-07 13:32] VITALS: BP 157/96; PULSE 92; RESP 18; TEMP 36.4; O2SAT 92; BMI 53.5
--- NOTE | 2021-07-07 13:44 | CT_ITS ---
STUDY: CT PELVIS WITH CONTRAST REASON FOR EXAM: Male, 36 years old. Perineal abscess RADIATION DOSAGE (If Supplied By Facility): CTDIvol = ( 28.21 ) mGy, DLP = ( 1981.44 ) mGycm TECHNIQUE: Transaxial imaging of the pelvis was performed without oral contrast. IV 100mL Isovue-370 was administered intravenously. Individualized dose optimization techniques were used for this CT. COMPARISON: None. FINDINGS: There is evidence of diffuse soft tissue prominence in the subcutaneous fat of the perineum extending posteriorly. This is worse on the right side of the midline. This extends into the scrotal sacs bilaterally worse on the right side. A tiny air bubble is seen within the soft tissue prominence of the right side of the perineum at the junction with the scrotal sac. Normal urinary bladder. Normal visualized small intestine. Normal visualized colon. There is no pelvic fluid. There is no pelvic lymphadenopathy or mass lesion. Normal visualized pelvic arteries. Normal abdominal wall. Normal osseous structures. CT/Pelvis WITH IV Contrast IMPRESSION: Soft tissue prominence in the perineum worse on the right side extending into the scrotal sac with a tiny air bubble within the soft tissues on the right side. Electronically Signed: Celso Gray MD at 15:18 EDT ,
[2021-07-07 14:08] LABS: Absolute Lymphocyte Count 1.38 X10^3/uL (0.83-4.51); Absolute Neutrophil Count 6.9 X10^3/uL (2.0-7.7); Basophil# 0.02 X10^3/uL; Basophil% 0.2 % (0-1); Eosinophil# 0.31 X10^3/uL; Eosinophils% 3.4 % (0-5); Hematocrit 43.5 % (40-54); Lymphocyte # 1.38 X10^3/ul (0.83-4.51); Mean Corp Hgb Conc 32.2 g/dL (32-36); Mean Corpuscular Hgb 28.9 pg (27.0-32.0); Mean Corpuscular Volume 89.9 fL (80-94); Mean Platelet Vol. 9.8 fl (6.2-12.0); Monocyte% 6.5 % (0-10); NRBC Flagged by Analyzer 0 % (0-5); Neutrophil # 6.85 X10^3/uL (2.7-7.7); Neutrophil % 74.6 % (47-70); Platelet Count 266 K/mm3 (150-450); RBC Distribution Width CV 12.9 % (11.6-14.6); Red Blood Count 4.84 M/mm3 (4.6-6.2); White Blood Count 9.2 K/mm3 (4.4-11.0)
[2021-07-07 14:19] LABS: Anion Gap 4 (5-15); BUN 13 mg/dL (7-18); BUN/Creat Ratio 16.9 RATIO (10-20); Calcium,Total 8.9 mg/dL (8.5-10.1); Chloride 101 mmol/L (98-107); Creatinine, Serum 0.77 mg/dL (0.70-1.30); EST Glomerular Filtration Rate 120 mL/min (>60); Est Glom Filt Rate - Afr Amer 145 mL/min (>60); Estimated Creatinine Clearance 151.23 ml/min; Glucose 214 mg/dL (74-106); Potassium 4.4 mmol/L (3.5-5.1); Sodium Level 137 mmol/L (136-145)
[2021-07-07 14:31] LABS: Lactic Acid 1.1 mmol/L (0.4-1.9)
--- NOTE | 2021-07-07 15:18 | EDS_ITS ---
HPI <GABRIEL Hooker - Last Filed: 07/07/21 16:12> History of Present Illness Chief Complaint: Wound Narrative Narrative: Patient presents to the emergency department with complaints of a abscess to his scrotal area. Patient has history of hypertension, diabetes, obesity presents to the emergency department with 2 days of scrotal pain, possible abscess. Patient was referred here by his plastic surgeon office. Patient denies any fevers or chills. PFSH <GABRIEL Hooker - Last Filed: 07/07/21 16:12> [facility] Medical History (Updated 07/07/21 @ 16:10 by GABRIEL Hooker) Chronic asthma Diabetes Essential hypertension Former smoker Hemoglobin A1C greater than 9%, indicating poor diabetic control History of sinus bradycardia Hyperlipidemia Long-term insulin use Morbid obesity Morbid obesity with BMI of 50.0-59.9, adult Scrotal edema Sleep apnea Home Medications albuterol sulfate [Ventolin HFA] 1 - 2 puff INHALATION Q4H PRN PRN 07/08/18 [History Last Taken 07/07/18] insulin degludec 24 unit SQ BID 08/13/19 [History Last Taken 05/06/20] indomethacin 25 mg capsule 25 mg PO TID PRN #30 cap 05/18/21 [Rx Last Taken Unknown] insulin lispro 100 unit/mL subcutaneous pen 12 unit SUBCUT TIDCM ml 05/18/21 [History Last Taken Unknown] lisinopril 40 mg tablet 40 mg PO DAILY 05/18/21 [History Last Taken Unknown] doxycycline hyclate 100 mg capsule 100 mg PO BID #60 cap 06/14/21 [Rx Last Taken Unknown] True Metrix Glucose Meter #1 ea NS 07/04/21 [Rx Last Taken Unknown] blood sugar diagnostic #10 ea 07/04/21 [Rx Last Taken Unknown] lancets #100 ea 07/04/21 [Rx Last Taken Unknown] oxycodone-acetaminophen [Percocet] 1 tab PO Q6H PRN 3 Days #10 tab 07/07/21 [Rx Last Taken Unknown] Allergy/AdvReac Type Severity Reaction Status Date / Time metformin AdvReac Severe diarrhea Verified 07/07/21 13:35 GRASS Allergy SNEEZING Uncoded 07/07/21 13:35 Family History Other Hypertension Surgical History No pertinent past surgical history Social History Smoking Status: Former smoker how long ago did patient quit smokin, 3p/day second hand exposure: Yes alcohol intake: former substance use type: marijuana additional social history: Does Not Take Aspirin Does Not Take Ibuprofen ROS <GABRIEL Hooker - Last Filed: 07/07/21 16:12> ROS ED ROS Narrative Constitutional: Negative for fever, chills, weight loss, weakness Eyes: Negative for vision loss, vision change, double vision ENT: Negative for any sore throat, ear pain, congestion Cardiovascular: Negative for any chest pain, tightness, palpitations, racing heartbeat Respiratory: Negative for any cough, sputum production, hemoptysis, shortness of breath, shortness of breath on exertion, orthopnea Gastrointestinal: Negative for any abdominal pain, nausea, vomiting, diarrhea, constipation, blood in stool, blood in vomit : Negative for any urinary frequency, incontinence, dysuria, retention, blood in urine. Positive for scrotal pain, concern for scrotal abscess Muscle skeletal: Negative for any muscle joint pain, stiffness, myalgias, arthralgias, neck pain, back pain Neurological: Negative for any headache, dizziness, syncope, numbness or tingling Skin: Negative for any rashes, lumps, itching, abrasions, lacerations Psychiatric: Negative for any depression, anxiety, stress, suicidal ideation, homicidal ideation Hematologic: Negative for any easy bruising, excessive bruising, easy bleeding Allergies: Negative for any eczema, hives, rash EXAM <GABRIEL Hooker - Last Filed: 07/07/21 16:12> Physical Exam Narrative Exam Narrative: Vital signs reviewed. HEET: Head normocephalic atraumatic, TMs clear bilaterally. Posterior pharynx is clear, moist mucous membranes. Nares clear bilaterally. Neck: Supple with no lymphadenopathy or tenderness. No signs of meningismus, negative jolt sign. Cardiac: Regular rate and rhythm no murmurs gallops or rubs, equal peripheral pulses bilaterally. Respiratory: Lungs clear to auscultation bilaterally. No chest tenderness. Abdomen: Soft, nontender, nondistended. No abdominal bruit or pulsatile masses. No hepatosplenomegaly Extremities: No peripheral edema, no signs of gross trauma or deformity. Active full range of motion of all extremities. Neuro: Cranial nerves II through XII intact, no focal neurological deficits. Skin: Clean dry and intact with no rash, purpura, petechiae, vesicles or pustules. Backslash flank: No CVA tenderness, no midline spinal tenderness, no deformity. Psych: Normal mood and affect. No SI, HI or acute psychosis. Groin: Patient has large testicles bilaterally, patient has induration to the right posterior scrotum, slight tenderness to the perineal area. Patient states he has had infections here before. He has had to be admitted to the hospital for this before. No drainage is noted. This induration does not go around the rectum. Const Vital Signs: 07/07/21 13:32 Temperature 97.6 F L Temperature Source Temporal Pulse Rate 92 Respiratory Rate 18 Blood Pressure 157/96 H Blood Pressure Mean 116 Pulse Ox 92 Oxygen Delivery Method Room Air Positive well nourished and well developed General Appearance ED: well developed <Dr. Jayy Lugo DO - Last Filed: 07/07/21 16:07> Physical Exam Const Vital Signs: 07/07/21 13:32 Temperature 97.6 F L Temperature Source Temporal Pulse Rate 92 Respiratory Rate 18 Blood Pressure 157/96 H Blood Pressure Mean 116 Pulse Ox 92 Oxygen Delivery Method Room Air MDM <GABRIEL Hooker - Last Filed: 07/07/21 16:12> [facility] Narrative Medical decision making narrative: Patient appears well, patient appears nontoxic, vital signs are stable. Patient presents to the emergency department with a scrotal abscess. Patient did receive some basic laboratory values, patient CBC was unremarkable, negative for any leukocytosis, patient's chemistries were unremarkable did have an elevated blood glucose of 214, negative lactic acid. Patient did receive a CT scan of the pelvis with IV contrast, this did show soft tissue prominence in the perineum worse on the right side extending into the scrotal sac with tiny air bubble with in the soft tissues on the right side. Due to this, having a normal laboratory studies, I did offer the patient simple I&D here, he refused, stating that he is to be completely out for this. I told him that is not possible today, and he will need to seek follow-up. There is no urology coverage at this time, we came up with a plan using shared decision-making, the patient will come back to this facility Sunday during the afternoon, for reevaluation. If the abscess is gotten worse he will be transferred to an appropriate center, or if it is improving he will stay on the same therapy. Patient will continue the doxycycline, I will give him a couple days of pain medicine, he is instructed to keep his sugars under control and will follow up this upcoming Sunday which is 2 days at the [facility] emergency department. Patient is stable for discharge. Lab Data Attestation: I reviewed the patient's lab results. Labs: Laboratory Results - last 24 hr 07/07/21 07/07/21 07/07/21 13:55 13:55 13:55 WBC 9.2 RBC 4.84 Hgb 14.0 Hct 43.5 MCV 89.9 MCH 28.9 MCHC 32.2 RDW Std Deviation 42.0 RDW Coeff of Ryan 12.9 Plt Count 266 MPV 9.8 Immature Gran % (Auto) 0.300 Neut % (Auto) 74.6 H Lymph % (Auto) 15.0 L [place] % (Auto) 6.5 Eos % (Auto) 3.4 Baso % (Auto) 0.2 Absolute Neuts (auto) 6.9 Absolute Lymphs (auto) 1.38 Nucleated RBC % 0 Sodium 137 Potassium 4.4 Chloride 101 Carbon Dioxide 32.0 Anion Gap 4 L BUN 13 Creatinine 0.77 Estim Creat Clear Calc 151.23 Est GFR (MDRD) Af Amer 145 Est GFR (MDRD) Non-Af 120 BUN/Creatinine Ratio 16.9 Glucose 214 H Lactic Acid 1.1 Calcium 8.9 Radiography Diagnostic Testing: Clinical Impression(s) from Imaging Studies Pelvis CT 07/07/21 13:44 IMPRESSION: Soft tissue prominence in the perineum worse on the right side extending into the scrotal sac with a tiny air bubble within the soft tissues on the right side. Electronically Signed: Celso Gray MD at 15:18 EDT , <Dr. Jayy Lugo, DO - Last Filed: 07/07/21 16:07> [facility] Narrative Medical decision making narrative: I have personally performed a face to face assessment of the patient and have reviewed the TRICIA Note. I performed a substantive portion of the visit including all aspects of the following. My fulton findings include: History: Patient presents with pain and swelling to his right scrotum that has been getting worse over the past couple days. Patient is on doxycycline for thi s. Patient states it is not improving. Patient states he was having some discharge and drainage from the area. Patient denies any fevers or chills. Patient denies any urinary complaints. Exam: Vital signs are stable. Patient is mildly hypertensive at 157/96. Patient is afebrile. Patient is in no acute distress. Heart was regular rate and rhythm. Lungs are clear and equal bilaterally. Abdomen is soft and nontender. Skin is warm and dry. There is a indurated tender area over the right side of the scrotum. There is minimal fluctuance. There is no active discharge or drainage. Medical Decison Making CBC was within normal limits. Basic metabolic profile showed a slightly elevated glucose of 214. This was improved from previous results. Lactate was normal. CT scan of the pelvis was obtained. There is soft tissue prominence on the right side of the scrotum with a tiny air bubble in the soft tissues on the right side. This was interpreted by the radiologist and reviewed by myself. Plan was to perform an incision and drainage over this area. Patient is refusing this. Patient was given a dose of Zosyn here. We will attempt to contact urology to schedule follow-up appointment for further evaluation. We were unable to contact urology. Patient will be instructed to follow back up here in 2 days for reevaluation. Patient is agreeable with this plan. All questions were answered. Lab Data Attestation: I reviewed the patient's lab results. Labs: Laboratory Results - last 24 hr 07/07/21 07/07/21 07/07/21 13:55 13:55 13:55 WBC 9.2 RBC 4.84 Hgb 14.0 Hct 43.5 MCV 89.9 MCH 28.9 MCHC 32.2 RDW Std Deviation 42.0 RDW Coeff of Ryan 12.9 Plt Count 266 MPV 9.8 Immature Gran % (Auto) 0.300 Neut % (Auto) 74.6 H Lymph % (Auto) 15.0 L Oldham % (Auto) 6.5 Eos % (Auto) 3.4 Baso % (Auto) 0.2 Absolute Neuts (auto) 6.9 Absolute Lymphs (auto) 1.38 Nucleated RBC % 0 Sodium 137 Potassium 4.4 Chloride 101 Carbon Dioxide 32.0 Anion Gap 4 L BUN 13 Creatinine 0.77 Estim Creat Clear Calc 151.23 Est GFR (MDRD) Af Amer 145 Est GFR (MDRD) Non-Af 120 BUN/Creatinine Ratio 16.9 Glucose 214 H Lactic Acid 1.1 Calcium 8.9 Radiography Diagnostic Testing: Clinical Impression(s) from Imaging Studies Pelvis CT 07/07/21 13:44 IMPRESSION: Soft tissue prominence in the perineum worse on the right side extending into the scrotal sac with a tiny air bubble within the soft tissues on the right side. Electronically Signed: Celso Gray MD at 15:18 EDT , Discharge Plan Triage Chief Complaint: Wound ED Midlevel Provider: Maurice Matos ED Provider: Jayy Lugo Dx/Rx/DC Orders Clinical Impression: Abscess of scrotal wall Instructions: ED Abscess Antibiotic Treatment Only Prescriptions: New oxycodone-acetaminophen [Percocet] 5-325 mg tablet 1 tab PO Q6H PRN (Reason: pain) 3 Days Qty: 10 RF: 0 No Action lisinopril 40 mg tablet 40 mg PO DAILY RF: 0 indomethacin 25 mg capsule 25 mg PO TID PRN (Reason: premature labor) Qty: 30 RF: 0 doxycycline hyclate 100 mg capsule 100 mg PO BID Qty: 60 RF: 1 (DME) blood-glucose meter [True Metrix Glucose Meter] Misc See Rx Instructions .ROUTE .MEDSUPPLY Qty: 1 RF: 0 (DME) True Metrix Glucose Test Strip Strip See Rx Instructions .ROUTE .MEDSUPPLY Qty: 10 RF: 0 (DME) lancets [Unilet ComforTouch Lancet] Misc See Rx Instructions .ROUTE .MEDSUPPLY Qty: 100 RF: 7 albuterol sulfate [Ventolin HFA] 108 HFA aerosol inhaler 1 - 2 puff inhalation Q4H PRN PRN (Reason: Sob &/Or Wheezing) RF: 0 insulin degludec 100 UNIT/ML insulin pen 24 unit SQ BID RF: 0 insulin lispro 100 unit/mL insulin pen 12 unit subcut TIDCM RF: 0 Primary Care Provider: Kennedy Fernandes Referrals: Kennedy Fernandes MD [Primary Care Provider] - Activity Restrictions/Additional Instructions: Please take your antibiotics as prescribed, use the pain medicine as needed. Please return here this Sunday between the time 3 PM to 11 P. Please return for worsening symptoms at any time. Print Language: [place] Disposition Disposition: Home, Self Care
[2021-07-07 16:25] VITALS: BP 159/73; PULSE 90; RESP 15; O2SAT 97
== END 2021-07-07 16:26 | disposition home or self-care (01) ==
PROVIDERS: Nurse Practitioner; Emergency Provider Emergency Medicine; PCP Family Medicine; Visit Provider Emergency Medicine
DX: N49.2 Inflammatory disorders of scrotum (principal); E66.01 Morbid (severe) obesity due to excess calories; Z68.43 Body mass index [BMI] 50.0-59.9, adult; E11.9 Type 2 diabetes mellitus without complications; Z79.4 Long term (current) use of insulin; Z87.891 Personal history of nicotine dependence; E78.5 Hyperlipidemia, unspecified; I10 Essential (primary) hypertension; J45.909 Unspecified asthma, uncomplicated; G47.30 Sleep apnea, unspecified; Z79.899 Other long term (current) drug therapy
CPT/HCPCS: 72193; 80048; 83605; 85025; 99282; Q9967; A4216

== ENCOUNTER 2021-07-09 17:43 | Emergency (ER) | payer MEDICAID, SELFPAY ==
[2021-07-09 17:46] VITALS: BP 182/81; PULSE 87; RESP 18; TEMP 36.8; O2SAT 97; BMI 53.5
[2021-07-09 17:51] VITALS: BP 182/81; PULSE 87; RESP 18; TEMP 36.8; O2SAT 97
--- NOTE | 2021-07-09 18:26 | EDS_ITS ---
HPI History of Present Illness Chief Complaint: Wound Check Informant: patient Onset/Context/Timing Onset: Days Context: Gradual Onset Timing: Continuous Quality: Indurated and swollen Location: Right side of scrotum Worsened by: Nothing Relieved by: Nothing Narrative Narrative: Patient presents for reexamination of the scrotal abscess. Patient was seen here 2 days ago for this. Patient was on doxycycline for it. Patient states the infection seems to be improving. Patient states the swelling is not improving however. Patient states that he has been on Lasix intermittently for swelling in the past. Patient states that his primary care physician would prescribe this to him for a few days nearly every months. Patient states that he has not followed up with his primary care physician about this. Patient is asking if we can give him a prescription for Lasix to help with the swelling. Patient denies any fevers or chills. Patient denies any discharge or drainage. Patient states she is still taking his doxycycline as prescribed. [facility] Medical History Chronic asthma Diabetes Essential hypertension Former smoker Hemoglobin A1C greater than 9%, indicating poor diabetic control History of sinus bradycardia Hyperlipidemia Long-term insulin use Morbid obesity Morbid obesity with BMI of 50.0-59.9, adult Scrotal edema Sleep apnea Home Medications albuterol sulfate [Ventolin HFA] 1 - 2 puff INHALATION Q4H PRN PRN 07/08/18 [History Last Taken 07/07/18] lisinopril 40 mg tablet 40 mg PO DAILY 05/18/21 [History Last Taken Unknown] doxycycline hyclate 100 mg capsule 100 mg PO BID #60 cap 06/14/21 [Rx Last Taken Unknown] True Metrix Glucose Meter #1 ea NS 07/04/21 [Rx Last Taken Unknown] blood sugar diagnostic #10 ea 07/04/21 [Rx Last Taken Unknown] lancets #100 ea 07/04/21 [Rx Last Taken Unknown] oxycodone-acetaminophen [Percocet] 1 tab PO Q6H PRN 3 Days #10 tab 07/07/21 [Rx Last Taken Unknown] furosemide [Lasix] 20 mg PO DAILY #5 tab 07/09/21 [Rx Last Taken Unknown] indomethacin 25 mg PO TID PRN 07/09/21 [History Last Taken Unknown] insulin degludec [Tresiba FlexTouch U-100] 60 unit SUBCUT DAILY 07/09/21 [History Last Taken Unknown] insulin lispro 25 unit SUBCUT TIDCM 07/09/21 [History Last Taken Unknown] Allergy/AdvReac Type Severity Reaction Status Date / Time metformin AdvReac Severe diarrhea Verified 07/09/21 17:48 GRASS Allergy SNEEZING Uncoded 07/09/21 17:48 Family History Other Hypertension Surgical History No pertinent past surgical history Social History Smoking Status: Former smoker how long ago did patient quit smokin, 3p/day second hand exposure: Yes alcohol intake: former substance use type: marijuana additional social history: Does Not Take Aspirin Does Not Take Ibuprofen ROS ROS ED Constitutional Constitutional ED: Denies chills or fever(s) Eyes Eyes: Denies blurry vision or change in vision ENT ENT ED: Denies rhinorrhea or sore throat Cardiovascular Cardiovascular: Denies chest pain or palpitations Respiratory/Chest Respiratory/Chest: Denies cough or dyspnea Gastrointestinal Gastrointestinal: Denies nausea or vomiting Genitourinary Genitourinary ED: Denies dysuria or hematuria Musculoskeletal Musculoskeletal: Denies back pain or neck pain Integumentary Reports abscess; Denies Abrasions Neurologic Neurologic: Denies headache(s) or weakness Allergic/Immunologic Allergic/Immunologic ED: Denies mouth swelling or urticaria EXAM Physical Exam Const Vital Signs: 07/09/21 17:46 07/09/21 17:51 Temperature 98.2 F 98.2 F Temperature Source Temporal Temporal Pulse Rate 87 87 Respiratory Rate 18 18 Blood Pressure 182/81 H 182/81 H Blood Pressure Mean 114 114 Pulse Ox 97 97 Oxygen Delivery Method Room Air Room Air Positive well nourished and well developed General Appearance ED: well developed HEENT Reports moist mucous membranes Neck supple and no JVD Extremity General Extremety ED: Negative for edema or tenderness General Extremity: Negative for edema Neuro oriented x3, CN's II-XII intact bilaterally and no sensory deficits noted Sensorium / Orientation: alert Motor Exam: strength 5/5 throughout Psych mental status grossly normal Skin Skin Narrative: There is some induration over the lateral aspect of the right side of the scrotum. There is no discharge or drainage. There is some mild erythema. This was improved compared to 2 days ago when he was in here. There is no fluctuance. There is no evidence of any abscess. There is no tenderness over the testicles themselves. MDM MDM MDM Narrative Medical decision making narrative: Patient was instructed to continue his doxycycline as prescribed until gone. Patient was given a prescription for a short term course of Lasix. Patient was instructed to follow-up with his primary care physician in 3 to 5 days for reevaluation. Patient understood and was agreeable with the plan. All questions were answered. Discharge Plan Triage Chief Complaint: Wound Check ED Provider: Jayy Lugo Dx/Rx/DC Orders Clinical Impression: Cellulitis of scrotum, Morbid obesity with BMI of 50.0-59.9, adult Instructions: ED Cellulitis Prescriptions: New furosemide [Lasix] 20 mg tablet 20 mg PO DAILY Qty: 5 RF: 0 No Action lisinopril 40 mg tablet 40 mg PO DAILY RF: 0 doxycycline hyclate 100 mg capsule 100 mg PO BID Qty: 60 RF: 1 (DME) blood-glucose meter [True Metrix Glucose Meter] Misc See Rx Instructions .ROUTE .MEDSUPPLY Qty: 1 RF: 0 (DME) True Metrix Glucose Test Strip Strip See Rx Instructions .ROUTE .MEDSUPPLY Qty: 10 RF: 0 (DME) lancets [Unilet ComforTouch Lancet] Misc See Rx Instructions .ROUTE .MEDSUPPLY Qty: 100 RF: 7 albuterol sulfate [Ventolin HFA] 108 HFA aerosol inhaler 1 - 2 puff inhalation Q4H PRN PRN (Reason: Sob &/Or Wheezing) RF: 0 oxycodone-acetaminophen [Percocet] 5-325 mg tablet 1 tab PO Q6H PRN (Reason: pain) 3 Days Qty: 10 RF: 0 indomethacin 25 mg capsule 25 mg PO TID PRN (Reason: gout) RF: 0 insulin lispro 100 unit/mL insulin pen 25 unit SUBCUT TIDCM RF: 0 Tresiba FlexTouch U-100 100 unit/mL (3 mL) insulin pen 60 unit SUBCUT DAILY RF: 0 Primary Care Provider: Kennedy Fernandes Referrals: Kennedy Fernandes MD [Primary Care Provider] - 3-5 Days Disposition Disposition: Home, Self Care
[2021-07-09 18:42] VITALS: BP 155/91; PULSE 85; RESP 16; O2SAT 94
== END 2021-07-09 18:43 | disposition home or self-care (01) ==
PROVIDERS: Emergency Provider Emergency Medicine; PCP Family Medicine; Visit Provider Emergency Medicine
DX: N49.2 Inflammatory disorders of scrotum (principal); E66.01 Morbid (severe) obesity due to excess calories; Z68.43 Body mass index [BMI] 50.0-59.9, adult; E11.9 Type 2 diabetes mellitus without complications; Z79.4 Long term (current) use of insulin; E78.5 Hyperlipidemia, unspecified; I10 Essential (primary) hypertension; Z87.891 Personal history of nicotine dependence; G47.30 Sleep apnea, unspecified; Z79.899 Other long term (current) drug therapy
CPT/HCPCS: 99282

== ENCOUNTER 2022-02-23 11:37 | Inpatient (IN) | payer MEDICAID, SELFPAY ==
[2022-02-23] VITALS (8 sets, daily range): BP systolic 111–176; BP diastolic 62–96; PULSE 96–104; RESP 16–18; TEMP 36–37.2; O2SAT 92–96; BMI 53.8; BMI 58.2
--- NOTE | 2022-02-23 12:22 | CT_ITS ---
STUDY: CT PELVIS WITH CONTRAST REASON FOR EXAM: Male, 36 years old. Scrotal pain and swelling evaluate [employer] RADIATION DOSAGE (If Supplied By Facility): CTDIvol = ( 27.24 ) mGy, DLP = ( 1681.42 ) mGycm TECHNIQUE: Transaxial imaging of the pelvis was performed without oral contrast. IV 100mL Isovue-300 was administered intravenously. Multiplanar coronal and sagittal images were reformatted. Individualized dose optimization techniques were used for this CT. COMPARISON: Comparison is made with prior study dated 07/07/2021. FINDINGS: Normal urinary bladder. Normal visualized small intestine. Normal visualized colon. There is no pelvic fluid. There is no pelvic lymphadenopathy or mass lesion. Normal visualized pelvic arteries. Diffuse anterior abdominal wall skin thickening with evidence of a subcutaneous edematous changes. Marked degree of diffuse thickening of the scrotum. Tiny air bubble seen along the right scrotal wall. A small amount of air is also seen within the anterior aspect of the urethra. There are degenerative changes of the visualized lumbar spine. CT/Pelvis WITH IV Contrast IMPRESSION: Marked degree of diffuse scrotal skin thickening. Tiny amount of air bubbles seen in the right scrotal wall. Electronically Signed: Celso Gray MD at 14:22 EST ,
--- NOTE | 2022-02-23 12:29 | EX.ED.GUMALE ---
HPI History of Present Illness Chief Complaint: Male Pain/Injury Detail of Chief Complaint: Scrotal pain and swelling Informant: patient Pain Onset: Days Context: Sudden Onset Timing: Continuous Current Severity: Mild Maximum Severity: Severe Worsened by: Movement and palpation Relieved by: Nothing Appearance Lesion(s): No Genital Edema: Yes Penile Discharge Genital Discharge Amount: None Urinary Symptoms Genitourinary Symptoms: No Symptoms Related History Sexually: Inactive Narrative Narrative: Patient is a 36-year-old male with history of diabetes. He has history of scrotal abscess in the past. He presents because his scrotum has increased markedly in size. He is unable to urinate. He states he stands over the toilet and does his best. He denies fever or chills. He denies perineal pain denies rectal pain. He has not noticed any drainage from his scrotum or penis. Patient denies headache, visual, ocular auditory symptoms. Patient denies cardiac or respiratory symptoms. Patient denies GI symptoms. Prior similar symptoms: No Recent Illness/Hospitalization: No PFSH PFSH Medical History Chronic asthma Diabetes Essential hypertension Former smoker Hemoglobin A1C greater than 9%, indicating poor diabetic control History of sinus bradycardia Hyperlipidemia Long-term insulin use Morbid obesity Morbid obesity with BMI of 50.0-59.9, adult Scrotal edema Sleep apnea Home Medications albuterol sulfate 90 mcg/actuation aerosol inhaler (Ventolin HFA) 1 - 2 puff inhalation Q4H PRN PRN Sob &/Or Wheezing 07/08/18 [History Last Taken 02/22/22] lisinopril 40 mg tablet 40 mg PO DAILY 05/18/21 [History Last Taken 02/22/22] True Metrix Glucose Meter (blood-glucose meter) #1 ea 07/04/21 [Rx Last Taken Unknown] lancets (Unilet ComforTouch Lancet) #100 ea 07/04/21 [Rx Last Taken Unknown] True Metrix Glucose Test Strip (blood sugar diagnostic) #100 ea 01/02/22 [Rx Last Taken Unknown] insulin degludec 200 unit/mL (3 mL) subcutaneous pen (Tresiba FlexTouch U-200 insulin) 74 unit subcut QHS 02/23/22 [History Last Taken 02/23/22] insulin lispro 100 unit/mL subcutaneous pen 55 unit subcut TID 02/23/22 [History Last Taken 02/23/22] Allergy/AdvReac Type Severity Reaction Status Date / Time grass pollen Allergy Other Verified 02/23/22 11:40 metformin AdvReac Severe diarrhea Verified 02/23/22 11:40 Family History Other Hypertension Surgical History No pertinent past surgical history Social History (Updated 02/23/22 @ 12:[address] Milan Esparza MD) household members: none Smoking Status: Former smoker how long ago did patient quit smokin, 3p/day second hand exposure: Yes alcohol intake: former substance use type: marijuana additional social history: Does Not Take Aspirin Does Not Take Ibuprofen ROS ROS ED Constitutional Constitutional ED: Denies chills, fever(s), subjective, sweats or weight loss Eyes Eyes: Denies blurry vision or change in vision ENT ENT ED: Denies ear pain, rhinorrhea or sore throat Cardiovascular Cardiovascular: Denies chest pain, orthopnea, palpitations, paroxysmal nocturnal dyspnea or racing heartbeat Respiratory/Chest Respiratory/Chest: Reports dyspnea on exertion; Denies cough, dyspnea, orthopnea or paroxysmal nocturnal dyspnea Gastrointestinal Gastrointestinal: Denies abdominal pain, constipation, diarrhea, melena, nausea or vomiting Genitourinary Genitourinary ED: Reports other Details: Per HPI ; Denies dysuria, hematuria or urinary frequency Musculoskeletal Musculoskeletal: Denies arthralgias, back pain, myalgias or neck pain Integumentary Reports rash; Denies abscess Neurologic Neurologic: Denies headache(s), paresthesias or weakness Endocrine Endocrinology: Denies polydipsia, polyphagia or polyuria EXAM Physical Exam Const Vital Signs: 02/23/22 11:38 02/23/22 13:38 02/23/22 15:00 Temperature 96.8 F L 98.4 F 98.2 F Temperature Source Temporal Temporal Temporal Pulse Rate 104 H 99 97 Respiratory Rate 16 16 18 Blood Pressure 176/96 H 154/96 H 154/84 H Blood Pressure Mean 122 115 107 Pulse Ox 96 92 93 Oxygen Delivery Method Room Air Room Air Room Air Positive well nourished, well developed and obese Constitutional Narrative: Patient looks pale. He does not look well. He is morbidly obese with a BMI of 53.9. General Appearance ED: well developed Nutritional Appearance: obese HEENT Reports dry mucous membranes HEENT Narrative: Ears normal. Uvula midline. No erythema or exudate the posterior pharynx. normocephalic and atraumatic Mouth ED: Yes dry mucous membranes Mouth: dry mucous membranes Eyes PERRL and EOMs intact bilaterally General Eye ED: Negative for pale conjunctiva or scleral icterus Neck no lymphadenopathy, supple and no JVD Resp normal respiratory effort and clear to auscultation bilaterally Cardio regular rhythm, S1 normal heart sound, S2 normal heart sound and no murmurs Rate: tachycardic GI non-tender, non-distended and no masses Auscultation: hypoactive bowel sounds Palpation: soft no CVA tenderness Narrative: Unable to visualize the penis. The scrotum is markedly enlarged the size of a cantaloupe. There is erythema induration and slight warmth. There is breakdown of tissue. There is a open area right side of the scrotum secondary to prior I&D. He complains of perineal pain. There is no crepitus or subcutaneous air appreciated. Difficult to perform rectal exam. Back/Spine Cervical Spine: Negative for cervical spine tenderness Thoracic Spine / Upper Back: Negative for thoracic spinal tenderness Lumbar Spine / Lower Back: Negative for lumbar spinal tenderness Extremity normal to inspection General Extremety ED: Yes edema; Negative for pulses abnormal General Extremity: edema; Negative for pulses abnormal Neuro oriented x3, CN's II-XII intact bilaterally and moves all extremities Sensorium / Orientation: alert Psych mental status grossly normal Skin Skin Narrative: Documented under the urologic examination General Skin Exam: Negative for jaundice Rashes: No no rashes MDM MDM MDM Narrative Medical decision making narrative: Since patient has morbid obesity he would be high risk for surgery at [facility]. He will be transferred to tertiary center. Per his preference was paged. Patient presents with abrupt onset of scrotal pain, swelling and redness with rash. 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 Appropriate blood work was ordered. Antibiotics ordered as well. First antibiotic to be given was clindamycin. CT of the pelvis and scrotum were ordered. Patient would benefit from Bruner however unable to see the glans and patient refuses Bruner. [facility], [facility], [facility] and [facility] were all contacted. We were informed there is a 2 to 3-day wait. 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 Spoke with Dr. Ling. He will see patient in consultation. Requested admission to medical service. Dr. Ling was made aware that patient cannot be transferred. He also was made aware that medicine would manage him medically. Dr. Henry will see patient. Lab Data Attestation: I reviewed the patient's lab results. Lab results narrative: CBC is remarkable for mild shift with normal white count. Comprehensive metabolic panel is remarkable for CO2 of 35 most likely due to obstructive sleep apnea. Blood sugar is 169. Lactate is normal. Labs: Laboratory Results - last 24 hr 02/23/22 02/23/22 02/23/22 12:38 12:38 12:38 WBC 7.4 RBC 5.20 Hgb 14.2 Hct 46.9 MCV 90.2 MCH 27.3 MCHC 30.3 L RDW Std Deviation 47.2 H RDW Coeff of Ryan 14.2 Plt Count 248 MPV 9.7 Immature Gran % (Auto) 0.500 Neut % (Auto) 77.9 H Lymph % (Auto) 12.5 L [place] % (Auto) 6.8 Eos % (Auto) 2.0 Baso % (Auto) 0.3 Absolute Neuts (auto) 5.8 Absolute Lymphs (auto) 0.92 Nucleated RBC % 0 Sodium 136 Potassium 4.8 Chloride 97 L Carbon Dioxide 35.0 H Anion Gap 4 L BUN 14 Creatinine 0.92 Estim Creat Clear Calc 126.58 Est GFR (MDRD) Af Amer 118 Est GFR (MDRD) Non-Af 97 BUN/Creatinine Ratio 15.2 Glucose 169 H Lactic Acid 1.2 Calcium 8.4 L Total Bilirubin 0.50 AST 38 H ALT 35 Alkaline Phosphatase 67 Total Protein 7.3 Albumin 2.3 L Globulin 5.0 H Albumin/Globulin Ratio 0.5 L Radiography Diagnostic Testing: Clinical Impression(s) from Imaging Studies Pelvis CT 02/23/22 12:22 IMPRESSION: Marked degree of diffuse scrotal skin thickening. Tiny amount of air bubbles seen in the right scrotal wall. Electronically Signed: Celso Gray MD at 14:22 EST , With marked diffuse scrotal thickening and air bubbles noted on the right side of the scrotal wall concerned this is an early case of Gila's gangrene. We will add vancomycin. Urology has been paged. Because there is concern he may require transfer rapid COVID test was obtained. EKG Initial EKG: Attestation: I personally reviewed and interpreted this EKG as follows: Interpretation: Sinus Rhythm (Tachycardia with a short CA interval. QRS duration 84 ms. QT duration 3 and 16 ms. [place] is normal. There is decreased anterior forces. 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, Diabetes, Long-term insulin use, Essential hypertension, Morbid obesity, Sleep apnea Prescriptions: No Action lisinopril 40 mg tablet 40 mg PO DAILY (DME) blood-glucose meter [True Metrix Glucose Meter] Misc See Rx Instructions .ROUTE .MEDSUPPLY Qty: 1 0RF Rx Instructions: As directed (DME) lancets [Unilet ComforTouch Lancet] Misc See Rx Instructions .ROUTE .MEDSUPPLY Qty: 100 7RF Rx Instructions: tid albuterol sulfate [Ventolin HFA] 108 HFA aerosol inhaler 1 - 2 puff inhalation Q4H PRN PRN (Reason: Sob &/Or Wheezing) insulin lispro 100 unit/mL insulin pen 55 unit subcut TID Rx Instructions: +SS: 200-249+5; 250-299+10; >300+15 insulin degludec [Tresiba FlexTouch U-200] 200 unit/mL (3 mL) insulin pen 74 unit subcut QHS (DME) True Metrix Glucose Test Strip Strip See Rx Instructions .ROUTE .MEDSUPPLY Qty: 100 3RF Rx Instructions: 3x/day Primary Care Provider: Kennedy Fernandes Referrals: Kennedy Fernandes MD [Primary Care Provider] -
[2022-02-23 12:45] LABS: Absolute Lymphocyte Count 0.92 X10^3/uL (0.83-4.51); Absolute Neutrophil Count 5.8 X10^3/uL (2.0-7.7); Basophil# 0.02 X10^3/uL; Basophil% 0.3 % (0-1); Eosinophil# 0.15 X10^3/uL; Hematocrit 46.9 % (40-54); Hemoglobin 14.2 g/dL (13.0-16.5); Lymphocyte # 0.92 X10^3/ul (0.83-4.51); Lymphocyte % 12.5 % (19-41); Mean Corp Hgb Conc 30.3 g/dL (32-36); Mean Corpuscular Hgb 27.3 pg (27.0-32.0); Mean Corpuscular Volume 90.2 fL (80-94); Mean Platelet Vol. 9.7 fl (6.2-12.0); Monocyte% 6.8 % (0-10); NRBC Flagged by Analyzer 0 % (0-5); Neutrophil # 5.75 X10^3/uL (2.7-7.7); Neutrophil % 77.9 % (47-70); Platelet Count 248 K/mm3 (150-450); RBC Distribution Width CV 14.2 % (11.6-14.6); RBC Distribution Width SD 47.2 fl (35.1-43.9); White Blood Count 7.4 K/mm3 (4.4-11.0)
[2022-02-23] MEDS: Ondansetron 4 MG/2 ML Vial IV (12:56)
[2022-02-23] MEDS: HYDROmorphone 1 MG/ML Syringe 0.5 MG IV ×2 (12:56→21:57)
[2022-02-23 13:01] LABS: ALB/GLOB Ratio 0.5 RATIO (0.9-2.4); AST(SGOT) 38 U/L (15-37); Alanine Aminotransfer ALT/SGPT 35 U/L (16-61); Albumin, Serum 2.3 g/dL (3.2-5.0); Alkaline Phosphatase 67 U/L (45-117); Anion Gap 4 (5-15); BUN 14 mg/dL (7-18); BUN/Creat Ratio 15.2 RATIO (10-20); Calcium,Total 8.4 mg/dL (8.5-10.1); Chloride 97 mmol/L (98-107); Creatinine, Serum 0.92 mg/dL (0.70-1.30); EST Glomerular Filtration Rate 97 mL/min (>60); Est Glom Filt Rate - Afr Amer 118 mL/min (>60); Estimated Creatinine Clearance 126.58 ml/min; Glucose 169 mg/dL (74-106); Potassium 4.8 mmol/L (3.5-5.1); Protein, Total 7.3 g/dL (6.4-8.2); Sodium Level 136 mmol/L (136-145)
[2022-02-23 13:10] LABS: Lactic Acid 1.2 mmol/L (0.4-1.9)
--- NOTE | 2022-02-23 14:55 | EKG12_ITS ---
Test Reason : Blood Pressure : / mmHG Vent. Rate : 114 BPM Atrial Rate : 114 BPM P-R Int : 136 ms QRS Dur : 084 ms QT Int : 316 ms P-R-T Axes : 251 084 030 degrees QTc Int : 435 ms Unusual p axis and short [place], possible ectopic atrial tachycardia Low voltage QRS Septal infarct , age undetermined, cannot be excluded Abnormal ECG Confirmed by MASOUD CRAVEN, FELIX ([id number]), publication editor TERESA WALDROP ([id number]) on 03/01/2022 9:05:01 AM Referred By: Confirmed By:FELIX MEREDITH MD
[2022-02-23] MEDS: HYDROmorphone 1 MG/ML Syringe IV (16:19)
--- NOTE | 2022-02-23 17:11 | CON.PCM.HO_ITS ---
HPI Consult Data Date of Consult: 02/23/22 HPI Narrative HPI Narrative: LAWANDA BETTS, is a 36 M who presents [facility] Medical History Chronic asthma Diabetes Essential hypertension Former smoker Hemoglobin A1C greater than 9%, indicating poor diabetic control History of sinus bradycardia Hyperlipidemia Long-term insulin use Morbid obesity Morbid obesity with BMI of 50.0-59.9, adult Scrotal edema Sleep apnea Home Medications albuterol sulfate 90 mcg/actuation aerosol inhaler (Ventolin HFA) 1 - 2 puff inhalation Q4H PRN PRN Sob &/Or Wheezing 07/08/18 [History Last Taken 02/22/22] lisinopril 40 mg tablet 40 mg PO DAILY 05/18/21 [History Last Taken 02/22/22] True Metrix Glucose Meter (blood-glucose meter) #1 ea 07/04/21 [Rx Last Taken Unknown] lancets (Unilet ComforTouch Lancet) #100 ea 07/04/21 [Rx Last Taken Unknown] True Metrix Glucose Test Strip (blood sugar diagnostic) #100 ea 01/02/22 [Rx Last Taken Unknown] insulin degludec 200 unit/mL (3 mL) subcutaneous pen (Tresiba FlexTouch U-200 insulin) 74 unit subcut QHS 02/23/22 [History Last Taken 02/23/22] insulin lispro 100 unit/mL subcutaneous pen 55 unit subcut TID 02/23/22 [History Last Taken 02/23/22] Allergy/AdvReac Type Severity Reaction Status Date / Time grass pollen Allergy Other Verified 02/23/22 11:40 metformin AdvReac Severe diarrhea Verified 02/23/22 11:40 Family History Other Hypertension Surgical History No pertinent past surgical history Social History (Updated 02/23/22 @ 12:[address] Milan Esparza MD) household members: none Smoking Status: Former smoker how long ago did patient quit smokin, 3p/day second hand exposure: Yes alcohol intake: former substance use type: marijuana additional social history: Does Not Take Aspirin Does Not Take Ibuprofen Lab / Micro Data Result Diagrams: 02/23/22 12:38 02/23/22 12:38 Labs: Laboratory Results - last 24 hr 02/23/22 12:38: WBC 7.4, RBC 5.20, Hgb 14.2, Hct 46.9, MCV 90.2, MCH 27.3, MCHC 30.3 L, RDW Std Deviation 47.2 H, RDW Coeff of Ryan 14.2, Plt Count 248, MPV 9.7, Immature Gran % (Auto) 0.500, Neut % (Auto) 77.9 H, Lymph % (Auto) 12.5 L, [place] % (Auto) 6.8, Eos % (Auto) 2.0, Baso % (Auto) 0.3, Absolute Neuts (auto) 5.8, Absolute Lymphs (auto) 0.92, Nucleated RBC % 0 02/23/22 12:38: Sodium 136, Potassium 4.8, Chloride 97 L, Carbon Dioxide 35.0 H, Anion Gap 4 L, BUN 14, Creatinine 0.92, Estim Creat Clear Calc 126.58, Est GFR (MDRD) Af Amer 118, Est GFR (MDRD) Non-Af 97, BUN/Creatinine Ratio 15.2, Glucose 169 H, Calcium 8.4 L, Total Bilirubin 0.50, AST 38 H, ALT 35, Alkaline Phosphatase 67, Total Protein 7.3, Albumin 2.3 L, Globulin 5.0 H, Albumin/Globulin Ratio 0.5 L 02/23/22 12:38: Lactic Acid 1.2 Micro: Microbiology 02/23/22 14:50 Nasal Secretion SARS-CoV-2 Antigen (Rapid) - Final Radiology Impression Pelvis CT 02/23/22 12:22 IMPRESSION: Marked degree of diffuse scrotal skin thickening. Tiny amount of air bubbles seen in the right scrotal wall. Electronically Signed: Celso Gray MD at 14:22 EST ,
--- NOTE | 2022-02-23 17:33 | HP.PCM.HOS_ITS ---
HPI - General General Date of Admission: 02/23/22 Date of Service: 02/23/22 Chief Complaint: Scrotal edema, erythema, pain. HPI Narrative The patient is a 36 y/o M w/ PMHx: Morbid Obesity, Asthma, Former tobacco use, HTN, HLD, Diabetes mellitus type II who presents to the [facility] ED on 02/23/22 with history of onset over the last several days significant increase scrotal swelling, redness and discomfort with inability to urinate with no specific fevers or chills prompting eventual ED evaluation. He notes the pain is worse with any palpation of the region and or attempted movement or ambulation causing friction against the scrotal region. He currently rates the discomfort 4-5 out of 10 in severity if is not moving. Work-up in the ED included T97.6, heart rate 96, BP 140/62, respiratory rate 16, 93% on room air, CBC with WC 7.4, hemo globin 14.2, platelet 248 without significant shift, CMP with chloride 97, carbon oxide 35, lactic acid 1.2, AST 38 otherwise hepatic profile not marked appearing, CT pelvis with a marked degree of diffuse scrotal skin thickening as well as a tiny amount of free air bubbles noted in the right scrotal wall, rapid COVID antigen negative. In the ED given significant severity of erythema and edema to the scrotal region with concern for possible Gila's gangrene patient administered clindamycin, vancomycin and Zosyn therapy. ED physician did discuss case with urology who felt that patient's presentation and findings on film more likely secondary to his prior surgery and that he likely had only scrotal cellulitis and not Gila's gangrene. Urology recommended ongoing antibiotic therapy only. [facility] Medical History (Updated 02/23/22 @ 21:[address] Thuy Henry MD) Chronic asthma Diabetes Essential hypertension Former smoker Hemoglobin A1C greater than 9%, indicating poor diabetic control History of sinus bradycardia Hyperlipidemia Long-term insulin use Morbid obesity Morbid obesity with BMI of 50.0-59.9, adult Scrotal edema Sleep apnea Home Medications albuterol sulfate 90 mcg/actuation aerosol inhaler (Ventolin HFA) 1 - 2 puff inhalation Q4H PRN PRN Sob &/Or Wheezing 07/08/18 [History Last Taken 02/22/22] lisinopril 40 mg tablet 40 mg PO DAILY 05/18/21 [History Last Taken 02/22/22] True Metrix Glucose Meter (blood-glucose meter) #1 ea 07/04/21 [Rx Last Taken Unknown] lancets (Unilet ComforTouch Lancet) #100 ea 07/04/21 [Rx Last Taken Unknown] True Metrix Glucose Test Strip (blood sugar diagnostic) #100 ea 01/02/22 [Rx Last Taken Unknown] insulin degludec 200 unit/mL (3 mL) subcutaneous pen (Tresiba FlexTouch U-200 insulin) 74 unit subcut QHS 02/23/22 [History Last Taken 02/23/22] insulin lispro 100 unit/mL subcutaneous pen 55 unit subcut TID 02/23/22 [History Last Taken 02/23/22] Allergy/AdvReac Type Severity Reaction Status Date / Time grass pollen Allergy Other Verified 02/23/22 11:40 metformin AdvReac Severe diarrhea Verified 02/23/22 11:40 Family History (Updated 02/23/22 @ 21:[address] Thuy Henry MD) Mother Hypertension Diabetes Father Hypertension Surgical History (Updated 02/23/22 @ 21:[address] Thuy Henry MD) S/P urological surgery Social History (Updated 02/23/22 @ 12:[address] Milan Esparza MD) household members: none Smoking Status: Former smoker how long ago did patient quit smokin, 3p/day second hand exposure: Yes alcohol intake: former substance use type: marijuana additional social history: Does Not Take Aspirin Does Not Take Ibuprofen ROS ROS Narrative Admission Review of Systems: CONSTITUTIONAL: No weight loss, fever, chills, + weakness or fatigue. HEENT: Eyes: No visual loss, blurred vision, double vision or yellow sclerae. Ears, Nose, Throat: No hearing loss, sneezing, congestion, runny nose or sore throat. SKIN: + Scrotal edema, erythema, pain. CARDIOVASCULAR: No chest pain, chest pressure or chest discomfort, palpitations, edema, orthopnea, syncopal events. RESPIRATORY: No shortness of breath, cough or sputum, wheezing, hemoptysis. GASTROINTESTINAL: No anorexia, nausea, vomiting or diarrhea, abdominal pain, melena, BRBPR. GENITOURINARY: + Scrotal edema, erythema, pain, difficulty urinating as result. NEUROLOGICAL: No headache, dizziness, syncope, paralysis, ataxia, numbness or tingling in the extremities, focal weakness, change in bowel or bladder control, seizure. MUSCULOSKELETAL: + muscle, back pain, joint pain or stiffness. HEMATOLOGIC: No anemia, bleeding or bruising. LYMPHATICS: No enlarged nodes. No history of splenectomy. PSYCHIATRIC: No history of depression or anxiety. ENDOCRINOLOGIC: No reports of sweating, cold or heat intolerance. No polyuria or polydipsia. ALLERGIES: + history of asthma, rhinitis. Vital Signs Vital Signs Vital Signs: 02/23/22 11:38 02/23/22 13:38 02/23/22 15:00 Temperature 96.8 F L 98.4 F 98.2 F Temperature Source Temporal Temporal Temporal Pulse Rate 104 H 99 97 Respiratory Rate 16 16 18 Blood Pressure 176/96 H 154/96 H 154/84 H Blood Pressure Mean 122 115 107 Pulse Ox 96 92 93 Oxygen Delivery Method Room Air Room Air Room Air Oxygen Flow Rate (L/min) 02/23/22 16:17 Temperature 98.9 F Temperature Source Temporal Pulse Rate 99 Respiratory Rate 18 Blood Pressure 111/72 Blood Pressure Mean 85 Pulse Ox 95 Oxygen Delivery Method Nasal Cannula Oxygen Flow Rate (L/min) 2 Weight Weight: 420 lb Body Mass Index (BMI) 53.8 Physical Exam Narrative Physical Examination: General: Awake, alert, oriented x 3 and cooperative, seated upright in the ED bed, fatigued appearing. Skin: Normal color, normal turgor, no icterus, no cyanosis except for significant scrotal edema with severe erythema and induration as well as increased warmth with mild tissue maceration with an open region to the right side of the scrotum where patient likely had prior I&D. HEENT: AT/NC, EOMI, PERRLA, MMM, no carotid bruits or JVD noted; however, difficult exam given thickened neck. Lungs: Mildly diminished, greater bases, poor effort no rales, ronchi or wheezing. Heart: Mildly tachycardic with regular rhythm; no gallop, rub audible. Abdomen: Soft, morbidly obese, NTTP, difficult to assess distention given habitus, normal BS, no obvious evidence of HSM however habitus makes evaluation difficult. Extremities: No cyanosis, no clubbing, bilateral lower extremity ankle edema. Neurological: Patient awake, alert, oriented as noted, cognitive function intact; pupils equally reactive to light and accommodation, cranial nerves II- XII grossly normal, moving all 4 extremities, no focal deficits, strength moderately global decrease secondary to acute presentation. Psychiatric: Affect appears fatigued otherwise normal, no acute evidence of depressive or anxiety feelings. Results Lab / Micro Data Result Diagrams: 02/23/22 12:38 02/23/22 12:38 Labs: Laboratory Results - last 24 hr 02/23/22 12:38: WBC 7.4, RBC 5.20, Hgb 14.2, Hct 46.9, MCV 90.2, MCH 27.3, MCHC 30.3 L, RDW Std Deviation 47.2 H, RDW Coeff of Ryan 14.2, Plt Count 248, MPV 9.7, Immature Gran % (Auto) 0.500, Neut % (Auto) 77.9 H, Lymph % (Auto) 12.5 L, [place] % (Auto) 6.8, Eos % (Auto) 2.0, Baso % (Auto) 0.3, Absolute Neuts (auto) 5.8, Absolute Lymphs (auto) 0.92, Nucleated RBC % 0 02/23/22 12:38: Sodium 136, Potassium 4.8, Chloride 97 L, Carbon Dioxide 35.0 H, Anion Gap 4 L, BUN 14, Creatinine 0.92, Estim Creat Clear Calc 126.58, Est GFR (MDRD) Af Amer 118, Est GFR (MDRD) Non-Af 97, BUN/Creatinine Ratio 15.2, Glucose 169 H, Calcium 8.4 L, Total Bilirubin 0.50, AST 38 H, ALT 35, Alkaline Phosphatase 67, Total Protein 7.3, Albumin 2.3 L, Globulin 5.0 H, Albumin/Globulin Ratio 0.5 L 02/23/22 12:38: Lactic Acid 1.2 Micro: Microbiology 02/23/22 14:50 Nasal Secretion SARS-CoV-2 Antigen (Rapid) - Final Radiology Impression Pelvis CT 02/23/22 12:22 IMPRESSION: Marked degree of diffuse scrotal skin thickening. Tiny amount of air bubbles seen in the right scrotal wall. Electronically Signed: Celso Gray MD at 14:22 EST , Assessment & Plan Assessment/Plan (1) Cellulitis of scrotum: PLAN: Plan The patient is a 36 y/o M w/ PMHx: Morbid Obesity, Asthma, Former tobacco use, HTN, HLD, Diabetes mellitus type II who presents to the [facility] ED on 02/23/22 with history of onset over the last several days significant increase scrotal swelling, redness and discomfort with inability to urinate with no specific fevers or chills prompting eventual ED evaluation. #1. Scrotal cellulitis: Urology did evaluate the patient per ED and urology report and reviewed imaging studies and felt that this was more consistent with scrotal cellulitis and not at all consistent with Gila's gangrene (RULED OUT per Urology). We will therefore admit to medical surgical floor, maintain on IV vancomycin, Zosyn and clindamycin per urology recommendation at this time until reevaluation, request scrotal elevation and routine skin care, plan repeat CBC in AM, monitor erythema outline with VS checks. If patient is unable to urinate despite these interventions may need to consider Bruner catheter placement. Urology consulted and following. #2. Diabetes mellitus type II: Hold oral home regimen, continue home insulin regimen, hemoglobin A1c requested specially given acute presentation #1, ADA diet, accu checks w/ ISS. #3. Hypertension: Continue home regimen including lisinopril, PRN hydralazine. #4. Hyperlipidemia: Not on regimen, defer to outpatient #5. Morbid Obesity: Weight loss and lifestyle changes encouraged, nutrition consulted. #6. Chronic asthma: We will have as needed albuterol, encourage head of bed and I-S. #7. Former tobacco use: Encourage continued tobacco cessation. #8. DEMETRIO: CPAP nightly. Patient unfortunately reports that he is not been using a device at home secondary to mold growth. Encouraged him to discuss this with company. #9. DVT prophylaxis: SCDs, Lovenox. Charges/Coding Visit Charges Inpatient E&M: 51148 Init Hosp L3
[2022-02-23 17:42] LABS: Hemoglobin A1c 7.2 % (3.8-5.6)
--- NOTE | 2022-02-23 18:02 | PCM.RX.CS ---
Consult Pharmacy has been consulted to manage selected antiobiotic: Vancomycin Type of Consult: New start Prior Doses of Antibiotics Received/Current Regimen: Medications Discontinued Medications Vancomycin HCl 2,000 mg/ (Sodium Chloride) 540 mls @ 250 mls/hr IV X1 ONE Stop: 02/23/22 16:56 Last Admin: 02/23/22 17:48 Dose: Infused Labs: Sodium 136 mmol/L (136-145) 02/23/22 12:38 Potassium 4.8 mmol/L (3.5-5.1) 02/23/22 12:38 Chloride 97 mmol/L (98-107) L 02/23/22 12:38 Carbon Dioxide 35.0 mmol/L (21.0-32.0) H 02/23/22 12:38 Anion Gap 4 (5-15) L 02/23/22 12:38 BUN 14 mg/dL (7-18) 02/23/22 12:38 Creatinine 0.92 mg/dL (0.70-1.30) 02/23/22 12:38 Est GFR (MDRD) Af Amer 118 mL/min (>60) 02/23/22 12:38 Est GFR (MDRD) Non-Af 97 mL/min (>60) 02/23/22 12:38 BUN/Creatinine Ratio 15.2 RATIO (10-20) 02/23/22 12:38 Glucose 169 mg/dL (74-106) H 02/23/22 12:38 Microbiology: Microbiology 02/23/22 14:50 Nasal Secretion SARS-CoV-2 Antigen (Rapid) - Final Weight used for dosin kg Goal Trough: 15-20 mcg/mL Pharmacy Plan for Drug Dosinmg given, 1500mg IV q8h with trough prior to 4th dose per policy. Pharmacy Service will continue to monitor and adjust dosing as required. Follow-Up Labs: Trough Vancomycin - 02/24 @ 1500
[2022-02-23] MEDS: 0.9% Normal Saline 1,000 ML 125 ML IV (18:27)
[2022-02-23 18:41] LABS: Bedside Glucose 116 mg/dL (74-106)
--- NOTE | 2022-02-23 21:35 | CPS ---
Patient stated that he does have a Cpap machine at home, however doesn't use it and doesn't wish to use one while here. Patient stated that he would prefer to just wear oxygen at night if needed
[2022-02-23] MEDS: Enoxaparin 40 MG/0.4 ML Syringe SC (21:51)
[2022-02-23] MEDS: Nystatin Powder 15gm Bottle 1 APPLIC TOPICAL (21:52)
[2022-02-23] MEDS: Clindamycin 900 MG/50 ML BAG 75 MG IV (22:08)
[2022-02-24] VITALS (13 sets, daily range): BP systolic 100–156; BP diastolic 55–92; PULSE 88–107; RESP 17–20; TEMP 36.3–37.3; O2SAT 81–97
[2022-02-24 02:26] LABS: Bedside Glucose 148 mg/dL (74-106)
--- NOTE | 2022-02-24 04:15 | NURSING ---
Pt. was refusing to wear oxygen during the night with oxygen saturation at 87-88%. Patient was educated on the risks about not wearing O2. MD was notified about the situation
[2022-02-24] MEDS: Clindamycin 900 MG/50 ML BAG 75 MG IV ×3 (05:23→21:01)
[2022-02-24] MEDS: Nystatin Powder 15gm Bottle 1 APPLIC TOPICAL (05:24)
[2022-02-24] MEDS: Insulin Lispro 100 UNIT/ML INSULN.PEN SC ×3 (06:55→23:06)
[2022-02-24 07:04] LABS: Absolute Lymphocyte Count 0.37 X10^3/uL (0.83-4.51); Absolute Neutrophil Count 9.2 X10^3/uL (2.0-7.7); Basophil# 0.01 X10^3/uL; Basophil% 0.1 % (0-1); Eosinophil# 0.15 X10^3/uL; Eosinophils% 1.5 % (0-5); Hematocrit 43.6 % (40-54); Hemoglobin 12.7 g/dL (13.0-16.5); Lymphocyte # 0.37 X10^3/ul (0.83-4.51); Lymphocyte % 3.7 % (19-41); Mean Corp Hgb Conc 29.1 g/dL (32-36); Mean Corpuscular Hgb 26.6 pg (27.0-32.0); Mean Corpuscular Volume 91.2 fL (80-94); Mean Platelet Vol. 9.9 fl (6.2-12.0); Monocyte# 0.33 X10^3/uL; Monocyte% 3.3 % (0-10); NRBC Flagged by Analyzer 0 % (0-5); Neutrophil # 9.16 X10^3/uL (2.7-7.7); Neutrophil % 90.8 % (47-70); POSITIVE DIFFERENTIAL YES; Platelet Count 258 K/mm3 (150-450); RBC Distribution Width CV 14.6 % (11.6-14.6); Red Blood Count 4.78 M/mm3 (4.6-6.2); White Blood Count 10.1 K/mm3 (4.4-11.0)
[2022-02-24 07:07] LABS: Differential Indicated SCAN CRITERIA MET
[2022-02-24] MEDS: Acetaminophen 325 MG Tablet 650 MG PO ×2 (07:12→15:37)
[2022-02-24] MEDS: oxyCODONE 5 MG Tablet 10 MG PO ×2 (07:12→15:38)
--- NOTE | 2022-02-24 07:38 | PCM.CONS.U ---
HPI Consult Data Date of Consult: 02/24/22 HPI Narrative Reason for Consultation: infection HPI Narrative: LAWANDA BETTS, is a 36 M who presents to ER with swollen scrotum and cellulitis, currently does not have abscess or gangrene, question of air onCT scan but thisis a mis-read and there is no air in the scrotum. no current abscess so I dont plan intervention unless progresses? going to be admitted for antibiotics. [facility]LY [facility] Medical History (Updated 02/23/22 @ 21:[address] Thuy Henry MD) Chronic asthma Diabetes Essential hypertension Former smoker Hemoglobin A1C greater than 9%, indicating poor diabetic control History of sinus bradycardia Hyperlipidemia Long-term insulin use Morbid obesity Morbid obesity with BMI of 50.0-59.9, adult Scrotal edema Sleep apnea Home Medications albuterol sulfate 90 mcg/actuation aerosol inhaler (Ventolin HFA) 1 - 2 puff inhalation Q4H PRN PRN Sob &/Or Wheezing 07/08/18 [History Last Taken 02/22/22] lisinopril 40 mg tablet 40 mg PO DAILY 05/18/21 [History Last Taken 02/22/22] True Metrix Glucose Meter (blood-glucose meter) #1 ea 07/04/21 [Rx Last Taken Unknown] lancets (Unilet ComforTouch Lancet) #100 ea 07/04/21 [Rx Last Taken Unknown] True Metrix Glucose Test Strip (blood sugar diagnostic) #100 ea 01/02/22 [Rx Last Taken Unknown] insulin degludec 200 unit/mL (3 mL) subcutaneous pen (Tresiba FlexTouch U-200 insulin) 74 unit subcut QHS 02/23/22 [History Last Taken 02/23/22] insulin lispro 100 unit/mL subcutaneous pen 55 unit subcut TID 02/23/22 [History Last Taken 02/23/22] Allergy/AdvReac Type Severity Reaction Status Date / Time grass pollen Allergy Other Verified 02/23/22 11:40 metformin AdvReac Severe diarrhea Verified 02/23/22 11:40 Family History (Updated 02/23/22 @ 21:[address] Thuy Henry MD) Mother Hypertension Diabetes Father Hypertension Surgical History (Updated 02/23/22 @ 21:[address] Thuy Henry MD) S/P urological surgery Social History (Updated 02/23/22 @ 12:[address] Milan Esparza MD) household members: none Smoking Status: Former smoker how long ago did patient quit smokin, 3p/day second hand exposure: Yes alcohol intake: former substance use type: marijuana additional social history: Does Not Take Aspirin Does Not Take Ibuprofen Lab / Micro Data Result Diagrams: 02/24/22 06:05 02/23/22 12:38 Labs: Laboratory Results - last 24 hr 02/23/22 12:38: WBC 7.4, RBC 5.20, Hgb 14.2, Hct 46.9, MCV 90.2, MCH 27.3, MCHC 30.3 L, RDW Std Deviation 47.2 H, RDW Coeff of Ryan 14.2, Plt Count 248, MPV 9.7, Immature Gran % (Auto) 0.500, Neut % (Auto) 77.9 H, Lymph % (Auto) 12.5 L, [place] % (Auto) 6.8, Eos % (Auto) 2.0, Baso % (Auto) 0.3, Absolute Neuts (auto) 5.8, Absolute Lymphs (auto) 0.92, Nucleated RBC % 0 02/23/22 12:38: Sodium 136, Potassium 4.8, Chloride 97 L, Carbon Dioxide 35.0 H, Anion Gap 4 L, BUN 14, Creatinine 0.92, Estim Creat Clear Calc 126.58, Est GFR (MDRD) Af Amer 118, Est GFR (MDRD) Non-Af 97, BUN/Creatinine Ratio 15.2, Glucose 169 H, Calcium 8.4 L, Total Bilirubin 0.50, AST 38 H, ALT 35, Alkaline Phosphatase 67, Total Protein 7.3, Albumin 2.3 L, Globulin 5.0 H, Albumin/Globulin Ratio 0.5 L 02/23/22 12:38: Lactic Acid 1.2 02/23/22 12:38: Hemoglobin A1c 7.2 H 02/23/22 18:19: POC Glucose 116 H 02/23/22 21:53: POC Glucose 148 H 02/24/22 06:05: WBC 10.1, RBC 4.78, Hgb 12.7 L, Hct 43.6, MCV 91.2, MCH 26.6 L, MCHC 29.1 L, RDW Std Deviation 49.0 H, RDW Coeff of Ryan 14.6, Plt Count 258, MPV 9.9, Immature Gran % (Auto) 0.600, Neut % (Auto) 90.8 H, Lymph % (Auto) 3.7 L, [place] % (Auto) 3.3, Eos % (Auto) 1.5, Baso % (Auto) 0.1, Absolute Neuts (auto) 9.2 H, Absolute Lymphs (auto) 0.37 L, Nucleated RBC % 0 Micro: Microbiology 02/23/22 14:50 Nasal Secretion SARS-CoV-2 Antigen (Rapid) - Final Radiology Impression Pelvis CT 02/23/22 12:22 IMPRESSION: Marked degree of diffuse scrotal skin thickening. Tiny amount of air bubbles seen in the right scrotal wall. Electronically Signed: Celso Gray MD at 14:22 EST ,
[2022-02-24 07:40] LABS: Bedside Glucose 168 mg/dL (74-106)
[2022-02-24 07:43] LABS: ALB/GLOB Ratio 0.5 RATIO (0.9-2.4); AST(SGOT) 28 U/L (15-37); Alanine Aminotransfer ALT/SGPT 30 U/L (16-61); Albumin, Serum 2.4 g/dL (3.2-5.0); Alkaline Phosphatase 66 U/L (45-117); Anion Gap 2 (5-15); BUN 16 mg/dL (7-18); BUN/Creat Ratio 13.1 RATIO (10-20); Calcium,Total 8.3 mg/dL (8.5-10.1); Chloride 96 mmol/L (98-107); Creatinine, Serum 1.22 mg/dL (0.70-1.30); EST Glomerular Filtration Rate 70 mL/min (>60); Est Glom Filt Rate - Afr Amer 85 mL/min (>60); Estimated Creatinine Clearance 95.45 ml/min; Globulin 4.8 g/dL (2.2-4.2); Glucose 159 mg/dL (74-106); Potassium 4.8 mmol/L (3.5-5.1); Protein, Total 7.2 g/dL (6.4-8.2); Sodium Level 131 mmol/L (136-145)
--- NOTE | 2022-02-24 08:58 | CASEMGMT ---
Discharge Incinerator Plant Supervisor Joshua at [facility] denied patient due to dialysis transportation. The facility has no transportation at this time for this patient. Roman HERNANDEZ Mobile Application Tester
[2022-02-24] MEDS: Lisinopril 40 MG Tablet PO (09:24)
[2022-02-24] MEDS: 0.9% Normal Saline 1,000 ML 125 ML IV ×2 (09:24→17:03)
[2022-02-24] MEDS: Insulin Lispro 100 UNIT/ML INSULN.PEN 55 UNIT SC ×2 (09:34→12:21)
--- NOTE | 2022-02-24 10:42 | CPS ---
Patient refusing oxygen at this time
--- NOTE | 2022-02-24 11:15 | CASEMGMT ---
RN MONI GLOBAL ENGINEERING MANAGER CM to room to meet with patient for initial transition planning/care coordination assessment. LYNN MONTENEGRO introduced self and role at [facility]. Pt voices understanding and consents to assessment at this time. Pt resting in bed in no distress at this time. Pt is A/O at this time and answers all questions appropriately. Care providers, pharmacy, and demographics verified/updated at this time. PCP: Dr Fernandes Specialists: Dr López-endocrinology Preferred Pharmacy: [facility] [place], [place] Insurance: [employer] Prescription Benefit: Yes Living Will/HPOA: Pt does not currently have LW/HCPOA and declines info at this time. Pt made aware that he can contact as an out-pt and make appt in the future if he decides he would like to talk with someone about this or would like to utilize [facility] social work for advanced directive completion. Given [employer] card with information and contact number. Pt expresses understanding. LNOK: , Rosalba Living Arrangements: Lives w/ and 2 children (ages 13 and 9) in 2-story home w/no steps to enter. FFSU. Independent w/ADL's and manages his own medications. and pt share home tasks. Transportation: Pt states drives self and states no transportation concerns at this time. also drives. DME: States has the following DME: Has PAP, but does not use. He states it has mold in the water container. He states he got the PAP through [facility] and has not contacted them re: the mold or re: getting a replacement. RN MONI encouraged pt to contact [facility] when he returns home re: this. LYNN MONTENEGRO discussed importance of compliance w/PAP as his oxygen levels have been dropping while @ [facility]. He voices understanding. Pt states he also has a functioning glucometer w/supplies and has all diabetic meds/insulin needed. Pt does not have home O2 and does not have a pulse ox. Pt provided w/list of local DME companies, should he qualify for home O2 and made aware [facility] is affiliated w/[facility]. Pt chooses [employer]. HHC/SNF: No hx of either. No needs identified. Pt wishes to return home and states has no concerns with going home at time of discharge. Follow for home oxygen needs and any further discharge planning/needs. Pt voices no further concerns/needs at this time. Advised pt to ask for CM if any further questions/concerns/needs arise. Voices understanding. PLAN: Home. Follow for possible Home O2 needs. Green sheet placed in chart w/Home O2 set-up instructions. Pt to be provided w/pulse ox and instructions on use if he qualifies for Home O2. Zuhair BSN RN CM
[2022-02-24 12:06] LABS: Bedside Glucose 177 mg/dL (74-106)
--- NOTE | 2022-02-24 12:44 | PN.HOSP_ITS ---
Subjective Subjective Patient seen and examined. He complained of feeling edematous and wants some lasix. He still says his scrotum is markedly swollen. He denies any chest pain, fever, chills, shortness of breath or any other symptoms. Review of systems is otherwise negative. Objective Data Objective Data Vital Signs: Vital Signs Temp Pulse Resp BP Pulse Ox O2 Del Method O2 Flow Rate 99.1 F 93 20 H 144/88 H 94 Nasal Cannula 4 02/24/22 09:19 02/24/22 09:19 02/24/22 09:19 02/24/22 09:19 02/24/22 09:19 02/24/22 09:19 02/24/22 09:19 Oxygen Flow Rate (L/min) 4 Oxygen Delivery Method Nasal Cannula Weight: 462 lb 12.004 oz Body Mass Index (BMI) 58.2 Intake & Output: Intake and Output for Last 24 Hours 02/22/22 02/23/22 02/24/22 23:59 23:59 23:59 Intake Total 800 / 800 2160 / 2160 Balance 800 / 800 2160 / 2160 Lab / Micro Data Result Diagrams: 02/24/22 06:05 02/24/22 06:05 Labs: Laboratory Results - last 24 hr 02/23/22 12:38: WBC 7.4, RBC 5.20, Hgb 14.2, Hct 46.9, MCV 90.2, MCH 27.3, MCHC 30.3 L, RDW Std Deviation 47.2 H, RDW Coeff of Ryan 14.2, Plt Count 248, MPV 9.7, Immature Gran % (Auto) 0.500, Neut % (Auto) 77.9 H, Lymph % (Auto) 12.5 L, Lewis % (Auto) 6.8, Eos % (Auto) 2.0, Baso % (Auto) 0.3, Absolute Neuts (auto) 5.8, Absolute Lymphs (auto) 0.92, Nucleated RBC % 0 02/23/22 12:38: Sodium 136, Potassium 4.8, Chloride 97 L, Carbon Dioxide 35.0 H, Anion Gap 4 L, BUN 14, Creatinine 0.92, Estim Creat Clear Calc 126.58, Est GFR (MDRD) Af Amer 118, Est GFR (MDRD) Non-Af 97, BUN/Creatinine Ratio 15.2, Glucose 169 H, Calcium 8.4 L, Total Bilirubin 0.50, AST 38 H, ALT 35, Alkaline Phosphatase 67, Total Protein 7.3, Albumin 2.3 L, Globulin 5.0 H, Albumin/Globulin Ratio 0.5 L 02/23/22 12:38: Lactic Acid 1.2 02/23/22 12:38: Hemoglobin A1c 7.2 H 02/23/22 18:19: POC Glucose 116 H 02/23/22 21:53: POC Glucose 148 H 02/24/22 06:05: WBC 10.1, RBC 4.78, Hgb 12.7 L, Hct 43.6, MCV 91.2, MCH 26.6 L, MCHC 29.1 L, RDW Std Deviation 49.0 H, RDW Coeff of Ryan 14.6, Plt Count 258, MPV 9.9, Immature Gran % (Auto) 0.600, Neut % (Auto) 90.8 H, Lymph % (Auto) 3.7 L, Lewis % (Auto) 3.3, Eos % (Auto) 1.5, Baso % (Auto) 0.1, Absolute Neuts (auto) 9.2 H, Absolute Lymphs (auto) 0.37 L, Nucleated RBC % 0 02/24/22 06:05: Sodium 131 L, Potassium 4.8, Chloride 96 L, Carbon Dioxide 33.0 H, Anion Gap 2 L, BUN 16, Creatinine 1.22, Estim Creat Clear Calc 95.45, Est GFR (MDRD) Af Amer 85, Est GFR (MDRD) Non-Af 70, BUN/Creatinine Ratio 13.1, Glucose 159 H, Calcium 8.3 L, Total Bilirubin 1.00, AST 28, ALT 30, Alkaline Phosphatase 66, Total Protein 7.2, Albumin 2.4 L, Globulin 4.8 H, Albumin/Globulin Ratio 0.5 L 02/24/22 06:54: POC Glucose 168 H 02/24/22 11:38: POC Glucose 177 H Micro: Microbiology 02/23/22 14:50 Nasal Secretion SARS-CoV-2 Antigen (Rapid) - Final Radiography Diagnostic Testing: Radiology Impression Pelvis CT 02/23/22 12:22 IMPRESSION: Marked degree of diffuse scrotal skin thickening. Tiny amount of air bubbles seen in the right scrotal wall. Electronically Signed: Celso Gray MD at 14:22 EST , Physical Exam Const alert, oriented x3 and no apparent distress Constitutional Narrative: super morbid obesity HEENT head/scalp atraumatic, moist oral mucous membranes and oropharynx normal Head and Scalp: normocephalic Mouth: oral and palatal mucosa normal Eyes PERRL, EOMs intact bilaterally and conjunctivae normal Neck no lymphadenopathy and supple Resp normal respiratory effort, no retractions, no use of accessory muscles and clear to auscultation bilaterally Cardio regular rate, regular rhythm, S1 normal heart sound, S2 normal heart sound and no murmurs GI normal to inspection, nondistended, normoactive bowel sounds, soft to palpation, non-tender and non-distended GI Narrative: scrotum very edematous Extremity Extremity Narrative: bilateral LE nonpitting edema, with erythema of both legs Neuro oriented x3, CN's II-XII intact bilaterally, moves all extremities and no focal motor deficits Sensorium / Orientation: awake and alert Motor Exam: strength 5/5 throughout Psych affect normal Assessment & Plan Assessment/Plan (1) Cellulitis of scrotum: PLAN: Plan #Scrotal cellulitis * scrotum remains very edematous * Gila's gangrene ruled out by urology * scrotal elevation * IV vancomycin, zosyn and clindamycin * urology on board * #TYpe 2 diabetes mellitus * on home lantus * ISS. Accuchecks ACHS * #Hypertension: on lisinopril. IV hydralzine prn #Asthma: not in exacerbation. Breathing treatment with bronchodilators #DEMETRIO: CPAP qhs. Has not been compliant with his CPAP as he says it has mould in it. #DVT prophylaxis: lovenox Charges/Coding Visit Charges Inpatient E&M: 91436 Subs Hosp L2
[2022-02-24 13:48] LABS: BNP,B-Type NATRIURETIC PEPTIDE 41.4 pg/mL (0-100)
[2022-02-24 16:09] LABS: Vancomycin, Trough Level 17.6 ug/mL (5.0-15.0)
--- NOTE | 2022-02-24 16:18 | PCM.RX.CS ---
Consult Pharmacy has been consulted to manage selected antiobiotic: Vancomycin Type of Consult: Follow-up Prior Doses of Antibiotics Received/Current Regimen: current dose is 1500mg q8h Labs: Sodium 131 mmol/L (136-145) L 02/24/22 06:05 Potassium 4.8 mmol/L (3.5-5.1) 02/24/22 06:05 Chloride 96 mmol/L (98-107) L 02/24/22 06:05 Carbon Dioxide 33.0 mmol/L (21.0-32.0) H 02/24/22 06:05 Anion Gap 2 (5-15) L 02/24/22 06:05 BUN 16 mg/dL (7-18) 02/24/22 06:05 Creatinine 1.22 mg/dL (0.70-1.30) 02/24/22 06:05 Est GFR (MDRD) Af Amer 85 mL/min (>60) 02/24/22 06:05 Est GFR (MDRD) Non-Af 70 mL/min (>60) 02/24/22 06:05 BUN/Creatinine Ratio 13.1 RATIO (10-20) 02/24/22 06:05 Glucose 159 mg/dL (74-106) H 02/24/22 06:05 Vancomycin Trough 17.6 ug/mL (5.0-15.0) H 02/24/22 15:00 Microbiology: Microbiology 02/23/22 14:50 Nasal Secretion SARS-CoV-2 Antigen (Rapid) - Final Weight used for dosin kg Estimated Creatinine Clearance: 154ml/min Goal Trough: 15-20 mcg/mL Pharmacy Plan for Drug Dosing: The vanc trough drawn at 15:00 today (approx 8 hours after the previous dose) was 17.6. This is within goal range so will keep same dosing. Will repeat another trough in 24 hours, however, due to the frequent 8-hour dosing and since the patient's SCr went up to 1.22 today from 0.92 yesterday. The patient's CrCl of 154 ml/min was calculated using an adjusted body weight. Pharmacy Service will continue to monitor and adjust dosing as required. Follow-Up Labs: Trough Vancomycin Labs to be done on [date and time ordered]: 02/25/22 15:00
[2022-02-24] MEDS: Furosemide 40 MG/4 ML Vial IV (17:02)
[2022-02-24 17:51] LABS: Bedside Glucose 115 mg/dL (74-106)
[2022-02-24] MEDS: HYDROmorphone 1 MG/ML Syringe 0.5 MG IV (21:09)
[2022-02-24] MEDS: Enoxaparin 40 MG/0.4 ML Syringe SC (21:10)
[2022-02-24] MEDS: Pantoprazole Sodium 40 MG Tablet PO (22:19)
[2022-02-24] MEDS: Insulin Glargine-YFGN 100 UNIT/ML Pen 74 UNIT SC (23:06)
[2022-02-25] VITALS (10 sets, daily range): BP systolic 98–145; BP diastolic 57–79; PULSE 88–92; RESP 16–20; TEMP 36.4–37.3; O2SAT 92–96
[2022-02-25 01:11] LABS: Bedside Glucose 167 mg/dL (74-106)
[2022-02-25] MEDS: HYDROmorphone 1 MG/ML Syringe 0.5 MG IV ×3 (03:16→21:57)
[2022-02-25] MEDS: Clindamycin 900 MG/50 ML BAG 75 MG IV ×3 (04:42→21:37)
[2022-02-25] MEDS: Nystatin Powder 15gm Bottle 1 APPLIC TOPICAL ×3 (05:33→21:57)
--- NOTE | 2022-02-25 06:02 | PCM.RX.CS ---
Consult Pharmacy has been consulted to manage selected antiobiotic: Vancomycin Type of Consult: Follow-up Labs: Sodium 131 mmol/L (136-145) L 02/24/22 06:05 Potassium 4.8 mmol/L (3.5-5.1) 02/24/22 06:05 Chloride 96 mmol/L (98-107) L 02/24/22 06:05 Carbon Dioxide 33.0 mmol/L (21.0-32.0) H 02/24/22 06:05 Anion Gap 2 (5-15) L 02/24/22 06:05 BUN 16 mg/dL (7-18) 02/24/22 06:05 Creatinine 1.22 mg/dL (0.70-1.30) 02/24/22 06:05 Est GFR (MDRD) Af Amer 85 mL/min (>60) 02/24/22 06:05 Est GFR (MDRD) Non-Af 70 mL/min (>60) 02/24/22 06:05 BUN/Creatinine Ratio 13.1 RATIO (10-20) 02/24/22 06:05 Glucose 159 mg/dL (74-106) H 02/24/22 06:05 Vancomycin Trough 17.6 ug/mL (5.0-15.0) H 02/24/22 15:00 Microbiology: Microbiology 02/23/22 14:50 Nasal Secretion SARS-CoV-2 Antigen (Rapid) - Final Goal Trough: 15-20 mcg/mL Pharmacy Plan for Drug Dosing: Pharmacy Service will continue to monitor and adjust dosing as required. 2330 DOSE NOT GIVEN UNTIL 0200 DUE TO IV ACCESS AND MULTIPLE IV MEDS ISSUES. RESCHEDULED NEXT DOSE AND RESCHEDULED TROUGH Follow-Up Labs: Trough Vancomycin Labs to be done on [date and time ordered]: 02/26 @ 2695
[2022-02-25 06:24] LABS: Absolute Lymphocyte Count 0.53 X10^3/uL (0.83-4.51); Absolute Neutrophil Count 5.6 X10^3/uL (2.0-7.7); Basophil# 0.01 X10^3/uL; Basophil% 0.1 % (0-1); Eosinophil# 0.24 X10^3/uL; Eosinophils% 3.5 % (0-5); Hematocrit 40.4 % (40-54); Hemoglobin 12.2 g/dL (13.0-16.5); Lymphocyte # 0.53 X10^3/ul (0.83-4.51); Lymphocyte % 7.7 % (19-41); Mean Corp Hgb Conc 30.2 g/dL (32-36); Mean Corpuscular Hgb 27.6 pg (27.0-32.0); Mean Corpuscular Volume 91.4 fL (80-94); Mean Platelet Vol. 9.7 fl (6.2-12.0); Monocyte# 0.47 X10^3/uL; Monocyte% 6.8 % (0-10); NRBC Flagged by Analyzer 0 % (0-5); Neutrophil # 5.62 X10^3/uL (2.7-7.7); Neutrophil % 81.5 % (47-70); POSITIVE DIFFERENTIAL YES; Platelet Count 212 K/mm3 (150-450); RBC Distribution Width CV 14.6 % (11.6-14.6); RBC Distribution Width SD 49.4 fl (35.1-43.9); Red Blood Count 4.42 M/mm3 (4.6-6.2); White Blood Count 6.9 K/mm3 (4.4-11.0)
[2022-02-25 06:42] LABS: Differential Indicated SCAN CRITERIA MET
[2022-02-25] MEDS: Insulin Lispro 100 UNIT/ML INSULN.PEN SC ×3 (06:52→17:04)
[2022-02-25 06:56] LABS: Anion Gap 1 (5-15); BUN 28 mg/dL (7-18); Calcium,Total 7.9 mg/dL (8.5-10.1); Chloride 99 mmol/L (98-107); Creatinine, Serum 1.87 mg/dL (0.70-1.30); EST Glomerular Filtration Rate 43 mL/min (>60); Est Glom Filt Rate - Afr Amer 52 mL/min (>60); Estimated Creatinine Clearance 62.27 ml/min; Glucose 182 mg/dL (74-106); Potassium 4.4 mmol/L (3.5-5.1); Sodium Level 133 mmol/L (136-145)
[2022-02-25 07:15] LABS: Differential Comment SCANNED
[2022-02-25 07:20] LABS: Bedside Glucose 167 mg/dL (74-106)
[2022-02-25] MEDS: Lisinopril 40 MG Tablet PO (09:02)
[2022-02-25] MEDS: Pantoprazole Sodium 40 MG Tablet PO ×2 (09:02→21:47)
[2022-02-25] MEDS: Acetaminophen 325 MG Tablet 650 MG PO (09:07)
[2022-02-25] MEDS: oxyCODONE 5 MG Tablet 10 MG PO (09:07)
[2022-02-25] MEDS: Furosemide 40 MG/4 ML Vial IV (09:15)
--- NOTE | 2022-02-25 11:12 | PN.HOSP_ITS ---
Subjective Subjective Patient seen and examined. He still complains of very edematous scrotum. He denies any fever, chills, cough, chest pain, palpitations, dizziness, nausea, vomiting or diarrhea. Review of systems is otherwise negative. Objective Data Objective Data Vital Signs: Vital Signs Temp Pulse Resp BP Pulse Ox O2 Del Method O2 Flow Rate 97.6 F L 92 20 H 145/75 H 93 Room Air 4 02/25/22 08:58 02/25/22 08:58 02/25/22 08:58 02/25/22 08:58 02/25/22 08:58 02/25/22 08:58 02/25/22 06:00 Oxygen Flow Rate (L/min) 4 Oxygen Delivery Method Room Air Weight: 471 lb 5.573 oz Body Mass Index (BMI) 58.2 Intake & Output: Intake and Output for Last 24 Hours 02/23/22 02/24/22 02/25/22 23:59 23:59 23:59 Intake Total 800 / 800 5107.92 / 5107.92 1488.33 / 1488.33 Balance 800 / 800 5107.92 / 5107.92 1488.33 / 1488.33 Lab / Micro Data Result Diagrams: 02/25/22 05:55 02/25/22 05:55 Labs: Laboratory Results - last 24 hr 02/24/22 06:05: B-Natriuretic Peptide 41.4 02/24/22 11:38: POC Glucose 177 H 02/24/22 15:00: Vancomycin Trough 17.6 H 02/24/22 16:49: POC Glucose 115 H 02/24/22 23:03: POC Glucose 167 H 02/25/22 05:55: WBC 6.9, RBC 4.42 L, Hgb 12.2 L, Hct 40.4, MCV 91.4, MCH 27.6, MCHC 30.2 L, RDW Std Deviation 49.4 H, RDW Coeff of Ryan 14.6, Plt Count 212, MPV 9.7, Immature Gran % (Auto) 0.400, Neut % (Auto) 81.5 H, Lymph % (Auto) 7.7 L, [place] % (Auto) 6.8, Eos % (Auto) 3.5, Baso % (Auto) 0.1, Absolute Neuts (auto) 5.6, Absolute Lymphs (auto) 0.53 L, Nucleated RBC % 0, Differential Comment SCANNED 02/25/22 05:55: Sodium 133 L, Potassium 4.4, Chloride 99, Carbon Dioxide 33.0 H, Anion Gap 1 L, BUN 28 H, Creatinine 1.87 H, Estim Creat Clear Calc 62.27, Est GFR (MDRD) Af Amer 52 L, Est GFR (MDRD) Non-Af 43 L, BUN/Creatinine Ratio 15.0, Glucose 182 H, Calcium 7.9 L 02/25/22 06:51: POC Glucose 167 H Micro: Microbiology 02/23/22 14:50 Nasal Secretion SARS-CoV-2 Antigen (Rapid) - Final Physical Exam Const alert, oriented x3 and no apparent distress Constitutional Narrative: super morbid obesity HEENT head/scalp atraumatic, moist oral mucous membranes and oropharynx normal Head and Scalp: normocephalic Mouth: oral and palatal mucosa normal Eyes PERRL, EOMs intact bilaterally and conjunctivae normal Neck no lymphadenopathy and supple Resp normal respiratory effort, no retractions, no use of accessory muscles and clear to auscultation bilaterally Cardio regular rate, regular rhythm, S1 normal heart sound, S2 normal heart sound and no murmurs GI normal to inspection, nondistended, normoactive bowel sounds, soft to palpation, non-tender and non-distended GI Narrative: scrotum still very edematous Extremity Extremity Narrative: bilateral LE nonpitting edema, with erythema of both legs Neuro oriented x3, CN's II-XII intact bilaterally, moves all extremities and no focal motor deficits Sensorium / Orientation: awake and alert Motor Exam: strength 5/5 throughout Psych affect normal Assessment & Plan Assessment/Plan (1) Cellulitis of scrotum: PLAN: Plan #Scrotal cellulitis * scrotum remains very edematous * Gila's gangrene ruled out by urology * scrotal elevation * IV vancomycin, zosyn and clindamycin * urology on board * diurese with IV lasix as patient says that always helps with his scrotal edema * #TYpe 2 diabetes mellitus * on home lantus * ISS. Accuchecks ACHS * #Hypertension: on lisinopril. IV hydralzine prn #Asthma: not in exacerbation. Breathing treatment with bronchodilators #DEMETRIO: * CPAP qhs. Has not been compliant with his CPAP as he says it has mould in it. * Counseled to get it cleaned and be compliant with it. #DVT prophylaxis: lovenox Charges/Coding Visit Charges Inpatient E&M: 49633 Subs Hosp L2
[2022-02-25 12:45] LABS: Bedside Glucose 174 mg/dL (74-106)
--- NOTE | 2022-02-25 15:18 | PCM.RX.CS ---
Consult Type of Consult: Follow-up Suspected Infection: Skin/Soft tissue Labs: Sodium 133 mmol/L (136-145) L 02/25/22 05:55 Potassium 4.4 mmol/L (3.5-5.1) 02/25/22 05:55 Chloride 99 mmol/L (98-107) 02/25/22 05:55 Carbon Dioxide 33.0 mmol/L (21.0-32.0) H 02/25/22 05:55 Anion Gap 1 (5-15) L 02/25/22 05:55 BUN 28 mg/dL (7-18) H 02/25/22 05:55 Creatinine 1.87 mg/dL (0.70-1.30) H 02/25/22 05:55 Est GFR (MDRD) Af Amer 52 mL/min (>60) L 02/25/22 05:55 Est GFR (MDRD) Non-Af 43 mL/min (>60) L 02/25/22 05:55 BUN/Creatinine Ratio 15.0 RATIO (10-20) 02/25/22 05:55 Glucose 182 mg/dL (74-106) H 02/25/22 05:55 Vancomycin Trough 17.6 ug/mL (5.0-15.0) H 02/24/22 15:00 Microbiology: Microbiology 02/23/22 14:50 Nasal Secretion SARS-CoV-2 Antigen (Rapid) - Final Pharmacy Plan for Drug Dosing: DAILY ASSESSMENT Current Vancomycin Dose: 1500MG Q8 Number of Doses Received:6 Current Renal Function: SCR DOUBLED SINCE START OF VANCOMYCIN FROM 0.92 TO 1.87 Renal Function Trend: WORSENED Any Change in Vanc Plan: YES, HOLD DOSES FOR NOW AND GET TROUGH AT REGULAR SCHEDULED INTERVAL. Pending Level: 02/26/22 @ 0130 Pharmacy Service will continue to monitor and adjust dosing as required.
[2022-02-25 17:35] LABS: Bedside Glucose 153 mg/dL (74-106)
--- NOTE | 2022-02-25 21:00 | NURSING ---
Spoke with about patient refusing to wear his telemetry. stated it was ok for Patients telemetry to be dc'd
[2022-02-25] MEDS: 0.9% Saline Lock 10 ML Syringe IV (21:56)
[2022-02-25] MEDS: Insulin Glargine-YFGN 100 UNIT/ML Pen 74 UNIT SC (21:57)
[2022-02-25 23:11] LABS: Bedside Glucose 161 mg/dL (74-106)
[2022-02-26 00:26] LABS: Bedside Glucose 170 mg/dL (74-106)
[2022-02-26 02:43] LABS: Vancomycin, Trough Level 15.3 ug/mL (5.0-15.0)
[2022-02-26 03:00] VITALS: BP 117/83; PULSE 85; RESP 16; TEMP 36.1; O2SAT 93
[2022-02-26] MEDS: HYDROmorphone 1 MG/ML Syringe 0.5 MG IV ×2 (04:31→19:56)
[2022-02-26] MEDS: 0.9% Saline Lock 10 ML Syringe IV ×3 (04:32→19:56)
[2022-02-26] MEDS: Nystatin Powder 15gm Bottle 1 APPLIC TOPICAL ×3 (06:39→23:00)
[2022-02-26] MEDS: Clindamycin 900 MG/50 ML BAG 75 MG IV ×3 (06:39→22:54)
[2022-02-26 07:42] LABS: Absolute Lymphocyte Count 0.61 X10^3/uL (0.83-4.51); Absolute Neutrophil Count 4.5 X10^3/uL (2.0-7.7); Basophil# 0.01 X10^3/uL; Basophil% 0.2 % (0-1); Eosinophil# 0.21 X10^3/uL; Eosinophils% 3.6 % (0-5); Hematocrit 40.9 % (40-54); Hemoglobin 12.1 g/dL (13.0-16.5); Lymphocyte # 0.61 X10^3/ul (0.83-4.51); Lymphocyte % 10.5 % (19-41); Mean Corp Hgb Conc 29.6 g/dL (32-36); Mean Corpuscular Hgb 27.3 pg (27.0-32.0); Mean Corpuscular Volume 92.3 fL (80-94); Mean Platelet Vol. 9.6 fl (6.2-12.0); Monocyte# 0.47 X10^3/uL; Monocyte% 8.1 % (0-10); NRBC Flagged by Analyzer 0 % (0-5); Neutrophil % 77.1 % (47-70); Platelet Count 206 K/mm3 (150-450); RBC Distribution Width CV 14.6 % (11.6-14.6); RBC Distribution Width SD 49.6 fl (35.1-43.9); Red Blood Count 4.43 M/mm3 (4.6-6.2); White Blood Count 5.8 K/mm3 (4.4-11.0)
[2022-02-26 08:06] VITALS: BP 141/74; PULSE 82; RESP 18; TEMP 36.4; O2SAT 95
[2022-02-26 08:09] LABS: Anion Gap 0 (5-15); BUN 26 mg/dL (7-18); BUN/Creat Ratio 17.8 RATIO (10-20); Calcium,Total 8.2 mg/dL (8.5-10.1); Chloride 102 mmol/L (98-107); Creatinine, Serum 1.46 mg/dL (0.70-1.30); EST Glomerular Filtration Rate 57 mL/min (>60); Est Glom Filt Rate - Afr Amer 69 mL/min (>60); Estimated Creatinine Clearance 78.98 ml/min; Glucose 148 mg/dL (74-106); Potassium 4.8 mmol/L (3.5-5.1); Sodium Level 134 mmol/L (136-145)
[2022-02-26 08:40] LABS: Bedside Glucose 138 mg/dL (74-106)
[2022-02-26 08:46] VITALS: BP 141/74; PULSE 82; RESP 18; TEMP 36.4; O2SAT 95
--- NOTE | 2022-02-26 09:17 | PCM.RX.CS ---
Consult Pharmacy has been consulted to manage selected antiobiotic: Vancomycin Type of Consult: Follow-up Suspected Infection: Skin/Soft tissue Labs: Sodium 134 mmol/L (136-145) L 02/26/22 07:01 Potassium 4.8 mmol/L (3.5-5.1) 02/26/22 07:01 Chloride 102 mmol/L (98-107) 02/26/22 07:01 Carbon Dioxide 32.0 mmol/L (21.0-32.0) 02/26/22 07:01 Anion Gap 0 (5-15) L 02/26/22 07:01 BUN 26 mg/dL (7-18) H 02/26/22 07:01 Creatinine 1.46 mg/dL (0.70-1.30) H 02/26/22 07:01 Est GFR (MDRD) Af Amer 69 mL/min (>60) 02/26/22 07:01 Est GFR (MDRD) Non-Af 57 mL/min (>60) L 02/26/22 07:01 BUN/Creatinine Ratio 17.8 RATIO (10-20) 02/26/22 07:01 Glucose 148 mg/dL (74-106) H 02/26/22 07:01 Vancomycin Trough 15.3 ug/mL (5.0-15.0) H 02/26/22 01:30 Microbiology: Microbiology 02/23/22 14:50 Nasal Secretion SARS-CoV-2 Antigen (Rapid) - Final Goal Trough: 15-20 mcg/mL Pharmacy Plan for Drug Dosing: VANCOMYCIN LEVEL RECEIVED Current Vancomycin Dose: WAS ON 1500MG Q8, DOSES WERE BEING HELD DUE TO INCREASED SCR FROM 0.92 (02/23) TO 1.87 (02/25). Number of Doses Received: 6 Vancomycin Level: 15.3 MG/DL Hours Since Last Dose: 15 Renal Function: SCR 1.46 MG/DL, CRCL 130.8 ML/MIN USING ADJUSTED BODY WEIGHT OF 136.1 KG Renal Function Trend: IMPROVED Lab/Micro: NONE Vancomycin Plan/Comments: INTERVAL CHANGED TO 1500MG Q12 BASED ON 15 HOUR LEVEL OF 15.3 MG/DL BEING IN THERAPEUTIC RANGE. WILL ORDER A TROUGH PRIOR TO 4TH DOSE OF NEW REGIMEN. Pending Level: 02/27/22 @ 1600 Pharmacy Service will continue to monitor and adjust dosing as required.
[2022-02-26] MEDS: Enoxaparin 40 MG/0.4 ML Syringe SC (09:54)
[2022-02-26] MEDS: oxyCODONE 5 MG Tablet 10 MG PO (09:54)
[2022-02-26] MEDS: Furosemide 40 MG/4 ML Vial IV (09:54)
[2022-02-26] MEDS: Pantoprazole Sodium 40 MG Tablet PO ×2 (09:54→22:58)
[2022-02-26] MEDS: Lisinopril 40 MG Tablet PO (09:55)
[2022-02-26] MEDS: Insulin Lispro 100 UNIT/ML INSULN.PEN SC (12:36)
--- NOTE | 2022-02-26 12:49 | PN.HOSP_ITS ---
Subjective Subjective Patient seen and examined. He still complains of edematous scrotum; he has no other complaints. Review of systems is otherwise negative. Objective Data Objective Data Vital Signs: Vital Signs Temp Pulse Resp BP Pulse Ox O2 Del Method O2 Flow Rate 97.5 F L 82 18 141/74 H 95 Room Air 2 02/26/22 08:46 02/26/22 08:46 02/26/22 08:46 02/26/22 08:46 02/26/22 08:46 02/26/22 09:16 02/26/22 08:46 Oxygen Flow Rate (L/min) 2 Oxygen Delivery Method Room Air Weight: 478 lb 2.922 oz Body Mass Index (BMI) 58.2 Intake & Output: Intake and Output for Last 24 Hours 02/24/22 02/25/22 02/26/22 23:59 23:59 23:59 Intake Total 5107.92 / 5107.92 3568.33 / 3568.33 680 / 680 Balance 5107.92 / 5107.92 3568.33 / 3568.33 680 / 680 Lab / Micro Data Result Diagrams: 02/26/22 07:01 02/26/22 07:01 Labs: Laboratory Results - last 24 hr 02/25/22 17:01: POC Glucose 153 H 02/25/22 21:47: POC Glucose 161 H 02/26/22 00:02: POC Glucose 170 H 02/26/22 01:30: Vancomycin Trough 15.3 H 02/26/22 07:01: WBC 5.8, RBC 4.43 L, Hgb 12.1 L, Hct 40.9, MCV 92.3, MCH 27.3, MCHC 29.6 L, RDW Std Deviation 49.6 H, RDW Coeff of Ryan 14.6, Plt Count 206, MPV 9.6, Immature Gran % (Auto) 0.500, Neut % (Auto) 77.1 H, Lymph % (Auto) 10.5 L, [place] % (Auto) 8.1, Eos % (Auto) 3.6, Baso % (Auto) 0.2, Absolute Neuts (auto) 4.5, Absolute Lymphs (auto) 0.61 L, Nucleated RBC % 0 02/26/22 07:01: Sodium 134 L, Potassium 4.8, Chloride 102, Carbon Dioxide 32.0, Anion Gap 0 L, BUN 26 H, Creatinine 1.46 H, Estim Creat Clear Calc 78.98, Est GFR (MDRD) Af Amer 69, Est GFR (MDRD) Non-Af 57 L, BUN/Creatinine Ratio 17.8, Glucose 148 H, Calcium 8.2 L 02/26/22 08:15: POC Glucose 138 H Micro: Microbiology 02/23/22 14:50 Nasal Secretion SARS-CoV-2 Antigen (Rapid) - Final Physical Exam Const alert, oriented x3 and no apparent distress Constitutional Narrative: super morbid obesity HEENT head/scalp atraumatic, moist oral mucous membranes and oropharynx normal Head and Scalp: normocephalic Mouth: oral and palatal mucosa normal Eyes PERRL, EOMs intact bilaterally and conjunctivae normal Neck no lymphadenopathy and supple Resp normal respiratory effort, no retractions, no use of accessory muscles and clear to auscultation bilaterally Cardio regular rate, regular rhythm, S1 normal heart sound, S2 normal heart sound and no murmurs GI normal to inspection, nondistended, normoactive bowel sounds, soft to palpation, non-tender and non-distended GI Narrative: scrotum still very edematous Extremity Extremity Narrative: bilateral LE nonpitting edema, with erythema of both legs Neuro oriented x3, CN's II-XII intact bilaterally, moves all extremities and no focal motor deficits Sensorium / Orientation: awake and alert Motor Exam: strength 5/5 throughout Psych affect normal Assessment & Plan Assessment/Plan (1) Cellulitis of scrotum: PLAN: Plan #Scrotal cellulitis * scrotum still remains very edematous * Gila's gangrene ruled out by urology * scrotal elevation * IV vancomycin, zosyn and clindamycin * urology on board * diurese with IV lasix as patient says that always helps with his scrotal edema * get scrotal USG tomorrow o/a of persistent scrotal edema * #TYpe 2 diabetes mellitus * on home lantus * ISS. Accuchecks ACHS * #Hypertension: on lisinopril. IV hydralzine prn #Asthma: not in exacerbation. Breathing treatment with bronchodilators #DEMETRIO: * CPAP qhs. not compliant with CPAP. COunseled to be compliant. #DVT prophylaxis: lovenox Charges/Coding Visit Charges Inpatient E&M: 54254 Subs Hosp L2
[2022-02-26 12:55] LABS: Bedside Glucose 165 mg/dL (74-106)
[2022-02-26 15:39] VITALS: BP 144/54; PULSE 87; RESP 18; TEMP 36.6; O2SAT 93
[2022-02-26 15:41] VITALS: BP 144/54; PULSE 87; RESP 18; TEMP 36.6; O2SAT 93
[2022-02-26 17:20] LABS: Bedside Glucose 143 mg/dL (74-106)
[2022-02-26 21:00] VITALS: BP 147/73; PULSE 90; RESP 18; TEMP 36.5; O2SAT 94
[2022-02-26] MEDS: Insulin Glargine-YFGN 100 UNIT/ML Pen 74 UNIT SC (22:58)
[2022-02-26 23:50] LABS: Bedside Glucose 198 mg/dL (74-106)
[2022-02-27 04:00] VITALS: BP 145/71; PULSE 83; RESP 18; TEMP 36.6; O2SAT 95
[2022-02-27] MEDS: oxyCODONE 5 MG Tablet 10 MG PO ×3 (04:22→20:45)
--- NOTE | 2022-02-27 05:55 | US_ITS ---
STUDY: SCROTUM ULTRASOUND REASON FOR EXAM: Male, 37 years old. Scrotal edema TECHNIQUE: Ultrasound evaluation of the scrotum was performed with color Doppler and static mendoza-scale imaging. COMPARISON: Comparison is made with prior study dated 07/09/2018. FINDINGS: RIGHT TESTICLE INTRATESTICULAR: There is a normal size of the right testicle. The right testicle measures 4 cm x 3.6 cm x 2.6 cm. There is a homogenous echotexture. There is normal arterial and normal venous vascularity. There is no demonstrated right testicular mass or cyst. EXTRATESTICULAR: The epididymis is normal in size. The epididymis head measures 1.1 cm x 2.3 cm x 1.5 cm. There is normal vascularity of the epididymis. There is no demonstrated epididymal cystic structure. There is a small hydrocele. There is no demonstrated varicocele. There is no demonstrated extratesticular mass or cyst. Thickening of the scrotal skin. LEFT TESTICLE INTRATESTICULAR: There is a normal size of the left testicle. The left testicle measures 3.7 cm x 2.9 cm x 2.4 cm. There is a homogenous echotexture. There is normal arterial and normal venous vascularity. There is no demonstrated left testicular mass or cyst. EXTRATESTICULAR: The epididymis is normal in size. The epididymis head measures 1.8 cm x 2.5 cm x 1.6 cm. There is normal vascularity of the epididymis. There is no demonstrated epididymal cystic structure. There is a small hydrocele. There are prominent extratesticular veins consistent with a varicocele. There is no demonstrated extratesticular mass or cyst. Thickening of the scrotal skin. US/Testicular with Arterial Flow IMPRESSION: Thickening of the scrotum. Small bilateral hydroceles. Small left varicocele. Electronically Signed: Celso Gray MD at 12:22 EST ,
[2022-02-27 06:05] LABS: Absolute Lymphocyte Count 0.59 X10^3/uL (0.83-4.51); Basophil# 0.02 X10^3/uL; Basophil% 0.3 % (0-1); Eosinophil# 0.18 X10^3/uL; Eosinophils% 2.9 % (0-5); Hematocrit 41.5 % (40-54); Hemoglobin 12.7 g/dL (13.0-16.5); Lymphocyte # 0.59 X10^3/ul (0.83-4.51); Lymphocyte % 9.5 % (19-41); Mean Corp Hgb Conc 30.6 g/dL (32-36); Mean Corpuscular Hgb 28.1 pg (27.0-32.0); Mean Corpuscular Volume 91.8 fL (80-94); Mean Platelet Vol. 9.4 fl (6.2-12.0); Monocyte# 0.46 X10^3/uL; Monocyte% 7.4 % (0-10); NRBC Flagged by Analyzer 0 % (0-5); Neutrophil # 4.97 X10^3/uL (2.7-7.7); Neutrophil % 79.6 % (47-70); POSITIVE DIFFERENTIAL YES; Platelet Count 205 K/mm3 (150-450); RBC Distribution Width CV 14.7 % (11.6-14.6); RBC Distribution Width SD 49.6 fl (35.1-43.9); Red Blood Count 4.52 M/mm3 (4.6-6.2); White Blood Count 6.2 K/mm3 (4.4-11.0)
[2022-02-27 06:17] LABS: Differential Indicated SCAN CRITERIA MET
[2022-02-27 06:36] LABS: Anion Gap 1 (5-15); BUN 22 mg/dL (7-18); BUN/Creat Ratio 16.1 RATIO (10-20); Calcium,Total 8.3 mg/dL (8.5-10.1); Chloride 105 mmol/L (98-107); Creatinine, Serum 1.37 mg/dL (0.70-1.30); EST Glomerular Filtration Rate 62 mL/min (>60); Est Glom Filt Rate - Afr Amer 74 mL/min (>60); Estimated Creatinine Clearance 84.17 ml/min; Glucose 166 mg/dL (74-106); Potassium 4.5 mmol/L (3.5-5.1); Sodium Level 137 mmol/L (136-145)
[2022-02-27] MEDS: Clindamycin 900 MG/50 ML BAG 75 MG IV ×3 (06:36→21:23)
[2022-02-27] MEDS: Nystatin Powder 15gm Bottle 1 APPLIC TOPICAL ×3 (06:38→20:47)
[2022-02-27 06:58] LABS: Anisocytosis 1+
[2022-02-27 07:05] LABS: Bedside Glucose 163 mg/dL (74-106)
[2022-02-27 09:23] VITALS: BP 153/83; PULSE 98; RESP 20; TEMP 36.3; O2SAT 93
[2022-02-27] MEDS: Lisinopril 40 MG Tablet PO (09:29)
[2022-02-27 10:00] VITALS: BP 153/83; PULSE 98; RESP 20; TEMP 36.3; O2SAT 93
[2022-02-27] MEDS: Furosemide 40 MG/4 ML Vial IV (10:01)
[2022-02-27] MEDS: 0.9% Saline Lock 10 ML Syringe IV (10:02)
[2022-02-27 11:55] LABS: Bedside Glucose 196 mg/dL (74-106)
--- NOTE | 2022-02-27 14:41 | PCM.PN.HOSP ---
Subjective Subjective Continues to have pain and swelling in his scrotum, reports he has been able to urinate and denies any burning on urination. Frustrated that he is not getting better. Denies other complaints today Objective Data Objective Data Vital Signs: Vital Signs Temp Pulse Resp BP Pulse Ox O2 Del Method O2 Flow Rate 97.4 F L 98 20 H 153/83 H 93 Room Air 2 02/27/22 10:00 02/27/22 10:00 02/27/22 10:00 02/27/22 10:00 02/27/22 10:00 02/27/22 10:00 02/27/22 10:00 Oxygen Flow Rate (L/min) 2 Oxygen Delivery Method Room Air Weight: 216 kg Body Mass Index (BMI) 58.2 Intake & Output: Intake and Output for Last 24 Hours 02/25/22 02/26/22 02/27/22 23:59 23:59 23:59 Intake Total 3568.33 / 3568.33 2310 / 2310 1168 / 1168 Balance 3568.33 / 3568.33 2310 / 2310 1168 / 1168 Lab / Micro Data Result Diagrams: 02/27/22 05:45 02/27/22 05:45 Labs: Laboratory Results - last 24 hr 02/26/22 16:34: POC Glucose 143 H 02/26/22 22:56: POC Glucose 198 H 02/27/22 05:45: WBC 6.2, RBC 4.52 L, Hgb 12.7 L, Hct 41.5, MCV 91.8, MCH 28.1, MCHC 30.6 L, RDW Std Deviation 49.6 H, RDW Coeff of Ryan 14.7 H, Plt Count 205, MPV 9.4, Immature Gran % (Auto) 0.300, Neut % (Auto) 79.6 H, Lymph % (Auto) 9.5 L, [place] % (Auto) 7.4, Eos % (Auto) 2.9, Baso % (Auto) 0.3, Absolute Neuts (auto) 5.0, Absolute Lymphs (auto) 0.59 L, Nucleated RBC % 0, Anisocytosis 1+ 02/27/22 05:45: Sodium 137, Potassium 4.5, Chloride 105, Carbon Dioxide 31.0, Anion Gap 1 L, BUN 22 H, Creatinine 1.37 H, Estim Creat Clear Calc 84.17, Est GFR (MDRD) Af Amer 74, Est GFR (MDRD) Non-Af 62, BUN/Creatinine Ratio 16.1, Glucose 166 H, Calcium 8.3 L 02/27/22 06:38: POC Glucose 163 H 02/27/22 11:34: POC Glucose 196 H Micro: Microbiology 02/23/22 14:50 Nasal Secretion SARS-CoV-2 Antigen (Rapid) - Final Radiography Diagnostic Testing: Radiology Impression Testicular Ultrasound 02/27/22 05:55 IMPRESSION: Thickening of the scrotum. Small bilateral hydroceles. Small left varicocele. Electronically Signed: Celso Gray MD at 12:22 EST , Physical Exam Narrative : Significant scrotal edema with mild tenderness diffusely, nonpitting, peers to have thickening of skin Const alert Constitutional Narrative: Oriented HEENT normocephalic and head/scalp atraumatic Eyes Eyes Narrative: EOM grossly intact, anicteric Neck supple Resp normal respiratory effort and clear to auscultation bilaterally Cardio regular rate and regular rhythm GI soft to palpation, non-tender and non-distended Extremity Extremity Narrative: No edema appreciated Neuro moves all extremities Neuro Narrative: No overt focal deficits appreciated Psych Psych Narrative: Frustrated Assessment & Plan Assessment/Plan (1) Cellulitis of scrotum: PLAN: Plan #Scrotal swelling Likely due to scrotal cellulitis Did have ultrasound of scrotum today which showed thickening of the skin and small bilateral hydrocele and varicocele with no obstruction of flow He is on Vanco, Zosyn, clindamycin Urology consulted when he was admitted Started on IV Lasix as Lasix has been what has helped his edema in the past #Type 2 diabetes mellitus Home Lantus Sliding scale insulin #Hypertension Lisinopril IV hydralazine as needed #Asthma Not in exacerbation Bronchodilators #DEMETRIO CPAP nightly #DVT ppx: Lovenox Ivy Chino MD Charges/Coding Visit Charges Inpatient E&M: 86162 Subs Hosp L2
[2022-02-27 15:16] VITALS: BP 165/94; PULSE 87; RESP 18; TEMP 36.4; O2SAT 96
[2022-02-27 16:00] VITALS: BP 164/92; PULSE 78; RESP 16; TEMP 37; O2SAT 94
[2022-02-27 17:02] LABS: Vancomycin, Trough Level 13.5 ug/mL (5.0-15.0)
[2022-02-27 18:10] LABS: Bedside Glucose 149 mg/dL (74-106)
--- NOTE | 2022-02-27 18:54 | PCM.RX.CS ---
Consult Pharmacy has been consulted to manage selected antiobiotic: Vancomycin Type of Consult: Follow-up Suspected Infection: Skin/Soft tissue Prior Doses of Antibiotics Received/Current Regimen: 1500MG IV Q12H Labs: Sodium 137 mmol/L (136-145) 02/27/22 05:45 Potassium 4.5 mmol/L (3.5-5.1) 02/27/22 05:45 Chloride 105 mmol/L (98-107) 02/27/22 05:45 Carbon Dioxide 31.0 mmol/L (21.0-32.0) 02/27/22 05:45 Anion Gap 1 (5-15) L 02/27/22 05:45 BUN 22 mg/dL (7-18) H 02/27/22 05:45 Creatinine 1.37 mg/dL (0.70-1.30) H 02/27/22 05:45 Est GFR (MDRD) Af Amer 74 mL/min (>60) 02/27/22 05:45 Est GFR (MDRD) Non-Af 62 mL/min (>60) 02/27/22 05:45 BUN/Creatinine Ratio 16.1 RATIO (10-20) 02/27/22 05:45 Glucose 166 mg/dL (74-106) H 02/27/22 05:45 Vancomycin Trough 13.5 ug/mL (5.0-15.0) 02/27/22 16:00 Microbiology: Microbiology 02/23/22 14:50 Nasal Secretion SARS-CoV-2 Antigen (Rapid) - Final Weight used for dosin kg Estimated Creatinine Clearance: >120ML/MIN Goal Trough: 15-20 mcg/mL Pharmacy Plan for Drug Dosing: TROUGH TODAY 12HRS POST LAST DOSE WAS 13.5 WITH GOAL OF 15-20 MCG/ML. SLIGHT RENAL IMPROVEMENT OF CR 1.37 WITH SCRCL >120 ML/MIN USING ADJUSTED BODY WEIGHT OF 135.7KG. WILL INCREASE DOSE FROM 1500MG IV Q12H TO 1500MG IV Q8H. NEW TROUGH ORDERED FOR BEFORE 4TH DOSE OF NEW REGIMEN. Pharmacy Service will continue to monitor and adjust dosing as required. Follow-Up Labs: Trough Vancomycin - 12.6.22 @1530 BEFORE 1600 DOSE
[2022-02-27] MEDS: Acetaminophen 325 MG Tablet 650 MG PO (20:46)
[2022-02-27 20:50] VITALS: BP 150/80; PULSE 86; RESP 18; TEMP 36.6; O2SAT 98
[2022-02-27] MEDS: Insulin Glargine-YFGN 100 UNIT/ML Pen 74 UNIT SC (21:23)
[2022-02-27 21:51] LABS: Bedside Glucose 177 mg/dL (74-106)
[2022-02-28 02:06] VITALS: BP 158/85; PULSE 86; RESP 18; TEMP 36.6; O2SAT 95
[2022-02-28] MEDS: Nystatin Powder 15gm Bottle 1 APPLIC TOPICAL ×2 (06:14→14:09)
[2022-02-28] MEDS: 0.9% Saline Lock 10 ML Syringe IV (06:17)
[2022-02-28 06:30] LABS: Absolute Lymphocyte Count 0.61 X10^3/uL (0.83-4.51); Absolute Neutrophil Count 6.1 X10^3/uL (2.0-7.7); Basophil# 0.02 X10^3/uL; Basophil% 0.3 % (0-1); Eosinophil# 0.19 X10^3/uL; Eosinophils% 2.5 % (0-5); Hematocrit 41.3 % (40-54); Hemoglobin 12.4 g/dL (13.0-16.5); Lymphocyte # 0.61 X10^3/ul (0.83-4.51); Lymphocyte % 8.1 % (19-41); Mean Corpuscular Hgb 27.3 pg (27.0-32.0); Mean Corpuscular Volume 90.8 fL (80-94); Mean Platelet Vol. 9.7 fl (6.2-12.0); Monocyte# 0.59 X10^3/uL; Monocyte% 7.9 % (0-10); NRBC Flagged by Analyzer 0 % (0-5); Neutrophil # 6.07 X10^3/uL (2.7-7.7); Neutrophil % 80.8 % (47-70); Platelet Count 219 K/mm3 (150-450); RBC Distribution Width CV 14.6 % (11.6-14.6); RBC Distribution Width SD 48.8 fl (35.1-43.9); Red Blood Count 4.55 M/mm3 (4.6-6.2); White Blood Count 7.5 K/mm3 (4.4-11.0)
[2022-02-28] MEDS: Clindamycin 900 MG/50 ML BAG 75 MG IV ×2 (06:53→14:57)
[2022-02-28 07:06] LABS: Anion Gap 5 (5-15); BUN 20 mg/dL (7-18); BUN/Creat Ratio 14.6 RATIO (10-20); Calcium,Total 8.7 mg/dL (8.5-10.1); Chloride 101 mmol/L (98-107); Creatinine, Serum 1.37 mg/dL (0.70-1.30); EST Glomerular Filtration Rate 62 mL/min (>60); Est Glom Filt Rate - Afr Amer 74 mL/min (>60); Estimated Creatinine Clearance 84.17 ml/min; Glucose 147 mg/dL (74-106); Potassium 4.5 mmol/L (3.5-5.1); Sodium Level 136 mmol/L (136-145)
[2022-02-28] MEDS: Lisinopril 40 MG Tablet PO (08:43)
[2022-02-28] MEDS: Furosemide 40 MG/4 ML Vial IV (08:43)
[2022-02-28 08:55] LABS: Bedside Glucose 125 mg/dL (74-106)
[2022-02-28 09:54] VITALS: BP 160/98; PULSE 89; RESP 17; TEMP 36.7; O2SAT 95
[2022-02-28] MEDS: Insulin Lispro 100 UNIT/ML INSULN.PEN SC (12:01)
[2022-02-28 12:25] LABS: Bedside Glucose 189 mg/dL (74-106)
[2022-02-28 15:20] VITALS: BP 155/86; PULSE 81; RESP 18; TEMP 36.7; O2SAT 95
--- NOTE | 2022-02-28 15:20 | CASEMGMT ---
Addendum entered by Rosemary Ibarra 02/28/22 15:33: Pt made aware of appt and put in his schedule in his phone while RN CM in room. Pt denies further homegoing needs. Original Note: Hospitalist requested pt be set up with urology in [place], consulting uro does not take pt insurance. TC to [facility] SheriJonathan will see pt on 03/07/2022 at 11:20am. Placed on dc instructions.
[2022-02-28 16:13] LABS: Vancomycin, Trough Level 18.8 ug/mL (5.0-15.0)
--- NOTE | 2022-02-28 16:45 | PCM.RX.CS ---
Consult Pharmacy has been consulted to manage selected antiobiotic: Vancomycin Type of Consult: Follow-up Labs: Sodium 136 mmol/L (136-145) 02/28/22 06:04 Potassium 4.5 mmol/L (3.5-5.1) 02/28/22 06:04 Chloride 101 mmol/L (98-107) 02/28/22 06:04 Carbon Dioxide 30.0 mmol/L (21.0-32.0) 02/28/22 06:04 Anion Gap 5 (5-15) 02/28/22 06:04 BUN 20 mg/dL (7-18) H 02/28/22 06:04 Creatinine 1.37 mg/dL (0.70-1.30) H 02/28/22 06:04 Est GFR (MDRD) Af Amer 74 mL/min (>60) 02/28/22 06:04 Est GFR (MDRD) Non-Af 62 mL/min (>60) 02/28/22 06:04 BUN/Creatinine Ratio 14.6 RATIO (10-20) 02/28/22 06:04 Glucose 147 mg/dL (74-106) H 02/28/22 06:04 Vancomycin Trough 18.8 ug/mL (5.0-15.0) H 02/28/22 15:25 Microbiology: Microbiology 02/23/22 14:50 Nasal Secretion SARS-CoV-2 Antigen (Rapid) - Final Goal Trough: 15-20 mcg/mL Pharmacy Plan for Drug Dosing: VANCOMYCIN LEVEL RECEIVED Current Vancomycin Dose: 51049cn q8h (00,08,16) Number of Doses Received: Vancomycin Level: 18.8 Hours Since Last Dose: 6.5 Renal Function: SrCr 1.37 Renal Function Trend: stable Lab/Micro: Vancomycin Plan/Comments: resulted trough of 18.8 is within the ordered goal trough range of 15-20. recommend continuing current dose of 1500mg q8h. trough before the 4th dose Pending Level: 03/01/22 at 1530 Pharmacy Service will continue to monitor and adjust dosing as required. Follow-Up Labs: Trough Vancomycin - .10.14 at 1530
--- NOTE | 2022-02-28 16:46 | PCM.DC.SUM ---
Providers Date of Admission: 02/23/22 Date of Discharge: 02/28/22 Primary Care Physician: Dr. Kennedy Fernandes MD Consultations 02/23/22 17:31 Consult: Urology Routine Consulting Provider: Reese Ling Reason for Consult: Groin cellulitis EMERGENT Consult: No MD Notified: Yes Date Notified: 02/23/22 Time Notified: 17:31 Method of Notification: Verbal Reason For Visit: GROIN CELLULITIS and swelling Diagnosis Discharge Diagnosis (1) Cellulitis of scrotum: Status: Acute Code(s): N49.2 - Inflammatory disorders of scrotum Plan #Scrotal swelling #Type 2 diabetes mellitus #Hypertension #Asthma #DEMETRIO Medications at Discharge Home Medications albuterol sulfate 90 mcg/actuation aerosol inhaler (Ventolin HFA) 1 - 2 puff inhalation Q4H PRN PRN Sob &/Or Wheezing 07/08/18 lisinopril 40 mg tablet 40 mg PO DAILY 05/18/21 True Metrix Glucose Meter (blood-glucose meter) #1 ea 07/04/21 lancets (Unilet ComforTouch Lancet) #100 ea 07/04/21 True Metrix Glucose Test Strip (blood sugar diagnostic) #100 ea 01/02/22 insulin degludec 200 unit/mL (3 mL) subcutaneous pen (Tresiba FlexTouch U-200 insulin) 74 unit subcut QHS 02/23/22 insulin lispro 100 unit/mL subcutaneous pen 55 unit subcut TID 02/23/22 amoxicillin 875 mg-potassium clavulanate 125 mg tablet 1 tab PO Q12H 3 days #7 tabs 02/28/22 doxycycline hyclate 100 mg capsule 100 mg PO BID 3 days #7 caps 02/28/22 furosemide 40 mg tablet (Lasix) 40 mg PO DAILY 5 days #5 tabs 02/28/22 Hospital Course Procedures - (Scrotal ultrasound) Summary of Care Provided Minutes Spent on Discharge: 32 Hospital Course: The patient is a 36 y/o M w/ PMHx: Morbid Obesity, Asthma, Former tobacco use, HTN, HLD, Diabetes mellitus type II who presents to the [facility] ED on 02/23/22 with history of onset over the last several days significant increase scrotal swelling, redness and discomfort with inability to urinate with no specific fevers or chills prompting eventual ED evaluation. Urology evaluated did not feel that there was concern for Gila's gangrene and that it was only scrotal cellulitis. He was on antibiotic therapy and given fluids. Did not significantly improve and fluids were stopped and Lasix were started which did note mild improvement. Patient very insistent on going home on oral Lasix and oral antibiotics. Discussed risks of going home prior to significant improvement in scrotal edema and he verbalized his understanding and accepted that risk. Did have scrotal wall ReSound which showed thickening of the scrotum with small bilateral hydroceles and small left varicocele. Offered to recontact urology for inpatient reevaluation but he refused and wants outpatient follow-up. Attempted to call Dr. Ling's office but they do not accept his insurance so Dr. Apodaca's office was contacted and accepted him. Will discharge on Augmentin 875 every 12 and doxycycline 100 twice daily for another 3 days as well as Lasix 40 mg daily. Advise follow-up BMP in 3 days with primary care physician and to follow-up with PCP within 1 week. On day of discharge he reports slightly less pain and swelling since the Lasix started and denies other complaints. Denies any problems urinating and has denied Bruner catheter multiple times. Instructions provided for patient as below: *Please take this with you to your next doctors appointment* ?You have an appointment with JHOANA Rene with urology on 03/07/2022 at 11:20 AM. You are unable to follow with Dr. Ling due to your insurance so we will be very important that you follow-up with [facility] urology in [place]. Contact information provided ?You will be prescribed Augmentin 875 mg twice daily and doxycycline 100 mg twice daily, he will take 1 dose of each tonight and for 3 more days. ? You will also be sent with a prescription for Lasix 40 mg daily for 5 doses, it will be very important that you contact your primary care physician's office tomorrow to obtain an order for lab work (BMP) in 3 days to monitor your potassium and your kidney function. ?Your medications have been sent to your preferred pharmacy on file -Please call your primary care provider's office upon discharge to schedule a hospital follow up within 1 week. -For any concerning signs or symptoms please call 911 or proceed to the nearest emergency department Physical Exam Narrative : Significant scrotal edema with mild tenderness diffusely though improved, slightly less tense, nonpitting, appears to have thickening of skin Const alert Constitutional Narrative: Oriented HEENT normocephalic and head/scalp atraumatic Eyes Eyes Narrative: EOM grossly intact, anicteric Neck supple Resp normal respiratory effort and clear to auscultation bilaterally Cardio regular rate and regular rhythm GI soft to palpation, non-tender and non-distended Extremity Extremity Narrative: No edema appreciated Neuro moves all extremities Neuro Narrative: No overt focal deficits appreciated Psych Psych Narrative: Frustrated Weight / BMI Weight Weight: 213.3 kg Body Mass Index (BMI) 58.2 ABG / Lab / Microbiology Data Result Diagrams: 02/28/22 06:04 02/28/22 06:04 Laboratory: Laboratory Results - last 24 hr 02/27/22 16:00: Vancomycin Trough 13.5 02/27/22 17:46: POC Glucose 149 H 02/27/22 21:21: POC Glucose 177 H 02/28/22 06:04: WBC 7.5, RBC 4.55 L, Hgb 12.4 L, Hct 41.3, MCV 90.8, MCH 27.3, MCHC 30.0 L, RDW Std Deviation 48.8 H, RDW Coeff of Ryan 14.6, Plt Count 219, MPV 9.7, Immature Gran % (Auto) 0.400, Neut % (Auto) 80.8 H, Lymph % (Auto) 8.1 L, [place] % (Auto) 7.9, Eos % (Auto) 2.5, Baso % (Auto) 0.3, Absolute Neuts (auto) 6.1, Absolute Lymphs (auto) 0.61 L, Nucleated RBC % 0 02/28/22 06:04: Sodium 136, Potassium 4.5, Chloride 101, Carbon Dioxide 30.0, Anion Gap 5, BUN 20 H, Creatinine 1.37 H, Estim Creat Clear Calc 84.17, Est GFR (MDRD) Af Amer 74, Est GFR (MDRD) Non-Af 62, BUN/Creatinine Ratio 14.6, Glucose 147 H, Calcium 8.7 02/28/22 08:37: POC Glucose 125 H 02/28/22 11:59: POC Glucose 189 H 02/28/22 15:25: Vancomycin Trough 18.8 H Microbiology: Microbiology 02/23/22 14:50 Nasal Secretion SARS-CoV-2 Antigen (Rapid) - Final D/C Instructions Discharge Diet: No restrictions Meaningful Use Info Meaningful Use Diagnoses (Choose all that apply): None applicable Discharge Plan Admission Admit Date/Time: 02/23/22 17:28 Primary Reason for Your Visit: Groin swelling Attending Provider: Ivy Chino Primary Care Provider: Kennedy Fernandes Consulting Providers: Reese Ling ; Thuy Henry ; Cat Morgan Instructions Patient Instructions: Diabetes Carbs Fats Protein Additional Instructions / Restrictions: *Please take this with you to your next doctors appointment* ?You have an appointment with JHOANA Rene with urology on 03/07/2022 at 11:20 AM. You are unable to follow with Dr. Ling due to your insurance so we will be very important that you follow-up with [facility] urology in [place]. Contact information provided ?You will be prescribed Augmentin 875 mg twice daily and doxycycline 100 mg twice daily, you will take 1 dose of each tonight and for 3 more days. ? You will also be sent with a prescription for Lasix 40 mg daily for 5 doses, it will be very important that you contact your primary care physician's office tomorrow to obtain an order for lab work (BMP) in 3 days to monitor your potassium and your kidney function. ?Your medications have been sent to your preferred pharmacy on file -Please call your primary care provider's office upon discharge to schedule a hospital follow up within 1 week. -For any concerning signs or symptoms please call 911 or proceed to the nearest emergency department Discharge Orders/Prescriptions Prescriptions: New amoxicillin-pot clavulanate 875-125 mg tablet 1 tab PO Q12H 3 Days Qty: 7 0RF doxycycline hyclate 100 mg capsule 100 mg PO BID 3 Days Qty: 7 0RF furosemide [Lasix] 40 mg tablet 40 mg PO DAILY 5 Days Qty: 5 0RF Continued lisinopril 40 mg tablet 40 mg PO DAILY (DME) blood-glucose meter [True Metrix Glucose Meter] Misc See Rx Instructions .ROUTE .MEDSUPPLY Qty: 1 0RF Rx Instructions: As directed (DME) lancets [Unilet ComforTouch Lancet] Misc See Rx Instructions .ROUTE .MEDSUPPLY Qty: 100 7RF Rx Instructions: tid albuterol sulfate [Ventolin HFA] 108 HFA aerosol inhaler 1 - 2 puff inhalation Q4H PRN PRN (Reason: Sob &/Or Wheezing) insulin lispro 100 unit/mL insulin pen 55 unit subcut TID Rx Instructions: +SS: 200-249+5; 250-299+10; >300+15 insulin degludec [Tresiba FlexTouch U-200] 200 unit/mL (3 mL) insulin pen 74 unit subcut QHS (DME) True Metrix Glucose Test Strip Strip See Rx Instructions .ROUTE .MEDSUPPLY Qty: 100 3RF Rx Instructions: 3x/day Referrals / Follow Up: Jonathan Apodaca [Other] - 03/07/22 11:20 am Kennedy Fernandes MD [Primary Care Provider] - Within 1 Week Disposition Disposition (needs filled in before D/C Order can be placed): Home, Self Care Charges/Coding Visit Charges Inpatient E&M: 11119 Disch Hosp
== END 2022-02-28 16:55 | disposition home or self-care (01) | DRG 501 ==
LOC: ED 12:54 → PCU 17:42 → MS3 02-27 13:18
PROVIDERS: Student in an Organized Health Care Education/Training Program; Admitting Provider Family Medicine; Emergency Provider Emergency Medicine; PCP Family Medicine; Visit Provider Internal Medicine
DX: N49.2 Inflammatory disorders of scrotum (principal); Z68.43 Body mass index [BMI] 50.0-59.9, adult; E11.9 Type 2 diabetes mellitus without complications; E66.01 Morbid (severe) obesity due to excess calories; Z79.4 Long term (current) use of insulin; I86.1 Scrotal varices; G47.33 Obstructive sleep apnea (adult) (pediatric); E78.5 Hyperlipidemia, unspecified; J45.909 Unspecified asthma, uncomplicated; I10 Essential (primary) hypertension; N43.3 Hydrocele, unspecified; Z20.822 Contact with and (suspected) exposure to COVID-19; Z87.891 Personal history of nicotine dependence
CPT/HCPCS: 36415; 72193; 76870; 80048; 80053; 80202; 82962; 83036; 83605; 83880; 85025; 87811; 93005; 93976; 97802; 99251; 99284; J7030; J7040; J7050; Q9967; A4216; G0463; J1940; J2405

== ENCOUNTER 2022-03-07 18:14 | Emergency (ER) | payer MEDICAID, SELFPAY ==
[2022-03-07] VITALS (7 sets, daily range): BP systolic 139–184; BP diastolic 57–90; PULSE 108–119; RESP 22–26; TEMP 37.1–39.4; O2SAT 90–95; BMI 59.4
--- NOTE | 2022-03-07 18:15 | EKG12_ITS ---
Test Reason : CP Blood Pressure : / mmHG Vent. Rate : 112 BPM Atrial Rate : 112 BPM P-R Int : 162 ms QRS Dur : 086 ms QT Int : 330 ms P-R-T Axes : 069 081 045 degrees QTc Int : 450 ms Sinus tachycardia Low voltage QRS Borderline ECG Confirmed by ORESTES CRAVEN, HIMANSHU ([id number]), rewrite editor TERESA WALDROP ([id number]) on 03/08/2022 12:01:01 PM Referred By: TIANNA Confirmed By:HIMANSHU CARLISLE MD
--- NOTE | 2022-03-07 18:49 | EDS_ITS ---
HPI History of Present Illness Chief Complaint: Chest Pain Detail of Chief Complaint: Chest pain, shortness of breath, fever Informant: patient Narrative Narrative: Patient presents the emergency department with complaint of chest pain that started around 2 PM and shortness of breath. Patient states that once EMS put oxygen on him and his chest discomfort resolved. Patient also started feeling hot and started getting chills today. He has not had his COVID-vaccine or flu vaccine. He denies sick contacts. Patient states that he was recently diagnosed with congestive heart failure by blood work but has not had an echo yet. Patient does have history of asthma. Patient has history of morbid obesity. [facility] Medical History (Updated 03/07/22 @ 20:[address] Nick Nicole, DO) Chronic asthma Diabetes Essential hypertension Former smoker Hemoglobin A1C greater than 9%, indicating poor diabetic control History of sinus bradycardia Hyperlipidemia Long-term insulin use Morbid obesity Morbid obesity with BMI of 50.0-59.9, adult Scrotal edema Sleep apnea Home Medications albuterol sulfate 90 mcg/actuation aerosol inhaler (Ventolin HFA) 1 - 2 puff inhalation Q4H PRN PRN Sob &/Or Wheezing 07/08/18 [History Last Taken 02/22/22] lisinopril 40 mg tablet 40 mg PO DAILY 05/18/21 [History Last Taken 02/22/22] True Metrix Glucose Meter (blood-glucose meter) #1 ea 07/04/21 [Rx Last Taken Unknown] lancets (Unilet ComforTouch Lancet) #100 ea 07/04/21 [Rx Last Taken Unknown] True Metrix Glucose Test Strip (blood sugar diagnostic) #100 ea 01/02/22 [Rx Last Taken Unknown] insulin degludec 200 unit/mL (3 mL) subcutaneous pen (Tresiba FlexTouch U-200 insulin) 74 unit subcut QHS 02/23/22 [History Last Taken 02/23/22] insulin lispro 100 unit/mL subcutaneous pen 55 unit subcut TID 02/23/22 [History Last Taken 02/23/22] amoxicillin 875 mg-potassium clavulanate 125 mg tablet 1 tab PO Q12H 3 days #7 tabs 02/28/22 [Rx Last Taken Unknown] doxycycline hyclate 100 mg capsule 100 mg PO BID 3 days #7 caps 02/28/22 [Rx Last Taken Unknown] furosemide 40 mg tablet (Lasix) 40 mg PO DAILY 5 days #5 tabs 02/28/22 [Rx Last Taken Unknown] prednisone 20 mg tablet 20 mg PO BID #10 tabs 03/07/22 [Rx Last Taken Unknown] Allergy/AdvReac Type Severity Reaction Status Date / Time grass pollen Allergy Other Verified 03/07/22 18:18 metformin AdvReac Severe diarrhea Verified 03/07/22 18:18 Family History (Updated 02/23/22 @ 21:[address] Thuy Henry MD) Mother Hypertension Diabetes Father Hypertension Surgical History S/P urological surgery Social History (Updated 02/23/22 @ 12:[address] Milan Esparza MD) household members: none Smoking Status: Former smoker how long ago did patient quit smokin, 3p/day second hand exposure: Yes alcohol intake: former substance use type: marijuana additional social history: Does Not Take Aspirin Does Not Take Ibuprofen ROS ROS ED Review of Systems ROS Unobtainable: other Constitutional Constitutional ED: Reports chills, fever(s) and lethargy; Denies sweats or weight loss Eyes Eyes: Denies blurry vision, change in vision or diplopia ENT ENT ED: Denies rhinorrhea or sore throat Cardiovascular Cardiovascular: Reports chest pain; Denies orthopnea or racing heartbeat Respiratory/Chest Respiratory/Chest: Reports cough, dyspnea and dyspnea on exertion; Denies orthopnea or sputum Gastrointestinal Gastrointestinal: Denies abdominal pain, diarrhea, nausea or vomiting Genitourinary Genitourinary ED: Denies dysuria, hematuria or urinary frequency Musculoskeletal Musculoskeletal: Denies arthralgias, back pain, myalgias or neck pain Integumentary Denies abscess, Abrasions or rash Neurologic Neurologic: Denies headache(s) or weakness Psychiatric Psychiatric: Denies anxiety, depression or suicidal thoughts Endocrine Endocrinology: Denies polydipsia, polyphagia or polyuria Hematologic/Lymphatic Hematologic/Lymphatic: Denies easy bleeding, easy bruising or lymphadenopathy Allergic/Immunologic Allergic/Immunologic ED: Denies mouth swelling, tongue swelling or urticaria EXAM Physical Exam Narrative Exam Narrative: Patient morbidly obese. Const Vital Signs: 03/07/22 18:15 03/07/22 18:19 12/13/22 18:19 Temperature 103 F H 103 F H Temperature Source Temporal Oral Pulse Rate 110 H 110 H Respiratory Rate 23 H 23 H Respiratory Effort Short of Breath Respiratory Depth Respiratory Pattern Blood Pressure 166/82 H 166/82 H Blood Pressure Mean 110 110 Pulse Ox 90 90 Oxygen Delivery Method Room Air Room Air Oxygen Flow Rate (L/min) 03/07/22 18:25 03/07/22 19:21 03/07/22 19:21 Temperature 103 F H Temperature Source Oral Pulse Rate 110 H 110 H Respiratory Rate 22 H 22 H Respiratory Effort Respiratory Depth Respiratory Pattern Blood Pressure 184/90 H 184/90 H Blood Pressure Mean 121 121 Pulse Ox 95 93 93 Oxygen Delivery Method Nasal Cannula Nasal Cannula Nasal Cannula Oxygen Flow Rate (L/min) 3 2 2 03/07/22 18:54 03/07/22 18:54 03/07/22 19:59 Temperature 98.8 F Temperature Source Oral Pulse Rate 119 H Respiratory Rate 24 H 24 H Respiratory Effort Normal Short of Breath Labored Respiratory Depth Shallow Respiratory Pattern Tachypnea Tachypnea Blood Pressure Blood Pressure Mean Pulse Ox 93 Oxygen Delivery Method Nasal Cannula Oxygen Flow Rate (L/min) 2 Positive well nourished and well developed General Appearance ED: well developed and NAD HEENT Reports TM's clear and moist mucous membranes normocephalic and atraumatic; Negative for trauma or tenderness Tympanic Membrane ED: Yes TM's clear Eyes PERRL and EOMs intact bilaterally General Eye ED: Negative for pale conjunctiva or scleral icterus Neck no lymphadenopathy, supple and no JVD General: Negative for tenderness Chest Wall inspection of chest normal and palpation of chest normal Chest: Negative for tenderness Resp normal respiratory effort and clear to auscultation bilaterally Resp Narrative: Patient with tachypnea and conversational dyspnea. Decreased breath sounds bilaterally with expiratory wheezes bilaterally. Effort and Inspection: Negative for respiratory distress or pain with movement Auscultation: Negative for rhonchi, wheezes or diminished lung sounds Cardio regular rate, regular rhythm, S1 normal heart sound, S2 normal heart sound and no murmurs Peripheral Pulses: pulses 2+ throughout GI normal to inspection, nondistended, normoactive bowel sounds, soft to palpation, non-tender, non-distended and no masses Back/Spine no CVA tenderness and no thoracic nor lumbar tenderness Extremity normal to inspection General Extremety ED: Negative for edema General Extremity: Negative for edema Neuro oriented x3, CN's II-XII intact bilaterally, no sensory deficits noted and gait normal Sensorium / Orientation: awake, alert, oriented to person, oriented to place and oriented to time Motor Exam: strength 5/5 throughout and strength abnormal Psych mental status grossly normal Skin no rashes or lesions noted and no wounds MDM MDM MDM Narrative Medical decision making narrative: IV line established on arrival. Patient was given DuoNeb aerosol as well as Solu-Medrol IV. Patient had a CBC with differential and chemistries that were unremarkable. BNP was normal. Chest x-ray showed no acute disease process. Influenza and COVID rapid's were negative. Patient felt markedly improved after treatment. On reexamination he still has some faint wheezing and his O2 sats right around 89 to 90%. I recommended admission given his large body habitus and history of asthma and borderline pulse oximetry and this is at rest I feel like with activity O2 sat would drop further. I explained to the patient my concerns and he does not want to be admitted and wants to sign out AGAINST MEDICAL ADVICE. Patient understands that he could risk respiratory failure and . Patient advised to return immediately for worsening breathing. Lab Data Attestation: I reviewed the patient's lab results. Labs: Laboratory Results - last 24 hr 03/07/22 03/07/22 03/07/22 18:00 18:00 18:00 WBC 7.8 RBC 4.89 Hgb 13.4 Hct 43.0 MCV 87.9 MCH 27.4 MCHC 31.2 L RDW Std Deviation 44.4 H RDW Coeff of Ryan 13.8 Plt Count 226 MPV 10.0 Immature Gran % (Auto) 0.500 Neut % (Auto) 90.5 H Lymph % (Auto) 2.2 L Story % (Auto) 5.6 Eos % (Auto) 0.9 Baso % (Auto) 0.3 Absolute Neuts (auto) 7.1 Absolute Lymphs (auto) 0.17 L Nucleated RBC % 0 Sodium 135 L Potassium 4.4 Chloride 97 L Carbon Dioxide 35.0 H Anion Gap 3 L BUN 19 H Creatinine 1.30 Estim Creat Clear Calc 88.70 Est GFR (MDRD) Af Amer 79 Est GFR (MDRD) Non-Af 65 BUN/Creatinine Ratio 14.6 Glucose 206 H Lactic Acid Calcium 9.2 Troponin I High Sens 16 B-Natriuretic Peptide 43.6 03/07/22 19:04 WBC RBC Hgb Hct MCV MCH MCHC RDW Std Deviation RDW Coeff of Ryan Plt Count MPV Immature Gran % (Auto) Neut % (Auto) Lymph % (Auto) Story % (Auto) Eos % (Auto) Baso % (Auto) Absolute Neuts (auto) Absolute Lymphs (auto) Nucleated RBC % Sodium Potassium Chloride Carbon Dioxide Anion Gap BUN Creatinine Estim Creat Clear Calc Est GFR (MDRD) Af Amer Est GFR (MDRD) Non-Af BUN/Creatinine Ratio Glucose Lactic Acid 1.3 Calcium Troponin I High Sens B-Natriuretic Peptide Radiography Diagnostic Testing: Clinical Impression(s) from Imaging Studies Chest X-Ray 03/07/22 19:50 IMPRESSION: No acute disease Electronically Signed: Cuco Caraballo MD at 20:18 EST Reading Location ID and State: [address] [place] [address] , Service support , 1 view chest x-ray obtained interpreted by myself no acute disease process. Radiology in agreement. EKG Initial EKG: Attestation: I personally reviewed and interpreted this EKG as follows: Comments: Sinus rhythm with a rate of 112 bpm with no acute ST segment changes. Discharge Plan Triage Chief Complaint: Chest Pain ED Provider: Nick Nicole Dx/Rx/DC Orders Clinical Impression: Asthmatic bronchitis, Hypoxemia Instructions: ED Bronchitis with Wheezing (Adult) Prescriptions: New prednisone 20 mg tablet 20 mg PO BID Qty: 10 0RF No Action lisinopril 40 mg tablet 40 mg PO DAILY (DME) blood-glucose meter [True Metrix Glucose Meter] Misc See Rx Instructions .ROUTE .MEDSUPPLY Qty: 1 0RF Rx Instructions: As directed (DME) lancets [Unilet ComforTouch Lancet] Misc See Rx Instructions .ROUTE .MEDSUPPLY Qty: 100 7RF Rx Instructions: tid albuterol sulfate [Ventolin HFA] 108 HFA aerosol inhaler 1 - 2 puff inhalation Q4H PRN PRN (Reason: Sob &/Or Wheezing) insulin lispro 100 unit/mL insulin pen 55 unit subcut TID Rx Instructions: +SS: 200-249+5; 250-299+10; >300+15 insulin degludec [Tresiba FlexTouch U-200] 200 unit/mL (3 mL) insulin pen 74 unit subcut QHS amoxicillin-pot clavulanate 875-125 mg tablet 1 tab PO Q12H 3 Days Qty: 7 0RF doxycycline hyclate 100 mg capsule 100 mg PO BID 3 Days Qty: 7 0RF furosemide [Lasix] 40 mg tablet 40 mg PO DAILY 5 Days Qty: 5 0RF (DME) True Metrix Glucose Test Strip Strip See Rx Instructions .ROUTE .MEDSUPPLY Qty: 100 3RF Rx Instructions: 3x/day Primary Care Provider: Kennedy Fernandes Referrals: Kennedy Fernandes MD [Primary Care Provider] - 1-2 Days if not improving Disposition Disposition: Against Medical Advice
[2022-03-07] MEDS: Ipratropium/Albuterol Sulfate 3 ML AMPUL.NEB INHALATION (18:54)
[2022-03-07] MEDS: Ibuprofen 400 MG Tablet 800 MG PO (18:58)
[2022-03-07] MEDS: MethylPREDNISolone 125 MG/2 ML Vial IV (18:58)
[2022-03-07] MEDS: Albuterol 2.5 MG/3 ML VIAL.NEB. INHALATION ×3 (19:11→19:33)
[2022-03-07 19:20] LABS: Absolute Lymphocyte Count 0.17 X10^3/uL (0.83-4.51); Absolute Neutrophil Count 7.1 X10^3/uL (2.0-7.7); Basophil# 0.02 X10^3/uL; Basophil% 0.3 % (0-1); Eosinophil# 0.07 X10^3/uL; Eosinophils% 0.9 % (0-5); Hemoglobin 13.4 g/dL (13.0-16.5); Lymphocyte # 0.17 X10^3/ul (0.83-4.51); Lymphocyte % 2.2 % (19-41); Mean Corp Hgb Conc 31.2 g/dL (32-36); Mean Corpuscular Hgb 27.4 pg (27.0-32.0); Mean Corpuscular Volume 87.9 fL (80-94); Monocyte# 0.44 X10^3/uL; Monocyte% 5.6 % (0-10); NRBC Flagged by Analyzer 0 % (0-5); Neutrophil # 7.08 X10^3/uL (2.7-7.7); Neutrophil % 90.5 % (47-70); POSITIVE DIFFERENTIAL YES; Platelet Count 226 K/mm3 (150-450); RBC Distribution Width CV 13.8 % (11.6-14.6); RBC Distribution Width SD 44.4 fl (35.1-43.9); Red Blood Count 4.89 M/mm3 (4.6-6.2); White Blood Count 7.8 K/mm3 (4.4-11.0)
[2022-03-07 19:28] LABS: Differential Indicated SCAN CRITERIA MET
--- NOTE | 2022-03-07 19:42 | CPS ---
x3 Albuterol given to pt. in ER as well
[2022-03-07 19:46] LABS: Anion Gap 3 (5-15); BUN 19 mg/dL (7-18); BUN/Creat Ratio 14.6 RATIO (10-20); Calcium,Total 9.2 mg/dL (8.5-10.1); Chloride 97 mmol/L (98-107); EST Glomerular Filtration Rate 65 mL/min (>60); Est Glom Filt Rate - Afr Amer 79 mL/min (>60); Glucose 206 mg/dL (74-106); Potassium 4.4 mmol/L (3.5-5.1); Sodium Level 135 mmol/L (136-145); Troponin-I HS 16 pg/mL (3.0-78.0)
[2022-03-07 19:48] LABS: Lactic Acid 1.3 mmol/L (0.4-1.9)
--- NOTE | 2022-03-07 19:50 | RAD_ITS ---
STUDY: X-RAY CHEST REASON FOR EXAM: Male, 37 years old. dyspnea TECHNIQUE: Single frontal view of the chest. COMPARISON: April FINDINGS: The lungs are clear and expanded. There is no demonstrated pleural abnormality. Cardiomegaly unchanged. Normal mediastinum and fariba. Normal visualized pulmonary arteries. Normal visualized aortic arch and descending thoracic aorta. Normal visualized thoracic spine. Normal visualized ribs, clavicles, and shoulders. There is no demonstrated abnormality of the visualized soft tissue structures of the upper abdomen. RAD/Chest PA and Lateral IMPRESSION: No acute disease Electronically Signed: Cuco Caraballo MD at 20:18 EST ,
[2022-03-07 20:12] LABS: BNP,B-Type NATRIURETIC PEPTIDE 43.6 pg/mL (0-100)
[2022-03-07] MEDS: Albuterol Sulfate 8 gm Inhaler (60 puffs) 2 PUFF INHALATION (20:49)
== END 2022-03-07 20:52 | disposition left against medical advice (07) ==
PROVIDERS: Emergency Provider Emergency Medicine; PCP Family Medicine; Visit Provider Emergency Medicine
DX: J45.909 Unspecified asthma, uncomplicated (principal); E66.01 Morbid (severe) obesity due to excess calories; E11.9 Type 2 diabetes mellitus without complications; I10 Essential (primary) hypertension; Z20.822 Contact with and (suspected) exposure to COVID-19; Z87.891 Personal history of nicotine dependence; E78.5 Hyperlipidemia, unspecified; R07.9 Chest pain, unspecified; R09.02 Hypoxemia; R06.02 Shortness of breath; Z28.310 Unvaccinated for COVID-19; Z79.52 Long term (current) use of systemic steroids; Z53.29 Procedure and treatment not carried out because of patient's decision for other reasons
CPT/HCPCS: G0463; 71046; 80048; 83605; 83880; 84484; 85025; 87040; 87428; 93005; 94640; 96374; 99251; 99285; A4216

== ENCOUNTER 2022-03-25 12:32 | Emergency (ER) | payer MEDICAID, SELFPAY ==
[2022-03-25] VITALS (9 sets, daily range): BP systolic 140–184; BP diastolic 78–118; PULSE 91–113; RESP 20–28; TEMP 36–36.1; O2SAT 83–98; BMI 65.7
--- NOTE | 2022-03-25 12:50 | CT_ITS ---
INDICATION: scrotal swelling PATIENT WEIGHT 510 LBS UNABLE TO FIT ALL OF AB/PELVIS IN PICTURES, BEST POSSIBLE IMAGES EXAMINATION: CT ABDOMEN AND PELVIS WITH CONTRAST - CT Abdomen And Pelvis W/ Contrast Injection TECHNIQUE: Helically acquired images were obtained of the abdomen and pelvis following IV contrast. A radiation dose optimization technique was used for this scan. IV Contrast dosage and agent: Oral contrast: None. COMPARISON: None. FINDINGS: LOWER CHEST: Mild bilateral lower lung atelectasis. Trace of left pleural effusion. No cardiomegaly or pericardial effusion. LIVER: Grossly unremarkable considering artifacts. No focal mass. GALLBLADDER AND BILIARY TREE: Contracted gallbladder. No definite gallstones. No intra- or extrahepatic biliary ductal dilation. PANCREAS: No focal cystic or solid mass. SPLEEN: Splenomegaly. The spleen measures about 18 cm in length. ADRENAL GLANDS: No nodules. KIDNEYS AND URETERS: Normal renal size and position. No hydronephrosis. PERITONEUM: No ascites or free air. No other fluid collection. BOWEL: Somewhat thickened appendix measuring about 14 mm in diameter. Moderate stranding in the right lower quadrant. No stomach or bowel distension. No evidence of acute diverticulitis. LYMPH NODES: No enlarged mesenteric or retroperitoneal lymph nodes. VESSELS: Aorta is non-dilated. URINARY BLADDER: The bladder is not well distended. REPRODUCTIVE ORGANS: No pelvic masses. ABDOMINAL WALL: Subcutaneous venous edema and swelling. BONES: No lytic or blastic abnormality. CT/Abdomen/Pelvis W IV Cont ONLY IMPRESSION: 1. Mild nonspecific stranding right lower quadrant inferior to the lower pole of right kidney. 2. Thickening of the appendix without periappendiceal inflammatory changes. Difficult to exclude appendicitis in the proper clinical setting. 3. Splenomegaly. 4. Atelectatic changes in the lower lungs. Electronically Signed: Theo Torres MD at 14:50 EST ,
--- NOTE | 2022-03-25 12:50 | CT_ITS ---
PROCEDURE: CT right hip without contrast REASON FOR EXAM: Male, 37 years old. Right testicular pain and swelling. TECHNIQUE: High resolution transaxial imaging was performed without contrast material. Sagittal and coronal images were reconstructed. RADIATION DOSAGE (If Supplied By Facility): CTDIvol = ( 23.16 ) mGy, DLP = ( 4605.55 ) mGycm COMPARISON: None FINDINGS: Subcutaneous edema and swelling of the visualized medial aspect of the right thigh. No visualized abnormal fluid collection or drainable abscess. Partially visualized severe swelling and fluid in the visualized portions of the scrotal sac. Testicles are better evaluated by ultrasound. The lateral aspect of the proximal thigh is not included on this exam. The hip joint is within normal limits. There is no evidence of dislocation. The osseous structures are intact. No evidence of fracture or destructive bony process. CT/Extremity Lower WITH Contrast IMPRESSION: 1. Subcutaneous edema and swelling of the medial aspect of the right side. 2. No evidence of abnormal fluid collection or drainable abscess. 3. Diffuse swelling and fluid/hydrocele as are the visualized testicular sac. Electronically Signed: Theo Torres MD at 14:39 EST ,
--- NOTE | 2022-03-25 12:50 | EKG12_ITS ---
Test Reason : CELLULITIS Blood Pressure : / mmHG Vent. Rate : 122 BPM Atrial Rate : 122 BPM P-R Int : 160 ms QRS Dur : 078 ms QT Int : 294 ms P-R-T Axes : 260 093 012 degrees QTc Int : 418 ms Unusual P axis, possible ectopic atrial tachycardia Rightward axis Pulmonary disease pattern Septal infarct , age undetermined Abnormal ECG Confirmed by MASOUD CRAVEN, FELIX ([id number]), book editor TERESA WALDROP ([id number]) on 03/28/2022 10:42:43 AM Referred By: Confirmed By:FELIX MEREDITH MD
--- NOTE | 2022-03-25 12:50 | RAD_ITS ---
EXAM: XR CHEST, 1 VIEW CLINICAL INDICATION: shortness of breath TECHNIQUE: Frontal view of the chest. This report was created using [employer] report generation technology. COMPARISON: 03/07/2022. FINDINGS: LUNGS AND PLEURAL SPACES: No suspicious infiltrates. No pneumothorax. No effusion. HEART: Mild cardiomegaly. MEDIASTINUM: Central airways and mediastinal contour are unremarkable. BONES/JOINTS: Unremarkable. SOFT TISSUES: Unremarkable. RAD/Chest 1 View (Portable) IMPRESSION: No acute findings in the chest and unchanged when compared to 03/07/2022. Electronically Signed: Phillip David MD at 14:06 EST ,
--- NOTE | 2022-03-25 12:53 | EX.ED.DYSGE1 ---
HPI History of Present Illness Chief Complaint: Cellulitis Narrative Narrative: 37-year-old male past medical history of diabetes, morbid obesity, presents with return of scrotal swelling. He states he had this previously, the most recent time was at the beginning of the month, approximately 30 days ago. He states he was admitted here and stayed for 5 days, received IV antibiotics. He states after that, upon discharge, his scrotal swelling and pain, along with redness had improved. However, it returned a few days ago. He denies any fevers or chills. No nausea or vomiting. He is having pain mainly in his right thigh and his scrotum. He states his right thigh is swollen and painful, and firm to the touch. [facility] Medical History Chronic asthma Diabetes Essential hypertension Former smoker Hemoglobin A1C greater than 9%, indicating poor diabetic control History of sinus bradycardia Hyperlipidemia Long-term insulin use Morbid obesity Morbid obesity with BMI of 50.0-59.9, adult Scrotal edema Sleep apnea Home Medications albuterol sulfate 90 mcg/actuation aerosol inhaler (Ventolin HFA) 1 - 2 puff inhalation Q4H PRN PRN Sob &/Or Wheezing 07/08/18 [History Last Taken 02/22/22] lisinopril 40 mg tablet 40 mg PO DAILY 05/18/21 [History Last Taken 02/22/22] True Metrix Glucose Meter (blood-glucose meter) #1 ea 07/04/21 [Rx Last Taken Unknown] lancets (Unilet ComforTouch Lancet) #100 ea 07/04/21 [Rx Last Taken Unknown] True Metrix Glucose Test Strip (blood sugar diagnostic) #100 ea 01/02/22 [Rx Last Taken Unknown] insulin degludec 200 unit/mL (3 mL) subcutaneous pen (Tresiba FlexTouch U-200 insulin) 74 unit subcut QHS 02/23/22 [History Last Taken 02/23/22] insulin lispro 100 unit/mL subcutaneous pen 55 unit subcut TID 02/23/22 [History Last Taken 02/23/22] amoxicillin 875 mg-potassium clavulanate 125 mg tablet 1 tab PO Q12H 3 days #7 tabs 02/28/22 [Rx Last Taken Unknown] doxycycline hyclate 100 mg capsule 100 mg PO BID 3 days #7 caps 02/28/22 [Rx Last Taken Unknown] furosemide 40 mg tablet (Lasix) 40 mg PO DAILY 5 days #5 tabs 02/28/22 [Rx Last Taken Unknown] prednisone 20 mg tablet 20 mg PO BID #10 tabs 03/07/22 [Rx Last Taken Unknown] cephalexin 500 mg capsule 1 mg PO DAILY 03/25/22 [History Last Taken Unknown] Allergy/AdvReac Type Severity Reaction Status Date / Time grass pollen Allergy Other Verified 03/25/22 12:38 metformin AdvReac Severe diarrhea Verified 03/25/22 12:38 Family History Mother Hypertension Diabetes Father Hypertension Surgical History S/P urological surgery Social History household members: none Smoking Status: Former smoker how long ago did patient quit smokin, 3p/day second hand exposure: Yes alcohol intake: former substance use type: marijuana additional social history: Does Not Take Aspirin Does Not Take Ibuprofen ROS ROS ED ROS Narrative Constitutional: No fever, no chills. HEENT: No sore throat. No neck pain. No loss of vision. No rhinorrhea. Cardiovascular: No chest pain. No palpitations. No pedal edema. Respiratory: No cough, no shortness of breath. Abdominal: No abdominal pain. No nausea. No vomiting. Genitourinary: No dysuria. No hematuria. Scrotal swelling and redness, right thigh swelling and firmness. Musculoskeletal: No myalgias. No arthralgias. Neurologic: No headaches. No dizziness. No lightheadedness. Skin: No rash. No change in color. Psychiatric: No depression. No anxiety. EXAM Physical Exam Narrative Exam Narrative: Afebrile. Vital signs noted. HEENT: Normocephalic. Atraumatic. PERRL, EOMI. Neck soft and supple. No point tenderness or step off. Cardiovascular: Regular rate and rhythm. No murmurs, rubs, or gallops appreciated. Respiratory: No tachypnea. Lungs clear to auscultation bilaterally. Gastrointestinal: Abdomen soft, obese, nontender, with normoactive bowel sounds. No rebound or guarding. Genitourinary: Significantly swollen scrotum such as seen with large hydroceles, positive erythema. No crepitance. Positive firmness and swelling right medial thigh. Noted perineum erythema. Neurological: Awake. Alert. Nonfocal, nonlateralizing. Skin: No rash. Normal color. No pallor. Musculoskeletal: No pedal edema. Full range of motion extremities. Const Vital Signs: 03/25/22 12:33 03/25/22 12:44 03/25/22 12:37 Temperature 96.8 F L 96.9 F L Temperature Source Temporal Temporal Pulse Rate 113 H 104 H Respiratory Rate 24 H 22 H Respiratory Effort Normal Non-Labored Respiratory Pattern Tachypnea Blood Pressure 145/97 H 173/108 H Blood Pressure Mean 113 129 Pulse Ox 91 90 Oxygen Delivery Method Room Air Room Air Oxygen Flow Rate (L/min) 03/25/22 12:50 03/25/22 13:13 03/25/22 13:37 Temperature 97.0 F L Temperature Source Temporal Pulse Rate 101 H Respiratory Rate 20 H Respiratory Effort Respiratory Pattern Blood Pressure 164/97 H Blood Pressure Mean 119 Pulse Ox 83 92 92 Oxygen Delivery Method Room Air Nasal Cannula Nasal Cannula Oxygen Flow Rate (L/min) 2 2 03/25/22 14:00 03/25/22 15:00 03/25/22 16:00 Temperature 96.8 F L 97 F L Temperature Source Temporal Temporal Pulse Rate 106 H 110 H 91 Respiratory Rate 22 H 22 H 25 H Respiratory Effort Respiratory Pattern Blood Pressure 171/103 H 168/78 H 140/86 H Blood Pressure Mean 125 108 104 Pulse Ox 93 87 91 Oxygen Delivery Method Nasal Cannula Room Air Nasal Cannula Oxygen Flow Rate (L/min) 2 2 03/25/22 18:00 Temperature Temperature Source Pulse Rate 110 H Respiratory Rate 28 H Respiratory Effort Respiratory Pattern Blood Pressure 184/118 H Blood Pressure Mean 140 Pulse Ox 98 Oxygen Delivery Method Nasal Cannula Oxygen Flow Rate (L/min) 2 MDM MDM MDM Narrative Medical decision making narrative: Sepsis work-up was pursued. I did review his prior record from earlier in the month. He was able to stay here because urology was paged. 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 I will obtain CT imaging of both his right thigh and his pelvis/abdomen and pelvis. Patient is not meeting sepsis criteria currently. He has a normal white count of 8.2, hemoglobin stable at 12.3, hematocrit 42.6. Platelet count normal at 241. INR normal at 1.3, APTT slightly elevated at 36.7. Electrolyte panel shows a BUN of 24 with a creatinine of 1.3, glucose elevated to 44 consistent with his diabetes but I anion gap is low at 4. I do not feel that he is in diabetic ketoacidosis. LFTs are grossly unremarkable. Urinalysis shows 5-10 WBCs, but negative nitrites. We will send this for culture, but I do not feel that he has a full-blown urinary tract infection. CT of the abdomen and pelvis with IV contrast was obtained. While there is thickening of the appendix, there is no surrounding inflammation. His abdomen is soft and he is not complaining of abdominal pain. I do not feel that he has an acute appendicitis. There was noted nonspecific stranding of the right lower quadrant from the inferior pole of the right kidney. Lactic acid is normal at 1.9. Blood cultures were obtained and are pending. He was started on 4.5 g of Zosyn and 2 g of vancomycin. He required 2 doses of morphine for analgesia. I also obtained ultrasound of the testicles which shows the scrotal edema consistent with cellulitis. Additionally, CT of the right thigh/lower extremity does show edema but no discrete fluid collection consistent with abscess. Given his scrotal edema, and erythema along with mild perineal erythema, I discussed the patient with urology at [facility] as there is no urologist on-call here. Urology agrees to be on consult but felt this was more of a hospitalist admission. I then discussed the patient with Dr. Walter who is excepted the patient. Patient will be transferred to [facility] in stable condition. Lab Data Attestation: I reviewed the patient's lab results. Labs: Laboratory Results - last 24 hr 03/25/22 03/25/22 03/25/22 13:08 13:08 13:08 WBC 8.2 RBC 4.71 Hgb 12.3 L Hct 42.6 MCV 90.4 MCH 26.1 L MCHC 28.9 L RDW Std Deviation 50.3 H RDW Coeff of Ryan 15.4 H Plt Count 241 MPV 9.9 Immature Gran % (Auto) 0.500 Neut % (Auto) 81.9 H Lymph % (Auto) 8.3 L Darke % (Auto) 7.4 Eos % (Auto) 1.7 Baso % (Auto) 0.2 Absolute Neuts (auto) 6.7 Absolute Lymphs (auto) 0.68 L Nucleated RBC % 0 PT 15.8 H INR 1.3 APTT 36.7 H Sodium 137 Potassium 5.1 Chloride 104 Carbon Dioxide 29.0 Anion Gap 4 L BUN 24 H Creatinine 1.33 H Estim Creat Clear Calc 86.70 Est GFR (MDRD) Af Amer 77 Est GFR (MDRD) Non-Af 64 BUN/Creatinine Ratio 18.0 Glucose 244 H Lactic Acid Calcium 8.7 Total Bilirubin 0.40 AST 35 ALT 24 Alkaline Phosphatase 90 Total Protein 7.2 Albumin 2.2 L Globulin 5.0 H Albumin/Globulin Ratio 0.4 L Urine Color Urine Clarity Urine pH Ur Specific Lee Urine Protein Urine Glucose (UA) Urine Ketones Urine Occult Blood Urine Nitrite Urine Bilirubin Urine Urobilinogen Ur Leukocyte Esterase Urine RBC Urine WBC Ur Squamous Epith Cells Urine Bacteria Urine Mucus POC Glucose 03/25/22 03/25/22 03/25/22 13:08 15:00 18:38 WBC RBC Hgb Hct MCV MCH MCHC RDW Std Deviation RDW Coeff of Ryan Plt Count MPV Immature Gran % (Auto) Neut % (Auto) Lymph % (Auto) Darke % (Auto) Eos % (Auto) Baso % (Auto) Absolute Neuts (auto) Absolute Lymphs (auto) Nucleated RBC % PT INR APTT Sodium Potassium Chloride Carbon Dioxide Anion Gap BUN Creatinine Estim Creat Clear Calc Est GFR (MDRD) Af Amer Est GFR (MDRD) Non-Af BUN/Creatinine Ratio Glucose Lactic Acid 1.9 Calcium Total Bilirubin AST ALT Alkaline Phosphatase Total Protein Albumin Globulin Albumin/Globulin Ratio Urine Color Yellow Urine Clarity Clear Urine pH 6.0 Ur Specific Lee 1.020 Urine Protein 500 H Urine Glucose (UA) Normal Urine Ketones Negative Urine Occult Blood 50 H Urine Nitrite Negative Urine Bilirubin Negative Urine Urobilinogen Normal Ur Leukocyte Esterase 25 H Urine RBC 0 SEEN Urine WBC 5-10 SEEN Ur Squamous Epith Cells 0-5 SEEN Urine Bacteria 1+ Urine Mucus 0 SEEN POC Glucose 135 H Radiography Diagnostic Testing: Clinical Impression(s) from Imaging Studies Abdomen/Pelvis CT 03/25/22 12:50 IMPRESSION: 1. Mild nonspecific stranding right lower quadrant inferior to the lower pole of right kidney. 2. Thickening of the appendix without periappendiceal inflammatory changes. Difficult to exclude appendicitis in the proper clinical setting. 3. Splenomegaly. 4. Atelectatic changes in the lower lungs. Electronically Signed: Theo Torres MD at 14:50 EST , Chest X-Ray 03/25/22 12:50 IMPRESSION: No acute findings in the chest and unchanged when compared to 03/07/2022. Electronically Signed: Phillip David MD at 14:06 EST , Lower Extremity CT 03/25/22 12:50 IMPRESSION: 1. Subcutaneous edema and swelling of the medial aspect of the right side. 2. No evidence of abnormal fluid collection or drainable abscess. 3. Diffuse swelling and fluid/hydrocele as are the visualized testicular sac. Electronically Signed: Theo Torres MD at 14:39 EST , Testicular Ultrasound 03/25/22 14:56 IMPRESSION: Extensive scrotal wall edema consistent with known cellulitis. Moderate bilateral hydroceles. Otherwise normal bilateral testes and epididymides. Electronically Signed: Saturnino Flores MD at 17:37 EST , Critical Care Time Critical Care Time: Yes Critical care time (excluding procedures): 30-74 minutes (21), Including time spent:, Discussing w/Patient &/or Family/Branding Specialist, Discussing w/Consultants, Arranging Admission or Transfer and Performing Direct Patient Care at Bedside Discharge Plan Triage Chief Complaint: Cellulitis ED Provider: Phillip Real Dx/Rx/DC Orders Clinical Impression: Cellulitis of scrotum, Diabetes, Morbid obesity, Swelling of thigh, Cellulitis of perineum Prescriptions: No Action lisinopril 40 mg tablet 40 mg PO DAILY (DME) blood-glucose meter [True Metrix Glucose Meter] Misc See Rx Instructions .ROUTE .MEDSUPPLY Qty: 1 0RF Rx Instructions: As directed (DME) lancets [Unilet ComforTouch Lancet] Misc See Rx Instructions .ROUTE .MEDSUPPLY Qty: 100 7RF Rx Instructions: tid albuterol sulfate [Ventolin HFA] 108 HFA aerosol inhaler 1 - 2 puff inhalation Q4H PRN PRN (Reason: Sob &/Or Wheezing) insulin lispro 100 unit/mL insulin pen 55 unit subcut TID Rx Instructions: +SS: 200-249+5; 250-299+10; >300+15 insulin degludec [Tresiba FlexTouch U-200] 200 unit/mL (3 mL) insulin pen 74 unit subcut QHS amoxicillin-pot clavulanate 875-125 mg tablet 1 tab PO Q12H 3 Days Qty: 7 0RF doxycycline hyclate 100 mg capsule 100 mg PO BID 3 Days Qty: 7 0RF furosemide [Lasix] 40 mg tablet 40 mg PO DAILY 5 Days Qty: 5 0RF prednisone 20 mg tablet 20 mg PO BID Qty: 10 0RF cephalexin 500 mg capsule 1 mg PO DAILY Label Comments: Take 1 capsule by mouth four times daily for 10 days. (DME) True Metrix Glucose Test Strip Strip See Rx Instructions .ROUTE .MEDSUPPLY Qty: 100 3RF Rx Instructions: 3x/day Primary Care Provider: Kennedy Fernandes Referrals: Kennedy Fernandes MD [Primary Care Provider] - Disposition Disposition: Acute Care Hospital Discharge Location: [facility]
[2022-03-25] MEDS: 0.9% Normal Saline 1,000 ML 999 ML IV (13:10)
[2022-03-25 13:19] LABS: Absolute Lymphocyte Count 0.68 X10^3/uL (0.83-4.51); Absolute Neutrophil Count 6.7 X10^3/uL (2.0-7.7); Basophil# 0.02 X10^3/uL; Basophil% 0.2 % (0-1); Eosinophil# 0.14 X10^3/uL; Eosinophils% 1.7 % (0-5); Hematocrit 42.6 % (40-54); Hemoglobin 12.3 g/dL (13.0-16.5); Lymphocyte # 0.68 X10^3/ul (0.83-4.51); Lymphocyte % 8.3 % (19-41); Mean Corp Hgb Conc 28.9 g/dL (32-36); Mean Corpuscular Hgb 26.1 pg (27.0-32.0); Mean Corpuscular Volume 90.4 fL (80-94); Mean Platelet Vol. 9.9 fl (6.2-12.0); Monocyte# 0.61 X10^3/uL; Monocyte% 7.4 % (0-10); NRBC Flagged by Analyzer 0 % (0-5); Neutrophil # 6.74 X10^3/uL (2.7-7.7); Neutrophil % 81.9 % (47-70); Platelet Count 241 K/mm3 (150-450); RBC Distribution Width CV 15.4 % (11.6-14.6); RBC Distribution Width SD 50.3 fl (35.1-43.9); Red Blood Count 4.71 M/mm3 (4.6-6.2); White Blood Count 8.2 K/mm3 (4.4-11.0)
[2022-03-25 13:30] LABS: Partial Thromboplast Time 36.7 Seconds (24.1-36.2)
[2022-03-25 13:41] LABS: ALB/GLOB Ratio 0.4 RATIO (0.9-2.4); AST(SGOT) 35 U/L (15-37); Alanine Aminotransfer ALT/SGPT 24 U/L (16-61); Albumin, Serum 2.2 g/dL (3.2-5.0); Alkaline Phosphatase 90 U/L (45-117); Anion Gap 4 (5-15); BUN 24 mg/dL (7-18); Calcium,Total 8.7 mg/dL (8.5-10.1); Chloride 104 mmol/L (98-107); Creatinine, Serum 1.33 mg/dL (0.70-1.30); EST Glomerular Filtration Rate 64 mL/min (>60); Est Glom Filt Rate - Afr Amer 77 mL/min (>60); Glucose 244 mg/dL (74-106); Potassium 5.1 mmol/L (3.5-5.1); Protein, Total 7.2 g/dL (6.4-8.2); Sodium Level 137 mmol/L (136-145)
[2022-03-25 13:42] LABS: International Normalized Ratio 1.3; Prothrombin Time (Protime)PT. 15.8 SECONDS (11.7-14.9)
[2022-03-25 13:44] LABS: Lactic Acid 1.9 mmol/L (0.4-1.9)
--- NOTE | 2022-03-25 14:56 | US_ITS ---
INDICATION: BILATERAL PAIN AND SWELLING EXAMINATION: US Scrotum (Contents) TECHNIQUE: Realtime ultrasound of the testicles was performed with grayscale, Color Doppler and spectral Doppler analysis. COMPARISON: None. FINDINGS: RIGHT: TESTIS: Measures 2.5 x 2.7 x 2.5 cm. Normal in size and echotexture, without focal lesion. There is extensive scrotal wall edema. COLOR DOPPLER: Normal arterial flow present in the testicle with monophasic waveforms. EPIDIDYMIS: Normal in size and echotexture, without focal lesion. [Normal color Doppler flow pattern in the epididymis. HYDROCELE: Moderate. VARICOCELE: None. LEFT: TESTIS: Measures 3.7 x 2.2 x 2.1 cm. Normal in size and echotexture, without focal lesion. Extensive scrotal wall edema. COLOR DOPPLER: Normal arterial flow present in the testicle with monophasic waveforms. EPIDIDYMIS: Normal in size and echotexture, without focal lesion. [Normal color Doppler flow pattern in the epididymis. HYDROCELE: Moderate. VARICOCELE: None. US/Testicular with Arterial Flow IMPRESSION: Extensive scrotal wall edema consistent with known cellulitis. Moderate bilateral hydroceles. Otherwise normal bilateral testes and epididymides. Electronically Signed: Saturnino Flores MD at 17:37 EST ,
[2022-03-25 15:14] LABS: Mucous, Urine 0 SEEN /hpf (<or=2+); Red Blood Cells-Urine 0 SEEN /hpf (0-5)
[2022-03-25 15:22] LABS: Color, Urine Yellow (Yellow); Glucose, Dipstick Normal (Normal); Ketone-Dipstick Negative (Negative); Leukocyte Esterase-Dipstick 25 /ul (Negative); Nitrite-Dipstick Negative (Negative); Occult Blood-Urine 50 /ul (Negative); Protein-Dipstick 500 mg/dl (Negative); Urine Bilirubin Dipstick Negative (Negative); Urine Clarity Clear (Clear); Urine Urobilinogen Normal (Normal)
[2022-03-25 15:31] LABS: Bacteria 1+ /hpf (None Seen); Squamous Epithelial Cells - UA 0-5 SEEN /hpf (0-5); White Blood Cells 5-10 SEEN /hpf (0-5)
[2022-03-25] MEDS: Morphine 4 MG/ML Syringe IV ×2 (16:09→20:32)
--- NOTE | 2022-03-25 17:58 | ED.RN ---
INITIATED TRANSFER WITH [facility] AT 2900
[2022-03-25 18:55] LABS: Bedside Glucose 135 mg/dL (74-106)
[2022-03-25 23:00] LABS: Bedside Glucose 265 mg/dL (74-106)
--- NOTE | 2022-03-26 00:37 | NURSING ---
CLARIFIED INSULIN ORDER WITH PRIMARY RN AND MD. PT TAKES 50 UNITS LISPRO TID AND THAT IS WHY THE ORDER FOR 30 UNITS WAS D/C'D. THIS RN RECEIVED VERBAL ORDER FROM DR BECKER FOR 50 UNITS INSULIN LISPRO X1 SC.
[2022-03-26] MEDS: Insulin Lispro 100 UNIT/ML INSULN.PEN 50 UNIT SC (00:44)
[2022-03-26 01:01] LABS: Bedside Glucose 264 mg/dL (74-106)
[2022-03-26] MEDS: HYDROmorphone 1 MG/ML Syringe IV ×2 (01:04→09:01)
[2022-03-26 01:09] VITALS: BP 148/71; PULSE 111; RESP 24; TEMP 36.4; O2SAT 95
[2022-03-26 06:29] VITALS: BP 161/90; PULSE 116; RESP 22; TEMP 36.8; O2SAT 97
[2022-03-26 06:54] VITALS: BP 161/90; PULSE 116; RESP 22; TEMP 36.8; O2SAT 97
[2022-03-26 08:20] VITALS: RESP 18
[2022-03-26 09:01] VITALS: BP 156/83; PULSE 118; RESP 20; O2SAT 97
== END 2022-03-26 09:12 | disposition short-term general hospital (02) ==
PROVIDERS: Emergency Provider Emergency Medicine; PCP Family Medicine; Visit Provider Emergency Medicine
DX: N49.2 Inflammatory disorders of scrotum (principal); E66.01 Morbid (severe) obesity due to excess calories; Z79.4 Long term (current) use of insulin; E11.9 Type 2 diabetes mellitus without complications; L03.315 Cellulitis of perineum; F12.90 Cannabis use, unspecified, uncomplicated; M79.651 Pain in right thigh; I10 Essential (primary) hypertension; G47.30 Sleep apnea, unspecified; Z79.899 Other long term (current) drug therapy; Z87.891 Personal history of nicotine dependence
CPT/HCPCS: 71045; 73701; 74177; 76870; 80053; 81001; 82962; 83605; 85025; 85610; 85730; 87040; 87086; 87088; 87811; 93005; 93976; 96365; 96366; 96368; 96375; 96376; 99285; J7030; J7040; Q9967; A4216

== ENCOUNTER 2022-04-06 06:41 | Emergency (ER) | payer MEDICAID, SELFPAY ==
[2022-04-06 06:41] VITALS: BP 159/98; PULSE 122; RESP 36; TEMP 36.6; O2SAT 90; BMI 67.4
--- NOTE | 2022-04-06 07:04 | EDS_ITS ---
HPI History of Present Illness Chief Complaint: Edema Informant: patient Narrative Narrative: Presents by EMS from home for concern increasing scrotal swelling overnight. Reports was transferred [facility] from the ED 12 days ago. He states he was admitted for cellulitis and pneumonia. He went home on 4 L of oxygen. He states he was on a water pill Lasix daily. He was discharged at 6 PM yesterday. He states there is only one medication at his pharmacy. He states he supposed to be on a diuretic however is not there. He woke up with increasing swelling of scrotum and got concerned. He was discharged home on 4 L of oxygen, oxygen was set up when he got home. Denies any dyspnea. History of sleep apnea with CPAP at night. History of diabetes. States redness in legs as improved. Denies any scrotal pain. Denies fevers. Denies any more dyspnea than normal. Prior similar symptoms: Yes [facility] Medical History (Updated 04/06/22 @ 07:[address] Darnell Servin, DO) Chronic asthma Diabetes Essential hypertension Former smoker (~04/06/22) Hemoglobin A1C greater than 9%, indicating poor diabetic control History of sinus bradycardia Hyperlipidemia Long-term insulin use Morbid obesity Morbid obesity with BMI of 50.0-59.9, adult Scrotal edema Sleep apnea Home Medications albuterol sulfate 90 mcg/actuation aerosol inhaler (Ventolin HFA) 1 - 2 puff inhalation Q4H PRN PRN Sob &/Or Wheezing 07/08/18 [History Last Taken 02/22/22] lisinopril 40 mg tablet 40 mg PO DAILY 05/18/21 [History Last Taken 02/22/22] True Metrix Glucose Meter (blood-glucose meter) #1 ea 07/04/21 [Rx Last Taken Unknown] lancets (Unilet ComforTouch Lancet) #100 ea 07/04/21 [Rx Last Taken Unknown] True Metrix Glucose Test Strip (blood sugar diagnostic) #100 ea 01/02/22 [Rx Last Taken Unknown] insulin degludec 200 unit/mL (3 mL) subcutaneous pen (Tresiba FlexTouch U-200 insulin) 74 unit subcut QHS 02/23/22 [History Last Taken 02/23/22] insulin lispro 100 unit/mL subcutaneous pen 55 unit subcut TID 02/23/22 [History Last Taken 02/23/22] amoxicillin 875 mg-potassium clavulanate 125 mg tablet 1 tab PO Q12H 3 days #7 tabs 02/28/22 [Rx Last Taken Unknown] doxycycline hyclate 100 mg capsule 100 mg PO BID 3 days #7 caps 02/28/22 [Rx Last Taken Unknown] furosemide 40 mg tablet (Lasix) 40 mg PO DAILY 5 days #5 tabs 02/28/22 [Rx Last Taken Unknown] prednisone 20 mg tablet 20 mg PO BID #10 tabs 03/07/22 [Rx Last Taken Unknown] cephalexin 500 mg capsule 1 mg PO DAILY 03/25/22 [History Last Taken Unknown] cefdinir 300 mg capsule 300 mg PO BID #12 caps 04/06/22 [Rx Last Taken Unknown] doxycycline monohydrate 100 mg capsule 100 mg PO BID #12 caps 04/06/22 [Rx Last Taken Unknown] furosemide 40 mg tablet (Lasix) 40 mg PO DAILY #30 tabs 04/06/22 [Rx Last Taken Unknown] oxycodone-acetaminophen 5 mg-325 mg tablet (Percocet) 1 tab PO Q6H PRN pain 3 days #12 tabs 04/06/22 [Rx Last Taken Unknown] Allergy/AdvReac Type Severity Reaction Status Date / Time grass pollen Allergy Other Verified 04/06/22 06:45 metformin AdvReac Severe diarrhea Verified 04/06/22 06:45 Family History Mother Hypertension Diabetes Father Hypertension Surgical History S/P urological surgery Social History household members: none Smoking Status: Former smoker how long ago did patient quit smokin, 3p/day second hand exposure: Yes alcohol intake: former substance use type: marijuana additional social history: Does Not Take Aspirin Does Not Take Ibuprofen ROS ROS ED Constitutional Constitutional ED: Denies chills, fever(s) or sweats Eyes Eyes: Denies change in vision ENT ENT ED: Denies dysphagia or sore throat Cardiovascular Cardiovascular: Reports leg edema; Denies chest pain, palpitations or racing heartbeat Respiratory/Chest Respiratory/Chest: Denies cough, dyspnea or dyspnea on exertion Gastrointestinal Gastrointestinal: Denies abdominal pain, diarrhea, nausea or vomiting Genitourinary Genitourinary ED: Reports other Details: Scrotal swelling ; Denies dysuria, hematuria or urinary frequency Musculoskeletal Musculoskeletal: Denies back pain, extremity pain or neck pain Integumentary Denies rash or wounds Neurologic Neurologic: Denies headache(s), paresthesias or weakness EXAM Physical Exam Const Vital Signs: 04/06/22 06:41 04/06/22 06:55 04/06/22 07:15 Temperature 97.9 F Temperature Source Temporal Pulse Rate 122 H Respiratory Rate 36 H Respiratory Pattern Tachypnea Blood Pressure 159/98 H Blood Pressure Mean 118 Pulse Ox 90 95 Oxygen Delivery Method Nasal Cannula Nasal Cannula Oxygen Flow Rate (L/min) 4 5 04/06/22 09:45 04/06/22 10:46 Temperature Temperature Source Pulse Rate 109 H Respiratory Rate 20 H 20 H Respiratory Pattern Blood Pressure 184/98 H Blood Pressure Mean Pulse Ox 95 95 Oxygen Delivery Method Nasal Cannula Oxygen Flow Rate (L/min) 5 Positive well nourished, well developed and obese Constitutional Narrative: Nasal cannula no respiratory distress General Appearance ED: well developed and NAD Nutritional Appearance: obese HEENT Reports moist mucous membranes normocephalic and atraumatic Eyes PERRL, EOMs intact bilaterally and conjunctivae normal General Eye ED: Yes normal appearance of both eyes Neck no lymphadenopathy and supple General: Negative for tenderness Chest Wall Chest: Negative for tenderness Resp normal respiratory effort and normal air movement Effort and Inspection: symmetric chest movement; Negative for respiratory distress Cardio regular rate, regular rhythm and no murmurs Peripheral Pulses: pulses 2+ throughout GI normal to inspection, nondistended, normoactive bowel sounds and non-tender Palpation: Negative for guarding or rebound tenderness present Narrative: Scrotal edema bilaterally, nontender. Back/Spine no CVA tenderness and no thoracic nor lumbar tenderness Extremity normal to inspection Extremity Narrative: Minimal swelling lower extremities bilaterally, there is previous markings drawn from cellulitis upper legs, erythema is improved, dark scaly skin bilateral lower legs. No drainage. General Extremety ED: Yes edema; Negative for tenderness General Extremity: edema Neuro oriented x3 and no sensory deficits noted Sensorium / Orientation: awake and alert Skin no rashes or lesions noted and no wounds Skin Narrative: see above MDM MDM MDM Narrative Medical decision making narrative: Patient presenting with increasing scrotal edema. No current erythema no crepitus. She has had this previously. Some mild leg swelling. Differential includes lymphedema. No clinical cellulitis as symptoms are improving. He is more concerned of increasing swelling. With patient's consent I was able to pull records both through [facility] and [employer] to review his summaries. He was being covered for potential Fourneire's gangrene . There was no surgical intervention. Infectious disease transition treatment over to Ceftin Advair and doxycycline twice a day up to the 18th 6 days from now. He is on Lasix daily of 40 mg. With him being on diuretic I did check labs, this was reviewed white count 6.16 with 12.2 his creatinine 1.13. Glucose 209. He is since then been home on oxygen 4 to 5 Lnoted records. He has dyspnea with movement with additional sleep apnea and likely obesity hypoventilation syndrome. He states this is his baseline. He was covered for potential pneumonia with left pleural effusion and seen by pulmonology there with continue diuretics. With patient's reported increasing swelling creatinine stable, he was given Lasix 40 mg IV. I will send antibiotics diuretics and short prescription for pain control due to swelling as he requested. He will follow-up as an outpatient. This with patient's history now needing oxygen sleep apnea, and multiple return visits hospitalization he is at high risk for return to hospitalization. However he states his current breathing is at baseline he has improving redness, therefore do not feel he requires hospitalization at this visit. Patient was given his dose of doxycycline and Cefdinir as he is due for these doses. Prescriptions were sent to his pharmacy. 0800: Prior to being discharged patient reported nursing he would like to go to halfway facility. I spoke with him he states since being home at 6 PM yesterday increasing difficulties. In addition to scrotal swelling. From case management notes at [facility] noted no caregiver was needed. He states he lives with his parents. He did have loose 11-day hospitalization. New only required oxygen from being discharged. We will have case management discussed with patient in the ED who comes in at 10 AM. 1028: Patient evaluated by case management in the ED. Patient able to ambulate in the ED. He had physical therapy note and Occupational Therapy note told and reviewed, he had no issues is able to provide his necessary care. He reported to case management concerned that his parents unable to provide hygiene after bowel movement. He does not meet criteria currently for halfway facility. He is okay going home. Plan of care as discussed initially with medication sent to his pharmacy. Lab Data Attestation: I reviewed the patient's lab results. Labs: Laboratory Results - last 24 hr 04/06/22 04/06/22 07:13 07:13 WBC 6.6 RBC 4.66 Hgb 12.2 L Hct 43.4 MCV 93.1 MCH 26.2 L MCHC 28.1 L RDW Std Deviation 54.3 H RDW Coeff of Ryan 16.1 H Plt Count 235 MPV 9.6 Immature Gran % (Auto) 0.800 Neut % (Auto) 79.9 H Lymph % (Auto) 8.5 L [place] % (Auto) 8.2 Eos % (Auto) 2.1 Baso % (Auto) 0.5 Absolute Neuts (auto) 5.3 Absolute Lymphs (auto) 0.56 L Nucleated RBC % 0 Anisocytosis 1+ Sodium 139 Potassium 4.7 Chloride 95 L Carbon Dioxide 43.0 H Anion Gap 1 L BUN 21 H Creatinine 1.13 Estim Creat Clear Calc 102.04 Est GFR (MDRD) Af Amer 93 Est GFR (MDRD) Non-Af 77 BUN/Creatinine Ratio 18.6 Glucose 209 H Calcium 9.0 Discharge Plan Triage Chief Complaint: Edema ED Provider: Darnell Servin Dx/Rx/DC Orders Clinical Impression: Sleep apnea, Scrotal edema, Morbid obesity, Diabetes Instructions: ED Lymphedema Prescriptions: New cefdinir 300 mg capsule 300 mg PO BID Qty: 12 0RF oxycodone-acetaminophen [Percocet] 5-325 mg tablet 1 tab PO Q6H PRN (Reason: pain) 3 Days Qty: 12 0RF doxycycline monohydrate 100 mg capsule 100 mg PO BID Qty: 12 0RF furosemide [Lasix] 40 mg tablet 40 mg PO DAILY Qty: 30 0RF No Action lisinopril 40 mg tablet 40 mg PO DAILY (DME) blood-glucose meter [True Metrix Glucose Meter] Misc See Rx Instructions .ROUTE .MEDSUPPLY Qty: 1 0RF Rx Instructions: As directed (DME) lancets [Unilet ComforTouch Lancet] Misc See Rx Instructions .ROUTE .MEDSUPPLY Qty: 100 7RF Rx Instructions: tid albuterol sulfate [Ventolin HFA] 108 HFA aerosol inhaler 1 - 2 puff inhalation Q4H PRN PRN (Reason: Sob &/Or Wheezing) insulin lispro 100 unit/mL insulin pen 55 unit subcut TID Rx Instructions: +SS: 200-249+5; 250-299+10; >300+15 insulin degludec [Tresiba FlexTouch U-200] 200 unit/mL (3 mL) insulin pen 74 unit subcut QHS amoxicillin-pot clavulanate 875-125 mg tablet 1 tab PO Q12H 3 Days Qty: 7 0RF doxycycline hyclate 100 mg capsule 100 mg PO BID 3 Days Qty: 7 0RF furosemide [Lasix] 40 mg tablet 40 mg PO DAILY 5 Days Qty: 5 0RF prednisone 20 mg tablet 20 mg PO BID Qty: 10 0RF cephalexin 500 mg capsule 1 mg PO DAILY Label Comments: Take 1 capsule by mouth four times daily for 10 days. (DME) True Metrix Glucose Test Strip Strip See Rx Instructions .ROUTE .MEDSUPPLY Qty: 100 3RF Rx Instructions: 3x/day Primary Care Provider: Kennedy Fernandes Referrals: Kennedy Fernandes MD [Primary Care Provider] - 3-5 Days Activity Restrictions/Additional Instructions: Take and finish your antibiotics as planned with infectious disease. Take the Lasix as prescribed. Pain medicines as needed. Follow-up with your doctor. Return if any worsening symptoms. Disposition Disposition: Home, Self Care Discharge Date/Time: 04/06/22 10:55
[2022-04-06 07:15] VITALS: O2SAT 95
[2022-04-06] MEDS: Furosemide 40 MG/4 ML Vial IV (07:16)
[2022-04-06 07:17] LABS: Absolute Lymphocyte Count 0.56 X10^3/uL (0.83-4.51); Absolute Neutrophil Count 5.3 X10^3/uL (2.0-7.7); Basophil# 0.03 X10^3/uL; Basophil% 0.5 % (0-1); Eosinophil# 0.14 X10^3/uL; Eosinophils% 2.1 % (0-5); Hematocrit 43.4 % (40-54); Hemoglobin 12.2 g/dL (13.0-16.5); Lymphocyte # 0.56 X10^3/ul (0.83-4.51); Lymphocyte % 8.5 % (19-41); Mean Corp Hgb Conc 28.1 g/dL (32-36); Mean Corpuscular Hgb 26.2 pg (27.0-32.0); Mean Corpuscular Volume 93.1 fL (80-94); Mean Platelet Vol. 9.6 fl (6.2-12.0); Monocyte# 0.54 X10^3/uL; Monocyte% 8.2 % (0-10); NRBC Flagged by Analyzer 0 % (0-5); Neutrophil # 5.28 X10^3/uL (2.7-7.7); Neutrophil % 79.9 % (47-70); POSITIVE DIFFERENTIAL YES; Platelet Count 235 K/mm3 (150-450); RBC Distribution Width CV 16.1 % (11.6-14.6); RBC Distribution Width SD 54.3 fl (35.1-43.9); Red Blood Count 4.66 M/mm3 (4.6-6.2); White Blood Count 6.6 K/mm3 (4.4-11.0)
[2022-04-06 07:19] LABS: Differential Indicated SCAN CRITERIA MET
[2022-04-06 07:27] LABS: Anisocytosis 1+
[2022-04-06 07:33] LABS: Anion Gap 1 (5-15); BUN 21 mg/dL (7-18); BUN/Creat Ratio 18.6 RATIO (10-20); Chloride 95 mmol/L (98-107); Creatinine, Serum 1.13 mg/dL (0.70-1.30); EST Glomerular Filtration Rate 77 mL/min (>60); Est Glom Filt Rate - Afr Amer 93 mL/min (>60); Estimated Creatinine Clearance 102.04 ml/min; Glucose 209 mg/dL (74-106); Potassium 4.7 mmol/L (3.5-5.1); Sodium Level 139 mmol/L (136-145)
[2022-04-06] MEDS: Doxycycline 100 MG CAPSULE PO (08:11)
[2022-04-06] MEDS: Cefdinir 300 MG Capsule PO (08:11)
[2022-04-06] MEDS: oxyCODONE 5 MG Tablet PO (08:11)
[2022-04-06 09:45] VITALS: RESP 20; O2SAT 95
--- NOTE | 2022-04-06 10:15 | CM.ED ---
Social Work Consult: Discharge Planning Referral source: Dr. Servin This social service liaison met with patient in room. Introduced self and social service liaison role. Patient reports concerns on returning to home as I don't want my parents to have to help me. Dr. Servin was able to obtain therapy notes from yesterday when patient was at [facility], patient was supervision for all mobility and ambulated 15x2 with no device. Nursing reports that patient got up out of bed today and used the bedside commode with no assistance. This social service liaison communicating concerns that patient insurance would not qualify for patient to transition to a fpc and per Dr. Servin patient does not meet medical criteria for admission to the hospital. Patient reports to believe I just needs a few days to get the fluid off. Patient hopeful that if patient takes medications as prescribed that patient will be able to be more independent in a few days. This social service liaison provided support and active listening. Patient reports to have a bedside commode at home and to be able to care for self outside of whipping my butt. Patient able to self identify that patient might only need the extra help for a few days and that patient is able to be okay with this currently. Patient states to feel safe at home and to have transportation to home today. Patient has home oxygen already set up in the home and all needed DME. Patient is agreeable to returning to home and returning if medical condition worsens. No further services requested or indicated. Jil ROSADO, RAYMUNDO
[2022-04-06 10:46] VITALS: BP 184/98; PULSE 109; RESP 20; O2SAT 95
== END 2022-04-06 10:55 | disposition home or self-care (01) ==
PROVIDERS: Emergency Provider Emergency Medicine; PCP Family Medicine; Visit Provider Emergency Medicine
DX: N50.89 Other specified disorders of the male genital organs (principal); E66.01 Morbid (severe) obesity due to excess calories; E11.9 Type 2 diabetes mellitus without complications; G47.30 Sleep apnea, unspecified; J18.9 Pneumonia, unspecified organism; R60.0 Localized edema; Z87.891 Personal history of nicotine dependence; I10 Essential (primary) hypertension; J90 Pleural effusion, not elsewhere classified; E78.5 Hyperlipidemia, unspecified
CPT/HCPCS: 80048; 85025; 96374; 99285; A4216; J1940

== ENCOUNTER 2022-04-13 11:22 | Emergency (ER) | payer MEDICAID, SELFPAY ==
[2022-04-13] VITALS (38 sets, daily range): BP systolic 49–222; BP diastolic 22–164; PULSE 85–145; RESP 12–32; TEMP 35.4; O2SAT 82–100; BMI 70.4
--- NOTE | 2022-04-13 11:42 | EKG12_ITS ---
Test Reason : Blood Pressure : / mmHG Vent. Rate : 106 BPM Atrial Rate : 106 BPM P-R Int : 180 ms QRS Dur : 080 ms QT Int : 306 ms P-R-T Axes : 053 069 016 degrees QTc Int : 406 ms Sinus tachycardia Low voltage QRS Septal infarct , age undetermined Abnormal ECG Confirmed by ORESTES CRAVEN, HIMANSHU ([id number]), social media editor TERESA WALDROP ([id number]) on 04/17/2022 10:33:38 AM Referred By: TIARA Confirmed By:HIMANSHU CARLISLE MD
--- NOTE | 2022-04-13 11:43 | EDS_ITS ---
HPI History of Present Illness Chief Complaint: Male Pain/Injury Detail of Chief Complaint: Chest pain, shortness of breath, testicular pain Informant: patient Narrative Narrative: Patient presents the emergency department from home with multiple complaints. Patient tells me that he was just admitted [facility] a week ago and diagnosed with pneumonia. Patient finished his antibiotics yesterday. Patient's been having pain in his chest for last for 5 days. He complains of exertional dyspnea. He is on 4-1/2 L of O2 at home. Patient coughing but not much, not. He denies fevers. Patient also with chronic testicle swelling and pain. Patient too weak to walk at home and his mother unable to care for patient at home. Patient weighs almost 500 pounds. Prior similar symptoms: Yes PFSH PFSH Medical History (Updated 04/13/22 @ 16:[address] Nick Nicole, DO) Chronic asthma Diabetes Essential hypertension Former smoker (~04/06/22) Hemoglobin A1C greater than 9%, indicating poor diabetic control History of sinus bradycardia Hyperlipidemia Long-term insulin use Morbid obesity Morbid obesity with BMI of 50.0-59.9, adult Scrotal edema Sleep apnea Home Medications albuterol sulfate 90 mcg/actuation aerosol inhaler (Ventolin HFA) 1 - 2 puff inhalation Q4H PRN PRN Sob &/Or Wheezing 07/08/18 [History Last Taken 04/12/22] lisinopril 40 mg tablet 40 mg PO DAILY 05/18/21 [History Last Taken 04/12/22] True Metrix Glucose Meter (blood-glucose meter) #1 ea 07/04/21 [Rx Last Taken Unknown] lancets (Unilet ComforTouch Lancet) #100 ea 07/04/21 [Rx Last Taken Unknown] True Metrix Glucose Test Strip (blood sugar diagnostic) #100 ea 01/02/22 [Rx Last Taken Unknown] insulin degludec 200 unit/mL (3 mL) subcutaneous pen (Tresiba FlexTouch U-200 insulin) 74 unit subcut QHS 02/23/22 [History Last Taken 04/12/22] insulin lispro 100 unit/mL subcutaneous pen 55 unit subcut TID 02/23/22 [History Last Taken 04/12/22] furosemide 40 mg tablet (Lasix) 40 mg PO DAILY #30 tabs 04/06/22 [Rx Last Taken 04/13/22] Allergy/AdvReac Type Severity Reaction Status Date / Time grass pollen Allergy Other Verified 04/13/22 11:24 metformin AdvReac Severe diarrhea Verified 04/13/22 11:24 Family History Mother Hypertension Diabetes Father Hypertension Surgical History S/P urological surgery Social History household members: none Smoking Status: Former smoker how long ago did patient quit smokin, 3p/day second hand exposure: Yes alcohol intake: former substance use type: marijuana additional social history: Does Not Take Aspirin Does Not Take Ibuprofen ROS ROS ED Review of Systems ROS Unobtainable: other Constitutional Constitutional ED: Reports lethargy; Denies chills, fever(s), sweats or weight loss Eyes Eyes: Denies blurry vision, change in vision or diplopia ENT ENT ED: Denies rhinorrhea or sore throat Cardiovascular Cardiovascular: Reports chest pain; Denies orthopnea or racing heartbeat Respiratory/Chest Respiratory/Chest: Reports cough, dyspnea and dyspnea on exertion; Denies orthopnea or sputum Gastrointestinal Gastrointestinal: Denies abdominal pain, diarrhea, nausea or vomiting Genitourinary Genitourinary ED: Denies dysuria, hematuria or urinary frequency Musculoskeletal Musculoskeletal: Denies arthralgias, back pain, myalgias or neck pain Integumentary Denies abscess, Abrasions or rash Neurologic Neurologic: Denies headache(s) or weakness Psychiatric Psychiatric: Denies anxiety, depression or suicidal thoughts Endocrine Endocrinology: Denies polydipsia, polyphagia or polyuria Hematologic/Lymphatic Hematologic/Lymphatic: Denies easy bleeding, easy bruising or lymphadenopathy Allergic/Immunologic Allergic/Immunologic ED: Denies mouth swelling, tongue swelling or urticaria EXAM Physical Exam Narrative Exam Narrative: Patient morbidly obese Const Vital Signs: 04/13/22 11:25 04/13/22 13:24 04/13/22 13:49 Temperature 95.8 F L Temperature Source Temporal Pulse Rate 107 H 105 H 96 Pulse Rate [2] Pulse Rate [4] Pulse Rate [7] Respiratory Rate 26 H 32 H 20 H Respiratory Pattern Normal Blood Pressure 123/87 H 136/80 H Blood Pressure [2] Blood Pressure Mean 99 98 Pulse Ox 99 88 Oxygen Delivery Method Non-Rebreather Nasal Cannula Oxygen Flow Rate (L/min) 6 04/13/22 15:00 04/13/22 15:01 04/13/22 15:37 Temperature Temperature Source Pulse Rate 118 H Pulse Rate [2] 118 H Pulse Rate [4] 100 Pulse Rate [7] 125 H Respiratory Rate 19 H Respiratory Pattern Blood Pressure 115/70 Blood Pressure [2] 222/121 H Blood Pressure Mean 85 Pulse Ox 82 96 Oxygen Delivery Method Nasal Cannula Non-Rebreather Oxygen Flow Rate (L/min) 6 04/13/22 15:49 04/13/22 15:49 04/13/22 15:58 Temperature Temperature Source Pulse Rate 124 H 119 H Pulse Rate [2] Pulse Rate [4] Pulse Rate [7] Respiratory Rate 20 H 18 Respiratory Pattern Blood Pressure 203/164 H 96/66 Blood Pressure [2] Blood Pressure Mean 177 76 Pulse Ox 99 93 Oxygen Delivery Method Mechanical Ventilator Mechanical Ventilator Mechanical Ventilator Oxygen Flow Rate (L/min) 04/13/22 16:06 04/13/22 16:14 04/13/22 16:38 Temperature Temperature Source Pulse Rate 112 H 112 H 123 H Pulse Rate [2] Pulse Rate [4] Pulse Rate [7] Respiratory Rate 18 16 20 H Respiratory Pattern Blood Pressure 90/49 L 78/44 L 160/109 H Blood Pressure [2] Blood Pressure Mean 62 55 126 Pulse Ox 100 100 94 Oxygen Delivery Method Mechanical Ventilator Mechanical Ventilator Mechanical Ventilator Oxygen Flow Rate (L/min) 04/13/22 15:33 Temperature Temperature Source Pulse Rate 122 H Pulse Rate [2] Pulse Rate [4] Pulse Rate [7] Respiratory Rate 20 H Respiratory Pattern Tachypnea Blood Pressure Blood Pressure [2] Blood Pressure Mean Pulse Ox 95 Oxygen Delivery Method Oxygen Flow Rate (L/min) Positive well nourished and well developed General Appearance ED: well developed and NAD HEENT Reports TM's clear and moist mucous membranes normocephalic and atraumatic; Negative for trauma or tenderness Tympanic Membrane ED: Yes TM's clear Eyes PERRL and EOMs intact bilaterally General Eye ED: Negative for pale conjunctiva or scleral icterus Neck no lymphadenopathy, supple and no JVD General: Negative for tenderness Chest Wall inspection of chest normal and palpation of chest normal Chest: Negative for tenderness Resp normal respiratory effort and clear to auscultation bilaterally Resp Narrative: Few rales in bases. Mild tachypnea. No excess or muscle use or retractions. Effort and Inspection: Negative for respiratory distress or pain with movement Auscultation: rales and rhonchi; Negative for wheezes or diminished lung sounds Cardio regular rate, regular rhythm, S1 normal heart sound, S2 normal heart sound and no murmurs Rate: tachycardic Peripheral Pulses: pulses 2+ throughout GI normal to inspection, nondistended, normoactive bowel sounds, soft to palpation, non-tender, non-distended and no masses Narrative: Patient has severe scrotal edema with faint erythema throughout. No abscesses noted. No evidence of Gial's gangrene. Back/Spine no CVA tenderness and no thoracic nor lumbar tenderness Extremity normal to inspection Extremity Narrative: Diffuse lymphedema both lower extremities. General Extremety ED: Yes edema General Extremity: edema Neuro oriented x3, CN's II-XII intact bilaterally, no sensory deficits noted and gait normal Sensorium / Orientation: awake, alert, oriented to person, oriented to place and oriented to time Motor Exam: strength 5/5 throughout and strength abnormal Psych mental status grossly normal Skin no rashes or lesions noted and no wounds MDM MDM MDM Narrative Medical decision making narrative: Line established on arrival. Patient placed on monitoring manager. In the differential was pneumonia versus CHF versus acute coronary syndrome versus PE. Patient had an EKG on arrival showed a sinus tachycardia with a ventricular rate of 106 bpm with old septal infarct and nonspecific ST changes. Lab work-up showed a white count of 10.7, hemoglobin of 12 and a hematocrit of 42. Chemistries unremarkable. Troponin was elevated 942. D-dimer was elevated 2.2. Patient had a CT of the chest as was negative for PE but did show bilateral effusions. His BNP was elevated over 500. Case discussed with cardiology on- call Dr. Anderson and he recommended we start patient on heparin drip. Patient was also given Lasix 80 mg IV. I spoke with hospitalist who also discussed case with hot air furnace installer and repairer and at this time is recommending transfer given that the heart cath table will only hold up to 500 pounds of weight and patient exceeds this. Patient does not want a go back to [facility] and I attempted to contact [facility] and they do not have beds available. Patient agreed to go to [facility] and I did discuss case with their ICU doctor who accepted transfer of patient. While awaiting transfer to [facility] patient had a cardiac respiratory arrest. Difficult airway team was called as patient has large body habitus and I anticipated a difficult intubation. Patient was bagged and O2 sats in the 80s with bagging. He was given etomidate 20 m IV as well 200 mg succinylcholine IV. Initial intubation went into the esophagus and patient aspirated large amount of liquid. The tube was removed. Patient was suctioned. Second attempt at intubation was successful with a 7.5 ET tube. Patient subsequently had a cardiac arrest and lost pulse. CPR was started and patient was given epinephrine 1 mg IV x2. Patient also given 1 amp of sodium bicarb with resolution of his pulse and blood pressure. Chest x-ray obtained showed good placement of the ET tube and patient had an OG tube placed. Patient was given 2 mg of Versed for sedation as he did start open his eyes and would follow some commands. Patient arrested a second time and will receive another milligram of epi and CPR was started again. Patient did have return of spontaneous circulation and was started on epi drip. Patient awaiting transfer to [facility]. Care of patient turned over to evening physician awaiting transfer of patient. Lab Data Labs: Laboratory Results - last 24 hr 04/13/22 04/13/22 04/13/22 11:47 11:47 11:47 WBC 10.7 RBC 4.45 L Hgb 11.8 L Hct 42.3 MCV 95.1 H MCH 26.5 L MCHC 27.9 L RDW Std Deviation 58.4 H RDW Coeff of Ryan 16.9 H Plt Count 229 MPV 10.6 Immature Gran % (Auto) 0.600 Neut % (Auto) 80.1 H Lymph % (Auto) 9.0 L [place] % (Auto) 9.3 Eos % (Auto) 0.6 Baso % (Auto) 0.4 Absolute Neuts (auto) 8.6 H Absolute Lymphs (auto) 0.96 Nucleated RBC % 0 PT INR APTT D-Dimer Quant (PE/DVT) 2.20 H* Sodium 133 L Potassium 5.6 H Chloride 90 L Carbon Dioxide 41.0 H Anion Gap 2 L BUN 32 H Creatinine 2.36 H Estim Creat Clear Calc 48.86 Est GFR (MDRD) Af Amer 40 L Est GFR (MDRD) Non-Af 33 L BUN/Creatinine Ratio 13.6 Glucose 289 H Calcium 9.0 Troponin I High Sens 942 H* B-Natriuretic Peptide POC Glucose 04/13/22 04/13/22 04/13/22 11:47 11:47 14:22 WBC RBC Hgb Hct MCV MCH MCHC RDW Std Deviation RDW Coeff of Ryan Plt Count MPV Immature Gran % (Auto) Neut % (Auto) Lymph % (Auto) [place] % (Auto) Eos % (Auto) Baso % (Auto) Absolute Neuts (auto) Absolute Lymphs (auto) Nucleated RBC % PT 15.7 H INR 1.3 APTT 36.7 H D-Dimer Quant (PE/DVT) Sodium Potassium Chloride Carbon Dioxide Anion Gap BUN Creatinine Estim Creat Clear Calc Est GFR (MDRD) Af Amer Est GFR (MDRD) Non-Af BUN/Creatinine Ratio Glucose Calcium Troponin I High Sens 1149 H* B-Natriuretic Peptide 503.7 H POC Glucose 04/13/22 15:22 WBC RBC Hgb Hct MCV MCH MCHC RDW Std Deviation RDW Coeff of Ryan Plt Count MPV Immature Gran % (Auto) Neut % (Auto) Lymph % (Auto) [place] % (Auto) Eos % (Auto) Baso % (Auto) Absolute Neuts (auto) Absolute Lymphs (auto) Nucleated RBC % PT INR APTT D-Dimer Quant (PE/DVT) Sodium Potassium Chloride Carbon Dioxide Anion Gap BUN Creatinine Estim Creat Clear Calc Est GFR (MDRD) Af Amer Est GFR (MDRD) Non-Af BUN/Creatinine Ratio Glucose Calcium Troponin I High Sens B-Natriuretic Peptide POC Glucose 211 H ABG Data ABG results: ABG 04/13/22 16:16 Specimen Type ART Sample Site L Brach pH 7.21 L Bicarbonate Actual 43.3 H Total CO2 47 Base Excess 16 H O2 Saturation 96 O2 % 100 ABG pCO2 107.3 H* ABG pO2 104 H Chucky Test Positive Respiration Rate 18 O2 Delivery Device Adult Vent Vent Mode AC/PC POC PEEP 5 Crit Call To/Read Back Yes Blood Gas Notified Whom denisha Radiography Diagnostic Testing: Clinical Impression(s) from Imaging Studies Chest X-Ray 04/13/22 12:00 IMPRESSION: Thyromegaly. CHF. Small left pleural effusion with left basilar atelectasis and/or infiltrate. Mild increased markings at the right lung base. Electronically Signed: Celso Gray MD at 12:24 EST , Chest CTA 04/13/22 12:22 IMPRESSION: Bilateral pleural effusions Electronically Signed: Celso Gray MD at 13:52 EST , Critical Care Time Critical care time (excluding procedures): 30-74 minutes, Discussing w/Patient &/or Family/Porter Sample Case, Discussing w/Consultants, Arranging Admission or Transfer, Performing Direct Patient Care at Bedside and - (60 minutes) Discharge Plan Triage Chief Complaint: Male Pain/Injury ED Provider: Nick Nicole Dx/Rx/DC Orders Clinical Impression: Non-ST elevated myocardial infarction (non-STEMI), CHF (congestive heart failure), Respiratory arrest, Cardiac arrest, Aspiration into airway Prescriptions: No Action lisinopril 40 mg tablet 40 mg PO DAILY (DME) blood-glucose meter [True Metrix Glucose Meter] Misc See Rx Instructions .ROUTE .MEDSUPPLY Qty: 1 0RF Rx Instructions: As directed (DME) lancets [Unilet ComforTouch Lancet] Misc See Rx Instructions .ROUTE .MEDSUPPLY Qty: 100 7RF Rx Instructions: tid albuterol sulfate [Ventolin HFA] 108 HFA aerosol inhaler 1 - 2 puff inhalation Q4H PRN PRN (Reason: Sob &/Or Wheezing) insulin lispro 100 unit/mL insulin pen 55 unit subcut TID Rx Instructions: +SS: 200-249+5; 250-299+10; >300+15 insulin degludec [Tresiba FlexTouch U-200] 200 unit/mL (3 mL) insulin pen 74 unit subcut QHS furosemide [Lasix] 40 mg tablet 40 mg PO DAILY Qty: 30 0RF (DME) True Metrix Glucose Test Strip Strip See Rx Instructions .ROUTE .MEDSUPPLY Qty: 100 3RF Rx Instructions: 3x/day Primary Care Provider: Kennedy Fernandes Referrals: Kennedy Fernandes MD [Primary Care Provider] - Disposition Disposition: DC/Tx to Another Type of HCF
--- NOTE | 2022-04-13 12:00 | RAD_ITS ---
STUDY: X-RAY CHEST REASON FOR EXAM: Male, 37 years old. Dyspnea TECHNIQUE: Single AP portable view of the chest. COMPARISON: Comparison is made with prior study dated 03/25/2022. FINDINGS: EKG electrodes are seen. Mesenteric congestion and mild CHF. Left pleural effusion with left basilar infiltration and/or atelectasis. Mild increased markings at the right lung base suggestive of atelectasis. There is moderate cardiac enlargement. Normal mediastinum and fariba. Normal visualized pulmonary arteries. Normal visualized aortic arch and descending thoracic aorta. Normal visualized thoracic spine. Normal visualized ribs, clavicles, and shoulders. There is no demonstrated abnormality of the visualized soft tissue structures of the upper abdomen. RAD/Chest 1 View (Portable) IMPRESSION: Thyromegaly. CHF. Small left pleural effusion with left basilar atelectasis and/or infiltrate. Mild increased markings at the right lung base. Electronically Signed: Celso Gray MD at 12:24 EST ,
[2022-04-13 12:07] LABS: Absolute Lymphocyte Count 0.96 X10^3/uL (0.83-4.51); Absolute Neutrophil Count 8.6 X10^3/uL (2.0-7.7); Basophil# 0.04 X10^3/uL; Basophil% 0.4 % (0-1); Eosinophil# 0.06 X10^3/uL; Eosinophils% 0.6 % (0-5); Hematocrit 42.3 % (40-54); Hemoglobin 11.8 g/dL (13.0-16.5); Lymphocyte # 0.96 X10^3/ul (0.83-4.51); Mean Corp Hgb Conc 27.9 g/dL (32-36); Mean Corpuscular Hgb 26.5 pg (27.0-32.0); Mean Corpuscular Volume 95.1 fL (80-94); Mean Platelet Vol. 10.6 fl (6.2-12.0); Monocyte# 0.99 X10^3/uL; Monocyte% 9.3 % (0-10); NRBC Flagged by Analyzer 0 % (0-5); Neutrophil # 8.57 X10^3/uL (2.7-7.7); Neutrophil % 80.1 % (47-70); Platelet Count 229 K/mm3 (150-450); RBC Distribution Width CV 16.9 % (11.6-14.6); RBC Distribution Width SD 58.4 fl (35.1-43.9); Red Blood Count 4.45 M/mm3 (4.6-6.2); White Blood Count 10.7 K/mm3 (4.4-11.0)
--- NOTE | 2022-04-13 12:22 | CT_ITS ---
STUDY: CTA CHEST REASON FOR EXAM: Male, 37 years old. Left greater than right with bibasilar atelectasis and/or infiltrate worse at the left lung base. No evidence of pulmonary embolism. Pain, dyspnea, elevated d-dimer RADIATION DOSAGE (If Supplied By Facility): CTDIvol = ( 28.2 ) mGy, DLP = ( 780.9 ) mGycm TECHNIQUE: The examination was performed with the intravenous administration of IV 100mL Isovue-370. Post-processing of the angiographic images was performed, with multiplanar reformation and 3D reconstruction. Individualized dose optimization techniques were used for this CT. COMPARISON: Comparison is made with prior chest radiograph done earlier in the day. FINDINGS: Normal enhancement of the main pulmonary artery and right and left pulmonary arteries. Normal enhancement of the bilateral peripheral pulmonary arteries. There is no demonstrated pulmonary embolism. Normal thoracic aorta and visualized great vessels. There is no demonstrated aortic dissection. Normal heart and pericardium. There are visualized mediastinal lymph nodes, which are within normal size limits, and with normal morphology. Normal hilar regions. Normal visualized trachea and bronchi. The lungs are well expanded. Bilateral pleural effusions left greater than right with bibasilar infiltrates and/or atelectasis more prominent at the left lung base. Increased markings are also seen in the left upper lobe. Normal chest wall structures. There are degenerative changes of thoracic spine. Normal visualized upper abdomen. CT/CTA Chest W/WO Contrast IMPRESSION: Bilateral pleural effusions Electronically Signed: Celso Gray MD at 13:52 EST ,
[2022-04-13 12:28] LABS: Anion Gap 2 (5-15); BUN 32 mg/dL (7-18); BUN/Creat Ratio 13.6 RATIO (10-20); Chloride 90 mmol/L (98-107); Creatinine, Serum 2.36 mg/dL (0.70-1.30); EST Glomerular Filtration Rate 33 mL/min (>60); Est Glom Filt Rate - Afr Amer 40 mL/min (>60); Estimated Creatinine Clearance 48.86 ml/min; Glucose 289 mg/dL (74-106); Potassium 5.6 mmol/L (3.5-5.1); Sodium Level 133 mmol/L (136-145); Troponin-I HS 942 pg/mL (3.0-78.0)
[2022-04-13 12:42] LABS: BNP,B-Type NATRIURETIC PEPTIDE 503.7 pg/mL (0-100)
[2022-04-13] MEDS: Ipratropium/Albuterol Sulfate 3 ML AMPUL.NEB INHALATION (13:49)
--- NOTE | 2022-04-13 14:34 | NURSING ---
CALLED [facility]. THEY ARE ONLY TAKING TRAUMAS, STEMI AND STROKES
[2022-04-13 14:39] LABS: International Normalized Ratio 1.3; Prothrombin Time (Protime)PT. 15.7 SECONDS (11.7-14.9)
[2022-04-13 14:40] LABS: Partial Thromboplast Time 36.7 Seconds (24.1-36.2)
[2022-04-13] MEDS: Furosemide 100 MG/10 ML Vial 80 MG IV (14:40)
[2022-04-13] MEDS: Morphine 4 MG/ML Syringe IV (14:40)
[2022-04-13] MEDS: Ondansetron 4 MG/2 ML Vial IV (14:40)
--- NOTE | 2022-04-13 14:44 | NURSING ---
CALLED [facility], TALKED TO ELENA, SHE IS TALKING TO DR CR
[2022-04-13 14:50] LABS: Troponin-I HS 1149 pg/mL (3.0-78.0)
[2022-04-13] MEDS: Heparin Injection (Vial) 5,000 UNIT/ML VIAL 15000 UNIT IV (14:52)
[2022-04-13] MEDS: HEPARIN/D5w 25,000 UNITS 25,000 UNITS/250 ML IV.SOLN. 22 UNITS CONT INF (14:53)
--- NOTE | 2022-04-13 15:15 | ED.RN ---
Pt pulse ox reading 85% on monitor. Nurse into room promptly. Pt unresponsive. Pt on 15L NR. Staff assist button hit. Dr. Nicole into room. Pt being bagged by respiratory and moved to RM 2.
[2022-04-13 15:40] LABS: Bedside Glucose 211 mg/dL (74-106)
--- NOTE | 2022-04-13 15:43 | RAD_ITS ---
STUDY: X-RAY CHEST REASON FOR EXAM: Male, 37 years old. CHEST PAIN NG OG ET tube placement TECHNIQUE: XR Chest 1 View COMPARISON: Study done earlier today. FINDINGS: Bilateral pleural effusions. There is no pneumothorax. There is an NGT and ET tube in place. There is moderate cardiac enlargement. Normal mediastinum and fariba. There is prominence of the pulmonary hilar arteries and peripheral pulmonary arteries, consistent with congestive heart failure (CHF). Normal visualized aortic arch and descending thoracic aorta. Normal visualized thoracic spine. Normal visualized ribs, clavicles, and shoulders. There is no demonstrated abnormality of the visualized soft tissue structures of the upper abdomen. RAD/Chest 1 View (Portable) IMPRESSION: There has been no change in the appearance of the chest since the prior study. Electronically Signed: Nicholas Whitley MD at 16:57 EST ,
--- NOTE | 2022-04-13 15:56 | ED.RN ---
1528: 20mg Etomidate given per VO Dr. Jefferson 1529: 200mg succinylcholine given per VO Dr. Jefferson.
--- NOTE | 2022-04-13 16:03 | EKG12_ITS ---
Test Reason : Blood Pressure : / mmHG Vent. Rate : 121 BPM Atrial Rate : 121 BPM P-R Int : 184 ms QRS Dur : 090 ms QT Int : 304 ms P-R-T Axes : 043 077 001 degrees QTc Int : 431 ms Sinus tachycardia Low voltage QRS Septal infarct , age undetermined Abnormal ECG Confirmed by ORESTES CRAVEN, HIMANSHU ([id number]), editor & co founder TERESA WALDROP ([id number]) on 04/17/2022 10:34:33 AM Referred By: GERARD Confirmed By:HIMANSHU CARLISLE MD
[2022-04-13] MEDS: Midazolam 5 MG/ML Syringe 2 MG IV (16:19)
[2022-04-13 16:26] LABS: Allen Test Positive; Base Excess 16 mmol/L (-2 to +2); Bicarbonate 43.3 mmol/L (22-26); Blood Gas Specimen Type ART; FI02 100; Mode AC/PC; O2 Delivery Device Adult Vent; PEEP 5; PO2 104 mmHG (75-100); RR 18; SITE L Brach; SO2 96 % (95-99); Total Carbon Dioxide 47 mmol/L; pCO2 107.3 mmHg (35-45); pH 7.21 (7.35-7.45)
[2022-04-13] MEDS: fentaNYL 100 MCG/2 ML Ampul 50 MCG IV (16:58)
--- NOTE | 2022-04-13 17:00 | CM.ED ---
Social Work Emergency Department Responded to CODE BLUE in the emergency department. Patient's Rosalba present in the department at patient's bedside. Emotional support and encouragement provided throughout stay. Answered questions as able. Rosalba did share family dynamic occurring recently, to which this sheet writer provided supportive listening. Patient's mother Abbie and other families arrived to the department as well. Hospital procurement officer present and providing close support with social work to the family. During time social work present, plan was to work on transferring patient to tertiary care facility though patient remained in critical condition. -RAYMUNDO Garcia, CONSUMER [employer]LECT[employer] MERCHANDISER *This note was generated with [employer] dictation software. It may contain incorrect words, spelling, and punctuation that were not noted in review of the chart prior to signing*
--- NOTE | 2022-04-13 17:32 | CHAPLAIN ---
Type of Pastoral Visit ___ Initial Visit ___ Follow-up Visit ___ On-call Visit ___ General Patient Visit ___ Spiritual Assessment ___ Family Conference ___ Bereavement ___ Rapid Response _x__ Code Blue ___ Other (describe below) Pastoral Care Referral From ___ Patient ___ Family ___ Nurse ___ Physician ___ Optoelectronics Engineer ___ Clay Stain Mixer _x__ Other (describe below) Sacrament/Intervention _x__ Active listening ___ Anointing ___ Anabaptist ___ Bereavement ___ Communion ___ Ana Luisa exploration ___ ___ Life review _x__ Prayer ___ Reconciliation ___ Sacrament of Sick _x__ Supportive presence ___ Wedding ___ Other (describe below) Pastoral Comments responded to kalina randall in ED; supportive presence to team; spouse came into ED and escorted by this floating operator to meet DR and into room to be with pt; patient was revived; presence with spouse and prayer; kalina randall was again called for this patient; supportive presence, listening, and then escorted more family members including parents and sisters of the patient to the ED and room; pt was revived and family members transitioned in and out of room; offer of prayer again received; ongoing support along with SW; pt was stabilized and waiting for transport to another facility;
[2022-04-13] MEDS: Norepinephrine 8 mg/250 mL 0.9% NS 9.4 MG CONT INF (18:39)
--- NOTE | 2022-04-13 19:22 | ED.RN ---
1900: Patient transferred to transport crew's manager cardiac cath and IV pump. Patient placed on transport crew's ventilator, but placed back on hospital's vent.
--- NOTE | 2022-04-13 21:00 | ED.RN ---
sam sutherland and Dr. Real spoke with family regarding DNR status. no pulse felt at this time, family agreed to not continue CPR. and mother at bedside.
--- NOTE | 2022-04-13 21:02 | ED.RN ---
pure pak machine operator also at bedside with family.
--- NOTE | 2022-04-13 21:03 | ED.RN ---
Dr. Real confirmed time of at 2102.
[2022-04-14 09:46] LABS: Bedside Glucose 176 mg/dL (74-106)
[2022-04-14 09:46] LABS: Bedside Glucose 214 mg/dL (74-106)
== END 2022-04-13 23:11 ==
PROVIDERS: Emergency Provider Emergency Medicine; PCP Family Medicine; Visit Provider Emergency Medicine
DX: I21.4 Non-ST elevation (NSTEMI) myocardial infarction (principal); R09.2 Respiratory arrest; I11.0 Hypertensive heart disease with heart failure; I50.9 Heart failure, unspecified; E66.01 Morbid (severe) obesity due to excess calories; Z68.43 Body mass index [BMI] 50.0-59.9, adult; E11.9 Type 2 diabetes mellitus without complications; Z87.891 Personal history of nicotine dependence; G89.29 Other chronic pain; N50.89 Other specified disorders of the male genital organs; T17.998A Other foreign object in respiratory tract, part unspecified causing other injury, initial encounter; N50.819 Testicular pain, unspecified; E78.5 Hyperlipidemia, unspecified; R07.9 Chest pain, unspecified; Z66 Do not resuscitate; Z99.81 Dependence on supplemental oxygen
CPT/HCPCS: G0463; 31500; 31720; 36600; 71045; 71275; 80048; 82803; 82962; 83880; 84484; 85025; 85379; 85610; 85730; 87428; 92950; 93005; 94002; 94640; 96365; 96366; 96368; 96375; 99252; 99284; J7030; J7050; Q9967; A4216; J1940; J2405